=== PATIENT | female | born 1970 | race Two or more races ===

== ENCOUNTER 2017-03-05 08:00 | Outpatient (CLI) | payer MEDICAID, OTHER ==
[2017-03-05 14:21] LABS: BASOPHILS # (AUTO) 0.1 10^3/uL (0.0-0.1); BASOPHILS % (AUTO) 0.7 %; HCT - HEMATOCRIT 31.8 % (37.0-47.0); HGB - HEMOGLOBIN 10.3 g/dL (12.0-16.0); LYMPHOCYTES # (AUTO) 2.6 10^3/uL (1.5-3.5); LYMPHOCYTES % (AUTO) 37.7 %; MEAN CORPUSCULAR HEMOGLOBIN 21.7 pg (27.0-31.0); MEAN CORPUSCULAR HGB CONC 32.3 g/dL (32.0-36.0); MEAN CORPUSCULAR VOLUME 67.1 fL (81.0-99.0); MEAN PLATELET VOLUME 9.5 fL (7.9-10.8); MONOCYTES # (AUTO) 0.4 10^3/uL (0.0-1.0); MONOCYTES % (AUTO) 6.4 %; NEUTROPHILS # (AUTO) 3.8 10^3/uL (1.5-6.6); NEUTROPHILS % (AUTO) 55.2 %; NUCLEATED RED BLOOD CELLS AUTO 0.3 /100WBC; RED BLOOD COUNT 4.73 10^6/uL (4.20-5.40); RED CELL DISTRIBUTION WIDTH 15.4 % (12.0-15.0); UNCORRECTED WHITE BLOOD COUNT 6.9 x10^3/uL; WHITE BLOOD COUNT 6.9 x10^3/uL (4.8-10.8)
[2017-03-05 14:37] LABS: HEMOGLOBIN A1C 0.47 g/dL
[2017-03-05 14:48] LABS: ALBUMIN/GLOBULIN RATIO 1.2 (1.0-2.2); BILIRUBIN,TOTAL 0.9 mg/dL (0.2-1.0); BUN - BLOOD UREA NITROGEN 11 mg/dL (6-20); CALCIUM 8.9 mg/dL (8.5-10.3); CARBON DIOXIDE - CO2 25 mmol/L (21-32); CHLORIDE 103 mmol/L (101-111); CHOLESTEROL 172 mg/dL; CREATININE 0.6 mg/dL (0.4-1.0); GFR - MDRD 109 (>89); GLUCOSE 126 mg/dL (70-100); HDL CHOLESTEROL 43 mg/dL; PLATELET ESTIMATE, MANUAL NORMAL (130-450,000) (NORMAL); PLATELET MORPHOLOGY RARE GIANT PLATELETS (NORMAL); POTASSIUM 3.7 mmol/L (3.5-5.0); SODIUM 137 mmol/L (135-145); TOTAL PROTEIN 7.4 g/dL (6.7-8.2); TRIGLYCERIDES 210 mg/dL; VLDL CHOLESTEROL 42 mg/dL
[2017-03-05 14:49] LABS: WBC MORPHOLOGY (MULTIPLE) NORMAL APPEARANCE (NORMAL)
== END 2017-03-05 23:59 ==
LOC: LAB.N 08:00
PROVIDERS: ATTEND Family Medicine
DX: E11.9 Type 2 diabetes mellitus without complications (principal); E66.9 Obesity, unspecified; F41.1 Generalized anxiety disorder; Z51.81 Encounter for therapeutic drug level monitoring; Z79.899 Other long term (current) drug therapy
CPT/HCPCS: 36415; 80053; 80061; 83036; 84443; 85025

== ENCOUNTER 2017-05-30 10:14 | Outpatient (CLI) | payer MEDICAID ==
--- NOTE | 2017-06-03 17:30 | Mammography Report ---
DIGITAL SCREENING MAMMOGRAM: 05/30/2017 CLINICAL INDICATION: A 47-year-old with history of benign breast biopsy for screening. COMPARISON: Films from [place], [place] dated 07/24/2009, 11/11/2007, 04/16/2005. TECHNIQUE: Routine CC and MLO projections as well as bilateral laterally exaggerated craniocaudal views were obtained of the breasts. FINDINGS: The breasts demonstrate scattered fibroglandular densities bilaterally. Postbiopsy changes in the right upper outer posterior breast are stable. A few punctate, typically benign calcifications are present. No suspicious masses, clustered microcalcifications, or regions of architectural distortion are identified. IMPRESSION: BENIGN FINDINGS. RECOMMENDATION: Routine annual screening unless otherwise clinically indicated. BIRADS category 2 benign findings. STANDARD QUALIFYING STATEMENTS 1. This examination was reviewed with the aid of Computed-Aided Detection (CAD). 2. A negative or benign imaging report should not delay biopsy if clinically suspicious findings are present. Consider surgical consultation if warranted. More than 5% of cancers are not identified by imaging. 3. Dense breasts may obscure an underlying neoplasm. TD: 06/03/2017 17:29
== END 2017-05-30 10:15 | disposition home or self-care (01) ==
LOC: DI.N 10:14
PROVIDERS: ATTEND Nurse Practitioner Gerontology
DX: Z12.31 Encounter for screening mammogram for malignant neoplasm of breast (principal)
CPT/HCPCS: 77067

== ENCOUNTER 2017-06-18 13:19 | Outpatient (CLI) | payer MEDICAID ==
[2017-06-18 19:19] LABS: CALCIUM 9.1 mg/dL (8.5-10.3); CREATININE 0.5 mg/dL (0.4-1.0)
[2017-06-18 19:22] LABS: HB2 TOTAL 12.1 g/dL; HEMOGLOBIN A1C 0.7 g/dL; HEMOGLOBIN A1C % 7.4 % (4.6-6.2)
== END 2017-06-18 13:20 | disposition home or self-care (01) ==
LOC: LAB.N 13:19
PROVIDERS: ATTEND Family Medicine
DX: E11.9 Type 2 diabetes mellitus without complications (principal)
CPT/HCPCS: 36415; 80048; 83036

== ENCOUNTER 2017-09-13 11:16 | Emergency (ER) | payer OTHER, MEDICAID ==
[2017-09-13] MEDS ORDERED: TETANUS/DIPHTHERIA/PERTUSSIS 0.5 ML SYRINGE IM ONE (11:59)
--- NOTE | 2017-09-13 12:17 | ED Physician Documentation ---
History of Present Illness - Stated complaint Stated Complaint: FALL, FACIAL PAIN - Chief complaint Chief Complaint: Laceration - Additonal information Additional information: hx from pt slip and fall working at [employer] small lips lacs no LOC no DEXTER no neck pain no ext injury last tetanus > 10 yr wants to go back to work Review of Systems Ears: denies: Drainage/discharge Nose: denies: Epistaxis Throat: reports: Other (lip lac no broken teeth) Musculoskeletal: denies: Neck pain, Back pain Neurologic: reports: Head injury. 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 : None HEENT: None Psych: Depression, Anxiety Musculoskeletal: Osteoarthritis, Fatigue, Scoliosis, Chronic back pain Derm: None - Past Surgical History Past Surgical History: Yes General: 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 /DITCHING MACHINE OPERATOR: Other HEENT: Tonsil/Adenoidectomy - Present Medications Home Medications: Ambulatory Orders Medication Instructions Recorded Confirmed Cholecalciferol [Vitamin D3] 5,000 unit PO DAILY 07/10/16 07/10/16 Citalopram [CeleXA] 20 mg PO DAILY 07/10/16 07/10/16 Ferrous Sulfate 325 mg PO DAILY 07/10/16 07/10/16 Metformin HCl 500 mg PO DAILY 07/10/16 07/10/16 OLANZapine [Olanzapine] 5 mg PO DAILY 07/10/16 07/10/16 - Allergies Allergies/Adverse Reactions: Allergies Allergy/AdvReac Type Severity Reaction Status Date / Time Penicillins Allergy Intermediate Rash Verified 09/13/17 11:40 - Social History Does the pt smoke?: No Smoking Status: Never smoker Does the pt drink ETOH?: No Does the pt have substance abuse?: No - Immunizations Immunizations are current?: Yes Immunizations: TDAP >10years/unknown - POLST Patient has POLST: No PD ED PE NORMAL - Vitals Vital signs reviewed: Yes - HEENT HEENT: PERRL, Other (small inner upper and lower lip lacs, not through and through, no boken teeth nl bite) - Neck Neck: No bony TTP - Cardiac Cardiac: RRR - Respiratory Respiratory: No respiratory distress, Clear bilaterally - Neuro Neuro: Alert and oriented X 3 Eye Opening: Spontaneous Motor: Obeys Commands Verbal: Oriented GCS Score: 15 Results - Vitals Vitals: Vital Signs - 24 hr 09/13/17 11:18 Temperature 36.6 C Heart Rate 97 Respiratory 18 Rate Blood Pressure 139/90 H O2 Saturation 95 Oxygen O2 Source Room air PD MEDICAL DECISION MAKING - Sepsis Event Vital Signs: Vital Signs - 24 hr 09/13/17 11:18 Temperature 36.6 C Heart Rate 97 Respiratory 18 Rate Blood Pressure 139/90 H O2 Saturation 95 Oxygen O2 Source Room air Departure - Departure Disposition: 01 Home, Self Care Clinical Impression: Fall from slipping on wet surface Qualifiers: Encounter type: initial encounter Qualified Code(s): W01.0XXA - Fall on same level from slipping, tripping and stumbling without subsequent striking against object, initial encounter Lip laceration Qualifiers: Encounter type: initial encounter Qualified Code(s): S01.511A - Laceration without foreign body of lip, initial encounter Condition: Good Instructions: ED Laceration Mouth, ED Head Injury Closed Follow-Up: Osman Miller MD [Primary Care Provider] - Comments: Keep the wounds clean by swishing salt water or antibacterial mouthwash every few hours and after eating Please read over the head injury precautions and return if worse in any way
[2017-09-13] MEDS ORDERED: ACETAMINOPHEN 325 MG TABLET PO STA (12:26)
[2017-09-13 12:32] VITALS: BP 128/90
== END 2017-09-13 12:32 | disposition home or self-care (01) ==
LOC: ED 11:16
DX: S01.511A Laceration without foreign body of lip, initial encounter (principal); W01.0XXA Fall on same level from slipping, tripping and stumbling without subsequent striking against object, initial encounter; Y92.129 Unspecified place in nursing home as the place of occurrence of the external cause; Y99.0 Civilian activity done for income or pay; E11.9 Type 2 diabetes mellitus without complications; Z79.84 Long term (current) use of oral hypoglycemic drugs
CPT/HCPCS: 90471; 90715; 99282; 99283; A9270

== ENCOUNTER 2017-10-17 14:52 | Outpatient (CLI) | payer MEDICAID ==
[2017-10-17 19:44] LABS: CALCIUM 9.2 mg/dL (8.5-10.3); CREATININE 0.5 mg/dL (0.4-1.0)
[2017-10-17 20:04] LABS: HB2 TOTAL 10.9 g/dL; HEMOGLOBIN A1C 0.39 g/dL; HEMOGLOBIN A1C % 5.4 % (4.6-6.2)
== END 2017-10-17 14:53 | disposition home or self-care (01) ==
LOC: LAB.N 14:52
PROVIDERS: ATTEND Family Medicine
DX: E11.9 Type 2 diabetes mellitus without complications (principal)
CPT/HCPCS: 36415; 80048; 83036

== ENCOUNTER 2018-06-12 13:36 | Outpatient (CLI) | payer MEDICAID ==
--- NOTE | 2018-06-12 14:36 | Mammography Report ---
Reason: ENCNTR SCREEN MAMMOGRAM FOR MALIGNANT NEOPLASM OF Procedure Date: 06/12/2018 Accession Number: [id number] / [id number] Procedure: MGN - Screening Mammo Dig Bilat CPT Code: FULL RESULT: EXAM: Screening Mammo Dig Bilat DATE: 06/12/2018 2:02 PM CLINICAL HISTORY: Screening exam. Benign right breast biopsy approximately 15 years previously. No reported risk factors. TECHNIQUE: Bilateral CC, laterally exaggerated CC, MLO views were obtained. COMPARISON: 05/30/2017. FINDINGS: The breasts demonstrate diffuse fatty replacement bilaterally. Postbiopsy changes in the right upper outer posterior breast are stable. No suspicious masses, clustered microcalcifications, or regions of architectural distortion are identified. IMPRESSION: Benign findings RECOMMENDATION: Routine annual screening unless otherwise clinically indicated. BIRADS CATEGORY 2: Benign findings STANDARD QUALIFYING STATEMENTS: 1. This examination was reviewed with the aid of Computer-Aided Detection (CAD). 2. A negative or benign imaging report should not delay biopsy if clinically suspicious findings are present. Consider surgical consultation if warrented. More than 5% of cancers are not identified by imaging. 3. Dense breasts may obscure an underlying neoplasm.
== END 2018-06-12 13:37 | disposition home or self-care (01) ==
LOC: DI.N 13:36
PROVIDERS: ATTEND Nurse Practitioner Gerontology
DX: Z12.31 Encounter for screening mammogram for malignant neoplasm of breast (principal)
CPT/HCPCS: 77067

== ENCOUNTER 2018-10-05 08:00 | Outpatient (CLI) | payer MEDICAID ==
[2018-10-05 12:05] LABS: BASOPHILS # (AUTO) 0.1 10^3/uL (0.0-0.1); BASOPHILS % (AUTO) 1.2 %; EOSINOPHILS # (AUTO) 0.1 10^3/uL (0.0-0.7); EOSINOPHILS % (AUTO) 1.7 %; HGB - HEMOGLOBIN 9.6 g/dL (12.0-16.0); LYMPHOCYTES % (AUTO) 33.4 %; MEAN CORPUSCULAR HEMOGLOBIN 21.6 pg (27.0-31.0); MEAN CORPUSCULAR HGB CONC 31.9 g/dL (32.0-36.0); MEAN CORPUSCULAR VOLUME 67.8 fL (81.0-99.0); MONOCYTES # (AUTO) 0.3 10^3/uL (0.0-1.0); MONOCYTES % (AUTO) 5.5 %; NEUTROPHILS # (AUTO) 3.5 10^3/uL (1.5-6.6); NEUTROPHILS % (AUTO) 57.7 %; PLT - PLATELET COUNT 376 10^3/uL (130-450); RED BLOOD COUNT 4.44 10^6/uL (4.20-5.40)
[2018-10-05 12:37] LABS: HB2 TOTAL 10.5 g/dL; HEMOGLOBIN A1C 0.77 g/dL; HEMOGLOBIN A1C % 8.9 % (4.6-6.2)
[2018-10-05 12:39] LABS: BUN - BLOOD UREA NITROGEN 8 mg/dL (6-20); CARBON DIOXIDE - CO2 23 mmol/L (21-32); CHLORIDE 105 mmol/L (101-111); SODIUM 138 mmol/L (135-145)
[2018-10-05 12:40] LABS: ALBUMIN 3.9 g/dL (3.2-5.5); ALBUMIN/GLOBULIN RATIO 1.1 (1.0-2.2); ALKALINE PHOSPHATASE 68 IU/L (42-121); ALT ALANINE AMINOTRANSFERASE 14 IU/L (10-60); AST ASPARTATE AMINOTRANSFERASE 15 IU/L (10-42); BILIRUBIN,TOTAL 0.8 mg/dL (0.2-1.0); CALCIUM 8.9 mg/dL (8.5-10.3); CHOL/HDL RATIO 4.6 (<4.4); CHOLESTEROL 199 mg/dL; CREATININE 0.6 mg/dL (0.4-1.0); GFR - MDRD 108 (>89); GLUCOSE 243 mg/dL (70-100); HDL CHOLESTEROL 43 mg/dL; LDL CHOLESTEROL,CALCULATED 121 mg/dL; LDL/HDL RATIO 2.8 (<4.4); TOTAL PROTEIN 7.4 g/dL (6.7-8.2); VLDL CHOLESTEROL 35 mg/dL
[2018-10-05 13:36] LABS: PLATELET ESTIMATE, MANUAL NORMAL (130-450,000) (NORMAL); PLATELET MORPHOLOGY NORMAL APPEARANCE (NORMAL)
== END 2018-10-05 23:59 | disposition home or self-care (01) ==
LOC: LAB.N 08:00
PROVIDERS: ATTEND Nurse Practitioner Gerontology
DX: E11.9 Type 2 diabetes mellitus without complications (principal)
CPT/HCPCS: 36415; 80053; 80061; 83036; 83721; 85025

== ENCOUNTER 2019-04-30 08:00 | Outpatient (CLI) | payer MEDICAID ==
[2019-04-30 18:44] LABS: CREATININE 0.6 mg/dL (0.4-1.0)
[2019-04-30 18:57] LABS: HB2 TOTAL 11.5 g/dL; HEMOGLOBIN A1C 1.36 g/dL
== END 2019-04-30 23:59 | disposition home or self-care (01) ==
LOC: LAB.N 08:00
PROVIDERS: ATTEND Nurse Practitioner Gerontology
DX: E11.9 Type 2 diabetes mellitus without complications (principal)
CPT/HCPCS: 36415; 80048; 83036

== ENCOUNTER 2019-05-15 20:46 | Emergency (ER) | payer MEDICAID ==
[2019-05-15] MEDS ORDERED: INSULIN REGULAR HUMAN 100 UNIT/1 ML 10 ML MDV IVP STA ×2 (21:10→22:29)
[2019-05-15] MEDS ORDERED: SODIUM CHLORIDE 0.9% 1,000 ML IV ONE (21:10)
[2019-05-15 21:32] LABS: BASOPHILS # (AUTO) 0.1 10^3/uL (0.0-0.1); BASOPHILS % (AUTO) 0.8 %; EOSINOPHILS # (AUTO) 0.1 10^3/uL (0.0-0.7); EOSINOPHILS % (AUTO) 1.3 %; HGB - HEMOGLOBIN 10.9 g/dL (12.0-16.0); LYMPHOCYTES # (AUTO) 2.7 10^3/uL (1.5-3.5); MEAN CORPUSCULAR HEMOGLOBIN 20.1 pg (27.0-31.0); MEAN CORPUSCULAR HGB CONC 31.3 g/dL (32.0-36.0); MEAN CORPUSCULAR VOLUME 64.2 fL (81.0-99.0); MONOCYTES # (AUTO) 0.5 10^3/uL (0.0-1.0); MONOCYTES % (AUTO) 6.6 %; NEUTROPHILS # (AUTO) 4.5 10^3/uL (1.5-6.6); NEUTROPHILS % (AUTO) 56.8 %; PLT - PLATELET COUNT 311 10^3/uL (130-450); RED BLOOD COUNT 5.42 10^6/uL (4.20-5.40); RED CELL DISTRIBUTION WIDTH 14.1 % (12.0-15.0); WHITE BLOOD COUNT 7.8 x10^3/uL (4.8-10.8)
[2019-05-15 21:36] LABS: VBG BASE EXCESS -1.4 mmol/L (-2 - +2); VBG PCO2 30.5 mmHg (41-51); VBG PH 7.466 (7.31-7.41); VBG PO2 104.4 mmHg (25-47); VBG TOTAL CO2 22.4 mmol/L (24-29)
[2019-05-15 21:53] LABS: BUN - BLOOD UREA NITROGEN 15 mg/dL (6-20); CALCIUM 9.1 mg/dL (8.5-10.3); CARBON DIOXIDE - CO2 21 mmol/L (21-32); CHLORIDE 103 mmol/L (101-111); CREATININE 0.6 mg/dL (0.4-1.0); GFR - MDRD 107 (>89); GLUCOSE 406 mg/dL (70-100); SODIUM 135 mmol/L (135-145)
[2019-05-15 22:00] LABS: KETONES, SERUM (ACETEST) NEGATIVE (NEGATIVE)
[2019-05-15 22:06] LABS: PLATELET ESTIMATE, MANUAL NORMAL (130-450,000) (NORMAL); PLATELET MORPHOLOGY NORMAL APPEARANCE (NORMAL)
--- NOTE | 2019-05-15 22:32 | ED Physician Documentation ---
History of Present Illness - Stated complaint Stated Complaint: HIGH BLOOD SUGAR - Chief complaint Chief Complaint: General - History obtained from History obtained from: Patient - Additonal information Additional information: Patient comes emergency department complaining of elevated blood sugar for at least the last 2 weeks. She states she has had diabetes for the last 4 years, but does not know how high her blood sugars normally run, because she does not really check them. She states she knows she should eat less sugar. She states that she has been thirsty over the last couple weeks and has been urinating a lot, so she thinks her blood sugar is higher now than it usually has been. She denies any nausea or vomiting. No fevers. No chest pain or shortness of breath. No cough or rhinorrhea. No dysuria. Patient states she does not feel ill in any other way. She states she takes metformin 1000 mg twice daily, as well as 2 other diabetic medications orally, but she does not remember which medications these are. She states she does not take insulin. She states as far as other symptoms Thatshe has been noticing lately she seems to be somewhat forgetful. As an example, she left her car running today when she went to a restaurant instead of turning it off and taking the keys out. No other complaints at this time. Review of Systems Ten Systems: 10 systems reviewed and negative Constitutional: reports: Reviewed and negative Eyes: reports: Reviewed and negative Ears: reports: Reviewed and negative Nose: reports: Reviewed and negative Throat: reports: Reviewed and negative Cardiac: reports: Reviewed and negative Respiratory: reports: Reviewed and negative GI: reports: Reviewed and negative : reports: Frequency Skin: reports: Reviewed and negative Musculoskeletal: reports: Reviewed and negative Neurologic: reports: Confused Psychiatric: reports: Reviewed and negative Endocrine: reports: Reviewed and negative Immunocompromised: reports: Reviewed and negative PD PAST MEDICAL HISTORY - Past Medical History Past Medical History: Yes Cardiovascular: High cholesterol Respiratory: None Endocrine/Autoimmune: Type 2 diabetes GI: None 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 : None HEENT: None Psych: Depression, Anxiety Musculoskeletal: Osteoarthritis, Fatigue, Scoliosis, Chronic back pain Derm: None - Past Surgical History Past Surgical History: Yes General: 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 /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: Other HEENT: Tonsil/Adenoidectomy - Present Medications Home Medications: Ambulatory Orders Medication Instructions Recorded Confirmed Cholecalciferol [Vitamin D3] 5,000 unit PO DAILY 07/10/16 05/15/19 Metformin HCl 500 mg PO DAILY 07/10/16 05/15/19 OLANZapine [Olanzapine] 5 mg PO DAILY 07/10/16 05/15/19 Sertraline [Zoloft] 2 DAILY 05/15/19 - Allergies Allergies/Adverse Reactions: Allergies Allergy/AdvReac Type Severity Reaction Status Date / Time Penicillins Allergy Intermediate Rash Verified 09/13/17 11:40 - Social History Does the pt smoke?: No Smoking Status: Never smoker Does the pt drink ETOH?: No Does the pt have substance abuse?: No - Immunizations Immunizations are current?: Yes Immunizations: TDAP >10years/unknown - POLST Patient has POLST: No PD ED PE NORMAL - Vitals Vital signs reviewed: Yes - General General: Alert and oriented X 3, No acute distress, Other (Patient is alert and appropriate.) - HEENT HEENT: Atraumatic, PERRL, EOMI - Neck Neck: Supple, no meningeal sign - Cardiac Cardiac: RRR, No murmur - Respiratory Respiratory: Clear bilaterally - Abdomen Abdomen: Soft, Non tender, Non distended - Derm Derm: Normal color, Warm and dry, No rash - Extremities Extremities: No deformity - Neuro Neuro: Alert and oriented X 3, sign hanger 2-12 intact, No motor deficit, Normal speech - Psych Psych: Normal mood, Normal affect Results - Vitals Vitals: Vital Signs - 24 hr 05/15/19 05/15/19 05/15/19 20:50 21:33 23:00 Temperature 36.7 C 36.8 C Heart Rate 110 H 100 99 Respiratory 16 18 Rate Blood Pressure 135/88 H 119/89 H 119/87 H O2 Saturation 98 100 98 05/15/19 05/16/19 23:48 00:34 Temperature 36.8 C Heart Rate 98 88 Respiratory 14 16 Rate Blood Pressure 109/70 121/90 H O2 Saturation 98 100 Oxygen O2 Source Room air - Labs Labs: Laboratory Tests 05/15/19 05/15/19 05/15/19 20:07 20:07 20:07 WBC 7.8 RBC 5.42 H Hgb 10.9 L Hct 34.8 L MCV 64.2 L MCH 20.1 L MCHC 31.3 L RDW 14.1 Plt Count 311 MPV TNP Neut # (Auto) 4.5 Lymph # (Auto) 2.7 Taney # (Auto) 0.5 Eos # (Auto) 0.1 Baso # (Auto) 0.1 Absolute Nucleated RBC 0.00 Nucleated RBC % 0.0 Manual Slide Review Indicated Platelet Estimate NORMAL (130-450,000) Platelet Morphology NORMAL APPEARANCE RBC Morph Micro Appear 1+ HYPOCHROMASIA VBG pH 7.466 H VBG pCO2 30.5 L VBG pO2 104.4 H VBG HCO3 21.5 L VBG Total CO2 22.4 L VBG O2 Saturation 97.5 H VBG Base Excess -1.4 Sodium 135 Potassium 3.2 L Chloride 103 Carbon Dioxide 21 Anion Gap 11.0 BUN 15 Creatinine 0.6 Estimated GFR (MDRD) 107 Glucose 406 H POC Whole Bld Glucose Calcium 9.1 Serum Ketones NEGATIVE 05/15/19 05/15/19 05/15/19 21:02 22:44 23:09 WBC RBC Hgb Hct MCV MCH MCHC RDW Plt Count MPV Neut # (Auto) Lymph # (Auto) Taney # (Auto) Eos # (Auto) Baso # (Auto) Absolute Nucleated RBC Nucleated RBC % Manual Slide Review Platelet Estimate Platelet Morphology RBC Morph Micro Appear VBG pH VBG pCO2 VBG pO2 VBG HCO3 VBG Total CO2 VBG O2 Saturation VBG Base Excess Sodium Potassium Chloride Carbon Dioxide Anion Gap BUN Creatinine Estimated GFR (MDRD) Glucose POC Whole Bld Glucose 428 H 268 H 188 H Calcium Serum Ketones 05/16/19 00:26 WBC RBC Hgb Hct MCV MCH MCHC RDW Plt Count MPV Neut # (Auto) Lymph # (Auto) Taney # (Auto) Eos # (Auto) Baso # (Auto) Absolute Nucleated RBC Nucleated RBC % Manual Slide Review Platelet Estimate Platelet Morphology RBC Morph Micro Appear VBG pH VBG pCO2 VBG pO2 VBG HCO3 VBG Total CO2 VBG O2 Saturation VBG Base Excess Sodium Potassium Chloride Carbon Dioxide Anion Gap BUN Creatinine Estimated GFR (MDRD) Glucose POC Whole Bld Glucose 100 Calcium Serum Ketones PD MEDICAL DECISION MAKING - ED course Complexity details: reviewed old records, reviewed results, re-evaluated patient, considered differential, d/w patient ED course: Patient was evaluated initially with basic labs, which showed an elevated blood sugar of 408, and with ABG, which did not show acidosis. Serum ketones were negative. The patient was initially given 8 units of regular insulin IV, and repeat Accu-Chek was found to be higher than the initial blood sugar. As such, she was given a second IV dose of regular insulin at 10 units.Repeat blood sugar was found to be 276. Following this it was checked 1 more time and found to be 102 hours after the second dose of insulin. The patient reported feeling much better. However, given that her blood sugar was only 100, I did asked nursing staff to give her a snack here in the ED to make sure that her sugar did not drop too low over the course of the rest of the night.I felt the patient was stable for discharge home. I have increased her metformin, which is the only diabetic medication that she can confirm taking, to 1250 mg twice daily. This is maximum dosing for this medication, and I have advised the patient that it is very important that she keep her appointment with her primary care physician in 2 weeks to reevaluate her diabetic regimen. I have also advised the patient to be sure to check her blood sugars several times a day, including fasting and before and after meals, and keep track of the numbers so that she can show her primary care physician how her sugars have been doing on the new metformin dosing. We have discussed the usual indications for return, as well. Departure - Departure Disposition: 01 Home, Self Care Clinical Impression: Hyperglycemia, Poorly controlled diabetes mellitus Condition: Fair Instructions: Diabetes Type 2 Coping, ED Hyperglycemia Diabetic Comments: Your blood sugar is much better than it was when you first came here. The remainder of your labs actually look okay. It is very important that you monitor your blood sugars at home, and that you and your doctor are able to figure out a way to help you maintain better control of your sugars. If your sugars continue to run this high, you are at high risk for serious complications of your diabetes, such as kidney failure, neuropathy, high blood pressure, and heart disease. We will have you increase your metformin to 1250 mg twice daily, starting tomorrow. This is the maximum dose you can take for metformin. When you see your doctor on the , please talk to her about whether this is a good long-term plan. Since we do not know the other diabetic medications you are on, and this is the only one we can adjust at this time. Please be sure to keep careful track of your blood sugars throughout the day every day so that you can give your doctor some information on how your blood sugars have been doing on the new dosing. Discharge Date/Time: 05/16/19 00:45
[2019-05-16 00:35] VITALS: BP 121/90
== END 2019-05-16 00:45 | disposition home or self-care (01) ==
LOC: ED 20:46
DX: E11.65 Type 2 diabetes mellitus with hyperglycemia (principal); Z79.84 Long term (current) use of oral hypoglycemic drugs
CPT/HCPCS: 80048; 82009; 82803; 85025; 96360; 99283; 99284; J1815

== ENCOUNTER 2020-01-16 15:43 | Outpatient (CLI) | payer MEDICAID ==
--- NOTE | 2020-01-17 19:00 | Ultrasound Report ---
PROCEDURE: Pelvic w/Transvaginal INDICATIONS: ABN VAGINAL BLEEDING TECHNIQUE: Real-time scanning was performed of the pelvic organs, with image documentation. Additional endovagi nal scanning was necessary due to incomplete visualization of the adnexal and endometrial structures by transabdominal scanning. COMPARISON: None. FINDINGS: Transabdominal scanning: Limited scanning through the kidneys shows no hydronephrosis. No pathologi c free abdominal or pelvic fluid. Endovaginal scanning: Uterus: Uterus is normal in size at 11.0 x 4.3 x 5.7 cm. The endometrium measures 12 mm in combined thickness. Within the lower uterine segment-cervical junction there is mildly vascular, heterogeneo us cystic area measuring approximately 1.9 x 1.2 cm in transverse dimension. Within the left, anterior uterine fundus, there is a subserosal fibroid measuring 3.0 x 3.3 x 3.1 cm. There is a right anterior intramural fibroid measuring 1.2 x 0.9 x 1.1 cm. Ovaries: Right ovary measures 1.7 x 1.3 x 1.4 cm with ovarian volume of 1.5 mL. Left ovary measures 2.4 x 2.0 x 2.8 cm with ovarian volume of 6.8 mL. Small left ovarian complicated cyst measuring 1.3 c m noted. A second partially exophytic cyst measuring 1.2 x 0.9 x 1.1 cm also noted. This appears rela tively simple in sonographic appearance. No suspicious solid ovarian mass lesions. IMPRESSION: 1. There is a heterogeneous, somewhat cystic-appearing area involving the lower uterine segment and c ervical junction measuring approximately 1.9 cm in size and demonstrating minimal vascularity. This i s nonspecific and may represent a few clustered endometrial cysts. No suspicious endometrial mass or focal vascularity identified. Consider follow-up imaging in 6-12 weeks. 2. Intrauterine fibroids with a 3.3 cm subserosal left fundal fibroid and a 1.2 cm right anterior int ramural fibroid. Reviewed by: Randall Tineo MD on 01/17/2020 5:58 PM [facility] Approved by: Randall Tineo MD on 01/17/2020 5:58 PM [place] Station ID: [id number]
== END 2020-01-16 15:44 | disposition home or self-care (01) ==
LOC: DI 15:43
PROVIDERS: ATTEND Nurse Practitioner Family
DX: R93.89 Abnormal findings on diagnostic imaging of other specified body structures (principal); D25.2 Subserosal leiomyoma of uterus; D25.1 Intramural leiomyoma of uterus
CPT/HCPCS: 76830; 76856

== ENCOUNTER 2020-02-13 16:15 | Outpatient (CLI) | payer MEDICAID ==
--- NOTE | 2020-02-13 18:27 | Ultrasound Report ---
PROCEDURE: Pelvic w/Transvaginal INDICATIONS: ABN VAGINAL BLEEDING TECHNIQUE: Real-time scanning was performed of the pelvic organs, with image documentation. Additional endovagi nal scanning was necessary due to incomplete visualization of the adnexal and endometrial structures by transabdominal scanning. COMPARISON: 01/16/2020 FINDINGS: Transabdominal scanning: Limited scanning through the kidneys shows no hydronephrosis. No pathologi c free abdominal or pelvic fluid. Endovaginal scanning: Uterus: Uterus is anteverted and measures 10.0 x 4.2 x 5.3 cm. Within the right uterine fundus is a heterogeneous hypoechoic intramural fibroid measuring 1.1 x 0.9 x 1.0 cm. Large subserosal fibroid me asuring 3.6 x 2.5 x 2.9 cm with large cystic component is again identified likely representing degene ration. The endometrium within the body and fundus measures up to 5 mm in thickness. At the uterine c ervical junction there is focal thickening of the endometrium measuring up to 14 mm in thickness with multiple cysts. This is similar to comparison exam. There is mild internal vascularity. Ovaries: The right ovary measures 2.2 x 1.4 x 1.7 cm. The left ovary measures 3.9 x 2.7 x 2.4 cm. Wi thin the right ovary there is a simple cyst measuring 9 mm in greatest diameter. Within the left ovar y is a partially exophytic 2.0 x 3.1 x 2.3 cm simple cyst. IMPRESSION: Similar appearance of focal heterogeneous thickening with small cysts of the endometrium at the uteri ne cervical junction measuring 1.4 cm in thickness. This is not significantly changed from comparison . Consider sampling to exclude malignancy. Fibroid uterus. Reviewed by: Dash Ambrose DO on 02/13/2020 5:26 PM [facility] Approved by: Dash Ambrose DO on 02/13/2020 5:26 PM [facility] Station ID: [id number]
== END 2020-02-13 16:16 | disposition home or self-care (01) ==
LOC: DI 16:15
PROVIDERS: ATTEND Nurse Practitioner Family
DX: N85.8 Other specified noninflammatory disorders of uterus (principal)
CPT/HCPCS: 76830; 76856

== ENCOUNTER 2020-02-22 18:31 | Outpatient (CLI) | payer MEDICAID ==
--- NOTE | 2020-02-22 21:18 | Ultrasound Report ---
PROCEDURE: Pelvic w/Transvaginal INDICATIONS: ABNORMAL ULTRASOUND TECHNIQUE: Real-time scanning was performed of the pelvic organs, with image documentation. Additional endovagi nal scanning was necessary due to inc omplete visualization of the adnexal and endometrial structur es by transabdominal scanning. COMPARISON: 02/13/2020 FINDINGS: Transabdominal and endovaginal ultrasound was performed. The uterus measures 8.8 x 4.3 x 5.6 cm. The uterus is anteverted. Uterine echotexture is heterogenous. The endometrium measures 6.5 mm at the fun dus and 13.6 mm at the lower uterine segment. In the lower uterine segment there are multiple fluid/c ystic foci, unchanged compared to the prior ultrasound. 2 fibroids are seen, one on the left anteriorly which is subserosal/pedunculated measuring 3.2 x 2.3 x 3.4 cm with a cyst measuring 2.3 x 1.5 cm, relatively unchanged compared to the prior ultrasound. A second is on the right anteriorly which is intramural measuring 1.2 x 1.0 x 0.9 cm, relatively uncha nged compared to the prior ultrasound. Both ovaries have a normal size and appearance with normal vascular flow. On the right there is a 1.7 cm cyst. On the left there is a 2.8 cm cyst. No adnexal fluid. Both kidneys have a normal appearance. IMPRESSION: 1. Heterogenous focal thickening with small cysts of the endometrium at the uterine/cervical junction measuring 13.6 mm. Not significantly changed compared to 02/13/2020. The patient is status post cerv ical biopsy. 2. Unchanged fibroids as above. 3. No acute abnormality. Reviewed by: Adrien Hewitt on 02/22/2020 9:17 PM PST Approved by: Adrien Hewitt on 02/22/2020 9:17 PM PST Station ID: [id number]
== END 2020-02-22 18:32 | disposition home or self-care (01) ==
LOC: DI 18:31
PROVIDERS: ATTEND Obstetrics & Gynecology
DX: R93.89 Abnormal findings on diagnostic imaging of other specified body structures (principal); N85.8 Other specified noninflammatory disorders of uterus; N83.202 Unspecified ovarian cyst, left side; N83.201 Unspecified ovarian cyst, right side; D25.1 Intramural leiomyoma of uterus; D25.2 Subserosal leiomyoma of uterus

== ENCOUNTER 2020-02-25 16:49 | Outpatient (CLI) | payer MEDICAID ==
[2020-02-25 19:42] LABS: HEMOGLOBIN A1c% 8.9 % (4.27-6.07)
== END 2020-02-25 16:50 | disposition home or self-care (01) ==
LOC: LAB 16:49
PROVIDERS: ATTEND Obstetrics & Gynecology
DX: E11.8 Type 2 diabetes mellitus with unspecified complications (principal)
CPT/HCPCS: 83036

== ENCOUNTER 2020-03-08 12:21 | Outpatient (CLI) | payer MEDICAID | END 2020-03-08 12:22 | disposition home or self-care (01) | LOC: COV 12:21 | PROVIDERS: ATTEND Family Medicine | DX: R11.10 Vomiting, unspecified (principal); Z20.828 Contact with and (suspected) exposure to other viral communicable diseases ==

== ENCOUNTER 2020-03-22 12:28 | Outpatient (CLI) | payer MEDICAID | END 2020-03-22 12:29 | disposition home or self-care (01) | LOC: RT 12:28 | PROVIDERS: ATTEND Obstetrics & Gynecology | DX: Z01.818 Encounter for other preprocedural examination (principal); N85.00 Endometrial hyperplasia, unspecified; R93.89 Abnormal findings on diagnostic imaging of other specified body structures | CPT/HCPCS: 93005 ==

== ENCOUNTER 2020-03-23 08:14 | Day surgery (SDC) | payer MEDICAID ==
[2020-03-23] MEDS ORDERED: LACTATED RINGERS 1,000 ML IV ONE ×2 (08:30→11:12)
[2020-03-23] MEDS ORDERED: BUPIVACAINE 0.5%-EPI 1:200000 PF 30 ML VIAL ONE (08:31)
[2020-03-23] MEDS ORDERED: GABAPENTIN 400 MG CAPSULE ONE (08:45)
[2020-03-23] MEDS ORDERED: CELECOXIB 100 MG CAPSULE PO ONE (08:45)
--- NOTE | 2020-03-23 09:18 | ANESTHESIA ---
Pre-Anesthesia VS, & Labs - Diagnosis thickened endometrium - Procedure hysteroscopy, D and C Height: 5 ft 1 in Weight (kg): 85 kg Body Mass Index: 35.4 BMI Classification: Obese - NPO >8 hours - Is Patient ?: No - Lab Results Current Lab Results: Laboratory Tests 03/23/20 09:03: POC Whole Bld Glucose 408 H 03/23/20 08:59: POC Whole Bld Glucose 403 H Home Medications and Allergies Home Medications: Ambulatory Orders Bupropion HCl [Wellbutrin Xl] 150 mg PO DAILY 03/21/20 Canagliflozin [Invokana] 300 mg PO DAILY 03/21/20 Glipizide 10 mg PO BID 03/21/20 Metformin HCl 1,000 mg PO BID 07/10/16 Sertraline [Zoloft] 100 mg PO DAILY 05/15/19 Bupropion HCl [Wellbutrin Xl] 150 mg PO DAILY 03/21/20 Canagliflozin [Invokana] 300 mg PO DAILY 03/21/20 Glipizide 10 mg PO BID 03/21/20 Allergies/Adverse Reactions: Allergies Allergy/AdvReac Type Severity Reaction Status Date / Time Penicillins Allergy Intermediate Rash Verified 09/13/17 11:40 Anes History & Medical History - Anesthetic History Anesthesia Complications: reports: No previous complications - Medical History Cardiovascular: reports: Murmur Pulmonary: reports: None Gastrointestinal: reports: None Urinary: reports: None Musculoskeletal: reports: Osteoarthritis, Fatigue, Scoliosis, Chronic back pain Endocrine/Autoimmune: reports: Type 2 diabetes Skin: reports: None Smoking Status: Never smoker History of Cancer?: No Other Past Medical History: Thalassemia - Surgical History General: 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 Eyes Ears Nose Throat (EENT): Tonsil/Adenoidectomy Gynecologic: Other Exam General: Alert Neck Mobility: Normal Mallampati classification: II Thyromental Distance: greater than 6 cm Respiratory: Lungs clear Cardiovascular: Regular rate, Other Plan Anesthesia Type: General Consent for Procedure(s) Verified and Reviewed: Yes Code Status: Attempt Resuscitation ASA classification: 3-Severe systemic disease Is this case an emergency?: No
[2020-03-23] MEDS ORDERED: INSULIN ASPART 300 UNIT/3 ML PEN SUBQ ONE ×2 (09:22→10:00)
[2020-03-23 09:38] LABS: B. PARAPERTUSSIS- RESP PCR PAN NOT DETECTED; B. PERTUSSIS- RESP PCR PANEL NOT DETECTED; C. PNEUMONIAE- RESP PCR PANEL NOT DETECTED; CORONAVIRUS 229E-RESP PCR NOT DETECTED; CORONAVIRUS HKU1-RESP PCR NOT DETECTED; CORONAVIRUS NL63-RESP PCR NOT DETECTED; CORONAVIRUS OC43-RESP PCR NOT DETECTED; HUMAN METAPNEUMOVIRUS NOT DETECTED; INFLUENZA A- RESP PCR PANEL NOT DETECTED; INFLUENZA B - RESP PCR PANEL NOT DETECTED; M. PNEUMONIAE- RESP PCR PANEL NOT DETECTED; PARAINFLUENZA VIRUS 1 NOT DETECTED; PARAINFLUENZA VIRUS 2 NOT DETECTED; PARAINFLUENZA VIRUS 3 NOT DETECTED; PARAINFLUENZA VIRUS 4 NOT DETECTED; RHINOVIRUS/ENTEROVIRUS NOT DETECTED; RSV- RESP PCR PANEL NOT DETECTED; SARS-CoV-2 -RESP PCR PANEL NOT DETECTED
[2020-03-23] MEDS ORDERED: LIDOCAINE-MPF 2% 5 ML VIAL ONE (10:15)
[2020-03-23] MEDS ORDERED: PROPOFOL 200 MG/20 ML VIAL IVP ONE (10:15)
[2020-03-23] MEDS ORDERED: fentaNYL 100 MCG/2 ML VIAL ONE (10:18)
[2020-03-23] MEDS ORDERED: MIDAZOLAM 2 MG/2 ML VIAL ONE (10:18)
[2020-03-23] MEDS ORDERED: BUPIVACAINE 0.5%-EPI 1:200000 PF 30 ML VIAL SUBQ ONE (10:43)
[2020-03-23] MEDS ORDERED: CLINDAMYCIN 600 MG/50 ML 50 ML IV ONE (10:54)
[2020-03-23] MEDS ORDERED: ONDANSETRON 4 MG/2 ML VIAL ONE (11:09)
--- NOTE | 2020-03-23 11:22 | OPERATIVE REPORT ---
Operative Report - Other Other Information/Narrative: Date of surgery: 03/23/2020 Preoperative diagnosis: Abnormal uterine bleeding, thickened endometrium on ultrasound Postoperative diagnosis: Same Procedure: Hysteroscopy, resection of endometrium with myosure, dilation and curettage Surgeon: Rosana Sloan MD Plastic Tool Maker: none Anesthesia: MAC Estimated Blood Loss: minimal Urine Output: N/A IV Fluids: Less than 1,000 cc Counts: correct sponge and instrument Complications: none apparent Disposition: stable to the recovery room Prophylaxis: SCD to bilateral lower extremities, clindamycin 600mg IV Specimens: endometrial curettings Findings: No polyps or fibroids seen. Plump homogeneous endometrium present. Normal uterine cavity. Both tubal ostea were seen. Counseling: Patient had a normal endometrial biopsy but in the setting of thick endometrium, a hysteroscopy was recommended to rule-out occult polyps. Description of Procedure: Patient was brought to the operating room where she underwent MAC anesthesia. She was placed in low lithotomy in yellow-fin stirrups. A bimanual exam revealed an axial uterus. She was prepped and draped in the usual sterile fashion. A speculum was placed and a single-tooth tenaculum was applied to the anterior lip of the cervis. 10cc of 0.5% marcaine was injected in divided doses as a paracervical block. The cervix was easily sequentially dilated to 7mm. The myosure hysteroscope was inserted into the uterine cavity. The endometrium was thoroughly sampled with the myosure. The hysteroscope was removed and a pass with a sharp curette was performed. The tenaculum was removed. Hemostasis was excellent. The speculum was removed. The blood and betadine were washed from her body. She was returned to the supine position prior to waking. Hysteroscopic fluid miss-match was 200cc of crystalloid.
[2020-03-23 11:54] VITALS: BP 122/88
--- OUTSIDE RECORDS SUMMARY | 2020-03-29 01:00 | EXTERNAL MEDICAL SUMMARY RPT | Continuity of Care Document ---
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 [facility] Unavailable Unavailable Problems date description facility 2020-01-14 00:00:00 US PELVIC/TRANSVAGINAL [facility] 2020-01-14 00:00:00 TSH WITH REFLEX TO FT4 [facility] 2020-01-14 00:00:00 Unspecified disorders of [facility] menstruation and other abnormal [facility] bleeding from female genital tract 2020-01-14 00:00:00 COMPREHENSIVE METABOLIC PANEL [facility] 2020-01-14 00:00:00 LIPIDS SCREEN [facility] 2020-01-14 00:00:00 HGBA1C [facility] 2020-01-14 00:00:00 CBC W/Diff/Plt [facility] 2020-01-14 00:00:00 Abnormal uterine and vaginal [facility] bleeding, unspecified [facility] 2020-01-14 00:00:00 Health-related behavior [facility] 2020-01-14 00:00:00 Exercise [facility] 2020-01-14 00:00:00 Never smoker [facility] 2020-01-14 00:00:00 Abnormal vaginal bleeding [facility] 2020-01-14 00:00:00 Alcohol use [facility] 2020-01-14 00:00:00 Total score? [facility] 2020-02-06 16:45 ABNORMAL [facility]PEC[facility] 2020-02-13 16:15 ABNORMAL UTERINE AND VAGINAL [facility] BLEEDING, UNSPECIFIED 2020-02-13 16:45 ABNORMAL UTERINE AND VAGINAL [facility] BLEEDING, UNSPECIFIED 2020-02-18 00:00:00 Other nonspecific (abnormal) [facility] findings on radiological and [facility] other examinations of body structure 2020-02-18 00:00:00 THIN PREP PAP with HPV 30+YRS [facility] OLD [facility] 2020-02-18 00:00:00 TISSUE EXAM BY PATHOLOGIST, [facility] Level V [facility] 2020-02-18 00:00:00 Abnormal findings on diagnostic [facility] imaging of other specified body [facility] structures 2020-02-18 00:00:00 [facility] 2020-02-18 00:00:00 Health-related behavior [facility] 2020-02-18 00:00:00 Exercise [facility] 2020-02-18 00:00:00 Never smoker [facility] 2020-02-18 00:00:00 Alcohol use [facility] 2020-02-18 00:00:00 Total score? [facility] 2020-02-21 00:00:00 US TRANSVAGINAL, NON-OB [facility] 2020-02-21 00:00:00 US PELVIS, NON-OB [facility] 2020-02-22 00:00:00 US PELVIC/TRANSVAGINAL [facility] 2020-02-25 00:00:00 HGBA1C [facility] 2020-02-25 00:00:00 Health-related behavior [facility] 2020-02-25 00:00:00 Exercise [facility] 2020-02-25 00:00:[facility] 2020-02-25 [facility]00[facility] 2020-02-25 00:00:00 [facility] 2020-02-25 16:49 TYPE 2 DIABETES MELLITUS WITH [facility] HYPERGLYCEMIA Allergies date description facility CEFACLOR [facility] CLARITHROMYCIN [facility] CLAVULANIC ACID [facility] DOXYCYCLINE [facility] MORPHINE [facility] NYSTATIN [facility] DEMEROL [facility] LEVOFLOXACIN [facility] PROPOFOL [facility] NO ALLERGY INFORMATION AVAILABLE [facility] GL[facility]EN [facility]AL [facility] LACTOSE [facility] ADHESIVE TAPE-SILICONES [facility] [place] [facility] ATORVASTATIN [facility] HYDROCODONE [facility] LISINOPRIL [facility] LORATADINE [facility] TETANUS TOXOID [facility] SULFA ANTIBIOTICS [facility] TETANUS TOXOIDS [facility] NO KNOWN ALLERGIES [facility] INSULIN [facility]EMIR [facility]ins [facility] Medications date description facility 2020-01-14 00:00:00 null [facility] 2020-01-14 00:00:00 null [facility] 2020-02-18 00:00:00 null [facility] 2020-02-18 00:00:00 null [facility] 2020-02-18 00:00:00 [facility] 2020-02-18 00:00:00 [facility]OSTOL [facility] Procedures date description facility 2020-01-14 00:00:00 US PELVIC[facility]AL [facility] date description facility 2020-01-14 00:00:00 First Vx - Ix admin via ID IM [facility] Care or jet injects without [facility] counseling by physician date description facility 2020-01-14 00:00:[address] [facility] Intramuscular Suspension [facility] Prefilled Syringe 0.5 ML date description facility 2020-01-14 [facility] date description facility 2020-01-25 00:00:00 [facility] date description facility 2020-01-25 [facility] date description facility 2020-02-18 00:00:00 ENDOMETRIAL [facility]OPSY [facility] date description facility 2020-02-18 00:00:00 THIN PREP PAP with HPV 30+YRS [facility] OLD [facility] date description facility 2020-02-18 00:00:00 [facility] date description facility 2020-02-18 [facility] Results Social History date description facility 2020-01-14 00:00:00 [facility]oker [facility] date description facility 2020-02-18 00:00:00 [facility] smoker [facility] date description facility 2020-02-25 00:00:00 [facility] smoker [facility] Social History date description facility 2020-01-14 00:00:00 [facility] smoker [facility] date description facility 2020-02-18 00:00:00 [facility] date description facility 2020-02-25 00:00:00 [facility] smoker [facility] date description facility [id number]
== END 2020-03-23 08:15 | disposition home or self-care (01) ==
LOC: SDS 08:14
PROVIDERS: ATTEND Obstetrics & Gynecology
PROC: 0UB98ZX Excision of Uterus, Via Natural or Artificial Opening Endoscopic, Diagnostic (ICD-10-PCS; principal; 2020-03-23 09:30)
DX: N84.0 Polyp of corpus uteri (principal); R93.89 Abnormal findings on diagnostic imaging of other specified body structures; E11.9 Type 2 diabetes mellitus without complications; D56.9 Thalassemia, unspecified; F32.9 Major depressive disorder, single episode, unspecified; F41.1 Generalized anxiety disorder; E66.9 Obesity, unspecified; Z68.35 Body mass index [BMI] 35.0-35.9, adult; M54.5 Low back pain; R01.1 Cardiac murmur, unspecified; Z79.84 Long term (current) use of oral hypoglycemic drugs
CPT/HCPCS: 0202U; 58558; A9270; J7120; 88305

== ENCOUNTER 2020-07-17 08:00 | Outpatient (CLI) | payer MEDICAID ==
[2020-07-17 12:19] LABS: BASOPHILS % (AUTO) 0.6 %; EOSINOPHILS # (AUTO) 0.2 10^3/uL (0.0-0.7); EOSINOPHILS % (AUTO) 3.6 %; HCT - HEMATOCRIT 30.2 % (37.0-47.0); HGB - HEMOGLOBIN 9.4 g/dL (12.0-16.0); LYMPHOCYTES # (AUTO) 1.6 10^3/uL (1.5-3.5); LYMPHOCYTES % (AUTO) 24.7 %; MEAN CORPUSCULAR HEMOGLOBIN 20.9 pg (27.0-31.0); MEAN CORPUSCULAR HGB CONC 31.1 g/dL (32.0-36.0); MEAN CORPUSCULAR VOLUME 67.3 fL (81.0-99.0); MONOCYTES # (AUTO) 0.4 10^3/uL (0.0-1.0); NEUTROPHILS % (AUTO) 63.1 %; NRBC ABSOLUTE COUNT (AUTO) 0.03 x10^3/uL; NUCLEATED RED BLOOD CELLS AUTO 0.5 /100WBC; PLT - PLATELET COUNT 288 10^3/uL (130-450); RED BLOOD COUNT 4.49 10^6/uL (4.20-5.40); RED CELL DISTRIBUTION WIDTH 20.3 % (12.0-15.0); WHITE BLOOD COUNT 6.3 x10^3/uL (4.8-10.8)
[2020-07-17 12:21] LABS: SLIDE REVIEW? Indicated
[2020-07-17 12:30] LABS: ALBUMIN 4.2 g/dL (3.2-5.5); ALBUMIN/GLOBULIN RATIO 1.4 (1.0-2.2); ALKALINE PHOSPHATASE 75 IU/L (42-121); ALT ALANINE AMINOTRANSFERASE 21 IU/L (10-60); AST ASPARTATE AMINOTRANSFERASE 24 IU/L (10-42); BILIRUBIN,TOTAL 0.8 mg/dL (0.2-1.0); BUN - BLOOD UREA NITROGEN 10 mg/dL (6-20); CALCIUM 9.1 mg/dL (8.5-10.3); CARBON DIOXIDE - CO2 24 mmol/L (21-32); CHLORIDE 106 mmol/L (101-111); CHOL/HDL RATIO 3.4 (<4.4); CHOLESTEROL 184 mg/dL; CREATININE 0.5 mg/dL (0.4-1.0); GFR - MDRD 132 (>89); GLUCOSE 394 mg/dL (70-100); HDL CHOLESTEROL 54 mg/dL; LDL CHOLESTEROL,CALCULATED 107 mg/dL; POTASSIUM 3.7 mmol/L (3.5-5.0); SODIUM 139 mmol/L (135-145); TOTAL PROTEIN 7.1 g/dL (6.7-8.2); TRIGLYCERIDES 117 mg/dL; VLDL CHOLESTEROL 23 mg/dL
[2020-07-17 12:38] LABS: ESTIMATED AVERAGE GLUCOSE 206 mg/dL (70-100); HEMOGLOBIN A1c% 8.8 % (4.27-6.07)
[2020-07-17 13:06] LABS: PLATELET ESTIMATE, MANUAL NORMAL (130-450,000) (NORMAL); PLATELET MORPHOLOGY NORMAL APPEARANCE (NORMAL); WBC MORPHOLOGY (MULTIPLE) NORMAL APPEARANCE (NORMAL)
[2020-07-17 15:02] LABS: % IRON SATURATION 22 % (20-50); IRON 76 ug/dL (28-170); TOTAL IRON BINDING CAPACITY 339 ug/dL (250-450); TRANSFERRIN 242 mg/dL (192-382)
== END 2020-07-17 23:59 | disposition home or self-care (01) ==
LOC: LAB.WCP 08:00
PROVIDERS: ATTEND Nurse Practitioner Family
DX: E11.8 Type 2 diabetes mellitus with unspecified complications (principal); D64.9 Anemia, unspecified
CPT/HCPCS: 36415; 80053; 80061; 82728; 83036; 83540; 83721; 84466; 85025

== ENCOUNTER 2020-12-04 22:31 | Emergency (ER) | payer MEDICAID ==
--- NOTE | 2020-12-04 23:13 | XRAY Report ---
PROCEDURE: Chest 2 View X-Ray INDICATIONS: pain in the left rib TECHNIQUE: 2 view(s) of the chest. COMPARISON: None. FINDINGS: Surgical changes and devices: None. Lungs and pleura: No pleural effusions or pneumothorax. Lungs are clear. Mediastinum: Mediastinal contours are normal. Heart size is normal. Bones and chest wall: No suspicious bony abnormalities. Soft tissues appear unremarkable. IMPRESSION: No acute process. Reviewed by: Jose Antonio Trotter MD on 12/04/2020 11:12 PM PDT Approved by: Jose Antonio Trotter MD on 12/04/2020 11:12 PM PDT Station ID: [id number]
--- NOTE | 2020-12-05 01:26 | ED Physician Documentation ---
PD HPI CHEST PAIN - Stated complaint Stated Complaint: LT SIDE RIB PX - Chief complaint Chief Complaint: General - History obtained from History obtained from: Patient - History of Present Illness Timing - onset: How many weeks ago (1) Timing - details: Gradual onset Quality: Sharp, Pain Location: Left chest Radiation: Other (no radiation) Improved by: Nothing Worsened by: Palpation Associated symptoms: No: Shortness of air, Palpitations Similar symptoms before: Has not had sx before Recently seen: Not recently seen - Additional information Additional information: c/o 1 week of atraumatic left anterior chest pain. gradual onset but has steadily been worsening. The pain is distinctly reproducible with palpation of left low anterior chest wall. Denies h/o similar symptoms Review of Systems Constitutional: denies: Fever Cardiac: reports: Chest pain / pressure. 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 : None HEENT: Chronic vision loss Psych: Depression, Anxiety Musculoskeletal: Osteoarthritis, Fatigue, Scoliosis, Chronic back pain Derm: None - Past Surgical History Past Surgical History: Yes General: 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 /POWDERED METAL SUPERVISOR: Other HEENT: Tonsil/Adenoidectomy - Present Medications Home Medications: Ambulatory Orders Medication Instructions Recorded Confirmed Metformin HCl 1,000 mg PO BID 07/10/16 12/05/20 Sertraline [Zoloft] 100 mg PO DAILY 05/15/19 12/05/20 Ibuprofen [Motrin] 600 mg PO Q6H PRN #30 tab 03/23/20 12/05/20 Dextroamphetamine/Amphetamine 10 mg PO DAILY 12/05/20 12/05/20 [Dextroamp-Amphetamine 5 mg Tab] HYDROcod/ACETAM 5/325 [Letart 5/325] 1 - 2 tablet PO Q6H PRN #10 tablet 12/05/20 - Allergies Allergies/Adverse Reactions: Allergies Allergy/AdvReac Type Severity Reaction Status Date / Time Penicillins Allergy Intermediate Rash Verified 12/04/20 22:42 - Social History Does the pt smoke?: No Smoking Status: Never smoker Does the pt drink ETOH?: Yes Does the pt have substance abuse?: No - Immunizations Immunizations are current?: Yes Immunizations: TDAP >10years/unknown - POLST Patient has POLST: No PD ED PE NORMAL - Vitals Vital signs reviewed: Yes - General General: Alert and oriented X 3, No acute distress, Well developed/nourished - Cardiac Cardiac: RRR, No murmur, No gallop, No rub - Respiratory Respiratory: No respiratory distress, Clear bilaterally - Abdomen Abdomen: Soft, Non tender - Derm Derm: No rash - Extremities Extremities: No edema PD ED PE EXPANDED - Cardiac Cardiac: Chest wall TTP (left lower anterior chest wall tenderness without crepitus. no rash. LUQ is nontender) Results - Vitals Vitals: Oxygen O2 Source Room air - Rads (name of study) chest xray Radiology: Prelim report reviewed, See rad report PD MEDICAL DECISION MAKING - ED course Complexity details: considered differential, d/w patient ED course: atraumatic left low anterior chest pain x 1 week. Denies dyspnea, lungs are CTA bilaterally. pain is distinctly reproducible with palpation of lower chest wall in midclavicular line. There is no abdominal tenderness including LUQ. CXR is unremarkable. The chest wall is TTP and reproduces the pain, which would suggest against PE, ACS. Suspect musculoskeletal etiology such as chest wall strain. short course of vicodin provided, encouraged to follow up with primary care provider, return if worse I am prescribing a short course of short-acting opioid pain medication for this patient. 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 I have discussed that the opioids are for short term therapy only, and will not be refilled from the ED. Departure - Departure Disposition: 01 Home, Self Care Clinical Impression: Strain of chest wall Qualifiers: Encounter type: initial encounter Qualified Code(s): S29.011A - Strain of muscle and tendon of front wall of thorax, initial encounter Condition: Good Instructions: ED Chest Pain NonCardiac Prescriptions: HYDROcod/ACETAM 5/325 [Letart 5/325] 1 - 2 tablet PO Q6H PRN #10 tablet PRN Reason: Pain Comments: A prescription for hydrocodone (pain medication) has been sent to [facility] in [place] I am prescribing a short course of narcotic pain medication for you. These are potentially dangerous and addictive medications that should be used carefully. These medications may constipate you. Take an [id number] stool softener (docusate) twice daily with plenty of water while taking these medications. If you go 24 hours without a bowel movement, take [id number] miralax, per package instructions. Do not drink or drive while taking these medications. If you received narcotic or sedating medications while in the emergency department, do not drive for 24 hours. Store this medication in a safe, secure place and out of reach of children. It is a violation of federal law to give or sell this medication to another person or to use in a manner other than prescribed. The ED will not refill narcotic prescriptions, including prescriptions lost or stolen. To dispose of unwanted medications: 1. [facility] [address] in [place] has a medication drop box. They accept prescription medications (in pill form) Friday through Friday 9:00 a.m. to 5:00 p.m. 2. [facility] [employer] accepts prescription medications (in pill form only) for disposal year round. Call for more information. 3. Contact the [facility] for the next [facility] sponsored prescription drug collection event. , [phone], or [phone]; Forms: Activity restrictions Discharge Date/Time: 12/05/20 02:14
[2020-12-05] MEDS ORDERED: HYDROcod/ACET 5/325 Prepack 4 PO STA (01:45)
[2020-12-05 01:54] VITALS: BP 140/89
== END 2020-12-05 02:14 | disposition home or self-care (01) ==
LOC: ED 22:31
DX: S29.011A Strain of muscle and tendon of front wall of thorax, initial encounter (principal); X58.XXXA Exposure to other specified factors, initial encounter
CPT/HCPCS: 99283

== ENCOUNTER 2021-02-09 11:44 | Inpatient (IN) | payer OTHER, MEDICAID ==
[2021-02-09] MEDS ORDERED: SODIUM CHLORIDE 0.9% 1,000 ML IV STA ×3 (12:00→12:43)
--- NOTE | 2021-02-09 12:03 | ED Physician Documentation ---
History of Present Illness - Stated complaint Stated Complaint: SOA - Additonal information Additional information: 50-year-old female is type II diabetic on metformin only presents the emergency department for about 24 hours with uncontrolled nausea vomiting and shortness of air. She reports that she has been urinating frequently but has no dysuria. She is denying any abdominal pain but also endorses some diarrhea. Reports she checked her blood sugars yesterday and they were about 200. Here in the emergency department she presents fairly tachypneic and labored. Blood glucose initially is too high to read. denies cough, fevers, recent travel Review of Systems Constitutional: reports: Fatigue, Weight Loss. denies: Fever, Chills Eyes: reports: Reviewed and negative Ears: reports: Reviewed and negative Nose: reports: Reviewed and negative Throat: reports: Reviewed and negative Cardiac: denies: Chest pain / pressure, Palpitations, Pedal edema, Calf pain Respiratory: reports: Dyspnea. denies: Cough, Hemoptysis, Wheezing GI: reports: Nausea, Vomiting, Diarrhea. denies: Abdominal Pain : reports: Frequency. 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 : None HEENT: Chronic vision loss Psych: Depression, Anxiety Musculoskeletal: Osteoarthritis, Fatigue, Scoliosis, Chronic back pain Derm: None - Past Surgical History Past Surgical History: Yes General: 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 /BALL HOLDER: Other HEENT: Tonsil/Adenoidectomy - Present Medications Home Medications: Ambulatory Orders Medication Instructions Recorded Confirmed Metformin HCl 1,000 mg PO BID 07/10/16 12/05/20 Sertraline [Zoloft] 125 mg PO DAILY 05/15/19 12/05/20 Dextroamphetamine/Amphetamine 10 mg PO BID 12/05/20 12/05/20 [Dextroamp-Amphetamine 5 mg Tab] Insulin Glargine [Lantus Solostar] 02/09/21 OLANZapine [Olanzapine] 10 mg PO DAILY 02/09/21 buPROPion HCl [Bupropion Xl] 450 mg PO DAILY 02/09/21 traZODone [Desyrel] 50 mg PO HS 02/09/21 - Allergies Allergies/Adverse Reactions: Allergies Allergy/AdvReac Type Severity Reaction Status Date / Time Penicillins Allergy Intermediate Rash Verified 02/09/21 12:06 - Social History Does the pt smoke?: No Smoking Status: Never smoker Does the pt drink ETOH?: Yes Does the pt have substance abuse?: No - Immunizations Immunizations are current?: Yes Immunizations: TDAP >10years/unknown - POLST Patient has POLST: No PD ED PE EXPANDED - General General: Alert, Anxious - HEENT HEENT: Dry mucous membranes (dry lips, parched tongue) - Neck Neck: Supple w/out meningeal sx. No: Adenopathy - Cardiac Cardiac: Tachy, Regular Rhythm, Radial strong equal, Pedal strong equal, Cap refill < 2 sec - Respiratory Respiratory: Clear to ausultation carissa, Labored (Tachypnea respiratory rate in the mid 30s. Room air saturations 100%. Clear to auscultation General). No: Accessory mm use, Retractions - Abdomen Abdomen: Hyperactive BS. No: Tender to palpation - Derm Derm: Normal color, Warm and dry - Extremities Extremities: Normal. No: Deformity, Tenderness - Neuro Neuro: Alert and Oriented X 3, CNII-XII intact - GCS Eye Opening: Spontaneous Motor: Obeys Commands Verbal: Oriented Total: 15 Results - Vitals Vitals: Vital Signs - 24 hr 02/09/21 02/09/21 02/09/21 11:45 12:05 12:29 Temperature 36.9 C Heart Rate 133 H 136 H Respiratory 44 H 43 H Rate Blood Pressure 166/109 H 167/97 H 167/97 H O2 Saturation 100 100 02/09/21 02/09/21 02/09/21 12:35 13:05 13:30 Temperature Heart Rate 130 H 130 H 122 H Respiratory 43 H 43 H 39 H Rate Blood Pressure 170/83 H 137/90 H 164/99 H O2 Saturation 100 100 100 02/09/21 14:00 Temperature Heart Rate 128 H Respiratory 35 H Rate Blood Pressure 147/98 H O2 Saturation 100 Oxygen O2 Source Room air - EKG (time done) 1154 Rate: Rate (enter#) (137) Rhythm: Sinus tachycardia [place]: Other Intervals: Normal [place]. No: Prolonged QT QRS: Normal Ischemia: ST elevation c/w repol, Other Compare to prior EKG: Changed from prior EKG Computer interpretation: Agree with computer - Labs Labs: Laboratory Tests 02/09/21 02/09/21 02/09/21 12:00 12:00 12:00 WBC 19.2 H RBC 7.45 H Hgb 13.9 Hct 46.5 MCV 62.4 L MCH 18.7 L MCHC 29.9 L RDW 23.2 H Plt Count 569 H Neut # (Auto) Not Reportable Lymph # (Auto) Not Reportable [place] # (Auto) Not Reportable Eos # (Auto) Not Reportable Baso # (Auto) Not Reportable Absolute Nucleated RBC Not Reportable Total Counted 100 Band Neuts % (Manual) 7 Reactive Lymphs % (Man) 10 Abnorm Lymph % (Manual) 0 Myelocytes % 1 H Nucleated RBC % Not Reportable Neutrophils # (Manual) 14.6 H Lymphocytes # (Manual) 4.0 H Monocytes # (Manual) 0.4 Eosinophils # (Manual) 0.0 Basophils # (Manual) 0.0 Nucleated RBCs 1 Differential Comment MANUAL DIFFERENTIAL VBG pH VBG pCO2 VBG pO2 VBG HCO3 VBG Total CO2 VBG O2 Saturation VBG Base Excess Sodium 129 L Potassium 5.0 Chloride 100 L Carbon Dioxide < 6 L* Anion Gap 25.0 H BUN 19 Creatinine 1.1 H Estimated GFR (MDRD) 53 L Glucose 685 H* Lactic Acid 2.6 H Calcium 9.0 Phosphorus Magnesium Total Bilirubin 1.5 H AST 13 ALT 15 Alkaline Phosphatase 91 Troponin I High Sens Total Protein 9.4 H Albumin 5.4 Globulin 4.0 Albumin/Globulin Ratio 1.4 Lipase 45 TSH Urine Color Urine Clarity Urine pH Ur Specific [place] Urine Protein Urine Glucose (UA) Urine Ketones Urine Occult Blood Urine Nitrite Urine Bilirubin Urine Urobilinogen Ur Leukocyte Esterase Urine RBC Urine WBC Ur Squamous Epith Cells Urine Bacteria Urine Casts Ur Microscopic Review Urine Culture Comments Urine HCG, Qual Nasal Adenovirus (PCR) Nasal B. parapertussis DNA (PCR) Nasal Coronavir 229E PCR Nasal Coronavir HKU1 PCR Nasal Coronavir NL63 PCR Nasal Coronavir OC43 PCR Nasal Enterovir/Rhinovir PCR Nasal Influenza B PCR Nasal Influenza A PCR Nasal Parainfluen 1 PCR Nasal Parainfluen 2 PCR Nasal Parainfluen 3 PCR Nasal Parainfluen 4 PCR Nasal RSV (PCR) Nasal B.pertussis DNA PCR Nasal C.pneumoniae (PCR) Franck Human Metapneumo PCR Nasal M.pneumoniae (PCR) Nasal SARS-CoV-2 (PCR) Serum Ketones SMALL H 02/09/21 02/09/21 02/09/21 12:00 12:00 12:00 WBC RBC Hgb Hct MCV MCH MCHC RDW Plt Count Neut # (Auto) Lymph # (Auto) [place] # (Auto) Eos # (Auto) Baso # (Auto) Absolute Nucleated RBC Total Counted Band Neuts % (Manual) Reactive Lymphs % (Man) Abnorm Lymph % (Manual) Myelocytes % Nucleated RBC % Neutrophils # (Manual) Lymphocytes # (Manual) Monocytes # (Manual) Eosinophils # (Manual) Basophils # (Manual) Nucleated RBCs Differential Comment VBG pH 6.953 L VBG pCO2 20.6 L VBG pO2 54.8 H VBG HCO3 4.5 L VBG Total CO2 5.1 L VBG O2 Saturation 78.7 VBG Base Excess -26.4 L Sodium Potassium Chloride Carbon Dioxide Anion Gap BUN Creatinine Estimated GFR (MDRD) Glucose Lactic Acid Calcium Phosphorus Magnesium Total Bilirubin AST ALT Alkaline Phosphatase Troponin I High Sens 7.2 Total Protein Albumin Globulin Albumin/Globulin Ratio Lipase TSH Urine Color Urine Clarity Urine pH Ur Specific [place] Urine Protein Urine Glucose (UA) Urine Ketones Urine Occult Blood Urine Nitrite Urine Bilirubin Urine Urobilinogen Ur Leukocyte Esterase Urine RBC Urine WBC Ur Squamous Epith Cells Urine Bacteria Urine Casts Ur Microscopic Review Urine Culture Comments Urine HCG, Qual Nasal Adenovirus (PCR) NOT DETECTED Nasal B. parapertussis DNA (PCR) NOT DETECTED Nasal Coronavir 229E PCR NOT DETECTED Nasal Coronavir HKU1 PCR NOT DETECTED Nasal Coronavir NL63 PCR NOT DETECTED Nasal Coronavir OC43 PCR NOT DETECTED Nasal Enterovir/Rhinovir PCR NOT DETECTED Nasal Influenza B PCR NOT DETECTED Nasal Influenza A PCR NOT DETECTED Nasal Parainfluen 1 PCR NOT DETECTED Nasal Parainfluen 2 PCR NOT DETECTED Nasal Parainfluen 3 PCR NOT DETECTED Nasal Parainfluen 4 PCR NOT DETECTED Nasal RSV (PCR) NOT DETECTED Nasal B.pertussis DNA PCR NOT DETECTED Nasal C.pneumoniae (PCR) NOT DETECTED Franck Human Metapneumo PCR NOT DETECTED Nasal M.pneumoniae (PCR) NOT DETECTED Nasal SARS-CoV-2 (PCR) NOT DETECTED Serum Ketones 02/09/21 02/09/21 02/09/21 12:00 12:07 13:25 WBC RBC Hgb Hct MCV MCH MCHC RDW Plt Count Neut # (Auto) Lymph # (Auto) [place] # (Auto) Eos # (Auto) Baso # (Auto) Absolute Nucleated RBC Total Counted Band Neuts % (Manual) Reactive Lymphs % (Man) Abnorm Lymph % (Manual) Myelocytes % Nucleated RBC % Neutrophils # (Manual) Lymphocytes # (Manual) Monocytes # (Manual) Eosinophils # (Manual) Basophils # (Manual) Nucleated RBCs Differential Comment VBG pH 6.872 L VBG pCO2 16.6 L VBG pO2 73.1 H VBG HCO3 3.0 L VBG Total CO2 3.5 L VBG O2 Saturation 87.6 H VBG Base Excess -29.3 L Sodium Potassium Chloride Carbon Dioxide Anion Gap BUN Creatinine Estimated GFR (MDRD) Glucose Lactic Acid Calcium Phosphorus Magnesium Total Bilirubin AST ALT Alkaline Phosphatase Troponin I High Sens Total Protein Albumin Globulin Albumin/Globulin Ratio Lipase TSH 1.60 Urine Color LIGHT YELLOW Urine Clarity HAZY Urine pH 5.5 Ur Specific [place] >=1.030 H Urine Protein 100 H Urine Glucose (UA) >=1000 H Urine Ketones >=80 H Urine Occult Blood SMALL H Urine Nitrite NEGATIVE Urine Bilirubin NEGATIVE Urine Urobilinogen 0.2 (NORMAL) Ur Leukocyte Esterase NEGATIVE Urine RBC 0-5 Urine WBC 6-10 H Ur Squamous Epith Cells MANY Squamous H Urine Bacteria Many H Urine Casts 11-25 Granular Casts Ur Microscopic Review INDICATED Urine Culture Comments NOT INDICATED Urine HCG, Qual NEGATIVE Nasal Adenovirus (PCR) Nasal B. parapertussis DNA (PCR) Nasal Coronavir 229E PCR Nasal Coronavir HKU1 PCR Nasal Coronavir NL63 PCR Nasal Coronavir OC43 PCR Nasal Enterovir/Rhinovir PCR Nasal Influenza B PCR Nasal Influenza A PCR Nasal Parainfluen 1 PCR Nasal Parainfluen 2 PCR Nasal Parainfluen 3 PCR Nasal Parainfluen 4 PCR Nasal RSV (PCR) Nasal B.pertussis DNA PCR Nasal C.pneumoniae (PCR) Franck Human Metapneumo PCR Nasal M.pneumoniae (PCR) Nasal SARS-CoV-2 (PCR) Serum Ketones 02/09/21 13:25 WBC RBC Hgb Hct MCV MCH MCHC RDW Plt Count Neut # (Auto) Lymph # (Auto) [place] # (Auto) Eos # (Auto) Baso # (Auto) Absolute Nucleated RBC Total Counted Band Neuts % (Manual) Reactive Lymphs % (Man) Abnorm Lymph % (Manual) Myelocytes % Nucleated RBC % Neutrophils # (Manual) Lymphocytes # (Manual) Monocytes # (Manual) Eosinophils # (Manual) Basophils # (Manual) Nucleated RBCs Differential Comment VBG pH VBG pCO2 VBG pO2 VBG HCO3 VBG Total CO2 VBG O2 Saturation VBG Base Excess Sodium 130 L Potassium 4.8 Chloride 103 Carbon Dioxide < 6 L* Anion Gap 21.0 H BUN 19 Creatinine 0.9 Estimated GFR (MDRD) 67 L Glucose 709 H* Lactic Acid Calcium 8.3 L Phosphorus 4.8 H Magnesium 2.5 Total Bilirubin AST ALT Alkaline Phosphatase Troponin I High Sens Total Protein Albumin Globulin Albumin/Globulin Ratio Lipase TSH Urine Color Urine Clarity Urine pH Ur Specific [place] Urine Protein Urine Glucose (UA) Urine Ketones Urine Occult Blood Urine Nitrite Urine Bilirubin Urine Urobilinogen Ur Leukocyte Esterase Urine RBC Urine WBC Ur Squamous Epith Cells Urine Bacteria Urine Casts Ur Microscopic Review Urine Culture Comments Urine HCG, Qual Nasal Adenovirus (PCR) Nasal B. parapertussis DNA (PCR) Nasal Coronavir 229E PCR Nasal Coronavir HKU1 PCR Nasal Coronavir NL63 PCR Nasal Coronavir OC43 PCR Nasal Enterovir/Rhinovir PCR Nasal Influenza B PCR Nasal Influenza A PCR Nasal Parainfluen 1 PCR Nasal Parainfluen 2 PCR Nasal Parainfluen 3 PCR Nasal Parainfluen 4 PCR Nasal RSV (PCR) Nasal B.pertussis DNA PCR Nasal C.pneumoniae (PCR) Franck Human Metapneumo PCR Nasal M.pneumoniae (PCR) Nasal SARS-CoV-2 (PCR) Serum Ketones - Rads (name of study) CXR Radiology: Final report received (No acute cardiopulmonary abnormality.) PD MEDICAL DECISION MAKING - ED course Complexity details: reviewed results, re-evaluated patient, considered differential, d/w patient ED course: 42-year-old female who is a type II diabetic controlled on metformin only presents the emergency department for about 24 hours of uncontrolled nausea and vomiting. She presented very tachypneic though not hypoxic. Nursing staff noted a ketone smell on her breath. She presents with blood glucose too high to read given the tachypnea this is most likely consistent with a DKA. Her urine is not consistent with infection chest x-ray shows no pneumonia. Initial screening labs are sick most significant for a leukocytosis as well as a significant anion gap and a CO2 less than 6. Her initial potassium is 5. + ke tones. She is quite acidemic with an initial pH of 6.9 and a base deficit of - 28. We initially began volume repletion with 3 L of saline and given the potassium of 5 did institute insulin bolus and infusion. The cause of her acute DKA is not clear at this time but she will certainly need further admission and evaluation. I have discussed this case with Dr. Ba who is graciously agreed to admit the patient. She will require an ICU bed. There will be a delay in transfer to the ICU as it is currently full but they are pending a discharge later this afternoon. Departure - Departure Disposition: 66 [facility] DC/Xfer Clinical Impression: JERRI (acute kidney injury) DKA (diabetic ketoacidosis) Qualifiers: Diabetes mellitus type: type 2 Diabetes mellitus complication detail: without coma Qualified Code(s): E11.10 - Type 2 diabetes mellitus with ketoacidosis without coma
[2021-02-09] MEDS ORDERED: ONDANSETRON 4 MG/2 ML VIAL IVP STA (12:08)
[2021-02-09 12:11] LABS: VBG HCO3 4.5 mmol/L (23-28); VBG PCO2 20.6 mmHg (41-51); VBG PH 6.953 (7.31-7.41); VBG PO2 54.8 mmHg (25-47); VBG TOTAL CO2 5.1 mmol/L (24-29)
[2021-02-09 12:12] LABS: VBG BASE EXCESS -26.4 mmol/L (-2 - +2); VBG OXYGEN SATURATION 78.7 % (60-80)
[2021-02-09 12:19] LABS: EOSINOPHILS % (AUTO) 0.1 %; HCT - HEMATOCRIT 46.5 % (37.0-47.0); HGB - HEMOGLOBIN 13.9 g/dL (12.0-16.0); LYMPHOCYTES % (AUTO) 19.5 %; MEAN CORPUSCULAR HEMOGLOBIN 18.7 pg (27.0-31.0); MEAN CORPUSCULAR HGB CONC 29.9 g/dL (32.0-36.0); MEAN CORPUSCULAR VOLUME 62.4 fL (81.0-99.0); NEUTROPHILS % (AUTO) 72.6 %; PLT - PLATELET COUNT 569 10^3/uL (130-450); RED BLOOD COUNT 7.45 10^6/uL (4.20-5.40); RED CELL DISTRIBUTION WIDTH 23.2 % (12.0-15.0); WHITE BLOOD COUNT 19.2 x10^3/uL (4.8-10.8)
[2021-02-09 12:19] LABS: GLUCOSE, URINE (UA) >=1000 mg/dL (NEGATIVE); KETONES,URINE (UA) >=80 mg/dL (NEGATIVE); LEUKOCYTE ESTERASE, URINE NEGATIVE (NEGATIVE); NITRITE,URINE NEGATIVE (NEGATIVE); OCCULT BLOOD,URINE SMALL (NEGATIVE); PH,URINE 5.5 PH (5.0-7.5); PROTEIN,URINE 100 mg/dL (NEGATIVE); UROBILINOGEN,URINE 0.2 (NORMAL) E.U./dL (NORMAL)
[2021-02-09 12:26] LABS: BILIRUBIN,URINE NEGATIVE (NEGATIVE); CLARITY,URINE HAZY (CLEAR); HCG UR QUAL NEGATIVE; ICTOTEST,URINE NEGATIVE
[2021-02-09 12:26] LABS: ABNORMAL LYMPHS % (MANUAL) 0 %
[2021-02-09 12:27] LABS: ALBUMIN 5.4 g/dL (3.2-5.5); ALBUMIN/GLOBULIN RATIO 1.4 (1.0-2.2); ALKALINE PHOSPHATASE 91 IU/L (42-121); ALT ALANINE AMINOTRANSFERASE 15 IU/L (10-60); AST ASPARTATE AMINOTRANSFERASE 13 IU/L (10-42); BILIRUBIN,TOTAL 1.5 mg/dL (0.2-1.0); BUN - BLOOD UREA NITROGEN 19 mg/dL (6-20); CHLORIDE 100 mmol/L (101-111); CREATININE 1.1 mg/dL (0.4-1.0); GFR - MDRD 53 (>89); LIPASE 45 U/L (22-51); SODIUM 129 mmol/L (135-145); TOTAL PROTEIN 9.4 g/dL (6.7-8.2)
[2021-02-09 12:30] LABS: CARBON DIOXIDE - CO2 < 6 mmol/L (21-32); GLUCOSE 685 mg/dL (70-100)
--- NOTE | 2021-02-09 12:34 | XRAY Report ---
PROCEDURE: Chest 1 View X-Ray INDICATIONS: SOA TECHNIQUE: One view of the chest was acquired. COMPARISON: December 04, 2020 FINDINGS: SUPPORT DEVICES: None. LUNGS/PLEURA: No focal consolidation, pleural effusion or space-occupying pneumothorax. MEDIASTINUM: The cardiomediastinal silhouette is within normal limits. BONES/SOFT TISSUES: No acute abnormality. IMPRESSION: 1.No acute cardiopulmonary abnormality. Reviewed by: Norberto Key MD on 02/09/2021 12:33 PM [facility] Approved by: Norberto Key MD on 02/09/2021 12:33 PM [facility] Station ID: [id number]
[2021-02-09] MEDS ORDERED: INSULIN REGULAR HUMAN 100 UNIT/1 ML 10 ML MDV IVP STA (12:37)
[2021-02-09] MEDS ORDERED: INSULIN REGULAR HUMAN 100 UNIT in SODIUM CHLORIDE 0.9% 100ML 99 ML IV STA (12:37)
[2021-02-09] MEDS ORDERED: ONDANSETRON 4 MG/2 ML VIAL IVP PRN (12:45)
[2021-02-09] MEDS ORDERED: ACETAMINOPHEN 325 MG TABLET PO PRN (12:45)
[2021-02-09] MEDS ORDERED: SODIUM CHLORIDE FLUSH 0.9% 10 ML SYRINGE IVP PRN (12:45)
[2021-02-09 12:52] LABS: BACTERIA,URINE Many /HPF (None Seen); RBC,URINE 0-5 /HPF (0-5); SQUAMOUS EPITHELIAL CELL,UR MANY Squamous (<= Few)
--- NOTE | 2021-02-09 12:53 | HISTORY & PHYSICAL EXAMINATION ---
Chief Complaint - Chief Complaint Chief Complaint: Short of breath. History of Present Illness - Admitted From Admitted From:: Home - History Obtained From Records Reviewed: Yes History obtained from: Patient, ER Provider, EMR Exam Limitations: History is limited given her critical illness. - History of Present Illness HPI Comment/Other: This is a 50-year-old female with a past medical history significant for type 2 diabetes mellitus who presents today complaining of shortness of breath. She states that she began feeling dyspneic about 2 to 3 days ago. It progressed over the past 24 hours and so she came to the emergency department today. She also has associated nausea and vomiting as well as abdominal pain. She reports no chest pain. She takes Metformin for her diabetes and reports checking her blood sugars every once in a while and they are usually around 200. She states she last checked it a couple of days before . She reports no fevers but does complain of chills. She feels quite thirsty and states she has had polyuria. She reports no dysuria or urgency. In the emergency department, she was noted to have significant electrolyte derangements. She was quite acidotic with pH of 6.9 and her bicarb was less than 6. Her anion gap was 25. Her blood glucose was created then 600. She was given 3 L of normal saline and started on insulin drip. Given the above findings, medicine was consulted for admission. 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 Her mother also has a history of diabetes Living arrangement: At home Social History Notes: She denies smoking and alcohol use. - POLST Patient has POLST: No Meds/Allgy - Home Medications Home Medications: Ambulatory Orders Medication Instructions Recorded Confirmed Metformin HCl 1,000 mg PO BID 07/10/16 12/05/20 Sertraline [Zoloft] 125 mg PO DAILY 05/15/19 12/05/20 Dextroamphetamine/Amphetamine 10 mg PO BID 12/05/20 12/05/20 [Dextroamp-Amphetamine 5 mg Tab] Insulin Glargine [Lantus Solostar] 02/09/21 OLANZapine [Olanzapine] 10 mg PO DAILY 02/09/21 buPROPion HCl [Bupropion Xl] 450 mg PO DAILY 02/09/21 traZODone [Desyrel] 50 mg PO HS 02/09/21 - Allergies Allergies/Adverse Reactions: Allergies Allergy/AdvReac Type Severity Reaction Status Date / Time Penicillins Allergy Intermediate Rash Verified 02/09/21 12:06 Review of Systems - Constitutional Constitutional: reports: Chills. denies: Fever - Cardiovascular Cariovascular: reports: Exertional dyspnea, Decr. exercise tolerance. denies: Chest pain - Respiratory Respiratory: reports: SOB at rest, SOB with exertion - Gastrointestinal Gastrointestinal: reports: Abdominal pain, Nausea, Vomiting. denies: Diarrhea - Genitourinary Genitourinary: reports: Frequency. denies: Dysuria, Urgency - Endocrine Endocrine: reports: Polyuria, Polydypsia - All Other Systems All Other Systems: reports: Other (Review of systems is limited due to her critical condition.) Prior Level of Functionality: She is independent with her ADLs. Exam - Vital Signs Reviewed Vital Signs: Yes Vital Signs: Vital Signs x48h Temp Pulse Resp BP Pulse Ox 02/09/21 12:35 130 H 43 H 170/83 H 100 02/09/21 12:29 136 H 43 H 167/97 H 100 02/09/21 12:05 167/97 H 02/09/21 11:45 36.9 C 133 H 44 H 166/109 H 100 - Physical Exam General Appearance: positive: Alert, Moderate distress Eyes Bilateral: positive: Conjunctivae nml ENT: positive: Dry mucous membranes. negative: No signs of dehydration Neck: positive: Nml inspection Respiratory: positive: Other (She is tachypneic with Kussmaul respirations.). negative: Wheezes, Rales Cardiovascular: positive: Tachycardia. negative: Irregularly irregular, Systolic murmur Abdomen: positive: No distention, Tenderness (Epigastric tenderness). negative: Guarding, Rebound Skin: positive: Warm, Dry Extremities: positive: No pedal edema Neurologic/Psychiatric: negative: Disoriented to person, Disoriented to place Conclusion/Plan - Problem List (1) DKA (diabetic ketoacidosis) Conclusion/Plan: She has severe diabetic ketoacidosis and will be admitted to the intensive care unit. She is already received 3 L of normal saline in the emergency department and has been started on a insulin drip. We will give another liter of normal saline and continue her on maintenance IV fluids. Continue her on the insulin drip. Check labs every 4 hours. N.p.o. until her anion gap is closed. Qualifiers: Diabetes mellitus type: type 2 Diabetes mellitus complication detail: without coma Qualified Code(s): E11.10 - Type 2 diabetes mellitus with ketoacidosis without coma (2) Acute kidney injury Conclusion/Plan: This is likely prerenal injury secondary to volume depletion. Her creatinine is 1.1 and her baseline is 0.5. This should improve with IV hydration. Monitor BMP and urine output. (3) Type 2 diabetes mellitus Conclusion/Plan: She is just on Metformin at home but now that she has DKA she will most definitely need insulin therapy. We will treat her DKA as mentioned above and then transition to subcutaneous insulin when appropriate. Check A1c. clinical unit educator consult. 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 This should improve with IV fluids. We will hold off on antibiotics given lack of evidence of infection. - Lab Results Lab results reviewed: Yes Fish Bones: 02/09/21 12:00 02/09/21 13:25 - Diagnostic Imaging Results Diagnostic Imaging Results: positive: Final report reviewed - EKG Results EKG Interpreted Independently: Yes EKG Comparison: Changed from prior EKG (Compared to prior EKG, her heart rate is increased.) EKG Findings: EKG shows sinus tachycardia without evidence of ischemia. Core Measures - Anticipated LOS I expect patient to be DC'd or transferred within 96 hours.: Yes - Issues Hospital Issues and Management Plan: 50-year-old female presents with nausea and vomiting as well as shortness of breath found to have severe diabetic ketoacidosis. She will be admitted to the intensive care unit for IV fluids and insulin. - DVT/VTE - Prophylaxis VTE/DVT Device ordered at admit?: Yes VTE/DVT Prophylaxis med ordered at admit?: Yes
[2021-02-09 12:55] LABS: KETONES, SERUM (ACETEST) SMALL (NEGATIVE)
[2021-02-09 13:05] LABS: BAND NEUTROPHILS % (MANUAL) 7 %; LYMPHOCYTES % (MANUAL) 11 %; MONOCYTES # (MANUAL) 0.4 10^3/uL (0.0-1.0); MYELOCYTES % (MANUAL) 1 %; NEUTROPHILS # (MANUAL) 14.6 10^3/uL (1.5-6.6); NUCLEATED RBC (MANUAL) 1 %; REACTIVE LYMPHS % (MANUAL) 10 %
[2021-02-09 13:06] LABS: DIFFERENTIAL COMMENT MANUAL DIFFERENTIAL
[2021-02-09 13:17] LABS: B. PARAPERTUSSIS- RESP PCR PAN NOT DETECTED; B. PERTUSSIS- RESP PCR PANEL NOT DETECTED; C. PNEUMONIAE- RESP PCR PANEL NOT DETECTED; CORONAVIRUS 229E-RESP PCR NOT DETECTED; CORONAVIRUS HKU1-RESP PCR NOT DETECTED; CORONAVIRUS NL63-RESP PCR NOT DETECTED; CORONAVIRUS OC43-RESP PCR NOT DETECTED; HUMAN METAPNEUMOVIRUS NOT DETECTED; INFLUENZA A- RESP PCR PANEL NOT DETECTED; INFLUENZA B - RESP PCR PANEL NOT DETECTED; M. PNEUMONIAE- RESP PCR PANEL NOT DETECTED; PARAINFLUENZA VIRUS 1 NOT DETECTED; PARAINFLUENZA VIRUS 2 NOT DETECTED; PARAINFLUENZA VIRUS 3 NOT DETECTED; PARAINFLUENZA VIRUS 4 NOT DETECTED; RHINOVIRUS/ENTEROVIRUS NOT DETECTED; RSV- RESP PCR PANEL NOT DETECTED; SARS-CoV-2 -RESP PCR PANEL NOT DETECTED
[2021-02-09 13:31] LABS: VBG BASE EXCESS -29.3 mmol/L (-2 - +2); VBG OXYGEN SATURATION 87.6 % (60-80); VBG PCO2 16.6 mmHg (41-51); VBG PH 6.872 (7.31-7.41); VBG PO2 73.1 mmHg (25-47); VBG TOTAL CO2 3.5 mmol/L (24-29)
[2021-02-09 13:53] LABS: BUN - BLOOD UREA NITROGEN 19 mg/dL (6-20); CALCIUM 8.3 mg/dL (8.5-10.3); CHLORIDE 103 mmol/L (101-111); CREATININE 0.9 mg/dL (0.4-1.0); GFR - MDRD 67 (>89); MAGNESIUM 2.5 mg/dL (1.7-2.8); PHOSPHORUS 4.8 mg/dL (2.5-4.6); POTASSIUM 4.8 mmol/L (3.5-5.0); SODIUM 130 mmol/L (135-145)
[2021-02-09 13:58] LABS: CARBON DIOXIDE - CO2 < 6 mmol/L (21-32); GLUCOSE 709 mg/dL (70-100)
[2021-02-09] MEDS: INSULIN REGULAR HUMAN 100 UNIT in SODIUM CHLORIDE 0.9% 100ML 99 ML IV SCH (14:30)
[2021-02-09] MEDS: SODIUM CHLORIDE 0.9% 1,000 ML IV SCH (16:15)
[2021-02-09] MEDS: DEXTROSE 5%-0.45% NACL 1,000 ML IV SCH ×2 (16:17→22:13)
[2021-02-09 16:47] LABS: BUN - BLOOD UREA NITROGEN 19 mg/dL (6-20); CALCIUM 8.3 mg/dL (8.5-10.3); CHLORIDE 111 mmol/L (101-111); CREATININE 0.8 mg/dL (0.4-1.0); GFR - MDRD 77 (>89); MAGNESIUM 2.2 mg/dL (1.7-2.8); PHOSPHORUS 3.4 mg/dL (2.5-4.6); POTASSIUM 4.4 mmol/L (3.5-5.0); SODIUM 137 mmol/L (135-145)
[2021-02-09 16:49] LABS: CARBON DIOXIDE - CO2 < 6 mmol/L (21-32); GLUCOSE 520 mg/dL (70-100)
[2021-02-09] MEDS: SODIUM CHLORIDE FLUSH 0.9% 10 ML SYRINGE IVP SCH (16:54)
[2021-02-09 21:48] LABS: BUN - BLOOD UREA NITROGEN 15 mg/dL (6-20); CALCIUM 8.4 mg/dL (8.5-10.3); CHLORIDE 116 mmol/L (101-111); CREATININE 0.7 mg/dL (0.4-1.0); GFR - MDRD 89 (>89); GLUCOSE 206 mg/dL (70-100); MAGNESIUM 1.9 mg/dL (1.7-2.8); POTASSIUM 4.3 mmol/L (3.5-5.0); SODIUM 138 mmol/L (135-145)
[2021-02-09 21:49] LABS: CARBON DIOXIDE - CO2 10 mmol/L (21-32)
[2021-02-09 21:50] LABS: PHOSPHORUS < 1.0 mg/dL (2.5-4.6)
[2021-02-09 22:23] LABS: CALCIUM, IONIZED 1.24 mmol/L (1.15-1.33); VBG PH 7.231 (7.31-7.41)
[2021-02-09] MEDS: SODIUM PHOSPHATE 15 MMOL in SODIUM CHLORIDE 0.9% 250 ML IV SCH (23:13)
[2021-02-10 01:17] LABS: CALCIUM 8.3 mg/dL (8.5-10.3); CREATININE 0.5 mg/dL (0.4-1.0); MAGNESIUM 1.9 mg/dL (1.7-2.8); PHOSPHORUS 1.7 mg/dL (2.5-4.6); POTASSIUM 3.4 mmol/L (3.5-5.0)
[2021-02-10] MEDS: INSULIN REGULAR HUMAN 100 UNIT in SODIUM CHLORIDE 0.9% 100ML 99 ML IV SCH (02:15)
[2021-02-10] MEDS: SODIUM CHLORIDE FLUSH 0.9% 10 ML SYRINGE IVP SCH ×3 (02:50→16:03)
[2021-02-10] MEDS: SODIUM PHOSPHATE 15 MMOL in SODIUM CHLORIDE 0.9% 250 ML IV SCH (03:19)
[2021-02-10 05:19] LABS: BASOPHILS % (AUTO) 0.2 %; EOSINOPHILS % (AUTO) 0.1 %; HCT - HEMATOCRIT 33.6 % (37.0-47.0); HGB - HEMOGLOBIN 10.6 g/dL (12.0-16.0); LYMPHOCYTES # (AUTO) 2.5 10^3/uL (1.5-3.5); MEAN CORPUSCULAR HEMOGLOBIN 18.8 pg (27.0-31.0); MEAN CORPUSCULAR HGB CONC 31.5 g/dL (32.0-36.0); MEAN CORPUSCULAR VOLUME 59.7 fL (81.0-99.0); MONOCYTES # (AUTO) 1.2 10^3/uL (0.0-1.0); MONOCYTES % (AUTO) 9.3 %; NEUTROPHILS # (AUTO) 8.8 10^3/uL (1.5-6.6); NEUTROPHILS % (AUTO) 69.3 %; PLT - PLATELET COUNT 305 10^3/uL (130-450); RED BLOOD COUNT 5.63 10^6/uL (4.20-5.40); RED CELL DISTRIBUTION WIDTH 21.1 % (12.0-15.0); WHITE BLOOD COUNT 12.7 x10^3/uL (4.8-10.8)
[2021-02-10 05:22] LABS: SLIDE REVIEW? Indicated
[2021-02-10 05:35] LABS: CALCIUM 8.1 mg/dL (8.5-10.3); CREATININE 0.4 mg/dL (0.4-1.0); MAGNESIUM 1.8 mg/dL (1.7-2.8); PHOSPHORUS 2.7 mg/dL (2.5-4.6); POTASSIUM 2.7 mmol/L (3.5-5.0)
[2021-02-10 05:39] LABS: PLATELET ESTIMATE, MANUAL NORMAL (130-450,000) (NORMAL); PLATELET MORPHOLOGY NORMAL APPEARANCE (NORMAL); WBC MORPHOLOGY (MULTIPLE) NORMAL APPEARANCE (NORMAL)
[2021-02-10 05:57] LABS: CALCIUM, IONIZED 1.18 mmol/L (1.15-1.33); VBG PH 7.262 (7.31-7.41)
[2021-02-10] MEDS: DEXTROSE 5%-0.45% NACL 1,000 ML IV SCH (06:15)
--- NOTE | 2021-02-10 07:48 | PROVIDER PROGRESS NOTE ---
Subjective - Prog Note Date Prog Note Date: 02/10/21 - Subjective Subjective: She feels much better today. Reports no abdominal pain or nausea/vomiting. She is quite hungry and would like to eat. Current Medications - Current Medications Current Medications: Active Medications Acetaminophen (Acetaminophen 325 Mg Tablet) 650 mg PO Q4HR PRN PRN Reason: Pain 1 to 4 Enoxaparin Sodium (Enoxaparin 40 Mg/0.4 Ml Syringe) 40 mg SUBQ DAILY RACHEL Sodium Chloride (Normal Saline 0.9%) 1,000 mls @ 200 mls/hr IV .Q5H [facility] Last Infusion: 02/09/21 22:13 Dose: Infused Documented by: Insulin Human Regular 100 unit (/ Sodium Chloride) 100 mls @ 8.1 mls/hr IV .[id number] [facility]; Protocol Last Titration: 02/10/21 07:20 Dose: 0.75 unit/hr, 0.75 mls/hr Documented by: Potassium Chloride (Potassium Chloride) 10 meq in 100 mls @ 100 mls/hr IV Q1H [facility]; Protocol Stop: 02/10/21 11:59 Potassium Chloride/Dextrose/Sod Cl (D5.45ns W/20 Meq Kcl) 1,000 mls @ 100 mls/hr IV .Q10H [facility]ACHEL Stop: 02/10/21 17:59 Ondansetron HCl (Ondansetron 4 Mg/2 Ml Vial) 4 mg IVP Q6HR PRN PRN Reason: Nausea / Vomiting Sodium Chloride (Sodium Chloride Flush 0.9% 10 Ml Syringe) 10 ml IVP 0100,0900,1700 [facility] Last Admin: 02/10/21 02:50 Dose: Not Given Documented by: Sodium Chloride (Sodium Chloride Flush 0.9% 10 Ml Syringe) 10 ml IVP PRN PRN PRN Reason: NEEDED PER PROVIDER ORDERS Metformin HCl 1,000 mg PO BID 07/10/16 Sertraline [Zoloft] 125 mg PO DAILY 05/15/19 Dextroamphetamine/Amphetamine [Dextroamp-Amphetamine 5 mg Tab] 10 mg PO BID 12/05/20 Insulin Glargine [Lantus Solostar] 02/09/21 OLANZapine [Olanzapine] 10 mg PO DAILY 02/09/21 buPROPion HCl [Bupropion Xl] 450 mg PO DAILY 02/09/21 traZODone [Desyrel] 50 mg PO HS 02/09/21 Objective - Vital Signs/Intake & Output Reviewed Vital Signs: Yes Vital Signs: Vital Signs Temp Pulse Resp BP Pulse Ox 02/10/21 07:38 36.8 C 02/10/21 06:00 87 23 110/59 L 100 02/10/21 05:00 87 20 112/71 97 02/10/21 04:00 92 20 111/68 98 Intake & Output: Intake & Output 02/07/21 02/08/21 02/09/21 02/10/21 23:59 23:59 23:59 23:59 Intake Total 4247.717 1392.892 Output Total 450 1050 Balance 3797.717 342.892 - Objective General Appearance: positive: No acute distress, Alert Eyes Bilateral: positive: Normal inspection, Conjunctivae nml ENT: positive: ENT inspection nml Neck: positive: Nml inspection Respiratory: positive: No respiratory distress. negative: Wheezes, Rales Cardiovascular: positive: Regular rate & rhythm, No murmur. negative: Tachycardia Abdomen: positive: Non-tender, No distention. negative: Tenderness Skin: positive: Warm, Dry Extremities: positive: No pedal edema Neurologic/Psychiatric: negative: Disoriented to person, Disoriented to place - Lab Results Fish Bones: 02/10/21 04:58 02/10/21 04:58 Other Labs: Lab Results x24hrs 02/10/21 02/10/21 02/10/21 Range/Units 07:11 06:17 04:58 WBC (4.8-10.8) x10^3/uL RBC (4.20-5.40) 10^6/uL Hgb (12.0-16.0) g/dL Hct (37.0-47.0) % MCV (81.0-99.0) fL MCH (27.0-31.0) pg MCHC (32.0-36.0) g/dL RDW (12.0-15.0) % Plt Count (130-450) 10^3/uL Neut # (Auto) Lymph # (Auto) [place] # (Auto) Eos # (Auto) Baso # (Auto) Absolute Nucleated RBC Total Counted Band Neuts % (Manual) (0 - 10) % Reactive Lymphs % (Man) % Abnorm Lymph % (Manual) % Myelocytes % ( - 0) % Nucleated RBC % Neutrophils # (Manual) (1.5-6.6) 10^3/uL Lymphocytes # (Manual) (1.5-3.5) 10^3/uL Monocytes # (Manual) (0.0-1.0) 10^3/uL Eosinophils # (Manual) (0-0.7) 10^3/uL Basophils # (Manual) (0-0.1) 10^3/uL Nucleated RBCs % Differential Comment Manual Slide Review WBC Morphology (NORMAL) Platelet Estimate (NORMAL) Platelet Morphology (NORMAL) RBC Morph Micro Appear (NORMAL) VBG pH 7.262 L (7.31-7.41) VBG pCO2 (41-51) mmHg VBG pO2 (25-47) mmHg VBG HCO3 (23-28) mmol/L VBG Total CO2 (24-29) mmol/L VBG O2 Saturation (60-80) % VBG Base Excess (-2 - +2) mmol/L Ionized Calcium 1.18 (1.15-1.33) mmol/L Sodium (135-145) mmol/L Potassium (3.5-5.0) mmol/L Chloride (101-111) mmol/L Carbon Dioxide (21-32) mmol/L Anion Gap (6-13) BUN (6-20) mg/dL Creatinine (0.4-1.0) mg/dL Estimated GFR (MDRD) (>89) Glucose (70-100) mg/dL POC Whole Bld Glucose 101 H 97 (70 - 100) mg/dL Lactic Acid (0.5-2.2) mmol/L Calcium (8.5-10.3) mg/dL Phosphorus (2.5-4.6) mg/dL Magnesium (1.7-2.8) mg/dL Total Bilirubin (0.2-1.0) mg/dL AST (10-42) IU/L ALT (10-60) IU/L Alkaline Phosphatase (42-121) IU/L Troponin I High Sens (2.3-14.8) ng/L Total Protein (6.7-8.2) g/dL Albumin (3.2-5.5) g/dL Globulin (2.1-4.2) g/dL Albumin/Globulin Ratio (1.0-2.2) Lipase (22-51) U/L TSH (0.34-5.60) uIU/mL Urine Color Urine Clarity (CLEAR) Urine pH (5.0-7.5) PH Ur Specific [place] (1.002-1.030) Urine Protein (NEGATIVE) mg/dL Urine Glucose (UA) (NEGATIVE) mg/dL Urine Ketones (NEGATIVE) mg/dL Urine Occult Blood (NEGATIVE) Urine Nitrite (NEGATIVE) Urine Bilirubin (NEGATIVE) Urine Urobilinogen (NORMAL) E.U./dL Ur Leukocyte Esterase (NEGATIVE) Urine RBC (0-5) /HPF Urine WBC (0-5) /HPF Ur Squamous Epith Cells (<= Few) Urine Bacteria (None Seen) /HPF Urine Casts /LPF Ur Microscopic Review Urine Culture Comments Urine HCG, Qual Nasal Adenovirus (PCR) Nasal B. parapertussis DNA (PCR) Nasal Coronavir 229E PCR Nasal Coronavir HKU1 PCR Nasal Coronavir NL63 PCR Nasal Coronavir OC43 PCR Nasal Enterovir/Rhinovir PCR Nasal Influenza B PCR Nasal Influenza A PCR Nasal Parainfluen 1 PCR Nasal Parainfluen 2 PCR Nasal Parainfluen 3 PCR Nasal Parainfluen 4 PCR Nasal RSV (PCR) Nasal Screen MRSA (PCR) (NEGATIVE) Nasal B.pertussis DNA PCR Nasal C.pneumoniae (PCR) Franck Human Metapneumo PCR Nasal M.pneumoniae (PCR) Nasal SARS-CoV-2 (PCR) Serum Ketones (NEGATIVE) 02/10/21 02/10/21 02/10/21 Range/Units 04:58 04:58 03:57 WBC 12.7 H (4.8-10.8) x10^3/uL RBC 5.63 H (4.20-5.40) 10^6/uL Hgb 10.6 L (12.0-16.0) g/dL Hct 33.6 L (37.0-47.0) % MCV 59.7 L (81.0-99.0) fL MCH 18.8 L (27.0-31.0) pg MCHC 31.5 L (32.0-36.0) g/dL RDW 21.1 H (12.0-15.0) % Plt Count 305 (130-450) 10^3/uL Neut # (Auto) 8.8 H Lymph # (Auto) 2.5 [place] # (Auto) 1.2 H Eos # (Auto) 0.0 Baso # (Auto) 0.0 Absolute Nucleated RBC 0.00 Total Counted Band Neuts % (Manual) (0 - 10) % Reactive Lymphs % (Man) % Abnorm Lymph % (Manual) % Myelocytes % ( - 0) % Nucleated RBC % 0.0 Neutrophils # (Manual) (1.5-6.6) 10^3/uL Lymphocytes # (Manual) (1.5-3.5) 10^3/uL Monocytes # (Manual) (0.0-1.0) 10^3/uL Eosinophils # (Manual) (0-0.7) 10^3/uL Basophils # (Manual) (0-0.1) 10^3/uL Nucleated RBCs % Differential Comment Manual Slide Review Indicated WBC Morphology NORMAL APPEARANCE (NORMAL) Platelet Estimate NORMAL (130-450,000) (NORMAL) Platelet Morphology NORMAL APPEARANCE (NORMAL) RBC Morph Micro Appear 1+ MICROCYTOSIS (NORMAL) VBG pH (7.31-7.41) VBG pCO2 (41-51) mmHg VBG pO2 (25-47) mmHg VBG HCO3 (23-28) mmol/L VBG Total CO2 (24-29) mmol/L VBG O2 Saturation (60-80) % VBG Base Excess (-2 - +2) mmol/L Ionized Calcium (1.15-1.33) mmol/L Sodium 137 (135-145) mmol/L Potassium 2.7 L (3.5-5.0) mmol/L Chloride 117 H (101-111) mmol/L Carbon Dioxide 13 L (21-32) mmol/L Anion Gap 7.0 (6-13) BUN 13 (6-20) mg/dL Creatinine 0.4 (0.4-1.0) mg/dL Estimated GFR (MDRD) 170 (>89) Glucose 120 H (70-100) mg/dL POC Whole Bld Glucose 159 H (70 - 100) mg/dL Lactic Acid (0.5-2.2) mmol/L Calcium 8.1 L (8.5-10.3) mg/dL Phosphorus 2.7 (2.5-4.6) mg/dL Magnesium 1.8 (1.7-2.8) mg/dL Total Bilirubin (0.2-1.0) mg/dL AST (10-42) IU/L ALT (10-60) IU/L Alkaline Phosphatase (42-121) IU/L Troponin I High Sens (2.3-14.8) ng/L Total Protein (6.7-8.2) g/dL Albumin (3.2-5.5) g/dL Globulin (2.1-4.2) g/dL Albumin/Globulin Ratio (1.0-2.2) Lipase (22-51) U/L TSH (0.34-5.60) uIU/mL Urine Color Urine Clarity (CLEAR) Urine pH (5.0-7.5) PH Ur Specific [place] (1.002-1.030) Urine Protein (NEGATIVE) mg/dL Urine Glucose (UA) (NEGATIVE) mg/dL Urine Ketones (NEGATIVE) mg/dL Urine Occult Blood (NEGATIVE) Urine Nitrite (NEGATIVE) Urine Bilirubin (NEGATIVE) Urine Urobilinogen (NORMAL) E.U./dL Ur Leukocyte Esterase (NEGATIVE) Urine RBC (0-5) /HPF Urine WBC (0-5) /HPF Ur Squamous Epith Cells (<= Few) Urine Bacteria (None Seen) /HPF Urine Casts /LPF Ur Microscopic Review Urine Culture Comments Urine HCG, Qual Nasal Adenovirus (PCR) Nasal B. parapertussis DNA (PCR) Nasal Coronavir 229E PCR Nasal Coronavir HKU1 PCR Nasal Coronavir NL63 PCR Nasal Coronavir OC43 PCR Nasal Enterovir/Rhinovir PCR Nasal Influenza B PCR Nasal Influenza A PCR Nasal Parainfluen 1 PCR Nasal Parainfluen 2 PCR Nasal Parainfluen 3 PCR Nasal Parainfluen 4 PCR Nasal RSV (PCR) Nasal Screen MRSA (PCR) (NEGATIVE) Nasal B.pertussis DNA PCR Nasal C.pneumoniae (PCR) Franck Human Metapneumo PCR Nasal M.pneumoniae (PCR) Nasal SARS-CoV-2 (PCR) Serum Ketones (NEGATIVE) 02/10/21 02/10/21 02/10/21 Range/Units 03:15 02:11 01:08 WBC (4.8-10.8) x10^3/uL RBC (4.20-5.40) 10^6/uL Hgb (12.0-16.0) g/dL Hct (37.0-47.0) % MCV (81.0-99.0) fL MCH (27.0-31.0) pg MCHC (32.0-36.0) g/dL RDW (12.0-15.0) % Plt Count (130-450) 10^3/uL Neut # (Auto) Lymph # (Auto) [place] # (Auto) Eos # (Auto) Baso # (Auto) Absolute Nucleated RBC Total Counted Band Neuts % (Manual) (0 - 10) % Reactive Lymphs % (Man) % Abnorm Lymph % (Manual) % Myelocytes % ( - 0) % Nucleated RBC % Neutrophils # (Manual) (1.5-6.6) 10^3/uL Lymphocytes # (Manual) (1.5-3.5) 10^3/uL Monocytes # (Manual) (0.0-1.0) 10^3/uL Eosinophils # (Manual) (0-0.7) 10^3/uL Basophils # (Manual) (0-0.1) 10^3/uL Nucleated RBCs % Differential Comment Manual Slide Review WBC Morphology (NORMAL) Platelet Estimate (NORMAL) Platelet Morphology (NORMAL) RBC Morph Micro Appear (NORMAL) VBG pH (7.31-7.41) VBG pCO2 (41-51) mmHg VBG pO2 (25-47) mmHg VBG HCO3 (23-28) mmol/L VBG Total CO2 (24-29) mmol/L VBG O2 Saturation (60-80) % VBG Base Excess (-2 - +2) mmol/L Ionized Calcium (1.15-1.33) mmol/L Sodium (135-145) mmol/L Potassium (3.5-5.0) mmol/L Chloride (101-111) mmol/L Carbon Dioxide (21-32) mmol/L Anion Gap (6-13) BUN (6-20) mg/dL Creatinine (0.4-1.0) mg/dL Estimated GFR (MDRD) (>89) Glucose (70-100) mg/dL POC Whole Bld Glucose 154 H 185 H 175 H (70 - 100) mg/dL Lactic Acid (0.5-2.2) mmol/L Calcium (8.5-10.3) mg/dL Phosphorus (2.5-4.6) mg/dL Magnesium (1.7-2.8) mg/dL Total Bilirubin (0.2-1.0) mg/dL AST (10-42) IU/L ALT (10-60) IU/L Alkaline Phosphatase (42-121) IU/L Troponin I High Sens (2.3-14.8) ng/L Total Protein (6.7-8.2) g/dL Albumin (3.2-5.5) g/dL Globulin (2.1-4.2) g/dL Albumin/Globulin Ratio (1.0-2.2) Lipase (22-51) U/L TSH (0.34-5.60) uIU/mL Urine Color Urine Clarity (CLEAR) Urine pH (5.0-7.5) PH Ur Specific [place] (1.002-1.030) Urine Protein (NEGATIVE) mg/dL Urine Glucose (UA) (NEGATIVE) mg/dL Urine Ketones (NEGATIVE) mg/dL Urine Occult Blood (NEGATIVE) Urine Nitrite (NEGATIVE) Urine Bilirubin (NEGATIVE) Urine Urobilinogen (NORMAL) E.U./dL Ur Leukocyte Esterase (NEGATIVE) Urine RBC (0-5) /HPF Urine WBC (0-5) /HPF Ur Squamous Epith Cells (<= Few) Urine Bacteria (None Seen) /HPF Urine Casts /LPF Ur Microscopic Review Urine Culture Comments Urine HCG, Qual Nasal Adenovirus (PCR) Nasal B. parapertussis DNA (PCR) Nasal Coronavir 229E PCR Nasal Coronavir HKU1 PCR Nasal Coronavir NL63 PCR Nasal Coronavir OC43 PCR Nasal Enterovir/Rhinovir PCR Nasal Influenza B PCR Nasal Influenza A PCR Nasal Parainfluen 1 PCR Nasal Parainfluen 2 PCR Nasal Parainfluen 3 PCR Nasal Parainfluen 4 PCR Nasal RSV (PCR) Nasal Screen MRSA (PCR) (NEGATIVE) Nasal B.pertussis DNA PCR Nasal C.pneumoniae (PCR) [place] Human Metapneumo PCR Nasal M.pneumoniae (PCR) Nasal SARS-CoV-2 (PCR) Serum Ketones (NEGATIVE) 02/10/21 02/10/21 02/09/21 Range/Units 00:57 00:28 23:03 WBC (4.8-10.8) x10^3/uL RBC (4.20-5.40) 10^6/uL Hgb (12.0-16.0) g/dL Hct (37.0-47.0) % MCV (81.0-99.0) fL MCH (27.0-31.0) pg MCHC (32.0-36.0) g/dL RDW (12.0-15.0) % Plt Count (130-450) 10^3/uL Neut # (Auto) Lymph # (Auto) [place] # (Auto) Eos # (Auto) Baso # (Auto) Absolute Nucleated RBC Total Counted Band Neuts % (Manual) (0 - 10) % Reactive Lymphs % (Man) % Abnorm Lymph % (Manual) % Myelocytes % ( - 0) % Nucleated RBC % Neutrophils # (Manual) (1.5-6.6) 10^3/uL Lymphocytes # (Manual) (1.5-3.5) 10^3/uL Monocytes # (Manual) (0.0-1.0) 10^3/uL Eosinophils # (Manual) (0-0.7) 10^3/uL Basophils # (Manual) (0-0.1) 10^3/uL Nucleated RBCs % Differential Comment Manual Slide Review WBC Morphology (NORMAL) Platelet Estimate (NORMAL) Platelet Morphology (NORMAL) RBC Morph Micro Appear (NORMAL) VBG pH (7.31-7.41) VBG pCO2 (41-51) mmHg VBG pO2 (25-47) mmHg VBG HCO3 (23-28) mmol/L VBG Total CO2 (24-29) mmol/L VBG O2 Saturation (60-80) % VBG Base Excess (-2 - +2) mmol/L Ionized Calcium (1.15-1.33) mmol/L Sodium 136 (135-145) mmol/L Potassium 3.4 L (3.5-5.0) mmol/L Chloride 116 H (101-111) mmol/L Carbon Dioxide 11 L* (21-32) mmol/L Anion Gap 9.0 (6-13) BUN 14 (6-20) mg/dL Creatinine 0.5 (0.4-1.0) mg/dL Estimated GFR (MDRD) 132 (>89) Glucose 194 H (70-100) mg/dL POC Whole Bld Glucose 198 H 196 H (70 - 100) mg/dL Lactic Acid (0.5-2.2) mmol/L Calcium 8.3 L (8.5-10.3) mg/dL Phosphorus 1.7 L (2.5-4.6) mg/dL Magnesium 1.9 (1.7-2.8) mg/dL Total Bilirubin (0.2-1.0) mg/dL AST (10-42) IU/L ALT (10-60) IU/L Alkaline Phosphatase (42-121) IU/L Troponin I High Sens (2.3-14.8) ng/L Total Protein (6.7-8.2) g/dL Albumin (3.2-5.5) g/dL Globulin (2.1-4.2) g/dL Albumin/Globulin Ratio (1.0-2.2) Lipase (22-51) U/L TSH (0.34-5.60) uIU/mL Urine Color Urine Clarity (CLEAR) Urine pH (5.0-7.5) PH Ur Specific [place] (1.002-1.030) Urine Protein (NEGATIVE) mg/dL Urine Glucose (UA) (NEGATIVE) mg/dL Urine Ketones (NEGATIVE) mg/dL Urine Occult Blood (NEGATIVE) Urine Nitrite (NEGATIVE) Urine Bilirubin (NEGATIVE) Urine Urobilinogen (NORMAL) E.U./dL Ur Leukocyte Esterase (NEGATIVE) Urine RBC (0-5) /HPF Urine WBC (0-5) /HPF Ur Squamous Epith Cells (<= Few) Urine Bacteria (None Seen) /HPF Urine Casts /LPF Ur Microscopic Review Urine Culture Comments Urine HCG, Qual Nasal Adenovirus (PCR) Nasal B. parapertussis DNA (PCR) Nasal Coronavir 229E PCR Nasal Coronavir HKU1 PCR Nasal Coronavir NL63 PCR Nasal Coronavir OC43 PCR Nasal Enterovir/Rhinovir PCR Nasal Influenza B PCR Nasal Influenza A PCR Nasal Parainfluen 1 PCR Nasal Parainfluen 2 PCR Nasal Parainfluen 3 PCR Nasal Parainfluen 4 PCR Nasal RSV (PCR) Nasal Screen MRSA (PCR) (NEGATIVE) Nasal B.pertussis DNA PCR Nasal C.pneumoniae (PCR) [place] Human Metapneumo PCR Nasal M.pneumoniae (PCR) Nasal SARS-CoV-2 (PCR) Serum Ketones (NEGATIVE) 02/09/21 02/09/21 02/09/21 Range/Units 22:17 22:06 21:25 WBC (4.8-10.8) x10^3/uL RBC (4.20-5.40) 10^6/uL Hgb (12.0-16.0) g/dL Hct (37.0-47.0) % MCV (81.0-99.0) fL MCH (27.0-31.0) pg MCHC (32.0-36.0) g/dL RDW (12.0-15.0) % Plt Count (130-450) 10^3/uL Neut # (Auto) Lymph # (Auto) [place] # (Auto) Eos # (Auto) Baso # (Auto) Absolute Nucleated RBC Total Counted Band Neuts % (Manual) (0 - 10) % Reactive Lymphs % (Man) % Abnorm Lymph % (Manual) % Myelocytes % ( - 0) % Nucleated RBC % Neutrophils # (Manual) (1.5-6.6) 10^3/uL Lymphocytes # (Manual) (1.5-3.5) 10^3/uL Monocytes # (Manual) (0.0-1.0) 10^3/uL Eosinophils # (Manual) (0-0.7) 10^3/uL Basophils # (Manual) (0-0.1) 10^3/uL Nucleated RBCs % Differential Comment Manual Slide Review WBC Morphology (NORMAL) Platelet Estimate (NORMAL) Platelet Morphology (NORMAL) RBC Morph Micro Appear (NORMAL) VBG pH 7.231 L (7.31-7.41) VBG pCO2 (41-51) mmHg VBG pO2 (25-47) mmHg VBG HCO3 (23-28) mmol/L VBG Total CO2 (24-29) mmol/L VBG O2 Saturation (60-80) % VBG Base Excess (-2 - +2) mmol/L Ionized Calcium 1.24 (1.15-1.33) mmol/L Sodium 138 (135-145) mmol/L Potassium 4.3 (3.5-5.0) mmol/L Chloride 116 H (101-111) mmol/L Carbon Dioxide 10 L* (21-32) mmol/L Anion Gap 12.0 (6-13) BUN 15 (6-20) mg/dL Creatinine 0.7 (0.4-1.0) mg/dL Estimated GFR (MDRD) 89 (>89) Glucose 206 H (70-100) mg/dL POC Whole Bld Glucose 198 H (70 - 100) mg/dL Lactic Acid (0.5-2.2) mmol/L Calcium 8.4 L (8.5-10.3) mg/dL Phosphorus < 1.0 L* (2.5-4.6) mg/dL Magnesium 1.9 (1.7-2.8) mg/dL Total Bilirubin (0.2-1.0) mg/dL AST (10-42) IU/L ALT (10-60) IU/L Alkaline Phosphatase (42-121) IU/L Troponin I High Sens (2.3-14.8) ng/L Total Protein (6.7-8.2) g/dL Albumin (3.2-5.5) g/dL Globulin (2.1-4.2) g/dL Albumin/Globulin Ratio (1.0-2.2) Lipase (22-51) U/L TSH (0.34-5.60) uIU/mL Urine Color Urine Clarity (CLEAR) Urine pH (5.0-7.5) PH Ur Specific [place] (1.002-1.030) Urine Protein (NEGATIVE) mg/dL Urine Glucose (UA) (NEGATIVE) mg/dL Urine Ketones (NEGATIVE) mg/dL Urine Occult Blood (NEGATIVE) Urine Nitrite (NEGATIVE) Urine Bilirubin (NEGATIVE) Urine Urobilinogen (NORMAL) E.U./dL Ur Leukocyte Esterase (NEGATIVE) Urine RBC (0-5) /HPF Urine WBC (0-5) /HPF Ur Squamous Epith Cells (<= Few) Urine Bacteria (None Seen) /HPF Urine Casts /LPF Ur Microscopic Review Urine Culture Comments Urine HCG, Qual Nasal Adenovirus (PCR) Nasal B. parapertussis DNA (PCR) Nasal Coronavir 229E PCR Nasal Coronavir HKU1 PCR Nasal Coronavir NL63 PCR Nasal Coronavir OC43 PCR Nasal Enterovir/Rhinovir PCR Nasal Influenza B PCR Nasal Influenza A PCR Nasal Parainfluen 1 PCR Nasal Parainfluen 2 PCR Nasal Parainfluen 3 PCR Nasal Parainfluen 4 PCR Nasal RSV (PCR) Nasal Screen MRSA (PCR) (NEGATIVE) Nasal B.pertussis DNA PCR Nasal C.pneumoniae (PCR) [place] Human Metapneumo PCR Nasal M.pneumoniae (PCR) Nasal SARS-CoV-2 (PCR) Serum Ketones (NEGATIVE) 02/09/21 02/09/21 02/09/21 Range/Units 21:01 19:58 19:32 WBC (4.8-10.8) x10^3/uL RBC (4.20-5.40) 10^6/uL Hgb (12.0-16.0) g/dL Hct (37.0-47.0) % MCV (81.0-99.0) fL MCH (27.0-31.0) pg MCHC (32.0-36.0) g/dL RDW (12.0-15.0) % Plt Count (130-450) 10^3/uL Neut # (Auto) Lymph # (Auto) [place] # (Auto) Eos # (Auto) Baso # (Auto) Absolute Nucleated RBC Total Counted Band Neuts % (Manual) (0 - 10) % Reactive Lymphs % (Man) % Abnorm Lymph % (Manual) % Myelocytes % ( - 0) % Nucleated RBC % Neutrophils # (Manual) (1.5-6.6) 10^3/uL Lymphocytes # (Manual) (1.5-3.5) 10^3/uL Monocytes # (Manual) (0.0-1.0) 10^3/uL Eosinophils # (Manual) (0-0.7) 10^3/uL Basophils # (Manual) (0-0.1) 10^3/uL Nucleated RBCs % Differential Comment Manual Slide Review WBC Morphology (NORMAL) Platelet Estimate (NORMAL) Platelet Morphology (NORMAL) RBC Morph Micro Appear (NORMAL) VBG pH (7.31-7.41) VBG pCO2 (41-51) mmHg VBG pO2 (25-47) mmHg VBG HCO3 (23-28) mmol/L VBG Total CO2 (24-29) mmol/L VBG O2 Saturation (60-80) % VBG Base Excess (-2 - +2) mmol/L Ionized Calcium (1.15-1.33) mmol/L Sodium (135-145) mmol/L Potassium (3.5-5.0) mmol/L Chloride (101-111) mmol/L Carbon Dioxide (21-32) mmol/L Anion Gap (6-13) BUN (6-20) mg/dL Creatinine (0.4-1.0) mg/dL Estimated GFR (MDRD) (>89) Glucose (70-100) mg/dL POC Whole Bld Glucose 236 H 294 H 298 H (70 - 100) mg/dL Lactic Acid (0.5-2.2) mmol/L Calcium (8.5-10.3) mg/dL Phosphorus (2.5-4.6) mg/dL Magnesium (1.7-2.8) mg/dL Total Bilirubin (0.2-1.0) mg/dL AST (10-42) IU/L ALT (10-60) IU/L Alkaline Phosphatase (42-121) IU/L Troponin I High Sens (2.3-14.8) ng/L Total Protein (6.7-8.2) g/dL Albumin (3.2-5.5) g/dL Globulin (2.1-4.2) g/dL Albumin/Globulin Ratio (1.0-2.2) Lipase (22-51) U/L TSH (0.34-5.60) uIU/mL Urine Color Urine Clarity (CLEAR) Urine pH (5.0-7.5) PH Ur Specific [place] (1.002-1.030) Urine Protein (NEGATIVE) mg/dL Urine Glucose (UA) (NEGATIVE) mg/dL Urine Ketones (NEGATIVE) mg/dL Urine Occult Blood (NEGATIVE) Urine Nitrite (NEGATIVE) Urine Bilirubin (NEGATIVE) Urine Urobilinogen (NORMAL) E.U./dL Ur Leukocyte Esterase (NEGATIVE) Urine RBC (0-5) /HPF Urine WBC (0-5) /HPF Ur Squamous Epith Cells (<= Few) Urine Bacteria (None Seen) /HPF Urine Casts /LPF Ur Microscopic Review Urine Culture Comments Urine HCG, Qual Nasal Adenovirus (PCR) Nasal B. parapertussis DNA (PCR) Nasal Coronavir 229E PCR Nasal Coronavir HKU1 PCR Nasal Coronavir NL63 PCR Nasal Coronavir OC43 PCR Nasal Enterovir/Rhinovir PCR Nasal Influenza B PCR Nasal Influenza A PCR Nasal Parainfluen 1 PCR Nasal Parainfluen 2 PCR Nasal Parainfluen 3 PCR Nasal Parainfluen 4 PCR Nasal RSV (PCR) Nasal Screen MRSA (PCR) (NEGATIVE) Nasal B.pertussis DNA PCR Nasal C.pneumoniae (PCR) Franck Human Metapneumo PCR Nasal M.pneumoniae (PCR) Nasal SARS-CoV-2 (PCR) Serum Ketones (NEGATIVE) 02/09/21 02/09/21 02/09/21 Range/Units 18:07 17:20 17:20 WBC (4.8-10.8) x10^3/uL RBC (4.20-5.40) 10^6/uL Hgb (12.0-16.0) g/dL Hct (37.0-47.0) % MCV (81.0-99.0) fL MCH (27.0-31.0) pg MCHC (32.0-36.0) g/dL RDW (12.0-15.0) % Plt Count (130-450) 10^3/uL Neut # (Auto) Lymph # (Auto) [place] # (Auto) Eos # (Auto) Baso # (Auto) Absolute Nucleated RBC Total Counted Band Neuts % (Manual) (0 - 10) % Reactive Lymphs % (Man) % Abnorm Lymph % (Manual) % Myelocytes % ( - 0) % Nucleated RBC % Neutrophils # (Manual) (1.5-6.6) 10^3/uL Lymphocytes # (Manual) (1.5-3.5) 10^3/uL Monocytes # (Manual) (0.0-1.0) 10^3/uL Eosinophils # (Manual) (0-0.7) 10^3/uL Basophils # (Manual) (0-0.1) 10^3/uL Nucleated RBCs % Differential Comment Manual Slide Review WBC Morphology (NORMAL) Platelet Estimate (NORMAL) Platelet Morphology (NORMAL) RBC Morph Micro Appear (NORMAL) VBG pH (7.31-7.41) VBG pCO2 (41-51) mmHg VBG pO2 (25-47) mmHg VBG HCO3 (23-28) mmol/L VBG Total CO2 (24-29) mmol/L VBG O2 Saturation (60-80) % VBG Base Excess (-2 - +2) mmol/L Ionized Calcium (1.15-1.33) mmol/L Sodium (135-145) mmol/L Potassium (3.5-5.0) mmol/L Chloride (101-111) mmol/L Carbon Dioxide (21-32) mmol/L Anion Gap (6-13) BUN (6-20) mg/dL Creatinine (0.4-1.0) mg/dL Estimated GFR (MDRD) (>89) Glucose 352 H 430 H (70-100) mg/dL POC Whole Bld Glucose (70 - 100) mg/dL Lactic Acid 2.4 H (0.5-2.2) mmol/L Calcium (8.5-10.3) mg/dL Phosphorus (2.5-4.6) mg/dL Magnesium (1.7-2.8) mg/dL Total Bilirubin (0.2-1.0) mg/dL AST (10-42) IU/L ALT (10-60) IU/L Alkaline Phosphatase (42-121) IU/L Troponin I High Sens (2.3-14.8) ng/L Total Protein (6.7-8.2) g/dL Albumin (3.2-5.5) g/dL Globulin (2.1-4.2) g/dL Albumin/Globulin Ratio (1.0-2.2) Lipase (22-51) U/L TSH (0.34-5.60) uIU/mL Urine Color Urine Clarity (CLEAR) Urine pH (5.0-7.5) PH Ur Specific [place] (1.002-1.030) Urine Protein (NEGATIVE) mg/dL Urine Glucose (UA) (NEGATIVE) mg/dL Urine Ketones (NEGATIVE) mg/dL Urine Occult Blood (NEGATIVE) Urine Nitrite (NEGATIVE) Urine Bilirubin (NEGATIVE) Urine Urobilinogen (NORMAL) E.U./dL Ur Leukocyte Esterase (NEGATIVE) Urine RBC (0-5) /HPF Urine WBC (0-5) /HPF Ur Squamous Epith Cells (<= Few) Urine Bacteria (None Seen) /HPF Urine Casts /LPF Ur Microscopic Review Urine Culture Comments Urine HCG, Qual Nasal Adenovirus (PCR) Nasal B. parapertussis DNA (PCR) Nasal Coronavir 229E PCR Nasal Coronavir HKU1 PCR Nasal Coronavir NL63 PCR Nasal Coronavir OC43 PCR Nasal Enterovir/Rhinovir PCR Nasal Influenza B PCR Nasal Influenza A PCR Nasal Parainfluen 1 PCR Nasal Parainfluen 2 PCR Nasal Parainfluen 3 PCR Nasal Parainfluen 4 PCR Nasal RSV (PCR) Nasal Screen MRSA (PCR) (NEGATIVE) Nasal B.pertussis DNA PCR Nasal C.pneumoniae (PCR) [place] Human Metapneumo PCR Nasal M.pneumoniae (PCR) Nasal SARS-CoV-2 (PCR) Serum Ketones (NEGATIVE) 02/09/21 02/09/21 02/09/21 Range/Units 16:00 15:00 14:43 WBC (4.8-10.8) x10^3/uL RBC (4.20-5.40) 10^6/uL Hgb (12.0-16.0) g/dL Hct (37.0-47.0) % MCV (81.0-99.0) fL MCH (27.0-31.0) pg MCHC (32.0-36.0) g/dL RDW (12.0-15.0) % Plt Count (130-450) 10^3/uL Neut # (Auto) Lymph # (Auto) [place] # (Auto) Eos # (Auto) Baso # (Auto) Absolute Nucleated RBC Total Counted Band Neuts % (Manual) (0 - 10) % Reactive Lymphs % (Man) % Abnorm Lymph % (Manual) % Myelocytes % ( - 0) % Nucleated RBC % Neutrophils # (Manual) (1.5-6.6) 10^3/uL Lymphocytes # (Manual) (1.5-3.5) 10^3/uL Monocytes # (Manual) (0.0-1.0) 10^3/uL Eosinophils # (Manual) (0-0.7) 10^3/uL Basophils # (Manual) (0-0.1) 10^3/uL Nucleated RBCs % Differential Comment Manual Slide Review WBC Morphology (NORMAL) Platelet Estimate (NORMAL) Platelet Morphology (NORMAL) RBC Morph Micro Appear (NORMAL) VBG pH (7.31-7.41) VBG pCO2 (41-51) mmHg VBG pO2 (25-47) mmHg VBG HCO3 (23-28) mmol/L VBG Total CO2 (24-29) mmol/L VBG O2 Saturation (60-80) % VBG Base Excess (-2 - +2) mmol/L Ionized Calcium (1.15-1.33) mmol/L Sodium 137 (135-145) mmol/L Potassium 4.4 (3.5-5.0) mmol/L Chloride 111 (101-111) mmol/L Carbon Dioxide < 6 L* (21-32) mmol/L Anion Gap 21.0 H (6-13) BUN 19 (6-20) mg/dL Creatinine 0.8 (0.4-1.0) mg/dL Estimated GFR (MDRD) 77 L (>89) Glucose 520 H* 612 H* (70-100) mg/dL POC Whole Bld Glucose (70 - 100) mg/dL Lactic Acid (0.5-2.2) mmol/L Calcium 8.3 L (8.5-10.3) mg/dL Phosphorus 3.4 (2.5-4.6) mg/dL Magnesium 2.2 (1.7-2.8) mg/dL Total Bilirubin (0.2-1.0) mg/dL AST (10-42) IU/L ALT (10-60) IU/L Alkaline Phosphatase (42-121) IU/L Troponin I High Sens (2.3-14.8) ng/L Total Protein (6.7-8.2) g/dL Albumin (3.2-5.5) g/dL Globulin (2.1-4.2) g/dL Albumin/Globulin Ratio (1.0-2.2) Lipase (22-51) U/L TSH (0.34-5.60) uIU/mL Urine Color Urine Clarity (CLEAR) Urine pH (5.0-7.5) PH Ur Specific [place] (1.002-1.030) Urine Protein (NEGATIVE) mg/dL Urine Glucose (UA) (NEGATIVE) mg/dL Urine Ketones (NEGATIVE) mg/dL Urine Occult Blood (NEGATIVE) Urine Nitrite (NEGATIVE) Urine Bilirubin (NEGATIVE) Urine Urobilinogen (NORMAL) E.U./dL Ur Leukocyte Esterase (NEGATIVE) Urine RBC (0-5) /HPF Urine WBC (0-5) /HPF Ur Squamous Epith Cells (<= Few) Urine Bacteria (None Seen) /HPF Urine Casts /LPF Ur Microscopic Review Urine Culture Comments Urine HCG, Qual Nasal Adenovirus (PCR) Nasal B. parapertussis DNA (PCR) Nasal Coronavir 229E PCR Nasal Coronavir HKU1 PCR Nasal Coronavir NL63 PCR Nasal Coronavir OC43 PCR Nasal Enterovir/Rhinovir PCR Nasal Influenza B PCR Nasal Influenza A PCR Nasal Parainfluen 1 PCR Nasal Parainfluen 2 PCR Nasal Parainfluen 3 PCR Nasal Parainfluen 4 PCR Nasal RSV (PCR) Nasal Screen MRSA (PCR) NEGATIVE (NEGATIVE) Nasal B.pertussis DNA PCR Nasal C.pneumoniae (PCR) Franck Human Metapneumo PCR Nasal M.pneumoniae (PCR) Nasal SARS-CoV-2 (PCR) Serum Ketones (NEGATIVE) 02/09/21 02/09/21 02/09/21 Range/Units 13:25 13:25 12:07 WBC (4.8-10.8) x10^3/uL RBC (4.20-5.40) 10^6/uL Hgb (12.0-16.0) g/dL Hct (37.0-47.0) % MCV (81.0-99.0) fL MCH (27.0-31.0) pg MCHC (32.0-36.0) g/dL RDW (12.0-15.0) % Plt Count (130-450) 10^3/uL Neut # (Auto) Lymph # (Auto) [place] # (Auto) Eos # (Auto) Baso # (Auto) Absolute Nucleated RBC Total Counted Band Neuts % (Manual) (0 - 10) % Reactive Lymphs % (Man) % Abnorm Lymph % (Manual) % Myelocytes % ( - 0) % Nucleated RBC % Neutrophils # (Manual) (1.5-6.6) 10^3/uL Lymphocytes # (Manual) (1.5-3.5) 10^3/uL Monocytes # (Manual) (0.0-1.0) 10^3/uL Eosinophils # (Manual) (0-0.7) 10^3/uL Basophils # (Manual) (0-0.1) 10^3/uL Nucleated RBCs % Differential Comment Manual Slide Review WBC Morphology (NORMAL) Platelet Estimate (NORMAL) Platelet Morphology (NORMAL) RBC Morph Micro Appear (NORMAL) VBG pH 6.872 L (7.31-7.41) VBG pCO2 16.6 L (41-51) mmHg VBG pO2 73.1 H (25-47) mmHg VBG HCO3 3.0 L (23-28) mmol/L VBG Total CO2 3.5 L (24-29) mmol/L VBG O2 Saturation 87.6 H (60-80) % VBG Base Excess -29.3 L (-2 - +2) mmol/L Ionized Calcium (1.15-1.33) mmol/L Sodium 130 L (135-145) mmol/L Potassium 4.8 (3.5-5.0) mmol/L Chloride 103 (101-111) mmol/L Carbon Dioxide < 6 L* (21-32) mmol/L Anion Gap 21.0 H (6-13) BUN 19 (6-20) mg/dL Creatinine 0.9 (0.4-1.0) mg/dL Estimated GFR (MDRD) 67 L (>89) Glucose 709 H* (70-100) mg/dL POC Whole Bld Glucose (70 - 100) mg/dL Lactic Acid (0.5-2.2) mmol/L Calcium 8.3 L (8.5-10.3) mg/dL Phosphorus 4.8 H (2.5-4.6) mg/dL Magnesium 2.5 (1.7-2.8) mg/dL Total Bilirubin (0.2-1.0) mg/dL AST (10-42) IU/L ALT (10-60) IU/L Alkaline Phosphatase (42-121) IU/L Troponin I High Sens (2.3-14.8) ng/L Total Protein (6.7-8.2) g/dL Albumin (3.2-5.5) g/dL Globulin (2.1-4.2) g/dL Albumin/Globulin Ratio (1.0-2.2) Lipase (22-51) U/L TSH (0.34-5.60) uIU/mL Urine Color LIGHT YELLOW Urine Clarity HAZY (CLEAR) Urine pH 5.5 (5.0-7.5) PH Ur Specific [place] >=1.030 H (1.002-1.030) Urine Protein 100 H (NEGATIVE) mg/dL Urine Glucose (UA) >=1000 H (NEGATIVE) mg/dL Urine Ketones >=80 H (NEGATIVE) mg/dL Urine Occult Blood SMALL H (NEGATIVE) Urine Nitrite NEGATIVE (NEGATIVE) Urine Bilirubin NEGATIVE (NEGATIVE) Urine Urobilinogen 0.2 (NORMAL) (NORMAL) E.U./dL Ur Leukocyte Esterase NEGATIVE (NEGATIVE) Urine RBC 0-5 (0-5) /HPF Urine WBC 6-10 H (0-5) /HPF Ur Squamous Epith Cells MANY Squamous H (<= Few) Urine Bacteria Many H (None Seen) /HPF Urine Casts 11-25 Granular Casts /LPF Ur Microscopic Review INDICATED Urine Culture Comments NOT INDICATED Urine HCG, Qual NEGATIVE Nasal Adenovirus (PCR) Nasal B. parapertussis DNA (PCR) Nasal Coronavir 229E PCR Nasal Coronavir HKU1 PCR Nasal Coronavir NL63 PCR Nasal Coronavir OC43 PCR Nasal Enterovir/Rhinovir PCR Nasal Influenza B PCR Nasal Influenza A PCR Nasal Parainfluen 1 PCR Nasal Parainfluen 2 PCR Nasal Parainfluen 3 PCR Nasal Parainfluen 4 PCR Nasal RSV (PCR) Nasal Screen MRSA (PCR) (NEGATIVE) Nasal B.pertussis DNA PCR Nasal C.pneumoniae (PCR) Franck Human Metapneumo PCR Nasal M.pneumoniae (PCR) Nasal SARS-CoV-2 (PCR) Serum Ketones (NEGATIVE) 02/09/21 02/09/21 02/09/21 Range/Units 12:00 12:00 12:00 WBC (4.8-10.8) x10^3/uL RBC (4.20-5.40) 10^6/uL Hgb (12.0-16.0) g/dL Hct (37.0-47.0) % MCV (81.0-99.0) fL MCH (27.0-31.0) pg MCHC (32.0-36.0) g/dL RDW (12.0-15.0) % Plt Count (130-450) 10^3/uL Neut # (Auto) Lymph # (Auto) [place] # (Auto) Eos # (Auto) Baso # (Auto) Absolute Nucleated RBC Total Counted Band Neuts % (Manual) (0 - 10) % Reactive Lymphs % (Man) % Abnorm Lymph % (Manual) % Myelocytes % ( - 0) % Nucleated RBC % Neutrophils # (Manual) (1.5-6.6) 10^3/uL Lymphocytes # (Manual) (1.5-3.5) 10^3/uL Monocytes # (Manual) (0.0-1.0) 10^3/uL Eosinophils # (Manual) (0-0.7) 10^3/uL Basophils # (Manual) (0-0.1) 10^3/uL Nucleated RBCs % Differential Comment Manual Slide Review WBC Morphology (NORMAL) Platelet Estimate (NORMAL) Platelet Morphology (NORMAL) RBC Morph Micro Appear (NORMAL) VBG pH (7.31-7.41) VBG pCO2 (41-51) mmHg VBG pO2 (25-47) mmHg VBG HCO3 (23-28) mmol/L VBG Total CO2 (24-29) mmol/L VBG O2 Saturation (60-80) % VBG Base Excess (-2 - +2) mmol/L Ionized Calcium (1.15-1.33) mmol/L Sodium (135-145) mmol/L Potassium (3.5-5.0) mmol/L Chloride (101-111) mmol/L Carbon Dioxide (21-32) mmol/L Anion Gap (6-13) BUN (6-20) mg/dL Creatinine (0.4-1.0) mg/dL Estimated GFR (MDRD) (>89) Glucose (70-100) mg/dL POC Whole Bld Glucose (70 - 100) mg/dL Lactic Acid (0.5-2.2) mmol/L Calcium (8.5-10.3) mg/dL Phosphorus (2.5-4.6) mg/dL Magnesium (1.7-2.8) mg/dL Total Bilirubin (0.2-1.0) mg/dL AST (10-42) IU/L ALT (10-60) IU/L Alkaline Phosphatase (42-121) IU/L Troponin I High Sens 7.2 (2.3-14.8) ng/L Total Protein (6.7-8.2) g/dL Albumin (3.2-5.5) g/dL Globulin (2.1-4.2) g/dL Albumin/Globulin Ratio (1.0-2.2) Lipase (22-51) U/L TSH 1.60 (0.34-5.60) uIU/mL Urine Color Urine Clarity (CLEAR) Urine pH (5.0-7.5) PH Ur Specific [place] (1.002-1.030) Urine Protein (NEGATIVE) mg/dL Urine Glucose (UA) (NEGATIVE) mg/dL Urine Ketones (NEGATIVE) mg/dL Urine Occult Blood (NEGATIVE) Urine Nitrite (NEGATIVE) Urine Bilirubin (NEGATIVE) Urine Urobilinogen (NORMAL) E.U./dL Ur Leukocyte Esterase (NEGATIVE) Urine RBC (0-5) /HPF Urine WBC (0-5) /HPF Ur Squamous Epith Cells (<= Few) Urine Bacteria (None Seen) /HPF Urine Casts /LPF Ur Microscopic Review Urine Culture Comments Urine HCG, Qual Nasal Adenovirus (PCR) NOT DETECTED Nasal B. parapertussis DNA (PCR) NOT DETECTED Nasal Coronavir 229E PCR NOT DETECTED Nasal Coronavir HKU1 PCR NOT DETECTED Nasal Coronavir NL63 PCR NOT DETECTED Nasal Coronavir OC43 PCR NOT DETECTED Nasal Enterovir/Rhinovir PCR NOT DETECTED Nasal Influenza B PCR NOT DETECTED Nasal Influenza A PCR NOT DETECTED Nasal Parainfluen 1 PCR NOT DETECTED Nasal Parainfluen 2 PCR NOT DETECTED Nasal Parainfluen 3 PCR NOT DETECTED Nasal Parainfluen 4 PCR NOT DETECTED Nasal RSV (PCR) NOT DETECTED Nasal Screen MRSA (PCR) (NEGATIVE) Nasal B.pertussis DNA PCR NOT DETECTED Nasal C.pneumoniae (PCR) NOT DETECTED Franck Human Metapneumo PCR NOT DETECTED Nasal M.pneumoniae (PCR) NOT DETECTED Nasal SARS-CoV-2 (PCR) NOT DETECTED Serum Ketones (NEGATIVE) 02/09/21 02/09/21 02/09/21 Range/Units 12:00 12:00 12:00 WBC (4.8-10.8) x10^3/uL RBC (4.20-5.40) 10^6/uL Hgb (12.0-16.0) g/dL Hct (37.0-47.0) % MCV (81.0-99.0) fL MCH (27.0-31.0) pg MCHC (32.0-36.0) g/dL RDW (12.0-15.0) % Plt Count (130-450) 10^3/uL Neut # (Auto) Lymph # (Auto) [place] # (Auto) Eos # (Auto) Baso # (Auto) Absolute Nucleated RBC Total Counted Band Neuts % (Manual) (0 - 10) % Reactive Lymphs % (Man) % Abnorm Lymph % (Manual) % Myelocytes % ( - 0) % Nucleated RBC % Neutrophils # (Manual) (1.5-6.6) 10^3/uL Lymphocytes # (Manual) (1.5-3.5) 10^3/uL Monocytes # (Manual) (0.0-1.0) 10^3/uL Eosinophils # (Manual) (0-0.7) 10^3/uL Basophils # (Manual) (0-0.1) 10^3/uL Nucleated RBCs % Differential Comment Manual Slide Review WBC Morphology (NORMAL) Platelet Estimate (NORMAL) Platelet Morphology (NORMAL) RBC Morph Micro Appear (NORMAL) VBG pH 6.953 L (7.31-7.41) VBG pCO2 20.6 L (41-51) mmHg VBG pO2 54.8 H (25-47) mmHg VBG HCO3 4.5 L (23-28) mmol/L VBG Total CO2 5.1 L (24-29) mmol/L VBG O2 Saturation 78.7 (60-80) % VBG Base Excess -26.4 L (-2 - +2) mmol/L Ionized Calcium (1.15-1.33) mmol/L Sodium 129 L (135-145) mmol/L Potassium 5.0 (3.5-5.0) mmol/L Chloride 100 L (101-111) mmol/L Carbon Dioxide < 6 L* (21-32) mmol/L Anion Gap 25.0 H (6-13) BUN 19 (6-20) mg/dL Creatinine 1.1 H (0.4-1.0) mg/dL Estimated GFR (MDRD) 53 L (>89) Glucose 685 H* (70-100) mg/dL POC Whole Bld Glucose (70 - 100) mg/dL Lactic Acid 2.6 H (0.5-2.2) mmol/L Calcium 9.0 (8.5-10.3) mg/dL Phosphorus (2.5-4.6) mg/dL Magnesium (1.7-2.8) mg/dL Total Bilirubin 1.5 H (0.2-1.0) mg/dL AST 13 (10-42) IU/L ALT 15 (10-60) IU/L Alkaline Phosphatase 91 (42-121) IU/L Troponin I High Sens (2.3-14.8) ng/L Total Protein 9.4 H (6.7-8.2) g/dL Albumin 5.4 (3.2-5.5) g/dL Globulin 4.0 (2.1-4.2) g/dL Albumin/Globulin Ratio 1.4 (1.0-2.2) Lipase 45 (22-51) U/L TSH (0.34-5.60) uIU/mL Urine Color Urine Clarity (CLEAR) Urine pH (5.0-7.5) PH Ur Specific [place] (1.002-1.030) Urine Protein (NEGATIVE) mg/dL Urine Glucose (UA) (NEGATIVE) mg/dL Urine Ketones (NEGATIVE) mg/dL Urine Occult Blood (NEGATIVE) Urine Nitrite (NEGATIVE) Urine Bilirubin (NEGATIVE) Urine Urobilinogen (NORMAL) E.U./dL Ur Leukocyte Esterase (NEGATIVE) Urine RBC (0-5) /HPF Urine WBC (0-5) /HPF Ur Squamous Epith Cells (<= Few) Urine Bacteria (None Seen) /HPF Urine Casts /LPF Ur Microscopic Review Urine Culture Comments Urine HCG, Qual Nasal Adenovirus (PCR) Nasal B. parapertussis DNA (PCR) Nasal Coronavir 229E PCR Nasal Coronavir HKU1 PCR Nasal Coronavir NL63 PCR Nasal Coronavir OC43 PCR Nasal Enterovir/Rhinovir PCR Nasal Influenza B PCR Nasal Influenza A PCR Nasal Parainfluen 1 PCR Nasal Parainfluen 2 PCR Nasal Parainfluen 3 PCR Nasal Parainfluen 4 PCR Nasal RSV (PCR) Nasal Screen MRSA (PCR) (NEGATIVE) Nasal B.pertussis DNA PCR Nasal C.pneumoniae (PCR) Franck Human Metapneumo PCR Nasal M.pneumoniae (PCR) Nasal SARS-CoV-2 (PCR) Serum Ketones SMALL H (NEGATIVE) 02/09/21 Range/Units 12:00 WBC 19.2 H (4.8-10.8) x10^3/uL RBC 7.45 H (4.20-5.40) 10^6/uL Hgb 13.9 (12.0-16.0) g/dL Hct 46.5 (37.0-47.0) % MCV 62.4 L (81.0-99.0) fL MCH 18.7 L (27.0-31.0) pg MCHC 29.9 L (32.0-36.0) g/dL RDW 23.2 H (12.0-15.0) % Plt Count 569 H (130-450) 10^3/uL Neut # (Auto) Not Reportable Lymph # (Auto) Not Reportable [place] # (Auto) Not Reportable Eos # (Auto) Not Reportable Baso # (Auto) Not Reportable Absolute Nucleated RBC Not Reportable Total Counted 100 Band Neuts % (Manual) 7 (0 - 10) % Reactive Lymphs % (Man) 10 % Abnorm Lymph % (Manual) 0 % Myelocytes % 1 H ( - 0) % Nucleated RBC % Not Reportable Neutrophils # (Manual) 14.6 H (1.5-6.6) 10^3/uL Lymphocytes # (Manual) 4.0 H (1.5-3.5) 10^3/uL Monocytes # (Manual) 0.4 (0.0-1.0) 10^3/uL Eosinophils # (Manual) 0.0 (0-0.7) 10^3/uL Basophils # (Manual) 0.0 (0-0.1) 10^3/uL Nucleated RBCs 1 % Differential Comment MANUAL DIFFERENTIAL Manual Slide Review WBC Morphology (NORMAL) Platelet Estimate (NORMAL) Platelet Morphology (NORMAL) RBC Morph Micro Appear (NORMAL) VBG pH (7.31-7.41) VBG pCO2 (41-51) mmHg VBG pO2 (25-47) mmHg VBG HCO3 (23-28) mmol/L VBG Total CO2 (24-29) mmol/L VBG O2 Saturation (60-80) % VBG Base Excess (-2 - +2) mmol/L Ionized Calcium (1.15-1.33) mmol/L Sodium (135-145) mmol/L Potassium (3.5-5.0) mmol/L Chloride (101-111) mmol/L Carbon Dioxide (21-32) mmol/L Anion Gap (6-13) BUN (6-20) mg/dL Creatinine (0.4-1.0) mg/dL Estimated GFR (MDRD) (>89) Glucose (70-100) mg/dL POC Whole Bld Glucose (70 - 100) mg/dL Lactic Acid (0.5-2.2) mmol/L Calcium (8.5-10.3) mg/dL Phosphorus (2.5-4.6) mg/dL Magnesium (1.7-2.8) mg/dL Total Bilirubin (0.2-1.0) mg/dL AST (10-42) IU/L ALT (10-60) IU/L Alkaline Phosphatase (42-121) IU/L Troponin I High Sens (2.3-14.8) ng/L Total Protein (6.7-8.2) g/dL Albumin (3.2-5.5) g/dL Globulin (2.1-4.2) g/dL Albumin/Globulin Ratio (1.0-2.2) Lipase (22-51) U/L TSH (0.34-5.60) uIU/mL Urine Color Urine Clarity (CLEAR) Urine pH (5.0-7.5) PH Ur Specific [place] (1.002-1.030) Urine Protein (NEGATIVE) mg/dL Urine Glucose (UA) (NEGATIVE) mg/dL Urine Ketones (NEGATIVE) mg/dL Urine Occult Blood (NEGATIVE) Urine Nitrite (NEGATIVE) Urine Bilirubin (NEGATIVE) Urine Urobilinogen (NORMAL) E.U./dL Ur Leukocyte Esterase (NEGATIVE) Urine RBC (0-5) /HPF Urine WBC (0-5) /HPF Ur Squamous Epith Cells (<= Few) Urine Bacteria (None Seen) /HPF Urine Casts /LPF Ur Microscopic Review Urine Culture Comments Urine HCG, Qual Nasal Adenovirus (PCR) Nasal B. parapertussis DNA (PCR) Nasal Coronavir 229E PCR Nasal Coronavir HKU1 PCR Nasal Coronavir NL63 PCR Nasal Coronavir OC43 PCR Nasal Enterovir/Rhinovir PCR Nasal Influenza B PCR Nasal Influenza A PCR Nasal Parainfluen 1 PCR Nasal Parainfluen 2 PCR Nasal Parainfluen 3 PCR Nasal Parainfluen 4 PCR Nasal RSV (PCR) Nasal Screen MRSA (PCR) (NEGATIVE) Nasal B.pertussis DNA PCR Nasal C.pneumoniae (PCR) Franck Human Metapneumo PCR Nasal M.pneumoniae (PCR) Nasal SARS-CoV-2 (PCR) Serum Ketones (NEGATIVE) Assessment/Plan - Problem List (1) Type 2 diabetes mellitus Impression: Her DKA is now resolved. Her A1c is still pending but she will most definitely need insulin therapy now. She is not sure if she is ever been tested for type 1 diabetes in the past but I will defer this to her primary care physician as it would not change management coordinator at this time. We will keep her on the insulin drip throughout the day as we start her on a diet. We will then start her on subcutaneous insulin this evening based off of her insulin requirements while she is eating. We discussed the importance of insulin compliance and diabetic education. The [place] vessel pilot has been consulted as well as nutrition. I am hopeful that we can get her on an insulin regimen for home and that she can likely be discharged in 2 days. Qualifiers: Diabetes mellitus halfway insulin use: without halfway use Diabetes mellitus complication status: with ketoacidosis Diabetes mellitus complication detail: without coma Qualified Code(s): E11.10 - Type 2 diabetes mellitus w ith ketoacidosis without coma (2) Hyperchloremic acidosis Impression: Her DKA has resolved but now she has hyperchloremic acidosis. This is due to the normal saline she received for IV fluid resuscitation. We have now placed her on D5 half-normal with potassium supplementation. This acidosis should resolve over next 24 to 48 hours. (3) Hypokalemia Impression: Given she is hypokalemic this morning, we will hold her IV insulin until we replace this intravenously and orally. We will recheck a BMP at noon before resuming IV insulin. (4) Leukocytosis Impression: This is improved but remains elevated. This was likely reactive and also due to hemoconcentration. There has been no evidence of infection. (5) DKA (diabetic ketoacidosis) Impression: Her DKA is now resolved. We will manage her diabetes as mentioned above. Qualifiers: Diabetes mellitus type: type 2 Diabetes mellitus complication detail: without coma Qualified Code(s): E11.10 - Type 2 diabetes mellitus with ketoacidosis without coma (6) Acute kidney injury Impression: This is resolved.
[2021-02-10] MEDS ORDERED: D5.45NS W/20 MEQ KCL 1,000 ML IV SCH (08:00)
[2021-02-10] MEDS ORDERED: POTASSIUM CHLORIDE 20 MEQ TABLET PO ONE (08:00)
[2021-02-10] MEDS: POTASSIUM CHLOR 10 MEQ/100 ML 10 MEQ/100 ML BAG IV SCH ×6 (08:32→18:06)
[2021-02-10] MEDS: ENOXAPARIN 40 MG/0.4 ML SYRINGE SUBQ SCH (08:32)
[2021-02-10] MEDS: SODIUM CHLORIDE 0.9% 1,000 ML IV SCH (08:40)
--- NOTE | 2021-02-10 09:25 | PHARMACY PROGRESS NOTE ---
- Best Possible Medication History Admit Date and Time: 02/09/21 1245 Processed by: Pharmacy Medication History completed: Yes Patient Interview: Completed Secondary Source(s): Pharmacy records, Insurance records As the person ultimately responsible for medication therapy, providers are able to order a medication from an existing home medication list in [facility] via the "Reconcile Routine" prior to Confirmation of that medication by supportive employment case manager. Such practice is discouraged except when the physician, in their clinical judgment, deems that a medical need exists for a medication without regard to previous use.
[2021-02-10 10:14] LABS: ESTIMATED AVERAGE GLUCOSE 364 mg/dL (70-100); HEMOGLOBIN A1c% 14.3 % (4.27-6.07)
[2021-02-10 11:39] LABS: CALCIUM 8.4 mg/dL (8.5-10.3); CREATININE 0.6 mg/dL (0.4-1.0); POTASSIUM 3.9 mmol/L (3.5-5.0)
[2021-02-10 16:07] LABS: CALCIUM 8.8 mg/dL (8.5-10.3); CREATININE 0.5 mg/dL (0.4-1.0); POTASSIUM 3.7 mmol/L (3.5-5.0)
[2021-02-10] MEDS: traZODone 50 MG TABLET PO SCH (21:15)
[2021-02-11] MEDS: INSULIN REGULAR HUMAN 100 UNIT in SODIUM CHLORIDE 0.9% 100ML 99 ML IV SCH ×2 (00:24→08:00)
[2021-02-11] MEDS: SODIUM CHLORIDE 0.9% 1,000 ML IV SCH (00:25)
[2021-02-11] MEDS ORDERED: INSULIN REGULAR HUMAN 100 UNIT/1 ML 10 ML MDV ONE (00:54)
[2021-02-11 05:18] LABS: BASOPHILS % (AUTO) 0.5 %; EOSINOPHILS # (AUTO) 0.1 10^3/uL (0.0-0.7); EOSINOPHILS % (AUTO) 0.8 %; HCT - HEMATOCRIT 29.1 % (37.0-47.0); HGB - HEMOGLOBIN 9.5 g/dL (12.0-16.0); LYMPHOCYTES # (AUTO) 2.9 10^3/uL (1.5-3.5); LYMPHOCYTES % (AUTO) 38.7 %; MEAN CORPUSCULAR HEMOGLOBIN 18.9 pg (27.0-31.0); MEAN CORPUSCULAR HGB CONC 32.6 g/dL (32.0-36.0); MEAN CORPUSCULAR VOLUME 57.9 fL (81.0-99.0); MONOCYTES # (AUTO) 0.5 10^3/uL (0.0-1.0); MONOCYTES % (AUTO) 7.3 %; NEUTROPHILS # (AUTO) 3.8 10^3/uL (1.5-6.6); NEUTROPHILS % (AUTO) 51.9 %; PLT - PLATELET COUNT 259 10^3/uL (130-450); RED BLOOD COUNT 5.03 10^6/uL (4.20-5.40); WHITE BLOOD COUNT 7.4 x10^3/uL (4.8-10.8)
[2021-02-11 05:20] LABS: SLIDE REVIEW? Indicated
[2021-02-11 05:27] LABS: CALCIUM 8.1 mg/dL (8.5-10.3); CREATININE 0.4 mg/dL (0.4-1.0); MAGNESIUM 1.9 mg/dL (1.7-2.8); PHOSPHORUS 1.6 mg/dL (2.5-4.6); POTASSIUM 2.8 mmol/L (3.5-5.0)
[2021-02-11 05:42] LABS: PLATELET ESTIMATE, MANUAL NORMAL (130-450,000) (NORMAL); PLATELET MORPHOLOGY NORMAL APPEARANCE (NORMAL); WBC MORPHOLOGY (MULTIPLE) NORMAL APPEARANCE (NORMAL)
[2021-02-11 06:07] LABS: CALCIUM, IONIZED 1.15 mmol/L (1.15-1.33); VBG PH 7.386 (7.31-7.41)
[2021-02-11] MEDS ORDERED: POTASSIUM CHLORIDE 20 MEQ TABLET PO ONE ×2 (07:33→16:49)
--- NOTE | 2021-02-11 07:34 | PROVIDER PROGRESS NOTE ---
Subjective - Prog Note Date Prog Note Date: 02/11/21 - Subjective Subjective: She reports doing well. Tolerating a diet. No nausea or vomiting. She really would like to go home tomorrow. Current Medications - Current Medications Current Medications: Active Medications Acetaminophen (Acetaminophen 325 Mg Tablet) 650 mg PO Q4HR PRN PRN Reason: Pain 1 to 4 Bupropion HCl (Bupropion Xl 150 Mg Tablet) 450 mg PO DAILY [facility] Enoxaparin Sodium (Enoxaparin 40 Mg/0.4 Ml Syringe) 40 mg SUBQ DAILY [facility] Last Admin: 02/10/21 08:32 Dose: 40 mg Documented by: Sodium Chloride (Normal Saline 0.9%) 1,000 mls @ 200 mls/hr IV .Q5H [facility] Last Admin: 02/11/21 00:25 Dose: Not Given Documented by: Insulin Human Regular 100 unit (/ Sodium Chloride) 100 mls @ 8.1 mls/hr IV .[id number] [facility]; Protocol Stop: 02/11/21 11:00 Last Admin: 02/11/21 00:24 Dose: Not Given Documented by: Potassium Chloride (Potassium Chloride) 10 meq in 100 mls @ 100 mls/hr IV Q1H [facility]; Protocol Stop: 02/11/21 09:59 Insulin Aspart (Insulin Aspart 300 Unit/3 Ml Pen) 8 unit SUBQ TIDWM [facility] Insulin Aspart (Insulin Aspart 300 Unit/3 Ml Pen) 1 - 5 unit SUBQ 0800,1200,1700,2100 [facility]; Protocol Insulin Glargine (Insulin Glargine 300 Unit/3 Ml Pen) 24 unit SUBQ DAILY [facility] Olanzapine (Olanzapine Odt 5 Mg Tablet) 10 mg TL DAILY [facility] Ondansetron HCl (Ondansetron 4 Mg/2 Ml Vial) 4 mg IVP Q6HR PRN PRN Reason: Nausea / Vomiting Potassium Chloride (Potassium Chloride 20 Meq Tablet) 40 meq PO ONCE ONE Stop: 02/11/21 07:34 Sertraline HCl (Sertraline 50 Mg Tablet) 125 mg PO DAILY [facility] Sodium Chloride (Sodium Chloride Flush 0.9% 10 Ml Syringe) 10 ml IVP 0100,0900,1700 [facility] Last Admin: 02/10/21 16:03 Dose: 10 ml Documented by: Sodium Chloride (Sodium Chloride Flush 0.9% 10 Ml Syringe) 10 ml IVP PRN PRN PRN Reason: NEEDED PER PROVIDER ORDERS Sodium Phosphate (Neutra-Phos 250 Mg Tablet) 250 mg PO Q2H [facility]; Protocol Stop: 02/11/21 10:01 Trazodone HCl (Trazodone 50 Mg Tablet) 50 mg PO [facility] Last Admin: 02/10/21 21:15 Dose: 50 mg Documented by: Metformin HCl 1,000 mg PO BID 07/10/16 Sertraline [Zoloft] 125 mg PO DAILY 05/15/19 Dextroamphetamine/Amphetamine [Dextroamp-Amphetamine 5 mg Tab] 10 mg PO BID 12/05/20 OLANZapine [Olanzapine] 10 mg PO DAILY 02/09/21 buPROPion HCl [Bupropion Xl] 450 mg PO DAILY 02/09/21 traZODone [Desyrel] 50 mg PO 02/09/21 Objective - Vital Signs/Intake & Output Reviewed Vital Signs: Yes Vital Signs: Vital Signs Temp Pulse Resp BP Pulse Ox 02/11/21 07:00 91 21 104/72 98 02/11/21 06:00 92 16 132/83 H 100 02/11/21 05:00 98 18 104/64 100 02/11/21 04:00 36.6 C 101 H 19 118/61 100 Intake & Output: Intake & Output 02/08/21 02/09/21 02/10/21 02/11/21 23:59 23:59 23:59 23:59 Intake Total 4247.717 6725.342 915.105 Output Total 450 1050 Balance 3797.717 5675.342 915.105 - Objective General Appearance: positive: No acute distress, Alert Eyes Bilateral: positive: Normal inspection, Conjunctivae nml ENT: positive: ENT inspection nml Neck: positive: Nml inspection Respiratory: positive: No respiratory distress. negative: Wheezes, Rales Cardiovascular: positive: Regular rate & rhythm. negative: Tachycardia, Systolic murmur Abdomen: positive: Non-tender, No distention. negative: Tenderness Skin: positive: Warm Extremities: positive: No pedal edema Neurologic/Psychiatric: negative: Disoriented to person, Disoriented to place - Lab Results Fish Bones: 02/11/21 04:45 02/11/21 15:00 Other Labs: Lab Results x24hrs 02/11/21 02/11/2102/11/21 Range/Units 06:55 06:02 04:46 WBC (4.8-10.8) x10^3/uL RBC (4.20-5.40) 10^6/uL Hgb (12.0-16.0) g/dL Hct (37.0-47.0) % MCV (81.0-99.0) fL MCH (27.0-31.0) pg MCHC (32.0-36.0) g/dL RDW (12.0-15.0) % Plt Count (130-450) 10^3/uL Neut # (Auto) (1.5-6.6) 10^3/uL Lymph # (Auto) (1.5-3.5) 10^3/uL Nuckolls # (Auto) (0.0-1.0) 10^3/uL Eos # (Auto) (0.0-0.7) 10^3/uL Baso # (Auto) (0.0-0.1) 10^3/uL Absolute Nucleated RBC x10^3/uL Nucleated RBC % /100WBC Manual Slide Review WBC Morphology (NORMAL) Platelet Estimate (NORMAL) Platelet Morphology (NORMAL) RBC Morph Micro Appear (NORMAL) VBG pH (7.31-7.41) Ionized Calcium (1.15-1.33) mmol/L Sodium (135-145) mmol/L Potassium (3.5-5.0) mmol/L Chloride (101-111) mmol/L Carbon Dioxide (21-32) mmol/L Anion Gap (6-13) BUN (6-20) mg/dL Creatinine (0.4-1.0) mg/dL Estimated GFR (MDRD) (>89) Glucose (70-100) mg/dL POC Whole Bld Glucose 173 H 111 H 99 (70 - 100) mg/dL Estimat Average Glucose (70-100) mg/dL Hemoglobin A1c % (4.27-6.07) % Calcium (8.5-10.3) mg/dL Phosphorus (2.5-4.6) mg/dL Magnesium (1.7-2.8) mg/dL 02/11/21 02/11/21 02/11/21 Range/Units 04:45 04:45 04:45 WBC 7.4 (4.8-10.8) x10^3/uL RBC 5.03 (4.20-5.40) 10^6/uL Hgb 9.5 L (12.0-16.0) g/dL Hct 29.1 L (37.0-47.0) % MCV 57.9 L (81.0-99.0) fL MCH 18.9 L (27.0-31.0) pg MCHC 32.6 (32.0-36.0) g/dL RDW 21.0 H (12.0-15.0) % Plt Count 259 (130-450) 10^3/uL Neut # (Auto) 3.8 (1.5-6.6) 10^3/uL Lymph # (Auto) 2.9 (1.5-3.5) 10^3/uL Nuckolls # (Auto) 0.5 (0.0-1.0) 10^3/uL Eos # (Auto) 0.1 (0.0-0.7) 10^3/uL Baso # (Auto) 0.0 (0.0-0.1) 10^3/uL Absolute Nucleated RBC 0.00 x10^3/uL Nucleated RBC % 0.0 /100WBC Manual Slide Review Indicated WBC Morphology NORMAL APPEARANCE (NORMAL) Platelet Estimate NORMAL (130-450,000) (NORMAL) Platelet Morphology NORMAL APPEARANCE (NORMAL) RBC Morph Micro Appear 1+ MICROCYTOSIS (NORMAL) VBG pH 7.386 (7.31-7.41) Ionized Calcium 1.15 (1.15-1.33) mmol/L Sodium 138 (135-145) mmol/L Potassium 2.8 L (3.5-5.0) mmol/L Chloride 114 H (101-111) mmol/L Carbon Dioxide 16 L (21-32) mmol/L Anion Gap 8.0 (6-13) BUN 6 (6-20) mg/dL Creatinine 0.4 (0.4-1.0) mg/dL Estimated GFR (MDRD) 170 (>89) Glucose 91 (70-100) mg/dL POC Whole Bld Glucose (70 - 100) mg/dL Estimat Average Glucose (70-100) mg/dL Hemoglobin A1c % (4.27-6.07) % Calcium 8.1 L (8.5-10.3) mg/dL Phosphorus 1.6 L (2.5-4.6) mg/dL Magnesium 1.9 (1.7-2.8) mg/dL 02/11/21 02/11/21 02/11/21 Range/Units 04:02 02:58 02:15 WBC (4.8-10.8) x10^3/uL RBC (4.20-5.40) 10^6/uL Hgb (12.0-16.0) g/dL Hct (37.0-47.0) % MCV (81.0-99.0) fL MCH (27.0-31.0) pg MCHC (32.0-36.0) g/dL RDW (12.0-15.0) % Plt Count (130-450) 10^3/uL Neut # (Auto) (1.5-6.6) 10^3/uL Lymph # (Auto) (1.5-3.5) 10^3/uL Nuckolls # (Auto) (0.0-1.0) 10^3/uL Eos # (Auto) (0.0-0.7) 10^3/uL Baso # (Auto) (0.0-0.1) 10^3/uL Absolute Nucleated RBC x10^3/uL Nucleated RBC % /100WBC Manual Slide Review WBC Morphology (NORMAL) Platelet Estimate (NORMAL) Platelet Morphology (NORMAL) RBC Morph Micro Appear (NORMAL) VBG pH (7.31-7.41) Ionized Calcium (1.15-1.33) mmol/L Sodium (135-145) mmol/L Potassium (3.5-5.0) mmol/L Chloride (101-111) mmol/L Carbon Dioxide (21-32) mmol/L Anion Gap (6-13) BUN (6-20) mg/dL Creatinine (0.4-1.0) mg/dL Estimated GFR (MDRD) (>89) Glucose (70-100) mg/dL POC Whole Bld Glucose 97 118 H 142 H (70 - 100) mg/dL Estimat Average Glucose (70-100) mg/dL Hemoglobin A1c % (4.27-6.07) % Calcium (8.5-10.3) mg/dL Phosphorus (2.5-4.6) mg/dL Magnesium (1.7-2.8) mg/dL 02/11/21 02/10/21 02/10/21 Range/Units 01:03 23:57 23:15 WBC (4.8-10.8) x10^3/uL RBC (4.20-5.40) 10^6/uL Hgb (12.0-16.0) g/dL Hct (37.0-47.0) % MCV (81.0-99.0) fL MCH (27.0-31.0) pg MCHC (32.0-36.0) g/dL RDW (12.0-15.0) % Plt Count (130-450) 10^3/uL Neut # (Auto) (1.5-6.6) 10^3/uL Lymph # (Auto) (1.5-3.5) 10^3/uL Nuckolls # (Auto) (0.0-1.0) 10^3/uL Eos # (Auto) (0.0-0.7) 10^3/uL Baso # (Auto) (0.0-0.1) 10^3/uL Absolute Nucleated RBC x10^3/uL Nucleated RBC % /100WBC Manual Slide Review WBC Morphology (NORMAL) Platelet Estimate (NORMAL) Platelet Morphology (NORMAL) RBC Morph Micro Appear (NORMAL) VBG pH (7.31-7.41) Ionized Calcium (1.15-1.33) mmol/L Sodium (135-145) mmol/L Potassium (3.5-5.0) mmol/L Chloride (101-111) mmol/L Carbon Dioxide (21-32) mmol/L Anion Gap (6-13) BUN (6-20) mg/dL Creatinine (0.4-1.0) mg/dL Estimated GFR (MDRD) (>89) Glucose (70-100) mg/dL POC Whole Bld Glucose 194 H 229 H 225 H (70 - 100) mg/dL Estimat Average Glucose (70-100) mg/dL Hemoglobin A1c % (4.27-6.07) % Calcium (8.5-10.3) mg/dL Phosphorus (2.5-4.6) mg/dL Magnesium (1.7-2.8) mg/dL 02/10/21 02/10/21 02/10/21 Range/Units 22:16 21:58 21:06 WBC (4.8-10.8) x10^3/uL RBC (4.20-5.40) 10^6/uL Hgb (12.0-16.0) g/dL Hct (37.0-47.0) % MCV (81.0-99.0) fL MCH (27.0-31.0) pg MCHC (32.0-36.0) g/dL RDW (12.0-15.0) % Plt Count (130-450) 10^3/uL Neut # (Auto) (1.5-6.6) 10^3/uL Lymph # (Auto) (1.5-3.5) 10^3/uL Nuckolls # (Auto) (0.0-1.0) 10^3/uL Eos # (Auto) (0.0-0.7) 10^3/uL Baso # (Auto) (0.0-0.1) 10^3/uL Absolute Nucleated RBC x10^3/uL Nucleated RBC % /100WBC Manual Slide Review WBC Morphology (NORMAL) Platelet Estimate (NORMAL) Platelet Morphology (NORMAL) RBC Morph Micro Appear (NORMAL) VBG pH (7.31-7.41) Ionized Calcium (1.15-1.33) mmol/L Sodium (135-145) mmol/L Potassium (3.5-5.0) mmol/L Chloride (101-111) mmol/L Carbon Dioxide (21-32) mmol/L Anion Gap (6-13) BUN (6-20) mg/dL Creatinine (0.4-1.0) mg/dL Estimated GFR (MDRD) (>89) Glucose (70-100) mg/dL POC Whole Bld Glucose 96 66 L 104 H (70 - 100) mg/dL Estimat Average Glucose (70-100) mg/dL Hemoglobin A1c % (4.27-6.07) % Calcium (8.5-10.3) mg/dL Phosphorus (2.5-4.6) mg/dL Magnesium (1.7-2.8) mg/dL 02/10/21 02/10/21 02/10/21 Range/Units 20:05 19:05 18:53 WBC (4.8-10.8) x10^3/uL RBC (4.20-5.40) 10^6/uL Hgb (12.0-16.0) g/dL Hct (37.0-47.0) % MCV (81.0-99.0) fL MCH (27.0-31.0) pg MCHC (32.0-36.0) g/dL RDW (12.0-15.0) % Plt Count (130-450) 10^3/uL Neut # (Auto) (1.5-6.6) 10^3/uL Lymph # (Auto) (1.5-3.5) 10^3/uL Nuckolls # (Auto) (0.0-1.0) 10^3/uL Eos # (Auto) (0.0-0.7) 10^3/uL Baso # (Auto) (0.0-0.1) 10^3/uL Absolute Nucleated RBC x10^3/uL Nucleated RBC % /100WBC Manual Slide Review WBC Morphology (NORMAL) Platelet Estimate (NORMAL) Platelet Morphology (NORMAL) RBC Morph Micro Appear (NORMAL) VBG pH (7.31-7.41) Ionized Calcium (1.15-1.33) mmol/L Sodium (135-145) mmol/L Potassium (3.5-5.0) mmol/L Chloride (101-111) mmol/L Carbon Dioxide (21-32) mmol/L Anion Gap (6-13) BUN (6-20) mg/dL Creatinine (0.4-1.0) mg/dL Estimated GFR (MDRD) (>89) Glucose (70-100) mg/dL POC Whole Bld Glucose 166 H 242 H 255 H (70 - 100) mg/dL Estimat Average Glucose (70-100) mg/dL Hemoglobin A1c % (4.27-6.07) % Calcium (8.5-10.3) mg/dL Phosphorus (2.5-4.6) mg/dL Magnesium (1.7-2.8) mg/dL 02/10/21 02/10/21 02/10/21 Range/Units 17:56 17:14 15:52 WBC (4.8-10.8) x10^3/uL RBC (4.20-5.40) 10^6/uL Hgb (12.0-16.0) g/dL Hct (37.0-47.0) % MCV (81.0-99.0) fL MCH (27.0-31.0) pg MCHC (32.0-36.0) g/dL RDW (12.0-15.0) % Plt Count (130-450) 10^3/uL Neut # (Auto) (1.5-6.6) 10^3/uL Lymph # (Auto) (1.5-3.5) 10^3/uL Nuckolls # (Auto) (0.0-1.0) 10^3/uL Eos # (Auto) (0.0-0.7) 10^3/uL Baso # (Auto) (0.0-0.1) 10^3/uL Absolute Nucleated RBC x10^3/uL Nucleated RBC % /100WBC Manual Slide Review WBC Morphology (NORMAL) Platelet Estimate (NORMAL) Platelet Morphology (NORMAL) RBC Morph Micro Appear (NORMAL) VBG pH (7.31-7.41) Ionized Calcium (1.15-1.33) mmol/L Sodium 133 L (135-145) mmol/L Potassium 3.7 (3.5-5.0) mmol/L Chloride 112 H (101-111) mmol/L Carbon Dioxide 12 L* (21-32) mmol/L Anion Gap 9.0 (6-13) BUN 9 (6-20) mg/dL Creatinine 0.5 (0.4-1.0) mg/dL Estimated GFR (MDRD) 132 (>89) Glucose 261 H (70-100) mg/dL POC Whole Bld Glucose 262 H 185 H (70 - 100) mg/dL Estimat Average Glucose (70-100) mg/dL Hemoglobin A1c % (4.27-6.07) % Calcium 8.8 (8.5-10.3) mg/dL Phosphorus (2.5-4.6) mg/dL Magnesium (1.7-2.8) mg/dL 02/10/21 02/10/21 02/10/21 Range/Units 15:51 15:01 13:55 WBC (4.8-10.8) x10^3/uL RBC (4.20-5.40) 10^6/uL Hgb (12.0-16.0) g/dL Hct (37.0-47.0) % MCV (81.0-99.0) fL MCH (27.0-31.0) pg MCHC (32.0-36.0) g/dL RDW (12.0-15.0) % Plt Count (130-450) 10^3/uL Neut # (Auto) (1.5-6.6) 10^3/uL Lymph # (Auto) (1.5-3.5) 10^3/uL N[place]olls # (Auto) (0.0-1.0) 10^3/uL Eos # (Auto) (0.0-0.7) 10^3/uL Baso # (Auto) (0.0-0.1) 10^3/uL Absolute Nucleated RBC x10^3/uL Nucleated RBC % /100WBC Manual Slide Review WBC Morphology (NORMAL) Platelet Estimate (NORMAL) Platelet Morphology (NORMAL) RBC Morph Micro Appear (NORMAL) VBG pH (7.31-7.41) Ionized Calcium (1.15-1.33) mmol/L Sodium (135-145) mmol/L Potassium (3.5-5.0) mmol/L Chloride (101-111) mmol/L Carbon Dioxide (21-32) mmol/L Anion Gap (6-13) BUN (6-20) mg/dL Creatinine (0.4-1.0) mg/dL Estimated GFR (MDRD) (>89) Glucose (70-100) mg/dL POC Whole Bld Glucose 244 H 311 H 453 H (70 - 100) mg/dL Estimat Average Glucose (70-100) mg/dL Hemoglobin A1c % (4.27-6.07) % Calcium (8.5-10.3) mg/dL Phosphorus (2.5-4.6) mg/dL Magnesium (1.7-2.8) mg/dL 02/10/21 02/10/21 02/10/21 Range/Units 13:03 11:21 11:10 WBC (4.8-10.8) x10^3/uL RBC (4.20-5.40) 10^6/uL Hgb (12.0-16.0) g/dL Hct (37.0-47.0) % MCV (81.0-99.0) fL MCH (27.0-31.0) pg MCHC (32.0-36.0) g/dL RDW (12.0-15.0) % Plt Count (130-450) 10^3/uL Neut # (Auto) (1.5-6.6) 10^3/uL Lymph # (Auto) (1.5-3.5) 10^3/uL [place]olls # (Auto) (0.0-1.0) 10^3/uL Eos # (Auto) (0.0-0.7) 10^3/uL Baso # (Auto) (0.0-0.1) 10^3/uL Absolute Nucleated RBC x10^3/uL Nucleated RBC % /100WBC Manual Slide Review WBC Morphology (NORMAL) Platelet Estimate (NORMAL) Platelet Morphology (NORMAL) RBC Morph Micro Appear (NORMAL) VBG pH (7.31-7.41) Ionized Calcium (1.15-1.33) mmol/L Sodium 132 L (135-145) mmol/L Potassium 3.9 (3.5-5.0) mmol/L Chloride 110 (101-111) mmol/L Carbon Dioxide 9 L* (21-32) mmol/L Anion Gap 13.0 (6-13) BUN 12 (6-20) mg/dL Creatinine 0.6 (0.4-1.0) mg/dL Estimated GFR (MDRD) 107 (>89) Glucose 405 H (70-100) mg/dL POC Whole Bld Glucose 548 H* 400 H (70 - 100) mg/dL Estimat Average Glucose (70-100) mg/dL Hemoglobin A1c % (4.27-6.07) % Calcium 8.4 L (8.5-10.3) mg/dL Phosphorus (2.5-4.6) mg/dL Magnesium (1.7-2.8) mg/dL 02/10/21 02/10/21 02/10/21 Range/Units 10:32 09:21 08:54 WBC (4.8-10.8) x10^3/uL RBC (4.20-5.40) 10^6/uL Hgb (12.0-16.0) g/dL Hct (37.0-47.0) % MCV (81.0-99.0) fL MCH (27.0-31.0) pg MCHC (32.0-36.0) g/dL RDW (12.0-15.0) % Plt Count (130-450) 10^3/uL Neut # (Auto) (1.5-6.6) 10^3/uL Lymph # (Auto) (1.5-3.5) 10^3/uL [place]uckolls # (Auto) (0.0-1.0) 10^3/uL Eos # (Auto) (0.0-0.7) 10^3/uL Baso # (Auto) (0.0-0.1) 10^3/uL Absolute Nucleated RBC x10^3/uL Nucleated RBC % /100WBC Manual Slide Review WBC Morphology (NORMAL) Platelet Estimate (NORMAL) Platelet Morphology (NORMAL) RBC Morph Micro Appear (NORMAL) VBG pH (7.31-7.41) Ionized Calcium (1.15-1.33) mmol/L Sodium (135-145) mmol/L Potassium (3.5-5.0) mmol/L Chloride (101-111) mmol/L Carbon Dioxide (21-32) mmol/L Anion Gap (6-13) BUN (6-20) mg/dL Creatinine (0.4-1.0) mg/dL Estimated GFR (MDRD) (>89) Glucose (70-100) mg/dL POC Whole Bld Glucose 380 H 292 H 240 H (70 - 100) mg/dL Estimat Average Glucose (70-100) mg/dL Hemoglobin A1c % (4.27-6.07) % Calcium (8.5-10.3) mg/dL Phosphorus (2.5-4.6) mg/dL Magnesium (1.7-2.8) mg/dL 02/10/21 02/10/21 Range/Units 08:04 04:58 WBC (4.8-10.8) x10^3/uL RBC (4.20-5.40) 10^6/uL Hgb (12.0-16.0) g/dL Hct (37.0-47.0) % MCV (81.0-99.0) fL MCH (27.0-31.0) pg MCHC (32.0-36.0) g/dL RDW (12.0-15.0) % Plt Count (130-450) 10^3/uL Neut # (Auto) (1.5-6.6) 10^3/uL Lymph # (Auto) (1.5-3.5) 10^3/uL Nuckolls # (Auto) (0.0-1.0) 10^3/uL Eos # (Auto) (0.0-0.7) 10^3/uL Baso # (Auto) (0.0-0.1) 10^3/uL Absolute Nucleated RBC x10^3/uL Nucleated RBC % /100WBC Manual Slide Review WBC Morphology (NORMAL) Platelet Estimate (NORMAL) Platelet Morphology (NORMAL) RBC Morph Micro Appear (NORMAL) VBG pH (7.31-7.41) Ionized Calcium (1.15-1.33) mmol/L Sodium (135-145) mmol/L Potassium (3.5-5.0) mmol/L Chloride (101-111) mmol/L Carbon Dioxide (21-32) mmol/L Anion Gap (6-13) BUN (6-20) mg/dL Creatinine (0.4-1.0) mg/dL Estimated GFR (MDRD) (>89) Glucose (70-100) mg/dL POC Whole Bld Glucose 135 H (70 - 100) mg/dL Estimat Average Glucose 364 H (70-100) mg/dL Hemoglobin A1c % 14.3 H (4.27-6.07) % Calcium (8.5-10.3) mg/dL Phosphorus (2.5-4.6) mg/dL Magnesium (1.7-2.8) mg/dL Assessment/Plan - Problem List (1) Type 2 diabetes mellitus Impression: Acidosis has resolved and so we will transition her to subcutaneous insulin this morning now that she is taking p.o. consistently. We will start her on 24 units of Lantus in the morning and 8 units of NovoLog with meals. This is based off of the insulin requirements she has required since yesterday afternoon. We will place her on sliding scale and adjust as necessary. If her blood sugars are stable on this regimen we can look to possibly discharge her home tomorrow. Qualifiers: Diabetes mellitus jail insulin use: without jail use Diabetes mellitus complication status: with ketoacidosis Diabetes mellitus complication detail: without coma Qualified Code(s): E11.10 - Type 2 diabetes mellitus with ketoacidosis without coma (2) Anemia Impression: Her hemoglobin is decreasing this is likely due to the IV fluids she received and is dilutional. Her MCV is quite low at less than 60. Suspect likely has iron deficiency anemia we will check iron studies. We will look to start her on iron supplementation. There is currently no evidence of bleeding. (3) Hyperchloremic acidosis Impression: This is secondary to the IV fluid resuscitation she received. This continues to improve. IV fluids have been discontinued given she is now taking p.o. (4) Hypokalemia Impression: This likely secondary to the use of the insulin drip. We will replace this intravenously and orally and transition her to subcutaneous insulin today. We will continue to monitor. (5) Leukocytosis Impression: This was not reactive in nature. This has since resolved. (6) DKA (diabetic ketoacidosis) Impression: This is resolved. We are now managing her diabetes as managed above. Qualifiers: Diabetes mellitus type: type 2 Diabetes mellitus complication detail: without coma Qualified Code(s): E11.10 - Type 2 diabetes mellitus with ketoacidosis without coma (7) Acute kidney injury Impression: Resolved.
[2021-02-11] MEDS ORDERED: POTASSIUM CHLOR 10 MEQ/100 ML 10 MEQ/100 ML BAG IV SCH (08:00)
[2021-02-11] MEDS ORDERED: POTASSIUM PHOSPHATE 15 MMOL in SODIUM CHLORIDE 0.9% 250 ML IV ONE (08:00)
[2021-02-11] MEDS: SERTRALINE 50 MG TABLET PO SCH (08:24)
[2021-02-11] MEDS: OLANZapine ODT 5 MG TABLET TL SCH (08:25)
[2021-02-11] MEDS: ENOXAPARIN 40 MG/0.4 ML SYRINGE SUBQ SCH (08:33)
[2021-02-11 08:38] LABS: BILIRUBIN,URINE NEGATIVE (NEGATIVE); GLUCOSE, URINE (UA) NEGATIVE (NEGATIVE); KETONES,URINE (UA) 15 mg/dL (NEGATIVE); LEUKOCYTE ESTERASE, URINE NEGATIVE (NEGATIVE); NITRITE,URINE NEGATIVE (NEGATIVE); OCCULT BLOOD,URINE NEGATIVE (NEGATIVE); PROTEIN,URINE NEGATIVE (NEGATIVE); UROBILINOGEN,URINE 0.2 (NORMAL) E.U./dL (NORMAL)
[2021-02-11 08:39] LABS: CLARITY,URINE CLEAR (CLEAR)
[2021-02-11] MEDS: INSULIN GLARGINE 300 UNIT/3 ML PEN SUBQ SCH (09:21)
[2021-02-11 09:36] LABS: % IRON SATURATION 35 % (20-50); IRON 95 ug/dL (28-170); TOTAL IRON BINDING CAPACITY 274 ug/dL (250-450); TRANSFERRIN 196 mg/dL (192-382)
[2021-02-11] MEDS: NEUTRA-PHOS 250 MG TABLET PO SCH ×2 (09:48→12:19)
[2021-02-11] MEDS: buPROPion XL 150 MG TABLET PO SCH (10:56)
[2021-02-11] MEDS: POTASSIUM CHLOR 10 MEQ/100 ML 10 MEQ/100 ML BAG IV SCH ×2 (10:56→13:00)
[2021-02-11] MEDS: INSULIN ASPART 300 UNIT/3 ML PEN SUBQ SCH ×7 (12:18→20:54)
[2021-02-11] MEDS: SODIUM CHLORIDE FLUSH 0.9% 10 ML SYRINGE IVP SCH ×2 (12:30→17:29)
[2021-02-11 15:27] LABS: BUN - BLOOD UREA NITROGEN < 5 mg/dL (6-20); CALCIUM 8.3 mg/dL (8.5-10.3); CARBON DIOXIDE - CO2 18 mmol/L (21-32); CHLORIDE 112 mmol/L (101-111); CREATININE 0.3 mg/dL (0.4-1.0); GFR - MDRD 237 (>89); GLUCOSE 125 mg/dL (70-100); POTASSIUM 3.2 mmol/L (3.5-5.0); SODIUM 139 mmol/L (135-145)
[2021-02-11] MEDS: traZODone 50 MG TABLET PO SCH (20:55)
[2021-02-12] MEDS: SODIUM CHLORIDE FLUSH 0.9% 10 ML SYRINGE IVP SCH ×2 (02:57→08:39)
[2021-02-12 05:58] LABS: BASOPHILS % (AUTO) 0.7 %; EOSINOPHILS # (AUTO) 0.1 10^3/uL (0.0-0.7); EOSINOPHILS % (AUTO) 1.3 %; HCT - HEMATOCRIT 29.1 % (37.0-47.0); HGB - HEMOGLOBIN 9.5 g/dL (12.0-16.0); LYMPHOCYTES # (AUTO) 3.2 10^3/uL (1.5-3.5); LYMPHOCYTES % (AUTO) 54.5 %; MEAN CORPUSCULAR HEMOGLOBIN 18.8 pg (27.0-31.0); MEAN CORPUSCULAR HGB CONC 32.6 g/dL (32.0-36.0); MEAN CORPUSCULAR VOLUME 57.7 fL (81.0-99.0); MONOCYTES # (AUTO) 0.5 10^3/uL (0.0-1.0); MONOCYTES % (AUTO) 7.9 %; NEUTROPHILS # (AUTO) 2.1 10^3/uL (1.5-6.6); NEUTROPHILS % (AUTO) 35.1 %; PLT - PLATELET COUNT 240 10^3/uL (130-450); RED BLOOD COUNT 5.04 10^6/uL (4.20-5.40); WHITE BLOOD COUNT 5.9 x10^3/uL (4.8-10.8)
[2021-02-12 06:03] LABS: SLIDE REVIEW? Indicated
[2021-02-12 06:12] LABS: PLATELET ESTIMATE, MANUAL NORMAL (130-450,000) (NORMAL); PLATELET MORPHOLOGY NORMAL APPEARANCE (NORMAL); WBC MORPHOLOGY (MULTIPLE) NORMAL APPEARANCE (NORMAL)
[2021-02-12 06:16] LABS: BUN - BLOOD UREA NITROGEN < 5 mg/dL (6-20); CALCIUM 8.2 mg/dL (8.5-10.3); CARBON DIOXIDE - CO2 20 mmol/L (21-32); CHLORIDE 110 mmol/L (101-111); CREATININE 0.3 mg/dL (0.4-1.0); GFR - MDRD 237 (>89); GLUCOSE 152 mg/dL (70-100); MAGNESIUM 1.8 mg/dL (1.7-2.8); PHOSPHORUS 3.5 mg/dL (2.5-4.6); POTASSIUM 3.2 mmol/L (3.5-5.0); SODIUM 139 mmol/L (135-145)
[2021-02-12] MEDS ORDERED: POTASSIUM CHLORIDE 20 MEQ TABLET PO ONE ×2 (07:10→07:45)
[2021-02-12 07:49] VITALS: BP 120/69
--- NOTE | 2021-02-12 07:50 | Discharge Plan ---
Discharge Plan Problem Reviewed?: Yes Disposition: Home, Self Care Condition: Stable Prescriptions: Lancets [Blood Lancets] 1 each ACHS #90 each Blood Sugar Diagnostic [Glucose Test Strip] 1 each [facility] #90 strip Insulin Glargine [Lantus Solostar] 24 unit SUBQ DAILY 30 Days #8 each Insulin Aspart [NovoLOG] 8 unit SUBQ TIDWM 30 Days #8 each Potassium Chloride 20 meq PO DAILY #30 tab Diet: Diabetic Instruction Topics: Insulin Injected, Insulin Types, Diabetes Healthy Meals, Diabetic Ketoacidosis Health Concerns: You were admitted to the hospital because of diabetic ketoacidosis due to elevated blood sugars. This caused you to build up acid in your body and you become quite ill. You were treated with IV fluids and insulin. You are now improved and stable for discharge home. Plan of Treatment: Please take the insulin exactly as prescribed. You will need to take 24 units of Lantus in the morning. This is a long-acting insulin and will work through out the day. You will need to take 8 units of NovoLog with every meal. This is a short acting insulin. Only take this if you will be having a meal. Your potassium was low and so we will send you home with potassium to take on a daily basis. It will be very important to stick to a good diabetic diet. Care Goals: The goal is to control your diabetes and to prevent further admissions for diabetic ketoacidosis. Assessment: The patient expressed understanding of the treatment plan. Additional Instructions or Follow Up instructions: It will be important that you follow-up with your primary care physician within 1 week. You should try and make a log of your blood sugars in the morning and with every meal so that your doctor can adjust the insulin as needed. No Smoking: If you smoke, Please STOP! Call for help.
--- NOTE | 2021-02-12 08:17 | DISCHARGE SUMMARY ---
"Discharge Summary Admit Date: 02/09/21 Discharge Date: 02/12/21 Discharging Provider: Fei Ba Primary Care Provider: Ivis PCP Code Status: Attempt Resuscitation Condition at Discharge: Stable Discharge Disposition: 01 Home, Self Care - DIAGNOSES Admission Diagnoses: Diabetic ketoacidosis Acute kidney injury Type 2 diabetes mellitus Leukocytosis Discharge Diagnoses with Status of Each Condition: Insulin-dependent diabetes mellitus - stable. Anemia - stable. Hyperchloremic acidosis - resolved. Hypokalemia - stable. Leukocytosis - resolved. DKA- resolved. - HPI History of Present Illness: This is a 50-year-old female with a past medical history significant for type 2 diabetes mellitus who presents today complaining of shortness of breath. She states that she began feeling dyspneic about 2 to 3 days ago. It progressed over the past 24 hours and so she came to the emergency department today. She also has associated nausea and vomiting as well as abdominal pain. She reports no chest pain. She takes Metformin for her diabetes and reports checking her blood sugars every once in a while and they are usually around 200. She states she last checked it a couple of days before . She reports no fevers but does complain of chills. She feels quite thirsty and states she has had polyuria. She reports no dysuria or urgency. In the emergency department, she was noted to have significant electrolyte derangements. She was quite acidotic with pH of 6.9 and her bicarb was less than 6. Her anion gap was 25. Her blood glucose was created then 600. She was given 3 L of normal saline and started on insulin drip. Given the above findings, medicine was consulted for admission. - CONSULTS | PROCEDURES Consultations: public health educator, Nutrition. - HOSPITAL COURSE Hospital Course: She was admitted to the intensive care unit for diabetic ketoacidosis. She treated with IV insulin and IV fluids. Her anion gap closed within 24 hours and her bicarbonate improved on a daily basis although this was delayed due to hyperchloremic acidosis from the IV fluid resuscitation she received. She was transition to subcutaneous insulin after 48 hours on the insulin drip. She was monitored for 24 hours on subcutaneous insulin and her blood glucose remained stable. She was seen by clinical document improvement educator to help initiate outpatient follow- up. She was discharged on 24 units of Lantus in the morning and 8 units of NovoLog with meals. She was counseled on the importance of good blood glucose control and the potential complications of poorly controlled diabetes. We discussed her A1c was greater than 14% and that the goal is closer to 7%. She is very motivated to control her blood glucose. She was discharged with 30 days of prescriptions and she will be obtaining a new primary care physician as her insurance is changing. She was provided with a work note. - ALLERGIES Allergies/Adverse Reactions: Allergies Allergy/AdvReac Type Severity Reaction Status Date / Time Penicillins Allergy Intermediate Rash Verified 02/09/21 12:06 - MEDICATIONS Home Medications: Ambulatory Orders Medication Instructions Recorded Confirmed Sertraline [Zoloft] 125 mg PO DAILY 05/15/19 02/10/21 Dextroamphetamine/Amphetamine 10 mg PO BID 12/05/20 02/10/21 [Dextroamp-Amphetamine 5 mg Tab] OLANZapine [Olanzapine] 10 mg PO DAILY 02/09/21 02/10/21 buPROPion HCl [Bupropion Xl] 450 mg PO DAILY 02/09/21 02/10/21 traZODone [Desyrel] 50 mg PO HS 02/09/21 02/10/21 Blood Sugar Diagnostic [Glucose 1 each ACHS #90 strip 02/12/21 Test Strip] Insulin Aspart [NovoLOG] 8 unit SUBQ TIDWM 30 Days #8 each 02/12/21 Insulin Glargine [Lantus Solostar] 24 unit SUBQ DAILY 30 Days #8 each 02/12/21 Lancets [Blood Lancets] 1 each ACHS #90 each 02/12/21 Potassium Chloride 20 meq PO DAILY #30 tab 02/12/21 - PHYSICAL EXAM AT DISCHARGE General Appearance: positive: No acute distress, Alert Eyes Bilateral: positive: Normal inspection, Conjunctivae nml ENT: positive: ENT inspection nml Neck: positive: Nml inspection Respiratory: positive: No respiratory distress. negative: Wheezes, Rales Cardiovascular: positive: Regular rate & rhythm, No murmur. negative: Tachycardia Abdomen: positive: Non-tender, No distention. negative: Tenderness Skin: positive: Warm, Dry Extremities: positive: No pedal edema Neurologic/Psychiatric: positive: Motor nml. negative: Disoriented to person, Disoriented to place Physical Exam Other/Comments: Vital Signs - 24 hr 11/28/21 11/29/21 11/29/21 20:53 00:13 07:48 Temperature 36.6 C 36.9 C 98.0 C H Heart Rate [ 93 92 90 Monitoring electrodes] Respiratory 21 20 18 Rate Blood Pressure 130/84 H 113/78 120/69 [Right Brachial artery] O2 Saturation 98 97 96 Oxygen O2 Source Room air - LABS Result Diagrams: 02/12/21 05:24 02/12/21 05:24 - FOLLOW UP Follow Up: She was informed to follow-up with clinical document improvement educator as well as a primary care physician within 1 week. She was asked to log her blood sugars that way her primary care physician can adjust the insulin as needed. - TIME SPENT Time Spent in Discharge (Minutes): 35"
[2021-02-12] MEDS: INSULIN ASPART 300 UNIT/3 ML PEN SUBQ SCH ×4 (08:34→11:46)
[2021-02-12] MEDS: INSULIN GLARGINE 300 UNIT/3 ML PEN SUBQ SCH (08:36)
[2021-02-12] MEDS: ENOXAPARIN 40 MG/0.4 ML SYRINGE SUBQ SCH (08:37)
[2021-02-12] MEDS: buPROPion XL 150 MG TABLET PO SCH (08:37)
[2021-02-12] MEDS: OLANZapine ODT 5 MG TABLET TL SCH (08:38)
[2021-02-12] MEDS: SERTRALINE 50 MG TABLET PO SCH (08:38)
== END 2021-02-12 13:20 | disposition home or self-care (01) | DRG 638 ==
LOC: ED 11:44 → ICU 12:45
PROVIDERS: ADMIT Internal Medicine; ATTEND Internal Medicine
DX: E11.10 Type 2 diabetes mellitus with ketoacidosis without coma (principal); N17.9 Acute kidney failure, unspecified; D50.9 Iron deficiency anemia, unspecified; E87.8 Other disorders of electrolyte and fluid balance, not elsewhere classified; E87.6 Hypokalemia; F32.9 Major depressive disorder, single episode, unspecified; F41.9 Anxiety disorder, unspecified; G89.29 Other chronic pain; M54.9 Dorsalgia, unspecified; M19.90 Unspecified osteoarthritis, unspecified site; M41.9 Scoliosis, unspecified; H54.7 Unspecified visual loss; Z79.899 Other long term (current) drug therapy; Z79.84 Long term (current) use of oral hypoglycemic drugs
CPT/HCPCS: 0202U; 36415; 71045; 80048; 80053; 81001; 81003; 81025; 82009; 82330; 82728; 82803; 82947; 83036; 83540; 83605; 83690; 83735; 84100; 84443; 84466; 84484; 85025; 87150; 93005; 96374; 99284; 99285; A9270; J1650; J1815; 87086

== ENCOUNTER 2021-06-04 13:11 | Outpatient (CLI) | payer OTHER ==
--- NOTE | 2021-06-05 10:23 | Mammography Report ---
BILATERAL DIGITAL SCREENING MAMMOGRAM 3D/2D: 06/04/2021 CLINICAL: Routine screening. Comparison is made to exams dated: 06/12/2018 mammogram and 05/30/2017 mammogram - [facility]. There are scattered fibroglandular elements in both breasts. No significant masses, calcifications, or other findings are seen in either breast. There has been no significant interval change. IMPRESSION: NEGATIVE There is no mammographic evidence of malignancy. A 1 year screening mammogram is recommended. This exam was interpreted at Station ID: [id number]. NOTE: For mammograms, a report in lay terms will be sent to the patient. Approximately 15% of breast malignancies will not be visualized mammographically. In the management of a palpable breast mass, a negative mammogram must not discourage biopsy of a clinically suspicious lesion. Electronically Signed By: Marco A Garcia M.D. [email or web address]:06/04/2021 16:56:36 ACR BI-RADS Category 1: Negative 3341F PARENCHYMAL PATTERN: (A) - The breast(s) demonstrate(s) scattered fibroglandular densities. BI-RADS CATEGORY: (1) - 1 RECOMMENDATION: (ANNUAL) - Recommend routine annual screening mammography. [id number] 1 year screening LATERALITY: (B)
== END 2021-06-04 13:12 | disposition home or self-care (01) ==
LOC: DI.N 13:11
PROVIDERS: ATTEND Nurse Practitioner
DX: Z12.31 Encounter for screening mammogram for malignant neoplasm of breast (principal)

== ENCOUNTER 2021-07-17 11:34 | Outpatient (CLI) | payer OTHER ==
[2021-07-17 18:36] LABS: BASOPHILS # (AUTO) 0.1 10^3/uL (0.0-0.1); BASOPHILS % (AUTO) 0.7 %; EOSINOPHILS # (AUTO) 0.3 10^3/uL (0.0-0.7); EOSINOPHILS % (AUTO) 3.4 %; HCT - HEMATOCRIT 34.3 % (37.0-47.0); HGB - HEMOGLOBIN 10.7 g/dL (12.0-16.0); LYMPHOCYTES # (AUTO) 3.2 10^3/uL (1.5-3.5); LYMPHOCYTES % (AUTO) 31.8 %; MEAN CORPUSCULAR HEMOGLOBIN 19.5 pg (27.0-31.0); MEAN CORPUSCULAR HGB CONC 31.2 g/dL (32.0-36.0); MEAN CORPUSCULAR VOLUME 62.5 fL (81.0-99.0); MONOCYTES # (AUTO) 0.5 10^3/uL (0.0-1.0); MONOCYTES % (AUTO) 5.3 %; NEUTROPHILS # (AUTO) 5.9 10^3/uL (1.5-6.6); NEUTROPHILS % (AUTO) 57.9 %; PLT - PLATELET COUNT 306 10^3/uL (130-450); RED BLOOD COUNT 5.49 10^6/uL (4.20-5.40); RED CELL DISTRIBUTION WIDTH 17.1 % (12.0-15.0); WHITE BLOOD COUNT 10.1 x10^3/uL (4.8-10.8)
[2021-07-17 18:50] LABS: ALBUMIN 3.9 g/dL (3.2-5.5); ALBUMIN/GLOBULIN RATIO 1.1 (1.0-2.2); ALKALINE PHOSPHATASE 83 IU/L (42-121); ALT ALANINE AMINOTRANSFERASE 21 IU/L (10-60); AST ASPARTATE AMINOTRANSFERASE 25 IU/L (10-42); BILIRUBIN,TOTAL 0.4 mg/dL (0.2-1.0); BUN - BLOOD UREA NITROGEN 21 mg/dL (6-20); CALCIUM 9.1 mg/dL (8.5-10.3); CARBON DIOXIDE - CO2 22 mmol/L (21-32); CHLORIDE 105 mmol/L (101-111); CHOL/HDL RATIO 4.6 (<4.4); CHOLESTEROL 209 mg/dL; CREATININE 0.6 mg/dL (0.4-1.0); GFR - MDRD 106 (>89); GLUCOSE 185 mg/dL (70-100); HDL CHOLESTEROL 45 mg/dL; POTASSIUM 3.8 mmol/L (3.5-5.0); SODIUM 136 mmol/L (135-145); TOTAL PROTEIN 7.4 g/dL (6.7-8.2); TRIGLYCERIDES 423 mg/dL
[2021-07-17 18:55] LABS: CREATININE,URINE 69.4 mg/dL; MICROALBUM/CREATININE RATIO,UR 67.7 ug/mg (<30.0); MICROALBUMIN,URINE 4.7 mg/dL (0-300.0)
[2021-07-17 19:01] LABS: THYROID STIMULATING HORMONE 3.57 uIU/mL (0.34-5.60)
[2021-07-17 19:05] LABS: SLIDE REVIEW? Indicated
[2021-07-17 19:07] LABS: PLATELET MORPHOLOGY NORMAL APPEARANCE (NORMAL)
[2021-07-17 19:08] LABS: PLATELET ESTIMATE, MANUAL NORMAL (130-450,000) (NORMAL); WBC MORPHOLOGY (MULTIPLE) NORMAL APPEARANCE (NORMAL)
[2021-07-17 19:17] LABS: LDL CHOLESTEROL,DIRECT 110 mg/dL; LDLD/HDL RATIO 2.4 (<4.4)
[2021-07-17 21:02] LABS: ESTIMATED AVERAGE GLUCOSE 203 mg/dL (70-100); HEMOGLOBIN A1c% 8.7 % (4.27-6.07)
== END 2021-07-17 11:35 | disposition home or self-care (01) ==
LOC: LAB.N 11:34
PROVIDERS: ATTEND Nurse Practitioner
DX: E11.8 Type 2 diabetes mellitus with unspecified complications (principal)
CPT/HCPCS: 36415; 80053; 80061; 82043; 82570; 83036; 83721; 84443; 85025

== ENCOUNTER 2021-08-10 11:58 | Emergency (ER) | payer MEDICAID, OTHER ==
[2021-08-10 12:16] VITALS: BP 128/70
[2021-08-10] MEDS ORDERED: KETOROLAC 60 MG/2 ML VIAL IM STA (12:28)
--- NOTE | 2021-08-14 16:23 | ED Physician Documentation ---
PD HPI BACK PAIN - Stated complaint Stated Complaint: BACK PX - Chief complaint Chief Complaint: Back Pain - History obtained from History obtained from: Patient - Additional information Additional information: A few days LBP p lifting boxes. Non radiating. No weakness/numbness/tingling/saddle anesthesia/fever or incontinence. Worse with bending twisting, better w rest. Review of Systems Constitutional: denies: Fever, Chills Respiratory: denies: Dyspnea, Cough GI: denies: Abdominal Pain, Nausea : denies: Dysuria, Frequency, Incontinent PD PAST MEDICAL HISTORY - Past Medical History Past Medical History: Yes Cardiovascular: Murmur Respiratory: None Endocrine/Autoimmune: Type 2 diabetes GI: None AUTOMOBILE DRIVERS: None : None HEENT: Chronic vision loss Psych: Depression, Anxiety Musculoskeletal: Osteoarthritis, Fatigue, Scoliosis, Chronic back pain Derm: None - Past Surgical History Past Surgical History: Yes General: 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 /AUTOMOBILE DRIVERS: Other HEENT: Tonsil/Adenoidectomy - Present Medications Home Medications: Ambulatory Orders Medication Instructions Recorded Confirmed Sertraline [Zoloft] 125 mg PO DAILY 05/15/19 08/10/21 Dextroamphetamine/Amphetamine 10 mg PO BID 12/05/20 08/10/21 [Dextroamp-Amphetamine 5 mg Tab] OLANZapine [Olanzapine] 10 mg PO DAILY 02/09/21 08/10/21 traZODone [Desyrel] 50 mg PO HS 02/09/21 08/10/21 Blood Sugar Diagnostic [Glucose 1 each ACHS #90 strip 02/12/21 08/10/21 Test Strip] Insulin Aspart [NovoLOG] 8 unit SUBQ TIDWM 30 Days #8 each 02/12/21 08/10/21 Insulin Glargine [Lantus Solostar] 24 unit SUBQ DAILY 30 Days #8 each 02/12/21 08/10/21 Lancets [Blood Lancets] 1 each ACHS #90 each 02/12/21 08/10/21 Atorvastatin [Lipitor] 10 mg PO HS 08/10/21 08/10/21 HYDROcod/ACETAM 5/325 [[place] 5/325] 1 - 2 tab PO Q6H PRN #10 tablet 08/10/21 Ibuprofen [Motrin] 800 mg PO Q8H PRN #14 tablet 08/10/21 - Allergies Allergies/Adverse Reactions: Allergies Allergy/AdvReac Type Severity Reaction Status Date / Time Penicillins Allergy Intermediate Rash Verified 08/10/21 12:15 - Social History Does the pt smoke?: No Smoking Status: Never smoker Does the pt drink ETOH?: Yes Does the pt have substance abuse?: No - Immunizations Immunizations are current?: Yes Immunizations: TDAP >10years/unknown - POLST Patient has POLST: No PD ED PE NORMAL - Vitals Vital signs reviewed: Yes - General General: Alert and oriented X 3, Other (Comfortable w rest/winces w motion) - Abdomen Abdomen: Normal bowel sounds, Soft, Non tender - Back Back: No spinal TTP, Other (Mild low back muscle TTP) - Derm Derm: Normal color, Warm and dry - Extremities Extremities: Other (Normal patellar/babinski reflex bilat. Nl senation throughou t BLE. Nl flex/ext and ankles/knees.) - Neuro Neuro: Alert and oriented X 3, No motor deficit, No sensory deficit, Normal speech Results - Vitals Vitals: Oxygen O2 Source Room air PD MEDICAL DECISION MAKING - ED course Complexity details: considered differential Departure - Departure Disposition: 01 Home, Self Care Clinical Impression: Back pain Qualifiers: Back pain location: low back pain Chronicity: acute Back pain laterality: bilateral Sciatica presence: without sciatica Qualified Code(s): M54.50 - Low back pain, unspecified Condition: Good Instructions: ED Low Back Pain Injury Prescriptions: Ibuprofen [Motrin] 800 mg PO Q8H PRN #14 tablet PRN Reason: PAIN &/OR FEVER HYDROcod/ACETAM 5/325 [[place] 5/325] 1 - 2 tab PO Q6H PRN #10 tablet PRN Reason: Pain Comments: I sent your prescription electronically to [facility] in [place]. Call your doctor to arrange a follow-up appointment, make the next available appointment. In the interim, return anytime if worse or if new symptoms develop. I am prescribing a short course of narcotic pain medication for you. These are potentially dangerous and addictive medications that should be used carefully. These medications may constipate you. Take an [id number] stool softener (docusate) twice daily with plenty of water while taking these medications. If you go 24 hours without a bowel movement, take [id number] miralax, per package instructions. Do not drink or drive while taking these medications. If you received narcotic or sedating medications while in the emergency department, do not drive for 24 hours. Store this medication in a safe, secure place and out of reach of children. It is a violation of federal law to give or sell this medication to another person or to use in a manner other than prescribed. The ED will not refill narcotic prescriptions, including prescriptions lost or stolen. To dispose of unwanted medications: 1. [facility] at [address] in [place] has a medication drop box. They accept prescription medications (in pill form) Friday through Friday 9:00 a.m. to 5:00 p.m. 2. The [facility] [employer] accepts prescription medications (in pill form only) for disposal year round. Call for more information. 3. Contact the [facility] for the next [facility] sponsored prescription drug collection event. , [phone], or [phone]; Note that many narcotic pain relievers also contain Tylenol/acetaminophen. Please ensure that your total dose of acetaminophen from all sources does not exceed 3 g (3000 mg) per day. Forms: Activity restrictions Discharge Date/Time: 08/10/21 12:49
== END 2021-08-10 12:49 | disposition home or self-care (01) ==
LOC: ED 11:58
DX: M54.50 Low back pain, unspecified (principal); E11.9 Type 2 diabetes mellitus without complications; Z79.4 Long term (current) use of insulin
CPT/HCPCS: 96372; 99283

== ENCOUNTER 2022-04-13 23:00 | Emergency (ER) | payer MEDICAID ==
[2022-04-13 23:13] VITALS: BP 151/92
[2022-04-13] MEDS ORDERED: SULFAMETH/TRIMETH DS 800/160 MG TABLET PO STA (23:30)
--- NOTE | 2022-04-13 23:34 | ED Physician Documentation ---
PD HPI UPPER EXT INJURY - Stated complaint Stated Complaint: R RING FINGER SWELLING - Chief complaint Chief Complaint: Wound - History obtained from History obtained from: Patient - History of Present Illness Location: Right, Finger - Additonal information Additional information: Patient presenting for evaluation of swelling and discomfort to her right ring finger that she has noticed since . She is unsure of what Caused the wound. She is wearing a large ring on the adjacent finger but denies being aware of any scratches or injuries. Since she has noticed redness to the PIP with increased swelling. She was at a birthday dinner [employer] and a friend commented that it could be a wart and encouraged her to come to the emergency department for evaluation. She denies fever, chest pain, difficulty breathing. Review of Systems Constitutional: denies: Fever Cardiac: denies: Chest pain / pressure Respiratory: denies: Dyspnea GI: denies: Abdominal Pain Musculoskeletal: reports: Extremity swelling Neurologic: denies: Headache PD PAST MEDICAL HISTORY - Past Medical History Cardiovascular: Murmur Respiratory: None Endocrine/Autoimmune: Type 2 diabetes GI: None HOG RIBBER: None : None HEENT: Chronic vision loss Psych: Depression, Anxiety Musculoskeletal: Osteoarthritis, Fatigue, Scoliosis, Chronic back pain Derm: None - Past Surgical History Past Surgical History: Yes General: 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 /HOG RIBBER: Other HEENT: Tonsil/Adenoidectomy - Present Medications Home Medications: Ambulatory Orders Medication Instructions Recorded Confirmed Sertraline [Zoloft] 125 mg PO DAILY 05/15/19 08/10/21 Dextroamphetamine/Amphetamine 10 mg PO BID 12/05/20 08/10/21 [Dextroamp-Amphetamine 5 mg Tab] OLANZapine [Olanzapine] 10 mg PO DAILY 02/09/21 08/10/21 traZODone [Desyrel] 50 mg PO HS 02/09/21 08/10/21 Blood Sugar Diagnostic [Glucose 1 each ACHS #90 strip 02/12/21 08/10/21 Test Strip] Insulin Aspart [NovoLOG] 8 unit SUBQ TIDWM 30 Days #8 each 02/12/21 08/10/21 Insulin Glargine [Lantus Solostar] 24 unit SUBQ DAILY 30 Days #8 each 02/12/21 08/10/21 Lancets [Blood Lancets] 1 each ACHS #90 each 02/12/21 08/10/21 Atorvastatin [Lipitor] 10 mg PO HS 08/10/21 08/10/21 HYDROcod/ACETAM 5/325 [[place] 5/325] 1 - 2 tab PO Q6H PRN #10 tablet 08/10/21 Ibuprofen [Motrin] 800 mg PO Q8H PRN #14 tablet 08/10/21 Sulfamethox/Trimeth 800/160 1 each PO BID #14 tablet 04/13/22 [Bactrim Ds 800/160] - Allergies Allergies/Adverse Reactions: Allergies Allergy/AdvReac Type Severity Reaction Status Date / Time Penicillins Allergy Intermediate Rash Verified 04/13/22 23:06 - Social History Does the pt smoke?: No Smoking Status: Never smoker Does the pt drink ETOH?: Yes Does the pt have substance abuse?: No - Immunizations Immunizations are current?: Yes Immunizations: TDAP >10years/unknown - POLST Patient has POLST: No PD ED PE NORMAL - General General: Alert and oriented X 3, No acute distress, Well developed/nourished - HEENT HEENT: Atraumatic - Neck Neck: Supple, no meningeal sign - Cardiac Cardiac: Strong equal pulses - Respiratory Respiratory: No respiratory distress - Extremities Extremities: Normal ROM s pain, Other (1 cm abscess to right PIP with mild surr ounding redness, normal range of motion at joint,) PD ED PE EXPANDED - Extremities MERLINE UE/Hands Visual: 1 - abscess Results - Vitals Vitals: Vital Signs - 24 hr 04/13/22 23:07 Temperature 36.5 C Heart Rate 110 H Respiratory 20 Rate Blood Pressure 151/92 H O2 Saturation 100 Oxygen O2 Source Room air Procedures - Abscess I&D (location) R ring finger Preparation: Alcohol Incision: Needle aspiration, Purulent drainage, Culture obtained Other: Pt tolerated well, Dressing applied, Antibiotic prescribed PD Medical Decision Making - ED course ED course: Patient is a 52-year-old presenting for evaluation of swelling and redness to her right ring finger. On exam she has a small abscess. There is no signs of joint or tendon involvement and she has normal range of motion without issue.No bony tenderness to suggest fracture or dislocation.I did needle aspirate the abscess and was able to express pus from the wound. I did culture this. Due to the surrounding redness I did start the patient on Bactrim.Patient is counseled on need for continued treatment with antibiotics as well is advised on concerning symptoms to return for. Departure - Departure Disposition: 01 Home, Self Care Clinical Impression: Abscess of right ring finger Condition: Stable Instructions: ED Abscess IandD Prescriptions: Sulfamethox/Trimeth 800/160 [Bactrim Ds 800/160] 1 each PO BID #14 tablet Comments: You have an abscess to your right ring finger that was drained. I have also started you on an antibiotic because the surrounding skin appears infected. I have sent your antibiotic prescription to [facility] in [place]. Please keep the wound clean and dry. Tomorrow you may want to soak the hand in warm water for 10-15 minutes 3-4 times to make sure that it continues to drain.He noticed any worsening swelling or redness please return to the emergency department. Discharge Date/Time: 04/13/22 23:42
== END 2022-04-13 23:42 | disposition home or self-care (01) ==
LOC: ED 23:00
DX: L02.511 Cutaneous abscess of right hand (principal); E11.9 Type 2 diabetes mellitus without complications; Z79.4 Long term (current) use of insulin
CPT/HCPCS: 10160; 87070; 87205; 99283; A9270; 87181

== ENCOUNTER 2022-11-26 18:20 | Outpatient (CLI) | payer MEDICAID | END 2022-11-26 18:21 | disposition critical access hospital (66) | LOC: EMS 18:20 | DX: E11.65 Type 2 diabetes mellitus with hyperglycemia (principal); R41.82 Altered mental status, unspecified; R06.89 Other abnormalities of breathing; R47.81 Slurred speech | CPT/HCPCS: A0425; A0427; A0999 ==

== ENCOUNTER 2022-11-26 18:35 | Inpatient (IN) | payer MEDICAID ==
[2022-11-26] MEDS ORDERED: SODIUM CHLORIDE 0.9% 1,000 ML IV STA ×4 (18:41→20:03)
--- NOTE | 2022-11-26 18:55 | ED Physician Documentation ---
History of Present Illness - Stated complaint Stated Complaint: HYPERGLYCEMIA - History obtained from History obtained from: EMS - History of Present Illness Timing: Today Pain level max: 0 Pain level now: 0 - Additonal information Additional information: Patient is a 52-year-old female who presents to the emergency department with hyperglycemia. She is unable to give any history. EMS states that she was found at home with vomit and a blood glucose that read "high" on the glucometer. She is an insulin-dependent diabetic. No other history is available. Patient was admitted here on February 09, 2021 for DKA as well. She had a very similar presentation at that time. 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 : None HEENT: Chronic vision loss Psych: Depression, Anxiety Musculoskeletal: Osteoarthritis, Fatigue, Scoliosis, Chronic back pain Derm: None - Past Surgical History Past Surgical History: Yes General: 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 /FOOD SALES CLERK: Other HEENT: Tonsil/Adenoidectomy - Present Medications Home Medications: Ambulatory Orders Medication Instructions Recorded Confirmed Sertraline [Zoloft] 125 mg PO DAILY 05/15/19 08/10/21 Dextroamphetamine/Amphetamine 10 mg PO BID 12/05/20 08/10/21 [Dextroamp-Amphetamine 5 mg Tab] OLANZapine [Olanzapine] 10 mg PO DAILY 02/09/21 08/10/21 traZODone [Desyrel] 50 mg PO HS 02/09/21 08/10/21 Blood Sugar Diagnostic [Glucose 1 each ACHS #90 strip 02/12/21 08/10/21 Test Strip] Insulin Aspart [NovoLOG] 8 unit SUBQ TIDWM 30 Days #8 each 02/12/21 08/10/21 Insulin Glargine [Lantus Solostar] 24 unit SUBQ DAILY 30 Days #8 each 02/12/21 08/10/21 Lancets [Blood Lancets] 1 each ACHS #90 each 02/12/21 08/10/21 Atorvastatin [Lipitor] 10 mg PO HS 08/10/21 08/10/21 HYDROcod/ACETAM 5/325 [[place] 5/325] 1 - 2 tab PO Q6H PRN #10 tablet 08/10/21 Ibuprofen [Motrin] 800 mg PO Q8H PRN #14 tablet 08/10/21 Sulfamethox/Trimeth 800/160 1 each PO BID #14 tablet 04/13/22 [Bactrim Ds 800/160] Cyclobenzaprine [Flexeril] 10 mg PO TID PRN #20 tablet 09/29/22 HYDROcod/ACETAM 5/325 [[place] 5/325] 1 - 2 tablet PO Q6H PRN #14 tablet 09/29/22 - Allergies Allergies/Adverse Reactions: Allergies Allergy/AdvReac Type Severity Reaction Status Date / Time Penicillins Allergy Intermediate Rash Verified 11/26/22 18:48 - Social History Does the pt smoke?: No Smoking Status: Never smoker Does the pt drink ETOH?: Yes Does the pt have substance abuse?: No - Immunizations Immunizations are current?: Yes Immunizations: TDAP >10years/unknown - POLST Patient has POLST: No PD ED PE NORMAL - Vitals Vital signs reviewed: Yes - General General: Other (Drowsy, arousable, Oriented only to person, not place or time.) - HEENT HEENT: Moist mucous membranes - Neck Neck: Supple, no meningeal sign - Cardiac Cardiac: Other (tachycardic) - Respiratory Respiratory: Clear bilaterally, Other (Tachypneic with Kussmaul respirations) - Abdomen Abdomen: Soft, Non tender, Non distended - Derm Derm: Warm and dry, No rash - Extremities Extremities: No edema, No calf tenderness / cord - Neuro Neuro: Other (drowsy) Results - Vitals Vitals: Vital Signs - 24 hr 11/26/22 11/26/22 11/26/22 18:48 20:06 20:40 Temperature 36.6 C 36.3 C L 36.5 C Heart Rate 128 H 123 H 118 H Respiratory 43 H 36 H 34 H Rate Blood Pressure 101/49 L 131/60 H 132/56 H O2 Saturation 100 100 100 If not protocol 3 3 : Oxygen Flow, liters/minute 11/26/22 11/26/22 11/26/22 21:28 21:41 22:06 Temperature 37 C 36.5 C Heart Rate 115 H 115 H 114 H Respiratory 30 H 30 H 32 H Rate Blood Pressure 123/61 117/60 107/61 O2 Saturation 100 100 100 If not protocol 3 3 3 : Oxygen Flow, liters/minute Oxygen O2 Source Nasal cannula - Labs Labs: Laboratory Tests 11/26/22 11/26/22 11/26/22 18:53 18:53 18:53 WBC 29.5 H RBC 6.15 H Hgb 12.1 Hct 44.5 MCV 72.4 L MCH 19.7 L MCHC 27.2 L RDW 17.3 H Plt Count 742 H MPV 11.2 H Neut # (Auto) Not Reportable Lymph # (Auto) Not Reportable [place] # (Auto) Not Reportable Eos # (Auto) Not Reportable Baso # (Auto) Not Reportable Absolute Nucleated RBC Not Reportable Total Counted 100 Band Neuts % (Manual) 1 Abnorm Lymph % (Manual) 0 Metamyelocytes % 1 H Nucleated RBC % Not Reportable Neutrophils # (Manual) 22.7 H Lymphocytes # (Manual) 4.4 H Monocytes # (Manual) 2.1 H Eosinophils # (Manual) 0.0 Basophils # (Manual) 0.0 Nucleated RBCs 1 Differential Comment MANUAL DIFFERENTIAL Platelet Estimate INCREASED (>450,000) Platelet Morphology NORMAL APPEARANCE RBC Morph Micro Appear 1+ POLYCHROMASIA VBG pH 6.920 L* VBG pCO2 14.1 L VBG pO2 88.0 H VBG HCO3 2.9 L VBG Total CO2 < 5.0 L VBG O2 Saturation 88.0 H VBG Base Excess -30.0 L Sodium 119 L* Potassium 6.9 H* Chloride 81 L Carbon Dioxide 3 L* Anion Gap 35.0 H BUN 63 H Creatinine 2.4 H Estimated GFR (MDRD) 21 L Glucose 1252 H* Calcium 9.1 Total Bilirubin 0.5 AST 14 ALT 16 Alkaline Phosphatase 115 Total Protein 7.4 Albumin 4.6 Globulin 2.8 Albumin/Globulin Ratio 1.6 Lipase 803 H Urine Color Urine Clarity Urine pH Ur Specific [place] Urine Protein Urine Glucose (UA) Urine Ketones Urine Occult Blood Urine Nitrite Urine Bilirubin Urine Urobilinogen Ur Leukocyte Esterase Urine RBC Urine WBC Ur Squamous Epith Cells Amorphous Sediment Urine Bacteria Urine Casts Urine Mucus Ur Microscopic Review Urine Culture Comments Nasal Adenovirus (PCR) Nasal B. parapertussis DNA (PCR) Nasal Coronavir 229E PCR Nasal Coronavir HKU1 PCR Nasal Coronavir NL63 PCR Nasal Coronavir OC43 PCR Nasal Enterovir/Rhinovir PCR Nasal Influenza B PCR Nasal Influenza A PCR Nasal Parainfluen 1 PCR Nasal Parainfluen 2 PCR Nasal Parainfluen 3 PCR Nasal Parainfluen 4 PCR Nasal RSV (PCR) Nasal B.pertussis DNA PCR Nasal C.pneumoniae (PCR) Franck Human Metapneumo PCR Nasal M.pneumoniae (PCR) Nasal SARS-CoV-2 (PCR) Serum Ketones LARGE H 11/26/22 11/26/22 11/26/22 19:35 21:30 21:40 WBC RBC Hgb Hct MCV MCH MCHC RDW Plt Count MPV Neut # (Auto) Lymph # (Auto) [place] # (Auto) Eos # (Auto) Baso # (Auto) Absolute Nucleated RBC Total Counted Band [place] % (Manual) Abnorm Lymph % (Manual) Metamyelocytes % Nucleated RBC % Neutrophils # (Manual) Lymphocytes # (Manual) Monocytes # (Manual) Eosinophils # (Manual) Basophils # (Manual) Nucleated RBCs Differential Comment Platelet Estimate Platelet Morphology RBC Morph Micro Appear VBG pH VBG pCO2 VBG pO2 VBG HCO3 VBG Total CO2 VBG O2 Saturation VBG Base Excess Sodium 131 L Potassium 4.7 Chloride 102 Carbon Dioxide 3 L* Anion Gap 26.0 H BUN 57 H Creatinine 2.0 H Estimated GFR (MDRD) 26 L Glucose 856 H* Calcium 7.2 L Total Bilirubin AST ALT Alkaline Phosphatase Total Protein Albumin Globulin Albumin/Globulin Ratio Lipase Urine Color YELLOW Urine Clarity CLEAR Urine pH 5.5 Ur Specific [place] 1.020 Urine Protein 30 H Urine Glucose (UA) >=1000 H Urine Ketones 15 H Urine Occult Blood SMALL H Urine Nitrite NEGATIVE Urine Bilirubin NEGATIVE Urine Urobilinogen 0.2 (NORMAL) Ur Leukocyte Esterase NEGATIVE Urine RBC 0-5 Urine WBC 0-3 Ur Squamous Epith Cells FEW Squamous Amorphous Sediment Few Urine Bacteria None Seen Urine Casts 0-2 Hyaline Casts Urine Mucus Few Strands Ur Microscopic Review INDICATED Urine Culture Comments NOT INDICATED Nasal Adenovirus (PCR) NOT DETECTED Nasal B. parapertussis DNA (PCR) NOT DETECTED Nasal Coronavir 229E PCR NOT DETECTED Nasal Coronavir HKU1 PCR NOT DETECTED Nasal Coronavir NL63 PCR NOT DETECTED Nasal Coronavir OC43 PCR NOT DETECTED Nasal Enterovir/Rhinovir PCR NOT DETECTED Nasal Influenza B PCR NOT DETECTED Nasal Influenza A PCR NOT DETECTED Nasal Parainfluen 1 PCR NOT DETECTED Nasal Parainfluen 2 PCR NOT DETECTED Nasal Parainfluen 3 PCR NOT DETECTED Nasal Parainfluen 4 PCR NOT DETECTED Nasal RSV (PCR) NOT DETECTED Nasal B.pertussis DNA PCR NOT DETECTED Nasal C.pneumoniae (PCR) NOT DETECTED Fran[place] Human Metapneumo PCR NOT DETECTED Nasal M.pneumoniae (PCR) NOT DETECTED Nasal SARS-CoV-2 (PCR) NOT DETECTED Serum Ketones PD Medical Decision Making - ED course Complexity details: reviewed results, re-evaluated patient, considered differential, d/w patient, d/w organizational effectiveness consultant ED course: Bilateral 18-gauge IVs were started on the patient. 3 L of IV fluid were given. Started on insulin drip. Patient in significant DKA. There are no ICU beds available here. Therefore we will start to look at other facilities for an ICU bed for DKA. I spoke with the nighttime remote hospitalist at [facility] as they did have an ICU bed. He requested a chest x-ray, head CT and abdomen pelvis CT to evaluate for any other issues. These were ordered. He feels that she would benefit from a higher level of care than [facility]. The patient was maintained on IV fluids and an insulin drip. At 2228, the patient is awake, still drowsy but now oriented x4. She states that she feels thirsty. She states she is feeling better. Repeat BMP shows improved potassium, improved sodium, decreased anion gap and improved blood glucose. We will continue the current treatment and continue the search for an ICU bed after the imaging studies are performed. There are no beds available at [facility], [facility], [facility] or [facility]. Patient will continue to board in the emergency department. The patient will be signed out to the nighttime emergency department physician, Dr. Mendoza for final disposition. This document was made in part using voice recognition software. While efforts are made to proofread this document, sound alike and grammatical errors may occur. - Critical Care Time(min): 45 Time Includes: Direct patient care, Reassess patient, Document care, Coordinate care Data interpretation: See progress note Procedures included in critical care time: See progress note Procedures excluded from critical care time: See progress note Departure - Departure Clinical Impression: Acute kidney injury DKA (diabetic ketoacidosis) Qualifiers: Diabetes mellitus type: type 2 Diabetes mellitus complication detail: without coma Qualified Code(s): E11.10 - Type 2 diabetes mellitus with ketoacidosis without coma Leukocytosis Qualifiers: Leukocytosis type: unspecified Qualified Code(s): D72.829 - Elevated white blood cell count, unspecified Condition: Serious
[2022-11-26 19:03] LABS: BASOPHILS % (AUTO) 0.7 %; HCT - HEMATOCRIT 44.5 % (37.0-47.0); HGB - HEMOGLOBIN 12.1 g/dL (12.0-16.0); LYMPHOCYTES % (AUTO) 10.1 %; MEAN CORPUSCULAR HEMOGLOBIN 19.7 pg (27.0-31.0); MEAN CORPUSCULAR HGB CONC 27.2 g/dL (32.0-36.0); MEAN CORPUSCULAR VOLUME 72.4 fL (81.0-99.0); MEAN PLATELET VOLUME 11.2 fL (7.9-10.8); MONOCYTES % (AUTO) 10.9 %; NEUTROPHILS % (AUTO) 75.3 %; PLT - PLATELET COUNT 742 10^3/uL (130-450); RED BLOOD COUNT 6.15 10^6/uL (4.20-5.40); RED CELL DISTRIBUTION WIDTH 17.3 % (12.0-15.0); WHITE BLOOD COUNT 29.5 x10^3/uL (4.8-10.8)
[2022-11-26 19:06] LABS: ABNORMAL LYMPHS % (MANUAL) 0 %
[2022-11-26] MEDS ORDERED: INSULIN REGULAR IN 0.9 % NS 100 UNIT/100 ML BAG IV STA (19:07)
[2022-11-26 19:09] LABS: VBG HCO3 2.9 mmol/L (23-28); VBG PCO2 14.1 mmHg (41-51); VBG TOTAL CO2 < 5.0 mmol/L (24-29)
[2022-11-26 19:16] LABS: ALBUMIN 4.6 g/dL (3.2-5.5)
[2022-11-26 19:26] LABS: LIPASE 803 U/L (11-82)
[2022-11-26 19:28] LABS: ALBUMIN/GLOBULIN RATIO 1.6 (1.0-2.2); ALKALINE PHOSPHATASE 115 IU/L (42-121); ALT ALANINE AMINOTRANSFERASE 16 IU/L (10-60); AST ASPARTATE AMINOTRANSFERASE 14 IU/L (10-42); BILIRUBIN,TOTAL 0.5 mg/dL (0.2-1.0); BUN - BLOOD UREA NITROGEN 63 mg/dL (6-20); CALCIUM 9.1 mg/dL (8.5-10.3); CARBON DIOXIDE - CO2 3 mmol/L (21-32); CHLORIDE 81 mmol/L (101-111); CREATININE 2.4 mg/dL (0.6-1.3); GFR - MDRD 21 (>89); GLUCOSE 1252 mg/dL (74-104); POTASSIUM 6.9 mmol/L (3.5-4.5); SODIUM 119 mmol/L (135-145); TOTAL PROTEIN 7.4 g/dL (6.4-8.9)
[2022-11-26 19:31] LABS: KETONES, SERUM (ACETEST) LARGE (NEGATIVE)
[2022-11-26 19:37] LABS: BAND NEUTROPHILS % (MANUAL) 1 %; LYMPHOCYTES # (MANUAL) 4.4 10^3/uL (1.5-3.5); LYMPHOCYTES % (MANUAL) 15 %; METAMYELOCYTES % (MANUAL) 1 %; MONOCYTES # (MANUAL) 2.1 10^3/uL (0.0-1.0); NEUTROPHILS # (MANUAL) 22.7 10^3/uL (1.5-6.6); NUCLEATED RBC (MANUAL) 1 %
[2022-11-26 19:38] LABS: DIFFERENTIAL COMMENT MANUAL DIFFERENTIAL; PLATELET ESTIMATE, MANUAL INCREASED (>450,000) (NORMAL); PLATELET MORPHOLOGY NORMAL APPEARANCE (NORMAL)
[2022-11-26 19:52] LABS: GLUCOSE, URINE (UA) >=1000 mg/dL (NEGATIVE); KETONES,URINE (UA) 15 mg/dL (NEGATIVE); LEUKOCYTE ESTERASE, URINE NEGATIVE (NEGATIVE); NITRITE,URINE NEGATIVE (NEGATIVE); OCCULT BLOOD,URINE SMALL (NEGATIVE); PH,URINE 5.5 PH (5.0-7.5); PROTEIN,URINE 30 mg/dL (NEGATIVE); UROBILINOGEN,URINE 0.2 (NORMAL) E.U./dL (NORMAL)
[2022-11-26 20:03] LABS: BILIRUBIN,URINE NEGATIVE (NEGATIVE); CLARITY,URINE CLEAR (CLEAR); ICTOTEST,URINE NEGATIVE
[2022-11-26 20:10] LABS: AMORPHOUS SEDIMENT,UR Few /LPF; BACTERIA,URINE None Seen /HPF (None Seen); MUCUS,URINE Few Strands; RBC,URINE 0-5 /HPF (0-5); SQUAMOUS EPITHELIAL CELL,UR FEW Squamous (<= Few); WBC,URINE 0-3 /HPF (0-5)
[2022-11-26 20:11] LABS: CASTS, URINE 0-2 Hyaline Casts /LPF
[2022-11-26 21:54] LABS: CALCIUM 7.2 mg/dL (8.5-10.3); POTASSIUM 4.7 mmol/L (3.5-5.0)
[2022-11-26 22:36] LABS: B. PARAPERTUSSIS- RESP PCR PAN NOT DETECTED; B. PERTUSSIS- RESP PCR PANEL NOT DETECTED; C. PNEUMONIAE- RESP PCR PANEL NOT DETECTED; CORONAVIRUS 229E-RESP PCR NOT DETECTED; CORONAVIRUS HKU1-RESP PCR NOT DETECTED; CORONAVIRUS NL63-RESP PCR NOT DETECTED; CORONAVIRUS OC43-RESP PCR NOT DETECTED; HUMAN METAPNEUMOVIRUS NOT DETECTED; INFLUENZA A- RESP PCR PANEL NOT DETECTED; INFLUENZA B - RESP PCR PANEL NOT DETECTED; M. PNEUMONIAE- RESP PCR PANEL NOT DETECTED; PARAINFLUENZA VIRUS 1 NOT DETECTED; PARAINFLUENZA VIRUS 2 NOT DETECTED; PARAINFLUENZA VIRUS 3 NOT DETECTED; PARAINFLUENZA VIRUS 4 NOT DETECTED; RHINOVIRUS/ENTEROVIRUS NOT DETECTED; RSV- RESP PCR PANEL NOT DETECTED; SARS-CoV-2 -RESP PCR PANEL NOT DETECTED
--- NOTE | 2022-11-26 22:52 | XRAY Report ---
PROCEDURE: Chest 1 View X-Ray INDICATIONS: altered TECHNIQUE: One view of the chest was acquired. Exam online and ready for interpretation at 10:00 PM on 11/26/2022. COMPARISON: None. FINDINGS: Surgical changes and devices: None. Lungs and pleura: No pleural effusions or pneumothorax. There is pulmonary vascular prominence sugge stive of mild pulmonary edema. No focal consolidation. Mediastinum: Mediastinal contours appear normal. Heart size is normal. Bones and chest wall: No suspicious bony lesions. Overlying soft tissues appear unremarkable. IMPRESSION: 1. Suspected mild pulmonary edema. Reviewed by: Earle Bailey MD on 11/26/2022 10:51 PM PDT Approved by: Earle Bailey MD on 11/26/2022 10:51 PM PDT Station ID: [id number]
--- NOTE | 2022-11-27 | CT Report ---
PROCEDURE: HEAD WO INDICATIONS: altered TECHNIQUE: Noncontrast 4.5 mm thick angled axial sections acquired from the foramen magnum to the vertex. For r adiation dose reduction, the following was used: automated exposure control, adjustment of mA and/or kV according to patient size. Exam online and available for interpretation on 11/26/2022 at 11:28 PM. COMPARISON: None. FINDINGS: Image quality: Excellent. CSF spaces: Ventricles are within normal size limits. Basal cisterns are patent. No extra-axial flui d collections. Brain: No intracranial hemorrhage, mass, or mass effect. Yanez-white matter interface is preserved. T here are subcortical and periventricular white matter hypodensities consistent with mild chronic smal l vessel ischemic changes. Skull and face: Calvarium and visualized facial bones are intact, without suspicious lesions. Sinuses: Visualized sinuses and mastoids are clear. IMPRESSION: 1. No acute intracranial abnormality. 2. Subcortical hypodensities likely represent mild chronic small vessel ischemic changes. However, if clinical concern persists, consider further evaluation with MRI. Reviewed by: Earle Bailey MD on 11/26/2022 11:58 PM PDT Approved by: Earle Bailey MD on 11/26/2022 11:58 PM PDT Station ID: [id number]
--- NOTE | 2022-11-27 00:03 | CT Report ---
PROCEDURE: ABDOMEN/PELVIS WO INDICATIONS: vomiting, dka TECHNIQUE: A CT scan of the abdomen and pelvis was performed without the use of intravenous contrast. Images we re recorded and evaluated at appropriate window settings. Reformats: coronal and sagittal. For radiat ion dose reduction, the following was used: automated exposure control, adjustment of mA and/or kV ac cording to patient size. Exam online and available for interpretation 11/26/2022 at 11:29 PM. COMPARISON: None. FINDINGS: Image quality: There is motion artifact limiting evaluation. Lung bases:There is mild dependent atelectasis. Heart: Heart is normal in size. ABDOMEN: Liver:Noncontrast evaluation of the liver demonstrates no discrete mass. Gallbladder:No calcified gallstones. Biliary ducts: No biliary ductal dilatation. Pancreas:There is peripancreatic fat stranding or fluid along the pancreatic head and uncinate proce ss adjacent to the descending portion of the duodenum. No discrete peripancreatic fluid collections. No definite pancreatic duct dilatation. Spleen: Normal in size. Adrenal Glands: No adrenal nodules. Kidneys and Ureters: No hydronephrosis. Stomach and Bowel: Stomach, small bowel loops, and colon are normal in caliber and wall thickness. Peritoneum:There is minimal free fluid along the right anterior pararenal space. No free air. Ventral Wall: No hernia. Abdominal Nodes: No retroperitoneal or mesenteric adenopathy by size criteria. Vessels: Aorta and inferior vena cava are normal in size. PELVIS: Pelvic Organs: Unremarkable. Bladder:There is a Schmidt catheter within a nondistended urinary bladder. Pelvic Nodes: No enlarged lymph nodes. Miscellaneous: No inguinal hernias. Bones: Visualized osseous structures demonstrate no suspicious lesions. IMPRESSION: 1. Mild peripancreatic fat stranding or fluid suggestive of acute pancreatitis. No discrete peripancr eatic fluid collection. Evaluation for necrosis is limited in the absence of intravenous contrast. 2. No calcified gallstones. Reviewed by: Earle Bailey MD on 11/27/2022 12:01 AM PDT Approved by: Earle Bailey MD on 11/27/2022 12:01 AM PDT Station ID: [id number]
[2022-11-27 00:22] LABS: CREATININE 1.7 mg/dL (0.6-1.3); POTASSIUM 4.6 mmol/L (3.5-4.5)
[2022-11-27 01:20] LABS: VBG HCO3 4.2 mmol/L (23-28); VBG PCO2 19.3 mmHg (41-51); VBG PO2 83.8 mmHg (25-47)
[2022-11-27 01:21] LABS: VBG BASE EXCESS -26.3 mmol/L (-2 - +2); VBG OXYGEN SATURATION 93.1 % (60-80); VBG TOTAL CO2 4.8 mmol/L (24-29)
[2022-11-27 01:22] LABS: VBG PH 6.956 (7.31-7.41)
[2022-11-27 02:03] LABS: ALBUMIN 3.7 g/dL (3.2-5.5)
[2022-11-27 02:12] LABS: ALBUMIN/GLOBULIN RATIO 1.7 (1.0-2.2); BILIRUBIN,TOTAL 0.4 mg/dL (0.2-1.0); CALCIUM 7.6 mg/dL (8.5-10.3); CREATININE 1.5 mg/dL (0.6-1.3); POTASSIUM 4.9 mmol/L (3.5-4.5); TOTAL PROTEIN 5.9 g/dL (6.4-8.9)
[2022-11-27 03:53] LABS: ALBUMIN 3.6 g/dL (3.2-5.5); MAGNESIUM 1.9 mg/dL (1.7-2.3); PHOSPHORUS 2.7 mg/dL (2.5-5.0)
[2022-11-27 03:56] LABS: ALBUMIN/GLOBULIN RATIO 1.8 (1.0-2.2); BILIRUBIN,TOTAL 0.4 mg/dL (0.2-1.0); CALCIUM 7.5 mg/dL (8.5-10.3); CREATININE 1.3 mg/dL (0.6-1.3); POTASSIUM 4.7 mmol/L (3.5-4.5); TOTAL PROTEIN 5.6 g/dL (6.4-8.9)
[2022-11-27 06:00] LABS: ALBUMIN 3.6 g/dL (3.2-5.5)
[2022-11-27 06:08] LABS: ALBUMIN/GLOBULIN RATIO 1.7 (1.0-2.2); BILIRUBIN,TOTAL 0.5 mg/dL (0.2-1.0); CALCIUM 7.7 mg/dL (8.5-10.3); CREATININE 1.1 mg/dL (0.6-1.3); POTASSIUM 4.8 mmol/L (3.5-4.5); TOTAL PROTEIN 5.7 g/dL (6.4-8.9)
[2022-11-27 07:54] LABS: BASOPHILS % (AUTO) 0.6 %; HCT - HEMATOCRIT 35.9 % (37.0-47.0); HGB - HEMOGLOBIN 10.7 g/dL (12.0-16.0); LYMPHOCYTES % (AUTO) 11.1 %; MEAN CORPUSCULAR HEMOGLOBIN 20.1 pg (27.0-31.0); MEAN CORPUSCULAR HGB CONC 29.8 g/dL (32.0-36.0); MEAN CORPUSCULAR VOLUME 67.5 fL (81.0-99.0); MONOCYTES % (AUTO) 6.4 %; NEUTROPHILS % (AUTO) 74.3 %; PLT - PLATELET COUNT 224 10^3/uL (130-450); RED BLOOD COUNT 5.32 10^6/uL (4.20-5.40); RED CELL DISTRIBUTION WIDTH 15.1 % (12.0-15.0); WHITE BLOOD COUNT 27.4 x10^3/uL (4.8-10.8)
[2022-11-27 07:58] LABS: ABNORMAL LYMPHS % (MANUAL) 0 %
[2022-11-27 08:24] LABS: BAND NEUTROPHILS % (MANUAL) 12 %; DIFFERENTIAL COMMENT MANUAL DIFFERENTIAL; LYMPHOCYTES # (MANUAL) 4.1 10^3/uL (1.5-3.5); LYMPHOCYTES % (MANUAL) 13 %; METAMYELOCYTES % (MANUAL) 5 %; MONOCYTES # (MANUAL) 1.9 10^3/uL (0.0-1.0); MYELOCYTES % (MANUAL) 2 %; NEUTROPHILS # (MANUAL) 19.5 10^3/uL (1.5-6.6); NUCLEATED RBC (MANUAL) 1 %; REACTIVE LYMPHS % (MANUAL) 2 %
[2022-11-27] MEDS ORDERED: SODIUM CHLORIDE 0.9% 1,000 ML IV STA (08:34)
--- NOTE | 2022-11-27 09:56 | ANESTHESIA PROCEDURE NOTE ---
Anesth Central Line Template - Central Line Central Line Preparation: Unable to obtain consent, Time out completed, Ultra sound used, Sterile prep and drape Central line location: Right IJ Central line type: Triple lumen Central line catheter tip site resides: Superior vena cava (SVC) Central line aftercare: Chlorhexidine disc placed, Secured, Placement confirmed, No pneumothorax, No complications, Bundle checklist complete, Pt tolerated well, Other Other Info/Details: Pt confused and non cooperative. Full assist from FIGHT MANAGER for holding patient still. Secured at 17 after ports easily aspirate and flush x3.
--- NOTE | 2022-11-27 10:19 | Ultrasound Report ---
PROCEDURE: Abdomen Limited INDICATIONS: elevated lipase, WBC TECHNIQUE: Real-time focused scanning was performed of the abdomen, with image documentation. COMPARISONS: CT abdomen pelvis 11/26/2022. FINDINGS: Liver: Liver is normal in size and homogeneous in echotexture. Gallbladder: Unremarkable. Biliary ducts: Intrahepatic bile ducts are non-dilated. Extrahepatic bile duct caliber measures 3.7 mm. Normal is 6-7 mm or less in diameter, or 10 mm or less post-cholecystectomy. Pancreas: Not well visualized due to overlying bowel gas. Right kidney: Normal in size and echotexture. Right kidney measures 12.4 cm long. No hydronephrosis or nephrolithiasis. No solid masses. No complex renal cystic lesions which require follow-up. Aorta: Visualized aorta is normal in caliber at less than 3 cm. The mid and distal aorta are not vis ualized. IVC: Intrahepatic inferior vena cava is patent. IMPRESSION: The pancreas is not well-visualized. Otherwise, the remainder the exam is grossly within normal limit s. Reviewed by: Mal Dumont MD on 11/27/2022 10:17 AM PDT Approved by: Mal Dumont MD on 11/27/2022 10:17 AM PDT Station ID: [id number]
--- NOTE | 2022-11-27 10:53 | XRAY Report ---
PROCEDURE: Chest for Line Placement INDICATIONS: new CVL @R IJ TECHNIQUE: One view of the chest was acquired. COMPARISON: Chest x-ray 11/26/2022. FINDINGS: Surgical changes and devices: Right central venous catheter with tip projecting over the cavoatrial junction. Lungs and pleura: No pleural effusions or pneumothorax. Prominence of the interstitial markings, sug gestive of pulmonary edema.. Mediastinum: Mediastinal contours appear normal. Heart size is normal. Bones and chest wall: No suspicious bony lesions. Overlying soft tissues appear unremarkable. IMPRESSION: Right central venous catheter with tip projecting over the cavoatrial junction. Moderate interstitial markings, suggestive of pulmonary edema. Reviewed by: Mal Troncoso MD on 11/27/2022 10:52 AM PDT Approved by: Mal Troncoso MD on 11/27/2022 10:52 AM PDT Station ID: [id number]
--- NOTE | 2022-11-27 10:55 | ED Physician Documentation ---
ED Addendum - Addendum Addendum: 11/27/22 10:51 The patient was signed out to me at change of shift, pending admission to the hospital for DKA. She had had a very high blood sugar at over 1200 on arrival and this has been gradually trending down over the course of her stay. Her anion gap has closed with most recent measurement being 18. Her current blood sugar is in the mid 400s. Central line was placed by anesthesia due to patient needing multiple blood draws. Her lipase was found to be elevated at around 800 when she came in, for unclear reasons. CT showed little bit of stranding around the end of the pancreas, but no evidence of cholecystitis. An ultrasound of the abdomen is pending at this time. Patient was found to have a significantly elevated white blood cell count which is slowly coming down. Again, the patient had extensive work-up and CT scanning for this and it is not exactly clear why her white count is so high. She has been afebrile here and hemodynamically stable. 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 I have spoken about her case with Dr. Schultz, who has agreed to admit the patient to the ICU.
[2022-11-27] MEDS ORDERED: INSULIN REGULAR IN 0.9 % NS 100 UNIT/100 ML BAG IV STA (12:13)
[2022-11-27 12:16] LABS: VBG HCO3 6.1 mmol/L (23-28); VBG PCO2 18.3 mmHg (41-51); VBG PO2 62.7 mmHg (25-47); VBG TOTAL CO2 6.7 mmol/L (24-29)
[2022-11-27 12:17] LABS: VBG PH 7.14 (7.31-7.41)
[2022-11-27 13:04] LABS: CALCIUM 7.9 mg/dL (8.5-10.3); CREATININE 0.9 mg/dL (0.6-1.3); POTASSIUM 4.2 mmol/L (3.5-4.5)
[2022-11-27] MEDS ORDERED: PROCHLORPERAZINE 10 MG/2 ML VIAL IVP PRN (13:10)
[2022-11-27] MEDS ORDERED: ONDANSETRON 4 MG/2 ML VIAL IVP PRN (13:10)
--- NOTE | 2022-11-27 13:19 | HISTORY & PHYSICAL EXAMINATION ---
Chief Complaint - Chief Complaint Chief Complaint: lethargic, abd pain, N/V History of Present Illness - Admitted From Admitted From:: ED - History Obtained From History obtained from: ED provider and the patient - History of Present Illness HPI Comment/Other: This is a 52-year-old female with a history of diabetes. She was admitted here for DKA several years ago. She now presents with a similar presentation of abdominal pain with nausea, vomiting, feeling more and more weak and then lethargic and presented last night. She was found to be in DKA with pH of 6.9, elevated anion gap, glucose of 1200. There were no ICU beds available here. The ER provider wanted her transferred to the closest hospital with an available ICU bed, but she was not accepted at [facility], so she boarded in the ER overnight and has been on an Insulin drip. Work-up was also done looking for cause, since she had a very elevated WBC of 29 and Lipase level 800. Chest x-ray and U/A were unremarkable. Abdomen CT shows that she has fat stranding of the pancreas consistent with pancreatitis. Ultrasound of the abdomen did not show any gallbladder disease or stones. This morning on day shift, an ICU bed opened here and the patient was presented to me by the ER doctor. She will be admitted to the ICU for treating DKA and pancreatitis. The patient herself is very obtunded and only answers 1 or 2 words and then falls back asleep. She still has slight abdominal pain and mild nausea but has not vomited since being in the ER. She tells me she does take her normal diabetic medicines, has not missed them. She denied any pulmonary complaints or dysuria. History - Past Medical History Cardiovascular: reports: None, Murmur Respiratory: reports: None Neuro: reports: None Endocrine/Autoimmune: reports: Type 2 diabetes GI: reports: None [employer]: reports: None : reports: None HEENT: reports: Chronic vision loss Psych: reports: Depression, Anxiety Musculoskeletal: reports: Osteoarthritis, Fatigue, Scoliosis, Chronic back pain Derm: reports: None MRSA Hx?: No - Past Surgical History General: reports: 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 /[employer]: reports: Other HEENT: reports: Tonsil/Adenoidectomy - Family & Social History Family History Comment/Other: From a previous admission: She reported her father from a stroke. Her mother also has a history of diabetes Living arrangement: At home Social History Notes: From a previous admission: She denied smoking and alcohol use. - Substance History Use: Uses substance without health or social issues: NONE - POLST Patient has POLST: No Meds/Allgy - Home Medications Home Medications: Ambulatory Orders Medication Instructions Recorded Confirmed Sertraline [Zoloft] 125 mg PO DAILY 05/15/19 08/10/21 Dextroamphetamine/Amphetamine 10 mg PO BID 12/05/20 08/10/21 [Dextroamp-Amphetamine 5 mg Tab] OLANZapine [Olanzapine] 10 mg PO DAILY 02/09/21 08/10/21 traZODone [Desyrel] 50 mg PO HS 02/09/21 08/10/21 Blood Sugar Diagnostic [Glucose 1 each [facility] #90 strip 02/12/21 08/10/21 Test Strip] Insulin Aspart [NovoLOG] 8 unit SUBQ TIDWM 30 Days #8 each 02/12/21 08/10/21 Insulin Glargine [Lantus Solostar] 24 unit SUBQ DAILY 30 Days #8 each 02/12/21 08/10/21 Lancets [Blood Lancets] 1 each ACHS #90 each 02/12/21 08/10/21 Atorvastatin [Lipitor] 10 mg PO HS 08/10/21 08/10/21 HYDROcod/ACETAM 5/325 [[place] 5/325] 1 - 2 tab PO Q6H PRN #10 tablet 08/10/21 Ibuprofen [Motrin] 800 mg PO Q8H PRN #14 tablet 08/10/21 Sulfamethox/Trimeth 800/160 1 each PO BID #14 tablet 04/13/22 [Bactrim Ds 800/160] Cyclobenzaprine [Flexeril] 10 mg PO TID PRN #20 tablet 09/29/22 HYDROcod/ACETAM 5/325 [[place] 5/325] 1 - 2 tablet PO Q6H PRN #14 tablet 09/29/22 - Allergies Allergies/Adverse Reactions: Allergies Allergy/AdvReac Type Severity Reaction Status Date / Time Penicillins Allergy Intermediate Rash Verified 11/26/22 18:48 Review of Systems - Constitutional Constitutional: reports: Fatigue, Weakness - Gastrointestinal Gastrointestinal: reports: Nausea, Vomiting - All Other Systems All Other Systems: reports: Other (Her response regarding symptoms are very brief, she answers with 1 and 2 word sentences then falls asleep. Therefore t his ROS information is limited.) Exam - Vital Signs Vital Signs: Vital Signs x48h Temp Pulse Resp BP Pulse Ox 11/27/22 11:42 118 H 17 100/85 H 99 11/27/22 11:00 37.0 C 116 H 29 H 100/85 H 100 11/27/22 09:15 120 H 40 H 129/59 L 100 11/27/22 08:24 119 H 26 H 108/57 L 100 11/27/22 06:44 120 H 20 117/89 H 100 11/27/22 05:26 110 H 17 118/68 96 - Physical Exam General Appearance: positive: Mild distress (She has tachypnea and very dry mouth and tongue), Lethargic Eyes Bilateral: positive: Normal inspection, EOMI ENT: positive: Dry mucous membranes Neck: positive: Nml inspection Respiratory: positive: Breath sounds nml Cardiovascular: positive: Tachycardia Abdomen: positive: Non-tender (No guarding or rebound. Diminished bowel sounds.), No distention Skin: positive: Warm, Dry, Other (Positive skin tenting) Extremities: positive: Non-tender, No pedal edema Neurologic/Psychiatric: positive: Other (Lethargic but seems oriented, only speaks 1 and 2 word sentences for answers then falls asleep) Conclusion/Plan - Problem List (1) DKA (diabetic ketoacidosis) Conclusion/Plan: The details of how she developed this are not yet known from her description since she is mostly lethargic and cannot give details. She does have evidence of acute pancreatitis by imaging and from my very high serum lipase level. She has been started on IV insulin drip in the ER and glucose has declined from 1200 to 380 over several hours in the ER. Plan: Admit to ICU Start DKA protocol including aggressive IV crystalloid infusion and insulin drip Frequent blood tests for electrolytes, magnesium, ketones and VBG serum pH. Start IV bicarb drip given the severe metabolic acidosis Continue the IV insulin drip until her serum ketones become negative. Qualifiers: Diabetes mellitus type: type 2 Diabetes mellitus complication detail: without coma Qualified Code(s): E11.10 - Type 2 diabetes mellitus with ketoacidosis without coma (2) Pancreatitis Conclusion/Plan: Unclear why she should have acute pancreatitis, not being in alcohol drinker and without evidence of gallstones or cholangitis. Plan: Continue symptomatic treatment with n.p.o. status, empiric IV antiacid, IV pain medications with affirmative and narcotics. Follow lipase level daily (3) Leukocytosis Conclusion/Plan: She has a marked leukocytosis of 29, it has decreased to blank without any empiric antibiotics. I suspect this is demargination and elevation from the stress of her DKA and possibly from pancreatitis Plan: Continue with DKA protocol and management of pancreatitis Follow CBC daily Qualifiers: Leukocytosis type: unspecified Qualified Code(s): D72.829 - Elevated white blood cell count, unspecified - Lab Results Fish Bones: 11/27/22 07:40 11/27/22 15:30 - Diagnostic Imaging Results Diagnostic Imaging Results: positive: Final report reviewed - Other Other Results/Comments: Attestation: The patient is expected to be hospitalized for greater than 2 midnights, and is expected to be discharged or transferred to another facility within 96 hours: Yes.
[2022-11-27] MEDS ORDERED: SODIUM CHLORIDE 0.9% 1,000 ML IV SCH (14:00)
[2022-11-27] MEDS ORDERED: INSULIN REGULAR IN 0.9 % NS 100 UNIT/100 ML BAG IV SCH (14:00)
[2022-11-27] MEDS: INSULIN REGULAR HUMAN 100 UNIT in SODIUM CHLORIDE 0.9% 100ML 99 ML IV SCH (14:25)
[2022-11-27 15:10] LABS: MUDS CUTOFF CONCENTRATIONS CUTOFF CONC BELOW:
[2022-11-27 15:20] LABS: CREATININE 0.9 mg/dL (0.6-1.3); POTASSIUM 3.9 mmol/L (3.5-4.5)
[2022-11-27] MEDS: SODIUM CHLORIDE FLUSH 0.9% 10 ML SYRINGE IVP PRN ×2 (15:26→17:20)
[2022-11-27 15:36] LABS: GLUCOSE, URINE (UA) 250 mg/dL (NEGATIVE); KETONES,URINE (UA) >=80 mg/dL (NEGATIVE); LEUKOCYTE ESTERASE, URINE NEGATIVE (NEGATIVE); NITRITE,URINE NEGATIVE (NEGATIVE); OCCULT BLOOD,URINE SMALL (NEGATIVE); PH,URINE 5.5 PH (5.0-7.5); PROTEIN,URINE TRACE mg/dL (NEGATIVE); UROBILINOGEN,URINE 0.2 (NORMAL) E.U./dL (NORMAL)
[2022-11-27 15:40] LABS: BILIRUBIN,URINE NEGATIVE (NEGATIVE); CLARITY,URINE CLEAR (CLEAR); HCG UR QUAL NEGATIVE; ICTOTEST,URINE NEGATIVE
[2022-11-27 15:44] LABS: KETONES, SERUM (ACETEST) LARGE (NEGATIVE)
[2022-11-27 15:55] LABS: BACTERIA,URINE Rare /HPF (None Seen); CRYSTALS,URINE 6-10 Uric Acid /LPF; SQUAMOUS EPITHELIAL CELL,UR FEW Squamous (<= Few); WBC,URINE 0-3 /HPF (0-5)
[2022-11-27 15:56] LABS: MAGNESIUM 1.9 mg/dL (1.7-2.3)
[2022-11-27 16:14] LABS: BUN - BLOOD UREA NITROGEN 31 mg/dL (6-20); CALCIUM 8.1 mg/dL (8.5-10.3); CARBON DIOXIDE - CO2 10 mmol/L (21-32); CHLORIDE 120 mmol/L (101-111); CREATININE 0.8 mg/dL (0.6-1.3); GFR - MDRD 76 (>89); GLUCOSE 310 mg/dL (74-104); POTASSIUM 3.7 mmol/L (3.5-4.5); SODIUM 142 mmol/L (135-145)
[2022-11-27 16:31] LABS: AMPHETAMINE SCREEN,URINE NEGATIVE (NEGATIVE); BARBITURATE SCREEN,UR NEGATIVE (NEGATIVE); BENZODIAZEPINES SCREEN, URINE NEGATIVE (NEGATIVE); COCAINE SCREEN URINE NEGATIVE (NEGATIVE); METHADONE SCREEN, URINE NEGATIVE (NEGATIVE); METHAMPHETAMINES SCREEN, URINE NEGATIVE (NEGATIVE); OPIATE SCREEN, URINE NEGATIVE (NEGATIVE); OXYCODONE SCREEN, URINE NEGATIVE (NEGATIVE); PROPOXYPHENE SCREEN, URINE NEGATIVE (NEGATIVE); THC CANNABINOID SCREEN, URINE NEGATIVE (NEGATIVE); TRICYCLIC ANTIDEPRESSANT,URINE NEGATIVE (NEGATIVE)
[2022-11-27] MEDS ORDERED: POTASSIUM CHLOR 20 MEQ/100 ML 20 MEQ/100 ML BAG IV ONE (16:50)
[2022-11-27 17:48] LABS: KETONES, SERUM (ACETEST) MODERATE (NEGATIVE)
[2022-11-27 18:02] LABS: MAGNESIUM 1.9 mg/dL (1.7-2.3)
[2022-11-27] MEDS: SODIUM CHLORIDE FLUSH 0.9% 10 ML SYRINGE IVP SCH (18:38)
[2022-11-27] MEDS: SODIUM BICARBONATE 150 MEQ in SODIUM CHLORIDE 0.45% 1,000 ML IV ONE (18:56)
[2022-11-27] MEDS ORDERED: DEXTROSE 5%-LACTATED RINGERS 1,000 ML IV SCH (19:00)
[2022-11-27 19:32] LABS: KETONES, SERUM (ACETEST) SMALL (NEGATIVE)
[2022-11-27 19:39] LABS: MAGNESIUM 1.9 mg/dL (1.7-2.3)
[2022-11-27 19:55] LABS: CALCIUM, IONIZED 1.21 mmol/L (1.15-1.33); VBG PH 7.314 (7.31-7.41)
[2022-11-27 20:33] LABS: ESTIMATED AVERAGE GLUCOSE 387 mg/dL (70-100); HEMOGLOBIN A1c% 15.1 % (4.27-6.07)
[2022-11-27] MEDS: FAMOTIDINE 20 MG/2 ML VIAL IVP SCH (21:00)
[2022-11-27] MEDS ORDERED: POTASSIUM PHOSPHATE 21 MMOL in SODIUM CHLORIDE 0.9% 250 ML IV ONE (21:47)
[2022-11-27 21:56] LABS: KETONES, SERUM (ACETEST) SMALL (NEGATIVE)
[2022-11-27 21:58] LABS: MAGNESIUM 2.1 mg/dL (1.7-2.8)
[2022-11-28] MEDS: SODIUM CHLORIDE FLUSH 0.9% 10 ML SYRINGE IVP SCH ×3 (01:32→16:31)
[2022-11-28] MEDS: SODIUM CHLORIDE FLUSH 0.9% 10 ML SYRINGE IVP PRN (01:33)
[2022-11-28 04:01] LABS: KETONES, SERUM (ACETEST) SMALL (NEGATIVE)
[2022-11-28 04:13] LABS: LIPASE 43 U/L (11-82); PHOSPHORUS 1.6 mg/dL (2.5-5.0); TRIGLYCERIDES 153 mg/dL (48-352)
[2022-11-28 04:18] LABS: BUN - BLOOD UREA NITROGEN 21 mg/dL (6-20); CALCIUM 8.3 mg/dL (8.5-10.3); CARBON DIOXIDE - CO2 18 mmol/L (21-32); CHLORIDE 122 mmol/L (101-111); CREATININE 0.6 mg/dL (0.6-1.3); GFR - MDRD 106 (>89); GLUCOSE 225 mg/dL (74-104); POTASSIUM 3.2 mmol/L (3.5-4.5); SODIUM 150 mmol/L (135-145)
[2022-11-28] MEDS ORDERED: POTASSIUM PHOSPHATE 15 MMOL in SODIUM CHLORIDE 0.9% 250 ML IV ONE ×2 (04:49→06:00)
--- NOTE | 2022-11-28 04:59 | PROVIDER PROGRESS NOTE ---
Automobile Assembler Note - Automobile Assembler Note Automobile Assembler Note: RN page about Cl 122. Patient admitted for DKA and likely received NS bolus/ iv fluid to drive Cl up patient now taking po and not on NS IV opting to monitor and see if liberal po can drive down hypercholeremia now that patient is off iv NS support. if Cl not better, then consider d/w Nephrology and restart LR iv fluid vs D5HCO3 iv fluid Yolanda Shearer DO Internal Medicine [employer]
[2022-11-28] MEDS: SODIUM BICARBONATE 150 MEQ in SODIUM CHLORIDE 0.45% 1,000 ML IV ONE (06:01)
[2022-11-28 06:06] LABS: BASOPHILS % (AUTO) 0.1 %; HCT - HEMATOCRIT 23.9 % (37.0-47.0); HGB - HEMOGLOBIN 7.9 g/dL (12.0-16.0); LYMPHOCYTES # (AUTO) 0.8 10^3/uL (1.5-3.5); LYMPHOCYTES % (AUTO) 7.8 %; MEAN CORPUSCULAR HGB CONC 33.1 g/dL (32.0-36.0); MEAN CORPUSCULAR VOLUME 60.5 fL (81.0-99.0); MEAN PLATELET VOLUME 9.5 fL (7.9-10.8); MONOCYTES # (AUTO) 0.5 10^3/uL (0.0-1.0); MONOCYTES % (AUTO) 5.4 %; NEUTROPHILS # (AUTO) 8.4 10^3/uL (1.5-6.6); NRBC ABSOLUTE COUNT (AUTO) 0.02 x10^3/uL; NUCLEATED RED BLOOD CELLS AUTO 0.2 /100WBC; PLT - PLATELET COUNT 240 10^3/uL (130-450); RED BLOOD COUNT 3.95 10^6/uL (4.20-5.40); RED CELL DISTRIBUTION WIDTH 14.6 % (12.0-15.0); WHITE BLOOD COUNT 9.9 x10^3/uL (4.8-10.8)
[2022-11-28 06:07] LABS: SLIDE REVIEW? Indicated
[2022-11-28 06:38] LABS: PLATELET ESTIMATE, MANUAL NORMAL (130-450,000) (NORMAL); RBC MORPHOLOGY (MULTIPLE) 2+ MICROCYTOSIS (NORMAL)
[2022-11-28 07:59] LABS: CALCIUM, IONIZED 1.17 mmol/L (1.15-1.33); VBG PH 7.447 (7.31-7.41)
[2022-11-28] MEDS: FAMOTIDINE 20 MG/2 ML VIAL IVP SCH ×2 (08:06→21:13)
[2022-11-28] MEDS: D5.45NS W/20 MEQ KCL 1,000 ML IV SCH ×2 (09:11→17:12)
--- NOTE | 2022-11-28 11:44 | PHARMACY PROGRESS NOTE ---
- Best Possible Medication History Admit Date and Time: 11/27/22 1404 Processed by: Pharmacy Medication History completed: Yes Patient Interview: Pt unable to participate Secondary Source(s): Prescription bottles, Physician records, Pharmacy records, Insurance records As the person ultimately responsible for medication therapy, providers are able to order a medication from an existing home medication list in [facility] via the "Reconcile Routine" prior to Confirmation of that medication by print support specialist. Such practice is discouraged except when the physician, in their clinical judgment, deems that a medical need exists for a medication without regard to previous use.
[2022-11-28] MEDS: INSULIN REGULAR HUMAN 100 UNIT in SODIUM CHLORIDE 0.9% 100ML 99 ML IV SCH ×2 (12:22→14:25)
[2022-11-28 14:48] LABS: CREATININE 0.5 mg/dL (0.6-1.3); POTASSIUM 2.8 mmol/L (3.5-4.5)
[2022-11-28] MEDS: POTASSIUM CHLOR 20 MEQ/100 ML 20 MEQ/100 ML BAG IV SCH ×2 (14:55→15:56)
[2022-11-28] MEDS ORDERED: SODIUM PHOSPHATE 21 MMOL in SODIUM CHLORIDE 0.9% 250 ML IV ONE (16:08)
--- NOTE | 2022-11-28 16:16 | PROVIDER PROGRESS NOTE ---
Subjective - Subjective Pt reports feeling: Improved Subjective: No nausea, tolerated clear liquids, no abdominal pain, is more awake but still very weak and tired Objective - Vital Signs/Intake & Output Reviewed Vital Signs: Yes Vital Signs: Vital Signs Pulse Resp BP Pulse Ox 11/28/22 15:00 95 33 H 126/53 L 95 11/28/22 14:00 99 16 126/63 97 11/28/22 13:00 103 H 37 H 136/71 H 97 Intake & Output: Intake & Output 11/25/22 11/26/22 11/27/22 11/28/22 23:59 23:59 23:59 23:59 Intake Total 19.826 5523.966 4617.541 Output Total 750 5591 2690 Balance -730.174 -51.034 1927.541 - Objective General Appearance: positive: Lethargic Eyes Bilateral: positive: Normal inspection (Appears fatigued) ENT: positive: Dry mucous membranes Neck: positive: Nml inspection, No JVD Respiratory: positive: No respiratory distress, Breath sounds nml Cardiovascular: positive: Regular rate & rhythm, No murmur Abdomen: positive: Non-tender, No distention, Other (Obese) Skin: positive: Warm, Dry Extremities: positive: Non-tender, No pedal edema Neurologic/Psychiatric: positive: Oriented x3, Motor nml - Lab Results Fish Bones: 11/28/22 14:00 11/28/22 14:23 Other Labs: Lab Results x24hrs 11/28/22 11/28/22 11/28/22 Range/Units 15:25 15:25 14:23 WBC (4.8-10.8) x10^3/uL RBC (4.20-5.40) 10^6/uL Hgb (12.0-16.0) g/dL Hct (37.0-47.0) % MCV (81.0-99.0) fL MCH (27.0-31.0) pg MCHC (32.0-36.0) g/dL RDW (12.0-15.0) % Plt Count (130-450) 10^3/uL MPV (7.9-10.8) fL Neut # (Auto) (1.5-6.6) 10^3/uL Lymph # (Auto) (1.5-3.5) 10^3/uL [place] # (Auto) (0.0-1.0) 10^3/uL Eos # (Auto) (0.0-0.7) 10^3/uL Baso # (Auto) (0.0-0.1) 10^3/uL Absolute Nucleated RBC x10^3/uL Nucleated RBC % /100WBC Manual Slide Review Platelet Estimate (NORMAL) RBC Morph Micro Appear (NORMAL) VBG pH (7.31-7.41) Ionized Calcium (1.15-1.33) mmol/L Sodium 146 H (135-145) mmol/L Potassium 2.8 L (3.5-4.5) mmol/L Chloride 116 H (101-111) mmol/L Carbon Dioxide 25 (21-32) mmol/L Anion Gap 5.0 L (6-13) BUN 16 (6-20) mg/dL Creatinine 0.5 L (0.6-1.3) mg/dL Estimated GFR (MDRD) 131 (>89) Glucose 151 H (74-104) mg/dL Estimat Average Glucose (70-100) mg/dL Hemoglobin A1c % (4.27-6.07) % Calcium 8.0 L (8.5-10.3) mg/dL Phosphorus 1.5 L (2.5-5.0) mg/dL Magnesium (1.7-2.3) mg/dL Triglycerides (48-352) mg/dL Lipase (11-82) U/L Nasal Screen MRSA (PCR) (NEGATIVE) Urine Opiates Screen (NEGATIVE) Ur Oxycodone Screen (NEGATIVE) Urine Methadone Screen (NEGATIVE) Ur Propoxyphene Screen (NEGATIVE) Ur Barbiturates Screen (NEGATIVE) Ur Tricyclics Screen (NEGATIVE) Ur Phencyclidine Scrn (NEGATIVE) Ur Amphetamine Screen (NEGATIVE) U Methamphetamines Scrn (NEGATIVE) U Benzodiazepines Scrn (NEGATIVE) Urine Cocaine Screen (NEGATIVE) U Cannabinoids Screen (NEGATIVE) Serum Ketones SMALL H (NEGATIVE) 11/28/22 11/28/22 11/28/22 Range/Units 14:00 12:25 10:25 WBC (4.8-10.8) x10^3/uL RBC (4.20-5.40) 10^6/uL Hgb 7.7 L (12.0-16.0) g/dL Hct (37.0-47.0) % MCV (81.0-99.0) fL MCH (27.0-31.0) pg MCHC (32.0-36.0) g/dL RDW (12.0-15.0) % Plt Count (130-450) 10^3/uL MPV (7.9-10.8) fL Neut # (Auto) (1.5-6.6) 10^3/uL Lymph # (Auto) (1.5-3.5) 10^3/uL [place] # (Auto) (0.0-1.0) 10^3/uL Eos # (Auto) (0.0-0.7) 10^3/uL Baso # (Auto) (0.0-0.1) 10^3/uL Absolute Nucleated RBC x10^3/uL Nucleated RBC % /100WBC Manual Slide Review Platelet Estimate (NORMAL) RBC Morph Micro Appear (NORMAL) VBG pH (7.31-7.41) Ionized Calcium (1.15-1.33) mmol/L Sodium (135-145) mmol/L Potassium (3.5-4.5) mmol/L Chloride (101-111) mmol/L Carbon Dioxide (21-32) mmol/L Anion Gap (6-13) BUN (6-20) mg/dL Creatinine (0.6-1.3) mg/dL Estimated GFR (MDRD) (>89) Glucose (74-104) mg/dL Estimat Average Glucose (70-100) mg/dL Hemoglobin A1c % (4.27-6.07) % Calcium (8.5-10.3) mg/dL Phosphorus (2.5-5.0) mg/dL Magnesium (1.7-2.3) mg/dL Triglycerides (48-352) mg/dL Lipase (11-82) U/L Nasal Screen MRSA (PCR) (NEGATIVE) Urine Opiates Screen (NEGATIVE) Ur Oxycodone Screen (NEGATIVE) Urine Methadone Screen (NEGATIVE) Ur Propoxyphene Screen (NEGATIVE) Ur Barbiturates Screen (NEGATIVE) Ur Tricyclics Screen (NEGATIVE) Ur Phencyclidine Scrn (NEGATIVE) Ur Amphetamine Screen (NEGATIVE) U Methamphetamines Scrn (NEGATIVE) U Benzodiazepines Scrn (NEGATIVE) Urine Cocaine Screen (NEGATIVE) U Cannabinoids Screen (NEGATIVE) Serum Ketones SMALL H SMALL H (NEGATIVE) 11/28/22 11/28/22 11/28/22 Range/Units 07:40 07:40 05:51 WBC (4.8-10.8) x10^3/uL RBC (4.20-5.40) 10^6/uL Hgb (12.0-16.0) g/dL Hct (37.0-47.0) % MCV (81.0-99.0) fL MCH (27.0-31.0) pg MCHC (32.0-36.0) g/dL RDW (12.0-15.0) % Plt Count (130-450) 10^3/uL MPV (7.9-10.8) fL Neut # (Auto) (1.5-6.6) 10^3/uL Lymph # (Auto) (1.5-3.5) 10^3/uL [place] # (Auto) (0.0-1.0) 10^3/uL Eos # (Auto) (0.0-0.7) 10^3/uL Baso # (Auto) (0.0-0.1) 10^3/uL Absolute Nucleated RBC x10^3/uL Nucleated RBC % /100WBC Manual Slide Review Platelet Estimate (NORMAL) RBC Morph Micro Appear (NORMAL) VBG pH 7.447 H (7.31-7.41) Ionized Calcium 1.17 (1.15-1.33) mmol/L Sodium (135-145) mmol/L Potassium (3.5-4.5) mmol/L Chloride (101-111) mmol/L Carbon Dioxide (21-32) mmol/L Anion Gap (6-13) BUN (6-20) mg/dL Creatinine (0.6-1.3) mg/dL Estimated GFR (MDRD) (>89) Glucose (74-104) mg/dL Estimat Average Glucose (70-100) mg/dL Hemoglobin A1c % (4.27-6.07) % Calcium (8.5-10.3) mg/dL Phosphorus (2.5-5.0) mg/dL Magnesium (1.7-2.3) mg/dL Triglycerides (48-352) mg/dL Lipase (11-82) U/L Nasal Screen MRSA (PCR) (NEGATIVE) Urine Opiates Screen (NEGATIVE) Ur Oxycodone Screen (NEGATIVE) Urine Methadone Screen (NEGATIVE) Ur Propoxyphene Screen (NEGATIVE) Ur Barbiturates Screen (NEGATIVE) Ur Tricyclics Screen (NEGATIVE) Ur Phencyclidine Scrn (NEGATIVE) Ur Amphetamine Screen (NEGATIVE) U Methamphetamines Scrn (NEGATIVE) U Benzodiazepines Scrn (NEGATIVE) Urine Cocaine Screen (NEGATIVE) U Cannabinoids Screen (NEGATIVE) Serum Ketones SMALL H SMALL H (NEGATIVE) 11/28/22 11/28/22 11/28/22 Range/Units 05:51 03:47 02:00 WBC 9.9 (4.8-10.8) x10^3/uL RBC 3.95 L (4.20-5.40) 10^6/uL Hgb 7.9 L (12.0-16.0) g/dL Hct 23.9 L (37.0-47.0) % MCV 60.5 L (81.0-99.0) fL MCH 20.0 L (27.0-31.0) pg MCHC 33.1 (32.0-36.0) g/dL RDW 14.6 (12.0-15.0) % Plt Count 240 (130-450) 10^3/uL MPV 9.5 (7.9-10.8) fL Neut # (Auto) 8.4 H (1.5-6.6) 10^3/uL Lymph # (Auto) 0.8 L (1.5-3.5) 10^3/uL [place] # (Auto) 0.5 (0.0-1.0) 10^3/uL Eos # (Auto) 0.0 (0.0-0.7) 10^3/uL Baso # (Auto) 0.0 (0.0-0.1) 10^3/uL Absolute Nucleated RBC 0.02 x10^3/uL Nucleated RBC % 0.2 /100WBC Manual Slide Review Indicated Platelet Estimate NORMAL (130-450,000) (NORMAL) RBC Morph Micro Appear 2+ MICROCYTOSIS (NORMAL) VBG pH (7.31-7.41) Ionized Calcium (1.15-1.33) mmol/L Sodium 150 H (135-145) mmol/L Potassium 3.2 L (3.5-4.5) mmol/L Chloride 122 H* (101-111) mmol/L Carbon Dioxide 18 L (21-32) mmol/L Anion Gap 10.0 (6-13) BUN 21 H (6-20) mg/dL Creatinine 0.6 (0.6-1.3) mg/dL Estimated GFR (MDRD) 106 (>89) Glucose 225 H (74-104) mg/dL Estimat Average Glucose (70-100) mg/dL Hemoglobin A1c % (4.27-6.07) % Calcium 8.3 L (8.5-10.3) mg/dL Phosphorus 1.6 L (2.5-5.0) mg/dL Magnesium 2.0 (1.7-2.3) mg/dL Triglycerides 153 (48-352) mg/dL Lipase 43 (11-82) U/L Nasal Screen MRSA (PCR) (NEGATIVE) Urine Opiates Screen (NEGATIVE) Ur Oxycodone Screen (NEGATIVE) Urine Methadone Screen (NEGATIVE) Ur Propoxyphene Screen (NEGATIVE) Ur Barbiturates Screen (NEGATIVE) Ur Tricyclics Screen (NEGATIVE) Ur Phencyclidine Scrn (NEGATIVE) Ur Amphetamine Screen (NEGATIVE) U Methamphetamines Scrn (NEGATIVE) U Benzodiazepines Scrn (NEGATIVE) Urine Cocaine Screen (NEGATIVE) U Cannabinoids Screen (NEGATIVE) Serum Ketones SMALL H SMALL H (NEGATIVE) 11/27/22 11/27/22 11/27/22 Range/Units 23:50 21:40 19:15 WBC (4.8-10.8) x10^3/uL RBC (4.20-5.40) 10^6/uL Hgb (12.0-16.0) g/dL Hct (37.0-47.0) % MCV (81.0-99.0) fL MCH (27.0-31.0) pg MCHC (32.0-36.0) g/dL RDW (12.0-15.0) % Plt Count (130-450) 10^3/uL MPV (7.9-10.8) fL Neut # (Auto) (1.5-6.6) 10^3/uL Lymph # (Auto) (1.5-3.5) 10^3/uL [place] # (Auto) (0.0-1.0) 10^3/uL Eos # (Auto) (0.0-0.7) 10^3/uL Baso # (Auto) (0.0-0.1) 10^3/uL Absolute Nucleated RBC x10^3/uL Nucleated RBC % /100WBC Manual Slide Review Platelet Estimate (NORMAL) RBC Morph Micro Appear (NORMAL) VBG pH 7.314 (7.31-7.41) Ionized Calcium 1.21 (1.15-1.33) mmol/L Sodium (135-145) mmol/L Potassium (3.5-4.5) mmol/L Chloride (101-111) mmol/L Carbon Dioxide (21-32) mmol/L Anion Gap (6-13) BUN (6-20) mg/dL Creatinine (0.6-1.3) mg/dL Estimated GFR (MDRD) (>89) Glucose (74-104) mg/dL Estimat Average Glucose (70-100) mg/dL Hemoglobin A1c % (4.27-6.07) % Calcium (8.5-10.3) mg/dL Phosphorus (2.5-5.0) mg/dL Magnesium 2.1 (1.7-2.3) mg/dL Triglycerides (48-352) mg/dL Lipase (11-82) U/L Nasal Screen MRSA (PCR) (NEGATIVE) Urine Opiates Screen (NEGATIVE) Ur Oxycodone Screen (NEGATIVE) Urine Methadone Screen (NEGATIVE) Ur Propoxyphene Screen (NEGATIVE) Ur Barbiturates Screen (NEGATIVE) Ur Tricyclics Screen (NEGATIVE) Ur Phencyclidine Scrn (NEGATIVE) Ur Amphetamine Screen (NEGATIVE) U Methamphetamines Scrn (NEGATIVE) U Benzodiazepines Scrn (NEGATIVE) Urine Cocaine Screen (NEGATIVE) U Cannabinoids Screen (NEGATIVE) Serum Ketones SMALL H SMALL H (NEGATIVE) 11/27/22 11/27/22 11/27/22 Range/Units 19:15 19:15 17:38 WBC (4.8-10.8) x10^3/uL RBC (4.20-5.40) 10^6/uL Hgb (12.0-16.0) g/dL Hct (37.0-47.0) % MCV (81.0-99.0) fL MCH (27.0-31.0) pg MCHC (32.0-36.0) g/dL RDW (12.0-15.0) % Plt Count (130-450) 10^3/uL MPV (7.9-10.8) fL Neut # (Auto) (1.5-6.6) 10^3/uL Lymph # (Auto) (1.5-3.5) 10^3/uL [place] # (Auto) (0.0-1.0) 10^3/uL Eos # (Auto) (0.0-0.7) 10^3/uL Baso # (Auto) (0.0-0.1) 10^3/uL Absolute Nucleated RBC x10^3/uL Nucleated RBC % /100WBC Manual Slide Review Platelet Estimate (NORMAL) RBC Morph Micro Appear (NORMAL) VBG pH (7.31-7.41) Ionized Calcium (1.15-1.33) mmol/L Sodium (135-145) mmol/L Potassium 3.6 (3.5-4.5) mmol/L Chloride (101-111) mmol/L Carbon Dioxide (21-32) mmol/L Anion Gap (6-13) BUN (6-20) mg/dL Creatinine (0.6-1.3) mg/dL Estimated GFR (MDRD) (>89) Glucose (74-104) mg/dL Estimat Average Glucose (70-100) mg/dL Hemoglobin A1c % (4.27-6.07) % Calcium (8.5-10.3) mg/dL Phosphorus 1.1 L (2.5-5.0) mg/dL Magnesium 1.9 (1.7-2.3) mg/dL Triglycerides (48-352) mg/dL Lipase (11-82) U/L Nasal Screen MRSA (PCR) (NEGATIVE) Urine Opiates Screen (NEGATIVE) Ur Oxycodone Screen (NEGATIVE) Urine Methadone Screen (NEGATIVE) Ur Propoxyphene Screen (NEGATIVE) Ur Barbiturates Screen (NEGATIVE) Ur Tricyclics Screen (NEGATIVE) Ur Phencyclidine Scrn (NEGATIVE) Ur Amphetamine Screen (NEGATIVE) U Methamphetamines Scrn (NEGATIVE) U Benzodiazepines Scrn (NEGATIVE) Urine Cocaine Screen (NEGATIVE) U Cannabinoids Screen (NEGATIVE) Serum Ketones SMALL H (NEGATIVE) 11/27/22 11/27/22 11/27/22 Range/Units 17:38 15:09 14:13 WBC (4.8-10.8) x10^3/uL RBC (4.20-5.40) 10^6/uL Hgb (12.0-16.0) g/dL Hct (37.0-47.0) % MCV (81.0-99.0) fL MCH (27.0-31.0) pg MCHC (32.0-36.0) g/dL RDW (12.0-15.0) % Plt Count (130-450) 10^3/uL MPV (7.9-10.8) fL Neut # (Auto) (1.5-6.6) 10^3/uL Lymph # (Auto) (1.5-3.5) 10^3/uL [place] # (Auto) (0.0-1.0) 10^3/uL Eos # (Auto) (0.0-0.7) 10^3/uL Baso # (Auto) (0.0-0.1) 10^3/uL Absolute Nucleated RBC x10^3/uL Nucleated RBC % /100WBC Manual Slide Review Platelet Estimate (NORMAL) RBC Morph Micro Appear (NORMAL) VBG pH (7.31-7.41) Ionized Calcium (1.15-1.33) mmol/L Sodium (135-145) mmol/L Potassium (3.5-4.5) mmol/L Chloride (101-111) mmol/L Carbon Dioxide (21-32) mmol/L Anion Gap (6-13) BUN (6-20) mg/dL Creatinine (0.6-1.3) mg/dL Estimated GFR (MDRD) (>89) Glucose (74-104) mg/dL Estimat Average Glucose (70-100) mg/dL Hemoglobin A1c % (4.27-6.07) % Calcium (8.5-10.3) mg/dL Phosphorus (2.5-5.0) mg/dL Magnesium 1.9 (1.7-2.3) mg/dL Triglycerides (48-352) mg/dL Lipase (11-82) U/L Nasal Screen MRSA (PCR) NEGATIVE (NEGATIVE) Urine Opiates Screen NEGATIVE (NEGATIVE) Ur Oxycodone Screen NEGATIVE (NEGATIVE) Urine Methadone Screen NEGATIVE (NEGATIVE) Ur Propoxyphene Screen NEGATIVE (NEGATIVE) Ur Barbiturates Screen NEGATIVE (NEGATIVE) Ur Tricyclics Screen NEGATIVE (NEGATIVE) Ur Phencyclidine Scrn NEGATIVE (NEGATIVE) Ur Amphetamine Screen NEGATIVE (NEGATIVE) U Methamphetamines Scrn NEGATIVE (NEGATIVE) U Benzodiazepines Scrn NEGATIVE (NEGATIVE) Urine Cocaine Screen NEGATIVE (NEGATIVE) U Cannabinoids Screen NEGATIVE (NEGATIVE) Serum Ketones MODERATE H (NEGATIVE) 11/27/22 Range/Units 14:13 WBC (4.8-10.8) x10^3/uL RBC (4.20-5.40) 10^6/uL Hgb (12.0-16.0) g/dL Hct (37.0-47.0) % MCV (81.0-99.0) fL MCH (27.0-31.0) pg MCHC (32.0-36.0) g/dL RDW (12.0-15.0) % Plt Count (130-450) 10^3/uL MPV (7.9-10.8) fL Neut # (Auto) (1.5-6.6) 10^3/uL Lymph # (Auto) (1.5-3.5) 10^3/uL [place] # (Auto) (0.0-1.0) 10^3/uL Eos # (Auto) (0.0-0.7) 10^3/uL Baso # (Auto) (0.0-0.1) 10^3/uL Absolute Nucleated RBC x10^3/uL Nucleated RBC % /100WBC Manual Slide Review Platelet Estimate (NORMAL) RBC Morph Micro Appear (NORMAL) VBG pH (7.31-7.41) Ionized Calcium (1.15-1.33) mmol/L Sodium (135-145) mmol/L Potassium (3.5-4.5) mmol/L Chloride (101-111) mmol/L Carbon Dioxide (21-32) mmol/L Anion Gap (6-13) BUN (6-20) mg/dL Creatinine (0.6-1.3) mg/dL Estimated GFR (MDRD) (>89) Glucose (74-104) mg/dL Estimat Average Glucose 387 H (70-100) mg/dL Hemoglobin A1c % 15.1 H (4.27-6.07) % Calcium (8.5-10.3) mg/dL Phosphorus (2.5-5.0) mg/dL Magnesium (1.7-2.3) mg/dL Triglycerides (48-352) mg/dL Lipase (11-82) U/L Nasal Screen MRSA (PCR) (NEGATIVE) Urine Opiates Screen (NEGATIVE) Ur Oxycodone Screen (NEGATIVE) Urine Methadone Screen (NEGATIVE) Ur Propoxyphene Screen (NEGATIVE) Ur Barbiturates Screen (NEGATIVE) Ur Tricyclics Screen (NEGATIVE) Ur Phencyclidine Scrn (NEGATIVE) Ur Amphetamine Screen (NEGATIVE) U Methamphetamines Scrn (NEGATIVE) U Benzodiazepines Scrn (NEGATIVE) Urine Cocaine Screen (NEGATIVE) U Cannabinoids Screen (NEGATIVE) Serum Ketones (NEGATIVE) Assessment/Plan - Problem List (1) DKA (diabetic ketoacidosis) Impression: The details of how she developed this are not yet known from her description, even after she is more awake today. She does have evidence of acute pancr eatitis by imaging and had a very high serum lipase level. She has been started on IV insulin drip and DKA protocol in ICU She got Bicarb in 1L as a drip for 20 hours, given the severe metabolic acidosis Plan: Remain in ICU Cont DKA protocol including cont IV crystalloid infusion and insulin drip Cont close blood tests for electrolytes, magnesium, serum ketones and daily VBG serum pH. Continue the IV insulin drip until her serum ketones become negative. Continue clear liquid diet Qualifiers: Diabetes mellitus type: type 2 Diabetes mellitus complication detail: without coma Qualified Code(s): E11.10 - Type 2 diabetes mellitus with ketoacidosis without coma (2) Pancreatitis Impression: Unclear why she should have acute pancreatitis. I confirmed with her that she is not an alcohol drinker and there is no evidence of gallstones or cholangitis. Her lipase level has decreased from 800 at adm to 300 and Lipase is in a normal range already today (all labs were reviewed) Plan: Continue symptomatic treatment with clear liquid diet today, empiric IV Pepcid, IV pain medications Advance diet tomorrow (3) Leukocytosis Conclusion/Plan: RESOLVED She has a marked leukocytosis of 29, it has decreased to 9.9 today without any empiric antibiotics. I suspect this is demargination and elevation from the stress of her DKA and possibly from pancreatitis Plan: Continue with DKA protocol and management of pancreatitis Follow CBC daily
[2022-11-28] MEDS: BENZOCAINE/MENTHOL LOZENGE MM PRN ×2 (16:30→18:55)
[2022-11-28] MEDS ORDERED: POTASSIUM PHOSPHATE 21 MMOL in SODIUM CHLORIDE 0.9% 250 ML IV ONE (17:00)
[2022-11-28] MEDS ORDERED: INSULIN GLARGINE-YFGN 300 UNIT/3 ML PEN SUBQ SCH (23:48)
--- NOTE | 2022-11-28 23:51 | PROVIDER PROGRESS NOTE ---
Activities Specialist Note - Activities Specialist Note Activities Specialist Note: Called by RN stating "Pt is 52F Full code admitted for DKA. New lab result returned negative for serum ketones. Other labs VBG Ph 7.447, Anion Gap 5.0, Chloride 116 at 07:00. Patient is still on an insulin drip and D5 1/2NS with 20meqK@125. Not experiencing any symptoms of nausea/vomiting. Blood sugar at 23:00 is 198. Would you like to d/c insulin drip at this time, switch her to ACHS insulin dosing, or order a carb-controlled diet? Her home insulin is 10units aspart with meals and 60u glargine daily." Patient started on long acting insulin at 10 units sq qhs first dose now, accuhecks switched to ac and hs, and started on carb controlled diet, fluids dc as per protocol discussed with MARITZA
[2022-11-29 00:11] LABS: PHOSPHORUS 1.3 mg/dL (2.5-5.0); POTASSIUM 3.2 mmol/L (3.5-4.5)
[2022-11-29] MEDS: SODIUM CHLORIDE FLUSH 0.9% 10 ML SYRINGE IVP SCH ×3 (00:24→17:16)
[2022-11-29] MEDS: NEUTRA-PHOS 250 MG TABLET PO SCH ×3 (01:34→06:08)
[2022-11-29 04:29] LABS: CALCIUM, IONIZED 1.17 mmol/L (1.15-1.33); VBG PH 7.316 (7.31-7.41)
[2022-11-29 04:50] LABS: KETONES, SERUM (ACETEST) SMALL (NEGATIVE)
[2022-11-29 05:11] LABS: BUN - BLOOD UREA NITROGEN 13 mg/dL (6-20); CALCIUM 8.1 mg/dL (8.5-10.3); CARBON DIOXIDE - CO2 15 mmol/L (21-32); GLUCOSE 383 mg/dL (74-104)
[2022-11-29 05:15] LABS: CHLORIDE 110 mmol/L (101-111); CREATININE 0.4 mg/dL (0.6-1.3); GFR - MDRD 169 (>89); MAGNESIUM 1.7 mg/dL (1.7-2.3); PHOSPHORUS 2.2 mg/dL (2.5-5.0); POTASSIUM 3.7 mmol/L (3.5-4.5); SODIUM 140 mmol/L (135-145)
[2022-11-29 07:57] LABS: BASOPHILS % (AUTO) 0.2 %; HGB - HEMOGLOBIN 8.1 g/dL (12.0-16.0); LYMPHOCYTES # (AUTO) 1.1 10^3/uL (1.5-3.5); LYMPHOCYTES % (AUTO) 19.4 %; MEAN CORPUSCULAR HEMOGLOBIN 19.9 pg (27.0-31.0); MEAN CORPUSCULAR HGB CONC 32.4 g/dL (32.0-36.0); MEAN CORPUSCULAR VOLUME 61.4 fL (81.0-99.0); MEAN PLATELET VOLUME 10.3 fL (7.9-10.8); MONOCYTES # (AUTO) 0.5 10^3/uL (0.0-1.0); MONOCYTES % (AUTO) 9.2 %; NEUTROPHILS # (AUTO) 4.1 10^3/uL (1.5-6.6); NEUTROPHILS % (AUTO) 70.3 %; PLT - PLATELET COUNT 209 10^3/uL (130-450); RED BLOOD COUNT 4.07 10^6/uL (4.20-5.40); RED CELL DISTRIBUTION WIDTH 14.6 % (12.0-15.0); WHITE BLOOD COUNT 5.8 x10^3/uL (4.8-10.8)
[2022-11-29] MEDS ORDERED: MAGNESIUM OXIDE 400 MG TABLET PO ONE (08:00)
[2022-11-29] MEDS ORDERED: D5.45NS W/20 MEQ KCL 1,000 ML IV SCH (08:00)
[2022-11-29] MEDS: FAMOTIDINE 20 MG/2 ML VIAL IVP SCH (08:12)
[2022-11-29] MEDS ORDERED: POTASSIUM CHLOR 20 MEQ/100 ML 20 MEQ/100 ML BAG IV ONE (11:00)
[2022-11-29] MEDS ORDERED: MAGNESIUM SULFATE 2 GRAM 2 GM/50 ML BAG IV ONE (11:13)
[2022-11-29] MEDS ORDERED: CYCLOBENZAPRINE 10 MG TABLET PO PRN (11:53)
[2022-11-29] MEDS ORDERED: traZODone 50 MG TABLET PO PRN (11:53)
[2022-11-29] MEDS ORDERED: hydrOXYzine PAMOATE 25 MG CAPSULE PO PRN (12:00)
[2022-11-29] MEDS ORDERED: POTASSIUM PHOSPHATE 15 MMOL in SODIUM CHLORIDE 0.9% 250 ML IV ONE (12:00)
[2022-11-29] MEDS ORDERED: INSULIN REGULAR HUMAN 100 UNIT in SODIUM CHLORIDE 0.9% 100ML 99 ML IV SCH (12:00)
[2022-11-29] MEDS: SERTRALINE 50 MG TABLET PO SCH (12:44)
[2022-11-29] MEDS ORDERED: ESTRADIOL 0.05 MG PATCH TOP SCH (13:00)
--- NOTE | 2022-11-29 14:40 | XRAY Report ---
PROCEDURE: Chest for Line Placement INDICATIONS: Central line confirmation TECHNIQUE: One view of the chest was acquired. COMPARISON: None. FINDINGS: Surgical changes and devices: The right IJ central venous catheter has been retracted, projecting ov er the thoracic inlet. Lungs and pleura: No pleural effusions or pneumothorax. Lungs are clear. Mediastinum: Mediastinal contours appear normal. Heart size is normal. Bones and chest wall: No suspicious bony lesions. Overlying soft tissues appear unremarkable. IMPRESSION: The right IJ central venous catheter has been retracted, with the tip projecting over the thoracic in let. Consider replacement as intravenous location cannot be confirmed. Reviewed by: Eddie Cantu on 11/29/2022 2:38 PM PDT Approved by: Eddie Cantu on 11/29/2022 2:38 PM PDT Station ID: [id number]
[2022-11-29 15:21] LABS: CALCIUM, IONIZED 1.09 mmol/L (1.15-1.33); VBG PH 7.479 (7.31-7.41)
[2022-11-29 15:51] LABS: POTASSIUM 3.4 mmol/L (3.5-4.5)
--- NOTE | 2022-11-29 15:53 | PROVIDER PROGRESS NOTE ---
Subjective - Subjective Pt reports feeling: Improved (No nausea, tolerated advancement of her breakfast to solids (was ordered by night Telemedicine doctor overnight)) Objective - Vital Signs/Intake & Output Reviewed Vital Signs: Yes Vital Signs: Vital Signs Temp Pulse Resp BP Pulse Ox 11/29/22 14:00 90 20 123/80 98 11/29/22 13:00 101 H 22 132/82 H 98 11/29/22 12:00 36.7 C 99 19 142/113 H 97 Intake & Output: Intake & Output 11/26/22 11/27/22 11/28/22 11/29/22 23:59 23:59 23:59 23:59 Intake Total 19.826 5523.966 7922.425 2903.808 Output Total 750 5575 3890 4675 Balance -730.174 -51.034 4032.425 -1771.192 - Objective General Appearance: positive: No acute distress, Alert Eyes Bilateral: positive: Normal inspection, PERRL ENT: positive: ENT inspection nml, No signs of dehydration Neck: positive: Nml inspection, No JVD Respiratory: positive: No respiratory distress Cardiovascular: positive: Regular rate & rhythm Abdomen: positive: Non-tender, No distention Skin: positive: Warm, Dry Extremities: positive: Non-tender, No pedal edema Neurologic/Psychiatric: positive: Oriented x3, Motor nml - Lab Results Fish Bones: 11/29/22 07:54 11/29/22 10:00 Other Labs: Lab Results x24hrs 11/29/22 11/29/22 11/29/22 Range/Units 15:17 13:58 13:02 WBC (4.8-10.8) x10^3/uL RBC (4.20-5.40) 10^6/uL Hgb (12.0-16.0) g/dL Hct (37.0-47.0) % MCV (81.0-99.0) fL MCH (27.0-31.0) pg MCHC (32.0-36.0) g/dL RDW (12.0-15.0) % Plt Count (130-450) 10^3/uL MPV (7.9-10.8) fL Neut # (Auto) (1.5-6.6) 10^3/uL Lymph # (Auto) (1.5-3.5) 10^3/uL Ness # (Auto) (0.0-1.0) 10^3/uL Eos # (Auto) (0.0-0.7) 10^3/uL Baso # (Auto) (0.0-0.1) 10^3/uL Absolute Nucleated RBC x10^3/uL Nucleated RBC % /100WBC VBG pH 7.479 H (7.31-7.41) Ionized Calcium 1.09 L (1.15-1.33) mmol/L Sodium (135-145) mmol/L Potassium (3.5-4.5) mmol/L Chloride (101-111) mmol/L Carbon Dioxide (21-32) mmol/L Anion Gap (6-13) BUN (6-20) mg/dL Creatinine (0.6-1.3) mg/dL Estimated GFR (MDRD) (>89) Glucose (74-104) mg/dL POC Whole Bld Glucose 208 H 275 H (70 - 100) mg/dL Calcium (8.5-10.3) mg/dL Phosphorus (2.5-5.0) mg/dL Magnesium (1.7-2.3) mg/dL Serum Ketones (NEGATIVE) 11/29/22 11/29/22 11/29/22 Range/Units 13:00 12:04 11:07 WBC (4.8-10.8) x10^3/uL RBC (4.20-5.40) 10^6/uL Hgb (12.0-16.0) g/dL Hct (37.0-47.0) % MCV (81.0-99.0) fL MCH (27.0-31.0) pg MCHC (32.0-36.0) g/dL RDW (12.0-15.0) % Plt Count (130-450) 10^3/uL MPV (7.9-10.8) fL Neut # (Auto) (1.5-6.6) 10^3/uL Lymph # (Auto) (1.5-3.5) 10^3/uL Ness # (Auto) (0.0-1.0) 10^3/uL Eos # (Auto) (0.0-0.7) 10^3/uL Baso # (Auto) (0.0-0.1) 10^3/uL Absolute Nucleated RBC x10^3/uL Nucleated RBC % /100WBC VBG pH (7.31-7.41) Ionized Calcium (1.15-1.33) mmol/L Sodium (135-145) mmol/L Potassium (3.5-4.5) mmol/L Chloride (101-111) mmol/L Carbon Dioxide (21-32) mmol/L Anion Gap (6-13) BUN (6-20) mg/dL Creatinine (0.6-1.3) mg/dL Estimated GFR (MDRD) (>89) Glucose (74-104) mg/dL POC Whole Bld Glucose 256 H 305 H (70 - 100) mg/dL Calcium (8.5-10.3) mg/dL Phosphorus (2.5-5.0) mg/dL Magnesium (1.7-2.3) mg/dL Serum Ketones NEGATIVE (NEGATIVE) 11/29/22 11/29/22 11/29/22 Range/Units 10:18 10:05 10:00 WBC (4.8-10.8) x10^3/uL RBC (4.20-5.40) 10^6/uL Hgb (12.0-16.0) g/dL Hct (37.0-47.0) % MCV (81.0-99.0) fL MCH (27.0-31.0) pg MCHC (32.0-36.0) g/dL RDW (12.0-15.0) % Plt Count (130-450) 10^3/uL MPV (7.9-10.8) fL Neut # (Auto) (1.5-6.6) 10^3/uL Lymph # (Auto) (1.5-3.5) 10^3/uL Ness # (Auto) (0.0-1.0) 10^3/uL Eos # (Auto) (0.0-0.7) 10^3/uL Baso # (Auto) (0.0-0.1) 10^3/uL Absolute Nucleated RBC x10^3/uL Nucleated RBC % /100WBC VBG pH (7.31-7.41) Ionized Calcium (1.15-1.33) mmol/L Sodium (135-145) mmol/L Potassium (3.5-4.5) mmol/L Chloride (101-111) mmol/L Carbon Dioxide (21-32) mmol/L Anion Gap (6-13) BUN (6-20) mg/dL Creatinine (0.6-1.3) mg/dL Estimated GFR (MDRD) (>89) Glucose (74-104) mg/dL POC Whole Bld Glucose 367 H (70 - 100) mg/dL Calcium (8.5-10.3) mg/dL Phosphorus 1.8 L (2.5-5.0) mg/dL Magnesium 1.7 (1.7-2.3) mg/dL Serum Ketones (NEGATIVE) 11/29/22 11/29/22 11/29/22 Range/Units 10:00 10:00 09:00 WBC (4.8-10.8) x10^3/uL RBC (4.20-5.40) 10^6/uL Hgb (12.0-16.0) g/dL Hct (37.0-47.0) % MCV (81.0-99.0) fL MCH (27.0-31.0) pg MCHC (32.0-36.0) g/dL RDW (12.0-15.0) % Plt Count (130-450) 10^3/uL MPV (7.9-10.8) fL Neut # (Auto) (1.5-6.6) 10^3/uL Lymph # (Auto) (1.5-3.5) 10^3/uL Ness # (Auto) (0.0-1.0) 10^3/uL Eos # (Auto) (0.0-0.7) 10^3/uL Baso # (Auto) (0.0-0.1) 10^3/uL Absolute Nucleated RBC x10^3/uL Nucleated RBC % /100WBC VBG pH (7.31-7.41) Ionized Calcium (1.15-1.33) mmol/L Sodium (135-145) mmol/L Potassium 3.5 (3.5-4.5) mmol/L Chloride (101-111) mmol/L Carbon Dioxide (21-32) mmol/L Anion Gap (6-13) BUN (6-20) mg/dL Creatinine (0.6-1.3) mg/dL Estimated GFR (MDRD) (>89) Glucose (74-104) mg/dL POC Whole Bld Glucose 358 H (70 - 100) mg/dL Calcium (8.5-10.3) mg/dL Phosphorus (2.5-5.0) mg/dL Magnesium (1.7-2.3) mg/dL Serum Ketones SMALL H (NEGATIVE) 11/29/22 11/29/22 11/29/22 Range/Units 07:54 07:32 04:10 WBC 5.8 (4.8-10.8) x10^3/uL RBC 4.07 L (4.20-5.40) 10^6/uL Hgb 8.1 L (12.0-16.0) g/dL Hct 25.0 L (37.0-47.0) % MCV 61.4 L (81.0-99.0) fL MCH 19.9 L (27.0-31.0) pg MCHC 32.4 (32.0-36.0) g/dL RDW 14.6 (12.0-15.0) % Plt Count 209 (130-450) 10^3/uL MPV 10.3 (7.9-10.8) fL Neut # (Auto) 4.1 (1.5-6.6) 10^3/uL Lymph # (Auto) 1.1 L (1.5-3.5) 10^3/uL Ness # (Auto) 0.5 (0.0-1.0) 10^3/uL Eos # (Auto) 0.0 (0.0-0.7) 10^3/uL Baso # (Auto) 0.0 (0.0-0.1) 10^3/uL Absolute Nucleated RBC 0.00 x10^3/uL Nucleated RBC % 0.0 /100WBC VBG pH 7.316 (7.31-7.41) Ionized Calcium 1.17 (1.15-1.33) mmol/L Sodium (135-145) mmol/L Potassium (3.5-4.5) mmol/L Chloride (101-111) mmol/L Carbon Dioxide (21-32) mmol/L Anion Gap (6-13) BUN (6-20) mg/dL Creatinine (0.6-1.3) mg/dL Estimated GFR (MDRD) (>89) Glucose (74-104) mg/dL POC Whole Bld Glucose 331 H (70 - 100) mg/dL Calcium (8.5-10.3) mg/dL Phosphorus (2.5-5.0) mg/dL Magnesium (1.7-2.3) mg/dL Serum Ketones (NEGATIVE) 11/29/22 11/28/22 11/28/22 Range/Units 04:10 23:20 22:25 WBC (4.8-10.8) x10^3/uL RBC (4.20-5.40) 10^6/uL Hgb (12.0-16.0) g/dL Hct (37.0-47.0) % MCV (81.0-99.0) fL MCH (27.0-31.0) pg MCHC (32.0-36.0) g/dL RDW (12.0-15.0) % Plt Count (130-450) 10^3/uL MPV (7.9-10.8) fL Neut # (Auto) (1.5-6.6) 10^3/uL Lymph # (Auto) (1.5-3.5) 10^3/uL Ness # (Auto) (0.0-1.0) 10^3/uL Eos # (Auto) (0.0-0.7) 10^3/uL Baso # (Auto) (0.0-0.1) 10^3/uL Absolute Nucleated RBC x10^3/uL Nucleated RBC % /100WBC VBG pH (7.31-7.41) Ionized Calcium (1.15-1.33) mmol/L Sodium 140 (135-145) mmol/L Potassium 3.7 3.2 L (3.5-4.5) mmol/L Chloride 110 (101-111) mmol/L Carbon Dioxide 15 L (21-32) mmol/L Anion Gap 15.0 H (6-13) BUN 13 (6-20) mg/dL Creatinine 0.4 L (0.6-1.3) mg/dL Estimated GFR (MDRD) 169 (>89) Glucose 383 H (74-104) mg/dL POC Whole Bld Glucose (70 - 100) mg/dL Calcium 8.1 L (8.5-10.3) mg/dL Phosphorus 2.2 L 1.3 L (2.5-5.0) mg/dL Magnesium 1.7 (1.7-2.3) mg/dL Serum Ketones SMALL H NEGATIVE (NEGATIVE) 11/28/22 11/28/22 11/28/22 Range/Units 21:04 18:50 18:20 WBC (4.8-10.8) x10^3/uL RBC (4.20-5.40) 10^6/uL Hgb (12.0-16.0) g/dL Hct (37.0-47.0) % MCV (81.0-99.0) fL MCH (27.0-31.0) pg MCHC (32.0-36.0) g/dL RDW (12.0-15.0) % Plt Count (130-450) 10^3/uL MPV (7.9-10.8) fL Neut # (Auto) (1.5-6.6) 10^3/uL Lymph # (Auto) (1.5-3.5) 10^3/uL Ness # (Auto) (0.0-1.0) 10^3/uL Eos # (Auto) (0.0-0.7) 10^3/uL Baso # (Auto) (0.0-0.1) 10^3/uL Absolute Nucleated RBC x10^3/uL Nucleated RBC % /100WBC VBG pH (7.31-7.41) Ionized Calcium (1.15-1.33) mmol/L Sodium (135-145) mmol/L Potassium (3.5-4.5) mmol/L Chloride (101-111) mmol/L Carbon Dioxide (21-32) mmol/L Anion Gap (6-13) BUN (6-20) mg/dL Creatinine (0.6-1.3) mg/dL Estimated GFR (MDRD) (>89) Glucose (74-104) mg/dL POC Whole Bld Glucose 206 H 174 H (70 - 100) mg/dL Calcium (8.5-10.3) mg/dL Phosphorus (2.5-5.0) mg/dL Magnesium (1.7-2.3) mg/dL Serum Ketones SMALL H (NEGATIVE) 11/28/22 11/28/22 11/28/22 Range/Units 17:52 16:53 15:25 WBC (4.8-10.8) x10^3/uL RBC (4.20-5.40) 10^6/uL Hgb (12.0-16.0) g/dL Hct (37.0-47.0) % MCV (81.0-99.0) fL MCH (27.0-31.0) pg MCHC (32.0-36.0) g/dL RDW (12.0-15.0) % Plt Count (130-450) 10^3/uL MPV (7.9-10.8) fL Neut # (Auto) (1.5-6.6) 10^3/uL Lymph # (Auto) (1.5-3.5) 10^3/uL Ness # (Auto) (0.0-1.0) 10^3/uL Eos # (Auto) (0.0-0.7) 10^3/uL Baso # (Auto) (0.0-0.1) 10^3/uL Absolute Nucleated RBC x10^3/uL Nucleated RBC % /100WBC VBG pH (7.31-7.41) Ionized Calcium (1.15-1.33) mmol/L Sodium (135-145) mmol/L Potassium (3.5-4.5) mmol/L Chloride (101-111) mmol/L Carbon Dioxide (21-32) mmol/L Anion Gap (6-13) BUN (6-20) mg/dL Creatinine (0.6-1.3) mg/dL Estimated GFR (MDRD) (>89) Glucose (74-104) mg/dL POC Whole Bld Glucose 140 H 109 H (70 - 100) mg/dL Calcium (8.5-10.3) mg/dL Phosphorus 1.5 L (2.5-5.0) mg/dL Magnesium (1.7-2.3) mg/dL Serum Ketones (NEGATIVE) 09/11/28/22 11/28/22 Range/Units 15:25 14:58 12:55 WBC (4.8-10.8) x10^3/uL RBC (4.20-5.40) 10^6/uL Hgb (12.0-16.0) g/dL Hct (37.0-47.0) % MCV (81.0-99.0) fL MCH (27.0-31.0) pg MCHC (32.0-36.0) g/dL RDW (12.0-15.0) % Plt Count (130-450) 10^3/uL MPV (7.9-10.8) fL Neut # (Auto) (1.5-6.6) 10^3/uL Lymph # (Auto) (1.5-3.5) 10^3/uL Ness # (Auto) (0.0-1.0) 10^3/uL Eos # (Auto) (0.0-0.7) 10^3/uL Baso # (Auto) (0.0-0.1) 10^3/uL Absolute Nucleated RBC x10^3/uL Nucleated RBC % /100WBC VBG pH (7.31-7.41) Ionized Calcium (1.15-1.33) mmol/L Sodium (135-145) mmol/L Potassium (3.5-4.5) mmol/L Chloride (101-111) mmol/L Carbon Dioxide (21-32) mmol/L Anion Gap (6-13) BUN (6-20) mg/dL Creatinine (0.6-1.3) mg/dL Estimated GFR (MDRD) (>89) Glucose (74-104) mg/dL POC Whole Bld Glucose 121 H 150 H (70 - 100) mg/dL Calcium (8.5-10.3) mg/dL Phosphorus (2.5-5.0) mg/dL Magnesium (1.7-2.3) mg/dL Serum Ketones SMALL H (NEGATIVE) 11/28/22 11/28/22 11/28/22 Range/Units 11:46 10:51 09:53 WBC (4.8-10.8) x10^3/uL RBC (4.20-5.40) 10^6/uL Hgb (12.0-16.0) g/dL Hct (37.0-47.0) % MCV (81.0-99.0) fL MCH (27.0-31.0) pg MCHC (32.0-36.0) g/dL RDW (12.0-15.0) % Plt Count (130-450) 10^3/uL MPV (7.9-10.8) fL Neut # (Auto) (1.5-6.6) 10^3/uL Lymph # (Auto) (1.5-3.5) 10^3/uL Ness # (Auto) (0.0-1.0) 10^3/uL Eos # (Auto) (0.0-0.7) 10^3/uL Baso # (Auto) (0.0-0.1) 10^3/uL Absolute Nucleated RBC x10^3/uL Nucleated RBC % /100WBC VBG pH (7.31-7.41) Ionized Calcium (1.15-1.33) mmol/L Sodium (135-145) mmol/L Potassium (3.5-4.5) mmol/L Chloride (101-111) mmol/L Carbon Dioxide (21-32) mmol/L Anion Gap (6-13) BUN (6-20) mg/dL Creatinine (0.6-1.3) mg/dL Estimated GFR (MDRD) (>89) Glucose (74-104) mg/dL POC Whole Bld Glucose 175 H 180 H 199 H (70 - 100) mg/dL Calcium (8.5-10.3) mg/dL Phosphorus (2.5-5.0) mg/dL Magnesium (1.7-2.3) mg/dL Serum Ketones (NEGATIVE) 11/28/22 11/28/22 11/28/22 Range/Units 09:04 07:49 06:55 WBC (4.8-10.8) x10^3/uL RBC (4.20-5.40) 10^6/uL Hgb (12.0-16.0) g/dL Hct (37.0-47.0) % MCV (81.0-99.0) fL MCH (27.0-31.0) pg MCHC (32.0-36.0) g/dL RDW (12.0-15.0) % Plt Count (130-450) 10^3/uL MPV (7.9-10.8) fL Neut # (Auto) (1.5-6.6) 10^3/uL Lymph # (Auto) (1.5-3.5) 10^3/uL Ness # (Auto) (0.0-1.0) 10^3/uL Eos # (Auto) (0.0-0.7) 10^3/uL Baso # (Auto) (0.0-0.1) 10^3/uL Absolute Nucleated RBC x10^3/uL Nucleated RBC % /100WBC VBG pH (7.31-7.41) Ionized Calcium (1.15-1.33) mmol/L Sodium (135-145) mmol/L Potassium (3.5-4.5) mmol/L Chloride (101-111) mmol/L Carbon Dioxide (21-32) mmol/L Anion Gap (6-13) BUN (6-20) mg/dL Creatinine (0.6-1.3) mg/dL Estimated GFR (MDRD) (>89) Glucose (74-104) mg/dL POC Whole Bld Glucose 182 H 163 H 182 H (70 - 100) mg/dL Calcium (8.5-10.3) mg/dL Phosphorus (2.5-5.0) mg/dL Magnesium (1.7-2.3) mg/dL Serum Ketones (NEGATIVE) 11/28/22 11/28/22 11/28/22 Range/Units 05:52 04:55 03:55 WBC (4.8-10.8) x10^3/uL RBC (4.20-5.40) 10^6/uL Hgb (12.0-16.0) g/dL Hct (37.0-47.0) % MCV (81.0-99.0) fL MCH (27.0-31.0) pg MCHC (32.0-36.0) g/dL RDW (12.0-15.0) % Plt Count (130-450) 10^3/uL MPV (7.9-10.8) fL Neut # (Auto) (1.5-6.6) 10^3/uL Lymph # (Auto) (1.5-3.5) 10^3/uL Ness # (Auto) (0.0-1.0) 10^3/uL Eos # (Auto) (0.0-0.7) 10^3/uL Baso # (Auto) (0.0-0.1) 10^3/uL Absolute Nucleated RBC x10^3/uL Nucleated RBC % /100WBC VBG pH (7.31-7.41) Ionized Calcium (1.15-1.33) mmol/L Sodium (135-145) mmol/L Potassium (3.5-4.5) mmol/L Chloride (101-111) mmol/L Carbon Dioxide (21-32) mmol/L Anion Gap (6-13) BUN (6-20) mg/dL Creatinine (0.6-1.3) mg/dL Estimated GFR (MDRD) (>89) Glucose (74-104) mg/dL POC Whole Bld Glucose 193 H 204 H 207 H (70 - 100) mg/dL Calcium (8.5-10.3) mg/dL Phosphorus (2.5-5.0) mg/dL Magnesium (1.7-2.3) mg/dL Serum Ketones (NEGATIVE) 11/28/22 11/28/22 11/27/22 Range/Units 03:05 02:04 15:59 WBC (4.8-10.8) x10^3/uL RBC (4.20-5.40) 10^6/uL Hgb (12.0-16.0) g/dL Hct (37.0-47.0) % MCV (81.0-99.0) fL MCH (27.0-31.0) pg MCHC (32.0-36.0) g/dL RDW (12.0-15.0) % Plt Count (130-450) 10^3/uL MPV (7.9-10.8) fL Neut # (Auto) (1.5-6.6) 10^3/uL Lymph # (Auto) (1.5-3.5) 10^3/uL Ness # (Auto) (0.0-1.0) 10^3/uL Eos # (Auto) (0.0-0.7) 10^3/uL Baso # (Auto) (0.0-0.1) 10^3/uL Absolute Nucleated RBC x10^3/uL Nucleated RBC % /100WBC VBG pH (7.31-7.41) Ionized Calcium (1.15-1.33) mmol/L Sodium (135-145) mmol/L Potassium (3.5-4.5) mmol/L Chloride (101-111) mmol/L Carbon Dioxide (21-32) mmol/L Anion Gap (6-13) BUN (6-20) mg/dL Creatinine (0.6-1.3) mg/dL Estimated GFR (MDRD) (>89) Glucose (74-104) mg/dL POC Whole Bld Glucose 196 H 194 H 270 H (70 - 100) mg/dL Calcium (8.5-10.3) mg/dL Phosphorus (2.5-5.0) mg/dL Magnesium (1.7-2.3) mg/dL Serum Ketones (NEGATIVE) 11/27/22 Range/Units 14:53 WBC (4.8-10.8) x10^3/uL RBC (4.20-5.40) 10^6/uL Hgb (12.0-16.0) g/dL Hct (37.0-47.0) % MCV (81.0-99.0) fL MCH (27.0-31.0) pg MCHC (32.0-36.0) g/dL RDW (12.0-15.0) % Plt Count (130-450) 10^3/uL MPV (7.9-10.8) fL Neut # (Auto) (1.5-6.6) 10^3/uL Lymph # (Auto) (1.5-3.5) 10^3/uL Ness # (Auto) (0.0-1.0) 10^3/uL Eos # (Auto) (0.0-0.7) 10^3/uL Baso # (Auto) (0.0-0.1) 10^3/uL Absolute Nucleated RBC x10^3/uL Nucleated RBC % /100WBC VBG pH (7.31-7.41) Ionized Calcium (1.15-1.33) mmol/L Sodium (135-145) mmol/L Potassium (3.5-4.5) mmol/L Chloride (101-111) mmol/L Carbon Dioxide (21-32) mmol/L Anion Gap (6-13) BUN (6-20) mg/dL Creatinine (0.6-1.3) mg/dL Estimated GFR (MDRD) (>89) Glucose (74-104) mg/dL POC Whole Bld Glucose 304 H (70 - 100) mg/dL Calcium (8.5-10.3) mg/dL Phosphorus (2.5-5.0) mg/dL Magnesium (1.7-2.3) mg/dL Serum Ketones (NEGATIVE) Assessment/Plan - Problem List (1) DKA (diabetic ketoacidosis) Impression: The details of how she developed this are still not known from her description, even after she is more awake yesterday and today. She does have evidence of acute pancreatitis by imaging and had a very high serum lipase level. But what caused th pancreatitis is unclear. She has needed IV insulin drip and DKA protocol in ICU. She got Bicarb in 1L as a drip for 20 hours, given the severe metabolic acidosis All labs were reviewed. This morning she still has small serum ketones present and is still on an insulin drip. She is much more awake, tolerating advancing of her diet to solids without nausea or vomiting. Plan: Remain in ICU Cont DKA protocol including cont IV crystalloid infusion and insulin drip Cont close blood tests for electrolytes, magnesium, and serum ketones Continue the IV insulin drip until her serum ketones become negative. Once serum ketones are negative, I will start her on long-acting insulin twice daily and mealtime short acting plus coverage insulin. She will benefit from [place] [facility] [place]: Diabetes mellitus type: type 2 Diabetes mellitus complication detail: without coma Qualified Code(s): E11.10 - Type 2 diabetes mellitus with ketoacidosis without coma (2) Pancreatitis Impression: Unclear why she should have acute pancreatitis. I confirmed with her that she is not an alcohol drinker. There is no evidence of gallstones or cholangitis. Kayla the dietitian also asked her if she had ever been on a GLP-1 agent, which could cause pancreatitis, and she never has been. Her lipase level has decreased from 800 at adm to 300 and Lipase is in a normal range since yesterday (all labs were reviewed) Plan: Remain on the advanced diet (tolerating solids) Continue empiric Pepcid and change to po BID (3) Leukocytosis Conclusion/Plan: RESOLVED She has a marked leukocytosis of 29, it has decreased to 9.9 today without any empiric antibiotics. I suspect this is demargination and elevation from the stress of her DKA and possibly from pancreatitis Plan: Continue with DKA protocol and management of pancreatitis
[2022-11-29 16:08] LABS: MAGNESIUM 2.4 mg/dL (1.7-2.8)
[2022-11-29] MEDS ORDERED: CALCIUM CHLORIDE 1,000 MG in SODIUM CHLORIDE 0.9% 50 ML IV ONE (16:30)
[2022-11-29] MEDS: INSULIN LISPRO 300 UNIT/3 ML PEN SUBQ SCH ×3 (17:15→20:57)
[2022-11-29] MEDS: D5.45NS W/20 MEQ KCL 1,000 ML IV SCH (17:15)
[2022-11-29] MEDS: POTASSIUM CHLOR 20 MEQ/100 ML 20 MEQ/100 ML BAG IV SCH ×2 (17:16→18:27)
[2022-11-29] MEDS: CALCIUM GLUC 1,000MG/50ML-NACL 1,000 MG/50 ML BAG IV ONE ×2 (17:20→18:31)
[2022-11-29 20:22] LABS: CALCIUM, IONIZED 1.18 mmol/L (1.15-1.33); VBG PH 7.383 (7.31-7.41)
[2022-11-29 20:29] LABS: MAGNESIUM 1.9 mg/dL (1.7-2.3); POTASSIUM 4.2 mmol/L (3.5-4.5)
[2022-11-29] MEDS: FAMOTIDINE 20 MG TABLET PO SCH (20:56)
[2022-11-29] MEDS: INSULIN GLARGINE-YFGN 300 UNIT/3 ML PEN SUBQ SCH (20:56)
[2022-11-29] MEDS ORDERED: ATORVASTATIN 10 MG TABLET PO SCH (21:00)
[2022-11-30] MEDS: SODIUM CHLORIDE FLUSH 0.9% 10 ML SYRINGE IVP SCH ×3 (02:44→17:09)
[2022-11-30 05:12] LABS: MAGNESIUM 1.7 mg/dL (1.7-2.3); PHOSPHORUS 2.8 mg/dL (2.5-5.0)
[2022-11-30 05:20] LABS: CALCIUM, IONIZED 1.14 mmol/L (1.15-1.33); VBG PH 7.413 (7.31-7.41)
[2022-11-30 05:27] LABS: CALCIUM 8.5 mg/dL (8.5-10.3); CREATININE 0.3 mg/dL (0.6-1.3); POTASSIUM 3.7 mmol/L (3.5-4.5)
[2022-11-30] MEDS ORDERED: POTASSIUM CHLORIDE 20 MEQ/15 ML UDC PO ONE (05:37)
[2022-11-30] MEDS: POTASSIUM CHLORIDE 20 MEQ TABLET PO ONE ×2 (06:20→06:59)
[2022-11-30] MEDS: MAGNESIUM OXIDE 400 MG TABLET PO ONE ×2 (06:20→06:59)
[2022-11-30] MEDS ORDERED: MAGNESIUM SULFATE 2 GRAM 2 GM/50 ML BAG IV ONE (07:00)
[2022-11-30] MEDS: D5.45NS W/20 MEQ KCL 1,000 ML IV SCH (07:36)
[2022-11-30] MEDS: POTASSIUM CHLOR 10 MEQ/100 ML 10 MEQ/100 ML BAG IV SCH ×2 (07:37→08:11)
[2022-11-30] MEDS: INSULIN GLARGINE-YFGN 300 UNIT/3 ML PEN SUBQ SCH (07:44)
[2022-11-30] MEDS: INSULIN LISPRO 300 UNIT/3 ML PEN SUBQ SCH ×6 (07:45→17:09)
[2022-11-30] MEDS: SERTRALINE 50 MG TABLET PO SCH (08:09)
[2022-11-30] MEDS: FAMOTIDINE 20 MG TABLET PO SCH (08:09)
--- NOTE | 2022-11-30 08:18 | Discharge Plan ---
Discharge Plan Problem Reviewed?: Yes Disposition: Home, Self Care Condition: Stable Prescriptions: Insulin Lispro [Humalog Kwikpen U-100] 10 - 19 unit SUBQ TIDWM #1 ea Insulin Glargine [Lantus Solostar] 30 unit SUBQ BID #1 ea Diet: Diabetic Activity Restrictions: No Restrictions Shower Restrictions: No Driving Restrictions: No Instruction Topics: Diabetes Healthy Meals, Diabetes Carbs, Diabetes Eating Out, Diabetes Carbs Fats Protein Health Concerns: You were hospitalized to treat diabetic ketoacidosis. You had pancreatitis (inflammation of your pancreas), and the stress from that probably caused the DKA. You needed ICU hospitalization and were critically ill. You needed an insulin IV drip and iv fluids for severe dehydration. You are being discharged home today. We have changed your insulin dosing and please follow the new schedule. You should be taking the Lantus long-acting insulin 30 units twice a day, not 60 units once a day. You should still give yourself the 10 units of Humalog Regular insulin with each meal, but in addition add more units of Humalog regular insulin with each meal, depending on what your glucose level is right before the meal. Follow the sliding scale that you are being given, which will tell you how much Humalog Insulin to give with each meals. Therefore, you should be checking your fingerstick glucose level 3 times a day, right before each meal. Your primary care provider should refer you to have clinic visits to the [facility] [place] [facility] here at the hospital. That diabetic nurse will help you with these changes in your insulin dosing and give other advice and recommendations and answer your questions. I refilled your Humalog Insulin pen and your Lantus Insulin pen and both prescriptions were electronically sent to your [facility] pharmacy in [place]. Please have an appointment to see your primary care provider in 1 to 2 weeks for hospital follow-up visit. Plan of Treatment: As above. Care Goals: Improvement in symptoms and stabilization are the goals. Assessment: The patient understands and is agreeable with the plan. Additional Instructions or Follow Up instructions: If you have new or worsening symptoms, call your primary care provider for advice, or go to a walk-in clinic, or come to the ER. Follow-Up Care: [facility] - Diabetes Ed No Smoking: If you smoke, Please STOP! Call for help. Follow-up with: Tiffanie Cunningham ARNP [Provider Admit Priv/Credential] -
[2022-11-30] MEDS ORDERED: DEXTROAMPHETAMINE PO SCH (09:00)
[2022-11-30] MEDS ORDERED: AMPHETAMINE PO SCH (09:00)
--- NOTE | 2022-11-30 10:18 | DISCHARGE SUMMARY ---
Discharge Summary Admit Date: 11/27/22 Discharge Date: 11/30/22 Discharging Provider: Naida Schultz MD Primary Care Provider: Tiffanie Staley NP Condition at Discharge: Stable Discharge Disposition: 01 Home, Self Care - HPI History of Present Illness: This is a 52-year-old female with a history of diabetes. She was admitted here for DKA several years ago. She now presents with a similar presentation of abdominal pain with nausea, vomiting, feeling more and more weak and then lethargic and presented last night. She was found to be in DKA with pH of 6.9, elevated anion gap, glucose of 1200. There were no ICU beds available here. The ER provider wanted her martinez sferred to the closest hospital with an available ICU bed, but she was not accepted at [facility], so she boarded in the ER overnight and has been on an Insulin drip. Work-up was also done looking for cause, since she had a very elevated WBC of 29 and Lipase level 800. Chest x-ray and U/A were unremarkable. Abdomen CT shows that she has fat stranding of the pancreas consistent with pancreatitis. Ultrasound of the abdomen did not show any gallbladder disease or stones. This morning on day shift, an ICU bed opened here and the patient was presented to me by the ER doctor. She will be admitted to the ICU for treating DKA and pancreatitis. The patient herself is very obtunded and only answers 1 or 2 words and then falls back asleep. She still has slight abdominal pain and mild nausea but has not vomited since being in the ER. She tells me she does take her normal diabetic medicines, has not missed them. She denied any pulmonary complaints or dysuria. - HOSPITAL COURSE Hospital Course: (1) DKA (diabetic ketoacidosis) Her DKA was likely from pancreatitis. She did have evidence of acute pancreatitis by imaging and had a very high serum lipase level, but what caused the pancreatitis is unclear. She needed aggressive crystalloid infusion and IV insulin drip and DKA protocol in ICU. She also got Bicarb iv drip for 20 hours, because of her severe metabolic acidosis. As she improved, her diet was advanced and meds were changed. (2) DM Type 2 She was taking Lantus 60 U once daily, and Reg Insulin 10 U with meals but no additional. Her A1c came back at 15.1. Here and for after discharge, we changed her Lantus to 30 U sq BID and added a sliding scale for additional Reg Insulin on top of her 10 U with meals. She would benefit from DM Educ clinic at the [facility] (3) Pancreatitis Unclear why she should have acute pancreatitis. I confirmed that she is not an alcohol drinker. There was no evidence of gallstones or cholangitis. We asked her if she had ever been on a GLP-1 agent, which could cause pancreatitis, and she never has been. Her abd/pelvis CT did show mild peripancreatic fat stranding, but no cyst or necrosis. She was kept NPO, given antiemetics and pain meds and her lipase level decreased from 800 at admission to normal range. (4) Leukocytosis She had a marked leukocytosis of 29 which decreased daily without any empiric antibiotics. I suspect this was demargination from the stress of her DKA and pancreatitis. - ALLERGIES Allergies/Adverse Reactions: Allergies Allergy/AdvReac Type Severity Reaction Status Date / Time Penicillins Allergy Intermediate Rash Verified 11/26/22 18:48 - MEDICATIONS Home Medications: Ambulatory Orders Medication Instructions Recorded Confirmed Sertraline [Zoloft] 200 mg PO DAILY 05/15/19 11/28/22 traZODone [Desyrel] 100 - 200 mg PO HS PRN 02/09/21 11/28/22 Atorvastatin [Lipitor] 20 mg PO HS 08/10/21 11/28/22 Cyclobenzaprine [Flexeril] 10 mg PO TID PRN #20 tablet 09/29/22 11/28/22 Dextroamphetamine/Amphetamine 25 mg PO DAILY 11/28/22 11/28/22 [Adderall Xr 25 mg Capsule] Estradiol 0.05 mg Patch [Climara 1 each TOP Q3D 11/28/22 11/28/22 0.05 mg] Insulin Aspart [NovoLOG] 10 unit SUBQ TIDWM 11/28/22 11/28/22 Meloxicam 15 mg PO DAILY PRN 11/28/22 11/28/22 hydrOXYzine HCL [Hydroxyzine HCl] 25 mg PO BID PRN 11/28/22 11/28/22 medroxyPROGESTERone [Provera] 2.5 mg PO DAILY 11/28/22 11/28/22 Insulin Glargine [Lantus Solostar] 30 unit SUBQ BID #1 ea 11/30/22 Insulin Lispro [Humalog Kwikpen 10 - 19 unit SUBQ TIDWM #1 ea 11/30/22 U-100] - PHYSICAL EXAM AT DISCHARGE General Appearance: positive: No acute distress, Alert, Other (Disheveled) Eyes Bilateral: positive: Normal inspection, EOMI ENT: positive: ENT inspection nml, No signs of dehydration Neck: positive: Nml inspection, No JVD Respiratory: positive: No respiratory distress, Breath sounds nml Cardiovascular: positive: Regular rate & rhythm, No murmur Abdomen: positive: Non-tender, Nml bowel sounds, No distention Skin: positive: Warm, Dry Extremities: positive: Non-tender, No pedal edema Neurologic/Psychiatric: positive: Oriented x3, Motor nml - LABS Result Diagrams: 11/29/22 07:54 11/30/22 04:30 - DIAGNOSTIC IMAGING Diagnostic Imaging Results: Final report reviewed - FOLLOW UP Follow Up: See PCP in 7-10 days for a hosp F/U visit. - TIME SPENT Time Spent in Discharge (Minutes): 40
[2022-11-30 17:34] VITALS: BP 138/80; O2SAT 100
== END 2022-11-30 17:55 | disposition home or self-care (01) | DRG 637 ==
LOC: EDUNIT# → ED 18:35 → ICU 11-27 14:04 → MS3 11-27 15:38 → ICU 11-27 15:45
PROVIDERS: ADMIT Internal Medicine; ATTEND Internal Medicine
DX: E11.10 Type 2 diabetes mellitus with ketoacidosis without coma (principal); K85.90 Acute pancreatitis without necrosis or infection, unspecified; D72.829 Elevated white blood cell count, unspecified; F32.A Depression, unspecified; F41.9 Anxiety disorder, unspecified; H54.7 Unspecified visual loss; M19.90 Unspecified osteoarthritis, unspecified site; G89.29 Other chronic pain; M54.9 Dorsalgia, unspecified; Z79.4 Long term (current) use of insulin; Z79.899 Other long term (current) drug therapy; Z88.0 Allergy status to penicillin
CPT/HCPCS: 36415; 70450; 71045; 74176; 76705; 80048; 80053; 80306; 81001; 81025; 82009; 82330; 82607; 82803; 83036; 83690; 83735; 84100; 84132; 84478; 85018; 85025; 87150; 87633; 93005; 96360; 96361; 99285; 99291; A9270; J1815; 81003; 82947; 87086

== ENCOUNTER 2022-12-05 04:37 | Observation (INO) | payer MEDICAID ==
[2022-12-05] MEDS ORDERED: INSULIN REGULAR HUMAN 300 UNIT/3 ML VIAL IVP STA (05:09)
[2022-12-05] MEDS ORDERED: SODIUM CHLORIDE 0.9% 1,000 ML IV STA ×2 (05:09→09:16)
--- NOTE | 2022-12-05 05:11 | ED Physician Documentation ---
History of Present Illness - Stated complaint Stated Complaint: HIGH HEART RATE - Chief complaint Chief Complaint: Cardiac - History obtained from History obtained from: Patient - Additonal information Additional information: 52yF, just seen here yesterday in DKA p/w tachycardia, malaise, hyperglycemia today. patient went home after treatment for DKA and ate [employer], [employer], and [employer]. denies fever, diarrhea, cp. 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: None : None HEENT: Chronic vision loss Psych: Depression, Anxiety Musculoskeletal: Osteoarthritis, Fatigue, Scoliosis, Chronic back pain Derm: None - Past Surgical History Past Surgical History: Yes General: 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 /SUBSTATION DESIGN DRAFTSPERSON: Other HEENT: Tonsil/Adenoidectomy - Present Medications Home Medications: Ambulatory Orders Medication Instructions Recorded Confirmed Sertraline [Zoloft] 200 mg PO DAILY 05/15/19 11/28/22 traZODone [Desyrel] 100 - 200 mg PO HS PRN 02/09/21 11/28/22 Atorvastatin [Lipitor] 20 mg PO HS 08/10/21 11/28/22 Cyclobenzaprine [Flexeril] 10 mg PO TID PRN #20 tablet 09/29/22 11/28/22 Dextroamphetamine/Amphetamine 25 mg PO DAILY 11/28/22 11/28/22 [Adderall Xr 25 mg Capsule] Estradiol 0.05 mg Patch [Climara 1 each TOP Q3D 11/28/22 11/28/22 0.05 mg] Insulin Aspart [NovoLOG] 10 unit SUBQ TIDWM 11/28/22 11/28/22 Meloxicam 15 mg PO DAILY PRN 11/28/22 11/28/22 hydrOXYzine HCL [Hydroxyzine HCl] 25 mg PO BID PRN 11/28/22 11/28/22 medroxyPROGESTERone [Provera] 2.5 mg PO DAILY 11/28/22 11/28/22 Insulin Glargine [Lantus Solostar] 30 unit SUBQ BID #1 ea 11/30/22 Insulin Lispro [Humalog Kwikpen 10 - 19 unit SUBQ TIDWM #1 ea 11/30/22 U-100] Esomeprazole Magnesium 20 mg PO DAILY #14 tab 12/04/22 - Allergies Allergies/Adverse Reactions: Allergies Allergy/AdvReac Type Severity Reaction Status Date / Time Penicillins Allergy Intermediate Rash Verified 11/26/22 18:48 - Social History Does the pt smoke?: No Smoking Status: Never smoker Does the pt drink ETOH?: Yes Does the pt have substance abuse?: No - Immunizations Immunizations are current?: Yes Immunizations: TDAP >10years/unknown - POLST Patient has POLST: No PD ED PE NORMAL - Vitals Vital signs reviewed: Yes - General General: Alert and oriented X 3, No acute distress, Well developed/nourished - HEENT HEENT: Atraumatic, PERRL, EOMI - Neck Neck: Supple, no meningeal sign - Cardiac Cardiac: Other (tachycardic rate, regular rhythm) - Respiratory Respiratory: No respiratory distress, Clear bilaterally - Abdomen Abdomen: Non tender, Non distended - Derm Derm: Normal color, Warm and dry Results - Vitals Vitals: Vital Signs - 24 hr 12/05/22 12/05/22 12/05/22 05:03 05:06 05:36 Temperature 37 C Heart Rate 130 H 125 H 131 H Respiratory 40 H 36 H 36 H Rate Blood Pressure 150/55 H 163/88 H 151/112 H O2 Saturation 99 100 100 12/05/22 12/05/22 12/05/22 06:06 06:30 07:00 Temperature Heart Rate 133 H 135 H 136 H Respiratory 36 H 36 H 30 H Rate Blood Pressure 148/88 H 148/88 H 151/102 H O2 Saturation 100 100 95 12/05/22 12/05/22 07:30 08:00 Temperature Heart Rate 129 H 125 H Respiratory 30 H 32 H Rate Blood Pressure 145/91 H 128/78 O2 Saturation 98 100 Oxygen O2 Source Room air - EKG (time done) 0545 EKG releavant findings:: EKG personally interpreted by author of this note. Relevant findings are: Rate: Rate (enter#) (129) Rhythm: NSR Driscoll: Normal Intervals: Normal NV QRS: Normal Ischemia: Other (no stemi) Compare to prior EKG: Unchanged from prior EKG (12/03/22) - Labs Labs: Laboratory Tests 12/05/22 12/05/22 12/05/22 04:58 05:37 05:37 WBC 21.6 H RBC 5.81 H Hgb 11.4 L Hct 38.2 MCV 65.7 L MCH 19.6 L MCHC 29.8 L RDW 17.2 H Plt Count 786 H MPV 10.9 H Neut # (Auto) Not Reportable Lymph # (Auto) Not Reportable Frio # (Auto) Not Reportable Eos # (Auto) Not Reportable Baso # (Auto) Not Reportable Absolute Nucleated RBC Not Reportable Total Counted 100 Band Neuts % (Manual) 5 Abnorm Lymph % (Manual) 0 Metamyelocytes % 4 H Myelocytes % 4 H Promyelocytes % 2 H Nucleated RBC % Not Reportable Neutrophils # (Manual) 13.0 H Lymphocytes # (Manual) 5.0 H Monocytes # (Manual) 1.3 H Eosinophils # (Manual) 0.2 Basophils # (Manual) 0.0 Differential Comment MANUAL DIFFERENTIAL Platelet Estimate INCREASED (>450,000) RBC Morph Micro Appear 1+ POLYCHROMASIA VBG pH VBG pCO2 VBG pO2 VBG HCO3 VBG Total CO2 VBG O2 Saturation VBG Base Excess Sodium 130 L Potassium 5.2 H Chloride 100 L Carbon Dioxide 4 L* Anion Gap 26.0 H BUN 15 Creatinine 1.0 Estimated GFR (MDRD) 59 L Glucose 592 H* POC Whole Bld Glucose 504 H* Calcium 9.4 Total Bilirubin 0.4 AST 17 ALT 20 Alkaline Phosphatase 94 Total Protein 8.3 Albumin 5.1 Globulin 3.2 Albumin/Globulin Ratio 1.6 Lipase 41 Serum Ketones SMALL H 12/05/22 12/05/22 05:37 07:40 WBC RBC Hgb Hct MCV MCH MCHC RDW Plt Count MPV Neut # (Auto) Lymph # (Auto) Frio # (Auto) Eos # (Auto) Baso # (Auto) Absolute Nucleated RBC Total Counted Band Neuts % (Manual) Abnorm Lymph % (Manual) Metamyelocytes % Myelocytes % Promyelocytes % Nucleated RBC % Neutrophils # (Manual) Lymphocytes # (Manual) Monocytes # (Manual) Eosinophils # (Manual) Basophils # (Manual) Differential Comment Platelet Estimate RBC Morph Micro Appear VBG pH 6.994 L* VBG pCO2 18.5 L VBG pO2 52.2 H VBG HCO3 4.4 L VBG Total CO2 5.0 L VBG O2 Saturation 77.5 VBG Base Excess -25.4 L Sodium Potassium Chloride Carbon Dioxide Anion Gap BUN Creatinine Estimated GFR (MDRD) Glucose POC Whole Bld Glucose 409 H Calcium Total Bilirubin AST ALT Alkaline Phosphatase Total Protein Albumin Globulin Albumin/Globulin Ratio Lipase Serum Ketones Procedures - Central Line - Major Central Line Preparation: Consent Obtained, Time out completed, Ultrasound used, Sterile prep and drape Central line location: Right IJ Central line type: Triple lumen Central line aftercare: Chlorhexidine disc placed, Secured, Placement confirmed, No pneumothorax, No complications, Pt tolerated well PD Medical Decision Making - ED course ED course: 52yF presents to the ED with n/v, just seen here yesterday in DKA. worse flare up of DKA today. DKA protocol initiated, central line placed. no beds available for admission. patient was endorsed to Dr. Contreras at 7am shift change for further management and care, boarding in the ED pending beds. - Critical Care Time(min): 30 Time Includes: Direct patient care, Review records, Reassess patient, Document care, Coordinate care Data interpretation: Labs, Pulse ox Procedures included in critical care time: Peripheral IV, Blood draw Procedures excluded from critical care time: Central IV Departure - Departure Clinical Impression: DKA (diabetic ketoacidosis) Condition: Serious Forms: PCP List
[2022-12-05 05:45] LABS: BASOPHILS % (AUTO) 1.7 %; EOSINOPHILS % (AUTO) 0.3 %; HCT - HEMATOCRIT 38.2 % (37.0-47.0); HGB - HEMOGLOBIN 11.4 g/dL (12.0-16.0); LYMPHOCYTES % (AUTO) 21.2 %; MEAN CORPUSCULAR HEMOGLOBIN 19.6 pg (27.0-31.0); MEAN CORPUSCULAR HGB CONC 29.8 g/dL (32.0-36.0); MEAN CORPUSCULAR VOLUME 65.7 fL (81.0-99.0); MEAN PLATELET VOLUME 10.9 fL (7.9-10.8); MONOCYTES % (AUTO) 5.5 %; NEUTROPHILS % (AUTO) 55.8 %; PLT - PLATELET COUNT 786 10^3/uL (130-450); RED BLOOD COUNT 5.81 10^6/uL (4.20-5.40); RED CELL DISTRIBUTION WIDTH 17.2 % (12.0-15.0); WHITE BLOOD COUNT 21.6 x10^3/uL (4.8-10.8)
[2022-12-05 05:51] LABS: KETONES, SERUM (ACETEST) SMALL (NEGATIVE)
[2022-12-05 05:52] LABS: ABNORMAL LYMPHS % (MANUAL) 0 %; VBG BASE EXCESS -25.4 mmol/L (-2 - +2); VBG HCO3 4.4 mmol/L (23-28); VBG OXYGEN SATURATION 77.5 % (60-80); VBG PCO2 18.5 mmHg (41-51); VBG PO2 52.2 mmHg (25-47)
[2022-12-05 05:55] LABS: VBG PH 6.994 (7.31-7.41)
[2022-12-05 05:57] LABS: ALBUMIN 5.1 g/dL (3.2-5.5); LIPASE 41 U/L (11-82)
[2022-12-05 05:59] LABS: ALBUMIN/GLOBULIN RATIO 1.6 (1.0-2.2); ALKALINE PHOSPHATASE 94 IU/L (42-121); ALT ALANINE AMINOTRANSFERASE 20 IU/L (10-60); AST ASPARTATE AMINOTRANSFERASE 17 IU/L (10-42); BILIRUBIN,TOTAL 0.4 mg/dL (0.2-1.0); BUN - BLOOD UREA NITROGEN 15 mg/dL (6-20); CALCIUM 9.4 mg/dL (8.5-10.3); CARBON DIOXIDE - CO2 4 mmol/L (21-32); CHLORIDE 100 mmol/L (101-111); GFR - MDRD 59 (>89); GLUCOSE 592 mg/dL (74-104); POTASSIUM 5.2 mmol/L (3.5-4.5); SODIUM 130 mmol/L (135-145); TOTAL PROTEIN 8.3 g/dL (6.4-8.9)
[2022-12-05] MEDS ORDERED: INSULIN REGULAR IN 0.9 % NS 100 UNIT/100 ML BAG IV STA ×2 (06:05→13:07)
[2022-12-05] MEDS ORDERED: POTASSIUM CHLORIDE 20 MEQ/15 ML UDC PO STA (06:06)
[2022-12-05] MEDS ORDERED: POTASSIUM CHLOR 10 MEQ/100 ML 10 MEQ/100 ML BAG IV ONE (06:06)
[2022-12-05] MEDS ORDERED: LORazepam 2 MG/ML VIAL IVP STA (06:22)
[2022-12-05 06:38] LABS: BAND NEUTROPHILS % (MANUAL) 5 %; DIFFERENTIAL COMMENT MANUAL DIFFERENTIAL; EOSINOPHILS # (MANUAL) 0.2 10^3/uL (0-0.7); LYMPHOCYTES % (MANUAL) 23 %; METAMYELOCYTES % (MANUAL) 4 %; MONOCYTES # (MANUAL) 1.3 10^3/uL (0.0-1.0); MYELOCYTES % (MANUAL) 4 %; PLATELET ESTIMATE, MANUAL INCREASED (>450,000) (NORMAL); PROMYELOCYTES % (MANUAL) 2 %
--- NOTE | 2022-12-05 08:23 | XRAY Report ---
PROCEDURE: Chest for Line Placement INDICATIONS: CENTRAL LINE PLACEMENT TECHNIQUE: One view of the chest was acquired. COMPARISON: 12/03/2022. FINDINGS: Surgical changes and devices: Interval right IJ line placement, the tip which projects to the SVC ri ght atrial junction Lungs and pleura: No pleural effusions or pneumothorax. Question mild interstitial pulmonary edema. Mediastinum: Mediastinal contours appear normal. Heart size is normal. Bones and chest wall: No suspicious bony lesions. Overlying soft tissues appear unremarkable. IMPRESSION: 1. Tip of right IJ line projects to SVC right atrial junction. 2. Question mild interstitial pulmonary edema. Reviewed by: Samson Pringle MD on 12/05/2022 8:21 AM PDT Approved by: Samson Pringle MD on 12/05/2022 8:21 AM PDT Station ID: [id number]
[2022-12-05 08:27] LABS: CALCIUM 9.4 mg/dL (8.5-10.3); CREATININE 0.9 mg/dL (0.6-1.3); POTASSIUM 4.2 mmol/L (3.5-4.5)
[2022-12-05] MEDS ORDERED: NS W/20 MEQ KCL 1,000 ML IV STA (09:17)
[2022-12-05 09:51] LABS: VBG BASE EXCESS -21.2 mmol/L (-2 - +2); VBG HCO3 6.3 mmol/L (23-28); VBG OXYGEN SATURATION 77.8 % (60-80); VBG PO2 45.4 mmHg (25-47); VBG TOTAL CO2 6.9 mmol/L (24-29)
[2022-12-05 09:53] LABS: VBG PH 7.118 (7.31-7.41)
[2022-12-05 10:09] LABS: MAGNESIUM 1.9 mg/dL (1.7-2.3)
[2022-12-05 10:18] LABS: CALCIUM 9.1 mg/dL (8.5-10.3); CREATININE 0.8 mg/dL (0.6-1.3); POTASSIUM 4.1 mmol/L (3.5-4.5)
[2022-12-05 12:57] LABS: VBG PCO2 29.3 mmHg (41-51); VBG PH 7.216 (7.31-7.41); VBG PO2 49.1 mmHg (25-47)
[2022-12-05 12:58] LABS: VBG BASE EXCESS -14.8 mmol/L (-2 - +2); VBG HCO3 11.6 mmol/L (23-28); VBG OXYGEN SATURATION 85.3 % (60-80); VBG TOTAL CO2 12.5 mmol/L (24-29)
[2022-12-05] MEDS ORDERED: DEXTROSE 5%-0.45% NACL 1,000 ML IV STA (13:07)
[2022-12-05 13:18] LABS: CALCIUM 8.8 mg/dL (8.5-10.3); CREATININE 0.7 mg/dL (0.6-1.3); MAGNESIUM 1.7 mg/dL (1.7-2.3); POTASSIUM 4.4 mmol/L (3.5-4.5)
[2022-12-05 13:27] LABS: GLUCOSE, URINE (UA) 500 mg/dL (NEGATIVE); KETONES,URINE (UA) >=80 mg/dL (NEGATIVE); LEUKOCYTE ESTERASE, URINE NEGATIVE (NEGATIVE); NITRITE,URINE NEGATIVE (NEGATIVE); OCCULT BLOOD,URINE SMALL (NEGATIVE); PH,URINE 5.5 PH (5.0-7.5); PROTEIN,URINE 30 mg/dL (NEGATIVE); UROBILINOGEN,URINE 0.2 (NORMAL) E.U./dL (NORMAL)
[2022-12-05 13:28] LABS: CLARITY,URINE HAZY (CLEAR)
[2022-12-05 13:30] LABS: BILIRUBIN,URINE NEGATIVE (NEGATIVE); ICTOTEST,URINE NEGATIVE
[2022-12-05 13:37] LABS: BACTERIA,URINE Few /HPF (None Seen); SQUAMOUS EPITHELIAL CELL,UR MOD Squamous (<= Few)
--- NOTE | 2022-12-05 14:07 | ED Physician Documentation ---
ED Addendum - Addendum Addendum: 12/05/22 14:05 Care of the patient was taken over at time of shift change. She was on an insulin drip and receiving fluids. We will closely monitor blood sugar regularly and I repeated chemistry panel and VBG every few hours. She was having a improvement in her acidosis with the last blood gas showing pH 7.2. Her blood sugar was coming down regularly and when it went below 200, I switched her fluids to add D5 half-normal and decreased her insulin drip from 0.1 units/kg/h down to 0.05 units/kg/h. The patient was feeling improved without any nausea at this time. She was awake and conversant. She has however still acidotic and will maintain the lower dose insulin drip along with the dextrose infusion until she clears her ketones and acidosis better. A bed did become available in the hospital and so I talked with Dr. Zuniga the hospitalist for placement in the hospital. Disposition: The patient is admitted to the hospital in stable condition. Diagnoses: 1. Diabetic ketoacidosis 2. Chronic diabetes
[2022-12-05] MEDS ORDERED: ONDANSETRON ODT 4 MG TABLET TL PRN (14:09)
[2022-12-05] MEDS ORDERED: ACETAMINOPHEN 325 MG TABLET PO PRN (14:09)
[2022-12-05] MEDS ORDERED: oxyCODONE 5 MG TABLET PO PRN (14:09)
[2022-12-05] MEDS ORDERED: SODIUM CHLORIDE FLUSH 0.9% 10 ML SYRINGE IVP PRN (14:09)
[2022-12-05] MEDS ORDERED: ONDANSETRON 4 MG/2 ML VIAL IVP PRN (14:09)
[2022-12-05] MEDS ORDERED: INSULIN REGULAR IN 0.9 % NS 100 UNIT/100 ML BAG IV SCH (15:00)
[2022-12-05] MEDS ORDERED: DEXTROSE 5%-0.45% NACL 1,000 ML IV SCH (15:00)
--- NOTE | 2022-12-05 16:51 | HISTORY & PHYSICAL EXAMINATION ---
Chief Complaint - Chief Complaint Chief Complaint: DKA History of Present Illness - Admitted From Admitted From:: ED - History Obtained From History obtained from: Patient Exam Limitations: None - History of Present Illness HPI Comment/Other: 52 Y.O F presents to the ICU after being transferred from the ED with DKA. PT states that this morning she started to have difficulty breathing after coming back from a hike and it felt like her heart was going to beat out of her chest. She vomited once this morning, it consisted of just the food she ate last night and denies any blood or coffee ground looking material, she since has denied any associated nausea. She was admitted to the ICU last week for DKA and presented to the ED yesterday with the same issues but was discharged. She reports that she nocturia getting up 2-4 times, but denies any increase in frequency during the day or urgency. She has lost 18 pounds since being in the ICU from last week. Yesterday her at home blood glucose measured as 115 before breakfast, 300 before lunch, and 401 at dinner. She currently has a 5/10 shooting headache that is all around her head but denies any radiating pain. She has headaches on a daily bases and she uses a cold packs to help with them. She reports hot flashes nightly that can wake her up from her sleep. Reports that she has some difficu lty swallowing solid foods since she was last in the ICU one week ago, the food sometimes gets caught in her throat on occasion and she has to try to "cough them back up" but has no trouble with liquids. She denies any fever, chills, night sweats, numbness or tingling of the extremities, changes in vision, or chest pain. History - Past Medical History Cardiovascular: reports: High cholesterol, Murmur. denies: Angina, [place] Respiratory: reports: Shortness of breath. denies: COPD, Sleep apnea Neuro: reports: Headaches (She has daily headaches with an average of 5/10 pain. Ice packs help the pain when applied to the head) Endocrine/Autoimmune: reports: Type 2 diabetes (Diagnosed 8 years ago ) GI: reports: GERD, Pancreatitis. 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 Her mother also has a history of diabetes Living arrangement: At home Living Situation: With family (Lives at home with her son ) Social History Notes: From a previous admission: She denied smoking and alcohol use. - Substance History Use: Uses substance without health or social issues: NONE Abuse: Recurrent use of substance despite neg consequences: NONE Dependence: Experiences withdrawal or developed tolerances: NONE - POLST Patient has POLST: No POLST Status: Full Code Meds/Allgy - Home Medications Home Medications: Ambulatory Orders Medication Instructions Recorded Confirmed Sertraline [Zoloft] 200 mg PO DAILY 05/15/19 11/28/22 traZODone [Desyrel] 100 - 200 mg PO HS PRN 02/09/21 11/28/22 Atorvastatin [Lipitor] 20 mg PO HS 08/10/21 11/28/22 Cyclobenzaprine [Flexeril] 10 mg PO TID PRN #20 tablet 09/29/22 11/28/22 Dextroamphetamine/Amphetamine 25 mg PO DAILY 11/28/22 11/28/22 [Adderall Xr 25 mg Capsule] Estradiol 0.05 mg Patch [Climara 1 each TOP Q3D 11/28/22 11/28/22 0.05 mg] Insulin Aspart [NovoLOG] 10 unit SUBQ TIDWM 11/28/22 11/28/22 Meloxicam 15 mg PO DAILY PRN 11/28/22 11/28/22 hydrOXYzine HCL [Hydroxyzine HCl] 25 mg PO BID PRN 11/28/22 11/28/22 medroxyPROGESTERone [Provera] 2.5 mg PO DAILY 11/28/22 11/28/22 Insulin Glargine [Lantus Solostar] 30 unit SUBQ BID #1 ea 11/30/22 Insulin Lispro [Humalog Kwikpen 10 - 19 unit SUBQ TIDWM #1 ea 11/30/22 U-100] Esomeprazole Magnesium 20 mg PO DAILY #14 tab 12/04/22 - Allergies Allergies/Adverse Reactions: Allergies Allergy/AdvReac Type Severity Reaction Status Date / Time Penicillins Allergy Intermediate Rash Verified 11/26/22 18:48 Review of Systems - Constitutional Constitutional: reports: Weight loss (She has lost 18 pounds since being out of the ICU from last week), Other (Gets hot flashes a few times a night). denies: Fatigue, Fever, Chills, Poor appetite, Night sweats - Eyes Eyes: reports: Corrective lenses - Ears, Nose & Throat Ears, Nose & Throat: reports: Other (PT states that she currently has some difficulty swallowing solid foods.). denies: Hearing loss, Tinnitus, Sore throat - Cardiovascular Cariovascular: reports: Palpitations. denies: Chest pain, Edema, Lightheadedness, Exertional dyspnea - Respiratory Respiratory: reports: SOB with exertion. denies: Cough, Wheezing - Gastrointestinal Gastrointestinal: reports: Vomiting (She states that she threw up this morning x1 the food that she ate last night). denies: Abdominal pain, Constipation, Diarrhea, Nausea, Coffee grounds emesis - Genitourinary Genitourinary: reports: Nocturia (Gets up 2-4 times a night). denies: Dysuria, Frequency, Urgency, Incontinence - Musculoskeletal Musculoskeletal: denies: Muscle pain, Muscle aches, Stiffness - Integumentary Integumentary: denies: Rash, Dryness - Neurological Neurological: reports: Headache (Currently has a headache 5/10 pain). denies: General weakness, Dizziness, Numbness - Psychiatric Psychiatric: reports: Depression, Anxiety - Endocrine Endocrine: denies: Intolerance to cold, Intolerance to heat - Hematologic/Lymphatic Hematologic/Lymphatic: denies: Bruising, Bleeding tendencies, Recurrent infections Prior Level of Functionality: Pt states that she gets around on her own but feels like she needs a walker. However, she says that she is unable to afford one. Still drives is able to bath, dress and care for herself. Exam - Vital Signs Reviewed Vital Signs: Yes Vital Signs: Vital Signs x48h Pulse Pulse Resp BP BP Pulse Ox 12/05/22 16:00 99 24 164/89 H 12/05/22 15:00 107 H 24 154/88 H 12/05/22 14:13 105 H 28 H 168/111 H 12/05/22 13:16 105 H 26 H 148/73 H 12/05/22 12:52 112 H 24 131/77 H 12/05/22 11:45 115 H 20 117/75 12/05/22 10:58 118 H 18 139/83 H 12/05/22 10:30 118 H 30 H 131/82 H 12/05/22 09:00 117 H 30 H 144/87 H 100 - Physical Exam General Appearance: positive: No acute distress, Alert Eyes Bilateral: positive: Normal inspection ENT: positive: ENT inspection nml Neck: positive: Nml inspection Respiratory: positive: No respiratory distress, Breath sounds nml Cardiovascular: positive: Regular rate & rhythm Peripheral Pulses: positive: 2+ Abdomen: positive: Non-tender, Nml bowel sounds, No distention Back: positive: Nml inspection Skin: positive: Color nml, No rash, Dry, Other (Cold feet, Rest of skin warm to touch) Extremities: positive: Non-tender, Nml appearance, No pedal edema, Other (Negative diabetic foot exam) Neurologic/Psychiatric: positive: Oriented x3, Motor nml, Sensation nml Sepsis Event Note (H) - Evaluation Current Stage of Sepsis: Ruled out Conclusion/Plan - Problem List (1) DKA (diabetic ketoacidosis) Conclusion/Plan: PT presented to the ED with SOB and was admitted as DKA after her inital glucose was measured at 592, anion gap of 26 and pH of 6.9. She was started on an insulin drip and 3 L of fluid until her glucose came down and her anion gap closed. After receiving treatment in the ED initially, she was then transferred to the ICU where her glucose is 181, anion gap of 8 and a pH of 7.2. Her UA shows ketones >=80 and her serum ketones came back with trace amounts. She is still on the insulin drip and receiving fluids in the form of NS. Due to her anion gap closing and glucose dropping she is being put on a solid diet with the addition of water and chicken broth to drink. Plan: Start Semglee 30 unit SubQ Start Lispro 5 unit SubQ Start Insulin drip Start Zololft 200 mg Start Trazodone HCl 100 mg Continue to get BMP, CBC labs drawn Get A1c, Drug screen, Serum Ketones, Magnesium and Triglycerides labs drawn Continue to monitor her glucose level with bed side measurements. Qualifiers: Diabetes mellitus type: type 2 (2) Type 2 diabetes mellitus Conclusion/Plan: She is a type 2 diabetic that was diagnosed 8 years ago and seems to not be compliant with her home medication based on her medical history. Plan: Continue to treat her DKA Talk to patient about her at home use of her medications and measurements of her glucose Diabetes education Check A1c Qualifiers: Diabetes mellitus nursing home insulin use: without nursing home use Diabetes m ellitus complication status: with ketoacidosis Diabetes mellitus complication detail: without coma Qualified Code(s): E11.10 - Type 2 diabetes mellitus with ketoacidosis without coma (3) Dysphagia Conclusion/Plan: PT has had some trouble with swallowing solid foods that started since she was last seen in the ICU one week ago, it feels like it gets caught in her throat when she first swallows it and sometimes has to try to cough it up. Says she no trouble with liquids hot or cold. She does have a history of GERD but has not been seen for it. Plan: PT is on a carb controlled solid food diet, will continue to monitor her progress with eating and swallowing. Qualifiers: Dysphagia type: esophageal phase Qualified Code(s): R13.19 - Other dysphagia (4) Leukocytosis Conclusion/Plan: PT has an elevated WBC count at 21.6 that is likely reactive to her current DKA. This should improve as her condition improves. No antibiotics or futher testing is needed at this time due to lack of evidence of infection. Qualifiers: Leukocytosis type: unspecified Qualified Code(s): D72.829 - Elevated white blood cell count, unspecified (5) Thalassemia Conclusion/Plan: Thalassemia with anemia based on a past diagnosis of thalassemia and with a low MCV value of 65.7, Hgb of 11.4, and MCH of 19.6 Plan: Continue to monitor her CBC values and asses the patient for any signs or symptoms of anemia - Lab Results Fish Bones: 12/05/22 05:37 12/05/22 15:14 Core Measures - Anticipated LOS I expect patient to be DC'd or transferred within 96 hours.: Yes - DVT/VTE - Prophylaxis VTE/DVT Device ordered at admit?: Yes VTE/DVT Prophylaxis med ordered at admit?: No
[2022-12-05] MEDS: INSULIN LISPRO 300 UNIT/3 ML PEN SUBQ SCH ×4 (17:00→21:18)
[2022-12-05] MEDS: INSULIN GLARGINE-YFGN 300 UNIT/3 ML PEN SUBQ SCH ×2 (17:00→21:17)
[2022-12-05 19:16] LABS: MUDS CUTOFF CONCENTRATIONS CUTOFF CONC BELOW:
[2022-12-05] MEDS: SODIUM CHLORIDE FLUSH 0.9% 10 ML SYRINGE IVP SCH ×2 (19:21→21:29)
[2022-12-05 19:29] LABS: AMPHETAMINE SCREEN,URINE NEGATIVE (NEGATIVE); BARBITURATE SCREEN,UR NEGATIVE (NEGATIVE); BENZODIAZEPINES SCREEN, URINE NEGATIVE (NEGATIVE); COCAINE SCREEN URINE NEGATIVE (NEGATIVE); METHADONE SCREEN, URINE NEGATIVE (NEGATIVE); METHAMPHETAMINES SCREEN, URINE NEGATIVE (NEGATIVE); OPIATE SCREEN, URINE NEGATIVE (NEGATIVE); OXYCODONE SCREEN, URINE NEGATIVE (NEGATIVE); PROPOXYPHENE SCREEN, URINE NEGATIVE (NEGATIVE); THC CANNABINOID SCREEN, URINE NEGATIVE (NEGATIVE); TRICYCLIC ANTIDEPRESSANT,URINE NEGATIVE (NEGATIVE)
[2022-12-05] MEDS ORDERED: SERTRALINE 50 MG TABLET PO SCH (21:00)
[2022-12-05] MEDS ORDERED: INSULIN GLARGINE-YFGN 300 UNIT/3 ML PEN SUBQ SCH (21:00)
[2022-12-05] MEDS ORDERED: traZODone 50 MG TABLET PO SCH (21:00)
[2022-12-06 04:58] LABS: BASOPHILS % (AUTO) 0.4 %; EOSINOPHILS % (AUTO) 0.4 %; HCT - HEMATOCRIT 27.2 % (37.0-47.0); HGB - HEMOGLOBIN 8.6 g/dL (12.0-16.0); LYMPHOCYTES # (AUTO) 3.4 10^3/uL (1.5-3.5); LYMPHOCYTES % (AUTO) 40.3 %; MEAN CORPUSCULAR HEMOGLOBIN 19.4 pg (27.0-31.0); MEAN CORPUSCULAR HGB CONC 31.6 g/dL (32.0-36.0); MEAN CORPUSCULAR VOLUME 61.4 fL (81.0-99.0); MEAN PLATELET VOLUME 10.6 fL (7.9-10.8); MONOCYTES # (AUTO) 0.8 10^3/uL (0.0-1.0); MONOCYTES % (AUTO) 9.5 %; NEUTROPHILS # (AUTO) 3.8 10^3/uL (1.5-6.6); NEUTROPHILS % (AUTO) 45.2 %; NRBC ABSOLUTE COUNT (AUTO) 0.02 x10^3/uL; NUCLEATED RED BLOOD CELLS AUTO 0.2 /100WBC; PLT - PLATELET COUNT 448 10^3/uL (130-450); RED BLOOD COUNT 4.43 10^6/uL (4.20-5.40); RED CELL DISTRIBUTION WIDTH 15.5 % (12.0-15.0); WHITE BLOOD COUNT 8.3 x10^3/uL (4.8-10.8)
[2022-12-06 04:59] LABS: CALCIUM, IONIZED 1.23 mmol/L (1.15-1.33); VBG PH 7.322 (7.31-7.41)
[2022-12-06 05:08] LABS: SLIDE REVIEW? Indicated
[2022-12-06 05:20] LABS: KETONES, SERUM (ACETEST) NEGATIVE (NEGATIVE)
[2022-12-06 05:31] LABS: BUN - BLOOD UREA NITROGEN 9 mg/dL (6-20); CARBON DIOXIDE - CO2 18 mmol/L (21-32); CHLORIDE 114 mmol/L (101-111); CREATININE 0.5 mg/dL (0.6-1.3); GFR - MDRD 131 (>89); GLUCOSE 105 mg/dL (74-104); MAGNESIUM 1.7 mg/dL (1.7-2.3); POTASSIUM 3.2 mmol/L (3.5-4.5); SODIUM 139 mmol/L (135-145); TRIGLYCERIDES 244 mg/dL (48-352)
[2022-12-06 06:17] LABS: PLATELET ESTIMATE, MANUAL NORMAL (130-450,000) (NORMAL)
[2022-12-06] MEDS ORDERED: MAGNESIUM OXIDE 400 MG TABLET PO ONE (07:00)
[2022-12-06] MEDS: NEUTRA-PHOS 250 MG TABLET PO SCH ×2 (07:04→08:25)
[2022-12-06] MEDS ORDERED: INSULIN GLARGINE-YFGN 300 UNIT/3 ML PEN SUBQ SCH (08:00)
[2022-12-06] MEDS: POTASSIUM CHLORIDE 20 MEQ TABLET PO SCH ×2 (08:27→11:05)
[2022-12-06] MEDS: INSULIN LISPRO 300 UNIT/3 ML PEN SUBQ SCH ×4 (08:43→12:49)
[2022-12-06] MEDS: SODIUM CHLORIDE FLUSH 0.9% 10 ML SYRINGE IVP SCH (08:44)
--- NOTE | 2022-12-06 11:02 | Discharge Plan ---
Discharge Plan Problem Reviewed?: Yes Disposition: Home, Self Care Condition: Fair Prescriptions: Calcium Carbonate [Calcium] 600 mg PO TID #90 tablet Cholecalciferol [Vitamin D3] 800 unit PO DAILY #60 tablet Diet: Diabetic Activity Restrictions: Activity as Tolerated Shower Restrictions: No Driving Restrictions: No Health Concerns: You presented to the emergency room because of shortness of breath after a hike. After talking to you your sugars have been uncontrolled for a few days. You have been in the emergency room the day before for high sugar. Discharge. You went home and I believe you describe having Johnkelley Brownn, chana silva, and Rees's. This is a completely noncompliant diet for someone who is a diabetic such as you. So one of the problems for your glucose is a person who is noncompliant with the diet restriction. We placed you in the intensive care unit strictly for the insulin drip. You are otherwise stable with regards to blood pressure, vital signs. We were able to bring her glucose down with the insulin drip and transitioned you back to your normal long-acting and short acting insulin. Your glucose is now under control. Plan of Treatment: 1. Please register with diabetic instruction classes. You really need to go back to the basics of using your insulin, and being on an appropriate diet. 2. Please see your primary care provider in follow-up to let them know you are here. I believe you did have an appointment scheduled for December 05 but had to cancel it because you were here in the hospital. 3. For completeness sake we did add calcium tablets, 1 tablet 3 times a day. And then we added vitamin D, 800 international units a day. Both of these are to help you with preventing osteoporosis. 4. We noticed that you are on hormone replacement therapy. We hope that that is helping you with your postmenopausal hot flashes and symptoms. Please make sure you check in with your housekeeping manager on a regular basis. This type of therapy is meant to be only short-term. To get you through the worst of it. 5.. We noticed that your triglyceride levels are high. Please talk to your primary care provider about any medications or dietary restrictions you could implement to help you with your triglyceride levels. 6. You mention to us that you are having problems with swallowing. It is a relatively new problem. If it continues, please share this with your primary care provider so they can do an x-ray study such as an upper GI to study was going on with your throat and esophagus. Care Goals: To have her diabetes under control. Assessment: Patient is alert, oriented to person place and time and situation Follow-Up Care: [facility] - Diabetes Ed No Smoking: If you smoke, Please STOP! Call for help.
--- NOTE | 2022-12-06 11:10 | DISCHARGE SUMMARY ---
Discharge Summary Admit Date: 12/05/22 Discharge Date: 12/06/22 Discharging Provider: Saadia Huerta MD Primary Care Provider: Tiffanie del toro Code Status: Attempt Resuscitation Condition at Discharge: Fair Discharge Disposition: 01 Home, Self Care - DIAGNOSES Discharge Diagnoses with Status of Each Condition: 1. Diabetic ketoacidosis 2. Type 2 diabetes mellitus, with complication of hyperglycemia and neuropathy and ketosis, without coma, with long-term use of insulin 3. Dysphagia 4. Leukocytosis 5. Thalassemia 6. Hypokalemia 7. Noncompliance with diet - HPI History of Present Illness: 52 Y.O F presents to the ICU after being transferred from the ED with DKA. PT states that this morning she started to have difficulty breathing after coming back from a hike and it felt like her heart was going to beat out of her chest. She vomited once this morning, it consisted of just the food she ate last night and denies any blood or coffee ground looking material, she since has denied any associated nausea. She was admitted to the ICU last week for DKA and presented to the ED yesterday with the same issues but was discharged. She reports that she nocturia getting up 2-4 times, but denies any increase in frequency during the day or urgency. She has lost 18 pounds since being in the ICU from last week. Yesterday her at home blood glucose measured as 115 before breakfast, 300 before lunch, and 401 at dinner. She currently has a 5/10 shooting headache that is all around her head but denies any radiating pain. She has headaches on a daily bases and she uses a cold packs to help with them. She reports hot flashes nightly that can wake her up from her sleep. Reports that she has some difficulty swallowing solid foods since she was last in the ICU one week ago, the food sometimes gets caught in her throat on occasion and she has to try to "cough them back up" but has no trouble with liquids. She denies any fever, chills, night sweats, numbness or tingling of the extremities, changes in vision, or chest pain. History - Past Medical History Cardiovascular: reports: High cholesterol, Murmur. denies: Angina, [place] Respiratory: reports: Shortness of breath. denies: COPD, Sleep apnea Neuro: reports: Headaches (She has daily headaches with an average of 5/10 pain. Ice packs help the pain when applied to the head) Endocrine/Autoimmune: reports: Type 2 diabetes (Diagnosed 8 years ago ) GI: reports: GERD, Pancreatitis. 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 Question of mild interstitial pulmonary edema that I think is more technique than true edema Right IJ line - HOSPITAL COURSE Hospital Course: Patient was placed on an insulin drip and placed in observation in the ICU. Does prove usually handle our insulin drips. She did well with that. Within a very short time of arriving to the ICU glucose was under control. I started her on long-acting insulin, short acting insulin, fed her and then stopped the insulin drip about an hour and a half later. I resumed her usual home medication regimen. But I also kept her on a strict low-carb diet while here. There is intubations of this patient may be noncompliant with diet. She has been in the emergency room the day before with high glucose and sent home. When she went home she had John Duglas's, Rees's, and a lean cuisine. I suggested that she may need to go back to diabetic education classes and most likely needs to see book binder again. Patient was interested in resuming calcium and vitamin D for osteoporosis and I gave her instructions about that. Otherwise there is no change in her medications.On the morning of her discharge, the potassium was low and she was supplemented via ICU protocol.I would recommend a BMP be checked at her PCP office in the next week. She is discharged in stable condition. She is alert and oriented to person place and time and situation. Temperature is 36.9. Heart rate is 96. Blood pressure 130/80. Respirations 23. 98% on room air. She is a 5 foot tall female, a BMI of 35 with 81.5 kg weight. Supple neck. Pleasant disposition. Vivacious joking personality. Lungs are clear to auscultation and percussion. PMI normally placed and she has a regular rate and rhythm. The abdomen is soft, nontender, normal bowel sounds. Extremities are without edema. She is able to go from supine to sitting to standing without ataxia and walks in the room without any help. She is tolerating her low-carb diet without any nausea vomiting or abdominal pain. This document was made in part using voice recognition software. While efforts are made to proofread this document, sound alike and grammatical errors may occur. - ALLERGIES Allergies/Adverse Reactions: Allergies Allergy/AdvReac Type Severity Reaction Status Date / Time Penicillins Allergy Intermediate Rash Verified 11/26/22 18:48 - MEDICATIONS Home Medications: Ambulatory Orders Medication Instructions Recorded Confirmed Sertraline [Zoloft] 200 mg PO DAILY 05/15/19 11/28/22 traZODone [Desyrel] 100 - 200 mg PO HS PRN 02/09/21 11/28/22 Atorvastatin [Lipitor] 20 mg PO HS 08/10/21 11/28/22 Dextroamphetamine/Amphetamine 25 mg PO DAILY 11/28/22 11/28/22 [Adderall Xr 25 mg Capsule] Estradiol 0.05 mg Patch [Climara 1 each TOP Q3D 11/28/22 11/28/22 0.05 mg] Insulin Aspart [NovoLOG] 10 unit SUBQ TIDWM 11/28/22 11/28/22 Meloxicam 15 mg PO DAILY PRN 11/28/22 11/28/22 hydrOXYzine HCL [Hydroxyzine HCl] 25 mg PO BID PRN 11/28/22 11/28/22 medroxyPROGESTERone [Provera] 2.5 mg PO DAILY 11/28/22 11/28/22 Insulin Glargine [Lantus Solostar] 30 unit SUBQ BID #1 ea 11/30/22 Insulin Lispro [Humalog Kwikpen 10 - 19 unit SUBQ TIDWM #1 ea 11/30/22 U-100] Esomeprazole Magnesium 20 mg PO DAILY #14 tab 12/04/22 Cholecalciferol [Vitamin D3] 800 unit PO DAILY #60 tablet 12/06/22 - LABS Result Diagrams: 12/06/22 04:37 12/06/22 04:37 - SEPSIS Current Stage of Sepsis: Ruled out
--- NOTE | 2022-12-06 11:25 | PHARMACY PROGRESS NOTE ---
- Best Possible Medication History Admit Date and Time: 12/05/22 1409 Processed by: Pharmacy Medication History completed: Yes Patient Interview: Completed Secondary Source(s): Insurance records As the person ultimately responsible for medication therapy, providers are able to order a medication from an existing home medication list in [facility] via the "Reconcile Routine" prior to Confirmation of that medication by application support administrator. Such practice is discouraged except when the physician, in their clinical judgment, deems that a medical need exists for a medication without regard to previous use.
[2022-12-06] MEDS: POTASSIUM CHLOR 20 MEQ/100 ML 20 MEQ/100 ML BAG IV SCH ×2 (11:48→12:51)
[2022-12-06 13:03] LABS: ESTIMATED AVERAGE GLUCOSE 378 mg/dL (70-100); HEMOGLOBIN A1c% 14.8 % (4.27-6.07)
[2022-12-06 14:39] VITALS: BP 138/113; O2SAT 99
== END 2022-12-06 15:30 | disposition home or self-care (01) ==
LOC: ED 04:37 → ICU 14:09
PROVIDERS: ADMIT Specialist; ATTEND Specialist
DX: E11.10 Type 2 diabetes mellitus with ketoacidosis without coma (principal); E11.40 Type 2 diabetes mellitus with diabetic neuropathy, unspecified; E78.1 Pure hyperglyceridemia; R13.10 Dysphagia, unspecified; E87.6 Hypokalemia; D56.9 Thalassemia, unspecified; R63.4 Abnormal weight loss; F32.A Depression, unspecified; F41.9 Anxiety disorder, unspecified; G89.29 Other chronic pain; M19.90 Unspecified osteoarthritis, unspecified site; Z79.890 Hormone replacement therapy; Z79.4 Long term (current) use of insulin; Z95.828 Presence of other vascular implants and grafts; Z68.35 Body mass index [BMI] 35.0-35.9, adult; Z91.119 Patient's noncompliance with dietary regimen due to unspecified reason
CPT/HCPCS: 36415; 36556; 80048; 80053; 80306; 81001; 82009; 82330; 82803; 82947; 83036; 83690; 83735; 84100; 84478; 85025; 87150; 93005; 96361; 96365; 96366; 96368; 96375; 99285; 99291; A9270; G0378; J1815; J2060; 81003; 87086

== ENCOUNTER 2023-01-27 12:33 | Outpatient (CLI) | payer MEDICAID ==
--- NOTE | 2023-01-28 13:30 | Mammography Report ---
BILATERAL DIGITAL SCREENING MAMMOGRAM 3D/2D: 01/27/2023 CLINICAL: Routine screening. Comparison is made to exams dated: 06/04/2021 mammogram, 06/12/2018 mammogram, and 05/30/2017 mammogram - [facility]. There are scattered areas of fibroglandular density in both breasts (category b / 25%-50% glandular t issue). There are segmental calcifications in the left breast at 2 o'clock posterior depth. These are more p rominent. No other significant masses, calcifications, or other findings are seen in either breast. IMPRESSION: INCOMPLETE: NEEDS ADDITIONAL IMAGING EVALUATION The segmental calcifications in the left breast are indeterminate, slightly increased. Additional vi ews are recommended. Based on the Tyrer Cuzick model (a risk assessment model) the patients lifetime risk is 9.7% and her 10 year risk is 2.3%. According to the ACR, ACS, and NCCN guidelines, an annual breast MRI exam jaren g with mammogram is recommended if the patients lifetime risk is 20% or greater. This exam was interpreted at Station ID: [id number]. NOTE: For mammograms, a report in lay terms will be sent to the patient. Approximately 15% of breast malignancies will not be visualized mammographically. In the management of a palpable breast mass, a negative mammogram must not discourage biopsy of a clinically suspicious lesion. Electronically Signed By: Javier Connelly M.D. lc/:01/27/2023 13:11:43 ACR BI-RADS Category 0: Incomplete [id number] PARENCHYMAL PATTERN: (A) - The breast(s) demonstrate(s) scattered fibroglandular densities. BI-RADS CATEGORY: (0) - 0 RECOMMENDATION: (ADDMAM) - Recommend additional mammographic views. [id number] Immediate follow-up LATERALITY: (B)
== END 2023-01-27 12:34 | disposition home or self-care (01) ==
LOC: DI.N 12:33
DX: Z12.31 Encounter for screening mammogram for malignant neoplasm of breast (principal); R92.1 Mammographic calcification found on diagnostic imaging of breast; R92.323 Mammographic fibroglandular density, bilateral breasts

== ENCOUNTER 2023-02-21 08:38 | Outpatient (CLI) | payer MEDICAID ==
--- NOTE | 2023-02-24 09:59 | Mammography Report ---
UNILATERAL LEFT DIGITAL DIAGNOSTIC MAMMOGRAM 3D/2D WITH LATEROMEDIAL MAGNIFICATION: 02/21/2023 CLINICAL: Patient returns for magnification views of microcalcifications in the left breast. Comparison is made to exams dated: 01/27/2023 mammogram, 06/04/2021 mammogram, 06/12/2018 mammogram, a nd 05/30/2017 mammogram - [facility]. There are scattered areas of fibroglandular density in the left breast (category b / 25%-50% glandula r tissue). There are multiple groups of round and amorphous calcifications in the upper outer quadrant at middle to posterior depth. Some of these calcifications appear to layer on lateral view suggestive of milk of calcium. No other significant masses or calcifications are seen in the breast. IMPRESSION: PROBABLY BENIGN Left breast grouped round and amorphous calcifications some of which may represent milk of calcium. F indings are probable benign. Recommend follow-up mammogram in 6 months to demonstrate stability. Findings and recommendations were conveyed to the patient during today's evaluation. Based on the Tyrer Cuzick model (a risk assessment model) the patients lifetime risk is 9.7% and her 10 year risk is 2.3%. According to the ACR, ACS, and NCCN guidelines, an annual breast MRI exam jaren g with mammogram is recommended if the patients lifetime risk is 20% or greater. This exam was interpreted at Station ID: [id number]. NOTE: For mammograms, a report in lay terms will be sent to the patient. Approximately 15% of breast malignancies will not be visualized mammographically. In the management of a palpable breast mass, a negative mammogram must not discourage biopsy of a clinically suspicious lesion. Electronically Signed By: Coty Wood M.D., PH.D eb/:02/21/2023 23:25:57 ACR BI-RADS Category 3: Probably benign 3343F PARENCHYMAL PATTERN: (A) - The breast(s) demonstrate(s) scattered fibroglandular densities. BI-RADS CATEGORY: (3) - 3 Mammogram [id number] 6 month follow-up LATERALITY: (L)
== END 2023-02-21 08:39 | disposition home or self-care (01) ==
LOC: DI 08:38
PROVIDERS: ATTEND Nurse Practitioner
DX: R92.1 Mammographic calcification found on diagnostic imaging of breast (principal); R92.322 Mammographic fibroglandular density, left breast

== ENCOUNTER 2023-10-14 09:36 | Outpatient (CLI) | payer MEDICAID ==
--- NOTE | 2023-10-15 10:48 | Mammography Report ---
UNILATERAL LEFT DIGITAL DIAGNOSTIC MAMMOGRAM 3D/2D WITH MAGNIFICATION: 10/14/2023 CLINICAL: Patient returns for a 6 month follow up of the left breast. Comparison is made to exams dated: 02/21/2023 mammogram, 01/27/2023 mammogram, 06/04/2021 mammogram, mammogram, and 05/30/2017 mammogram - [facility]. There are scattered areas of fibroglandular density in the left breast (category b / 25%-50% glandula r tissue). Multiple small groups of punctate, amorphous and round calcification in the left breast at 2 o'clock middle depth have not significantly changed in number or morphology. Some may layer on the lateral vi ew. No other significant masses or calcifications are seen in the breast. Mammograms are otherwise stabl e. IMPRESSION: PROBABLY BENIGN The calcifications in the left breast are relatively stable and probably benign. A follow-up mammogram in 6 months is recommended. The patient will be due for bilateral mammograms at that same visit. Findings and recommendations were conveyed to the patient at time of exam. Based on the Tyrer Cuzick model (a risk assessment model) the patient's lifetime risk is 9.7% and her 10 year risk is 2.4%. According to the ACR, ACS, and NCCN guidelines, an annual breast MRI exam jaren g with mammogram is recommended if the patient's lifetime risk is 20% or greater. This exam was interpreted at Station ID: [id number]. NOTE: For mammograms, a report in lay terms will be sent to the patient. Approximately 15% of breast malignancies will not be visualized mammographically. In the management of a palpable breast mass, a negative mammogram must not discourage biopsy of a clinically suspicious lesion. Electronically Signed By: Marita novoa/:10/14/2023 10:37:16 ACR BI-RADS Category 3: Probably benign 3343F PARENCHYMAL PATTERN: (A) - The breast(s) demonstrate(s) scattered fibroglandular densities. BI-RADS CATEGORY: (3) - 3 Mammogram [id number] 6 month follow-up LATERALITY: (B)
== END 2023-10-14 09:37 | disposition home or self-care (01) ==
LOC: DI 09:36
PROVIDERS: ATTEND Nurse Practitioner
DX: R92.1 Mammographic calcification found on diagnostic imaging of breast (principal); R92.322 Mammographic fibroglandular density, left breast

== ENCOUNTER 2024-06-02 00:51 | Observation (INO) ==
--- NOTE | 2024-06-02 01:03 | ED Physician Documentation ---
History of Present Illness Stated complaint Stated Complaint: COUGH Chief complaint Chief Complaint: Resp History obtained from History obtained from: Patient and EMS Additonal information Additional information: 54-year-old female history of type 2 diabetes, pancreatitis presents to Emergency Department for 4 days of cough congestion body aches, diarrhea. Today she was feeling nauseous. She called medics because she was concerned that her blood glucose was high, they checked it it was in the 100s, however patient states she is was not feeling well and so wanted come in to be evaluated, she says she has a cough but she does not feel short of breath, she has had bodyaches but denies fevers, she reports diarrhea and nausea but denies abdominal pain. She was hoping to come in to get some medicine to make her feel better. Review of Systems Status of ROS: 10 or more systems reviewed and unremarkable except as noted in history and below Meds/Allgy Home Medications Ambulatory Orders Medication Instructions Recorded Confirmed sertraline 50 mg tablet 200 mg PO DAILY 05/15/19 12/06/22 dextroamphetamine-amphetamine ER 25 mg PO DAILY 11/28/22 12/06/22 25 mg 24hr capsule,extend release (Adderall XR) hydroxyzine HCl 25 mg tablet 25 mg PO BID PRN Anxiety 11/28/22 12/06/22 medroxyprogesterone 2.5 mg tablet 2.5 mg PO HS 11/28/22 12/06/22 meloxicam 15 mg tablet 15 mg PO DAILY PRN Pain 1-4 11/28/22 12/06/22 insulin lispro 100 unit/mL 10 - 19 unit (0.1 - 0.19 mL) 11/30/22 12/06/22 subcutaneous pen (Humalog KwikPen subcut TIDWM #1 ea (U-100) Insulin) ascorbic acid (vitamin C) 500 mg 500 mg PO DAILY 12/06/22 12/06/22 tablet (Vitamin C) cholecalciferol (vitamin D3) 10 2,000 unit PO DAILY 12/06/22 12/06/22 mcg (400 unit) chewable tablet ferrous gluconate 324 mg (37.5 mg 324 mg PO DAILY 12/06/22 12/06/22 iron) tablet insulin aspart U-100 100 unit/mL 5 - 10 units subcut TIDWM 12/06/22 12/06/22 (3 mL) subcutaneous pen (Novolog FlexPen U-100 Insulin aspart) magnesium oxide 500 mg capsule 500 mg PO DAILY 12/06/22 12/06/22 multivitamin with minerals (Daily 1 ea PO DAILY 12/06/22 12/06/22 Multivitamin-Minerals tablet) atorvastatin 20 mg tablet See Rx Instructions .Route 02/18/24 .COMPLEX #90 tabs estradiol 0.05 mg/24 hr semiweekly See Rx Instructions .Route 02/18/24 transdermal patch (Abbi) .COMPLEX #10 patches insulin glargine 100 unit/mL (3 See Rx Instructions .Route 02/24/24 mL) subcutaneous pen (Basaglar .COMPLEX #15 mL KwikPen U-100 Insulin) Allergies Allergies Allergy/AdvReac Type Severity Reaction Status Date / Time Penicillins Allergy Intermediate Rash Verified 11/26/22 18:48 PFSH Active Problems All Active Problems (Updated 06/02/24 @ 02:40 by Georgia Tran MD) Acute hypoxemic respiratory failure (Acute) Pneumonia (Acute) Influenza A (Acute) Thalassemia (Acute) Dysphagia (Acute) DKA (diabetic ketoacidosis) (Acute) Pancreatitis (Acute) Acute kidney injury (Acute) Leukocytosis (Acute) Type 2 diabetes mellitus (Acute) Hyperchloremic acidosis (Acute) Hypokalemia (Acute) Anemia (Acute) Social History Social History Smoking Status: Never smoker If you are a former smoker, when did you quit? (Date/Year): N/A Number of Years Smoked: 0 How many cigarettes a day do you smoke? (20 cigarettes=1 Pk): 0 Do you dip or chew tobacco?: No Patient requests smoking cessation consult: No Initiate information on smoking cessation: No Living arrangement: At home Living Condition: With family (Lives at home with her son ) Relationship: Friend Level: Independent Do you feel safe in your home environment?: Yes Suffered physical, verbal, emotional, or financial abuse?: No History of Abuse: No Frequency: Occasional POLST Patient has POLST: No POLST Status: Full Code Results Vitals Vitals: Vital Signs - 24 hr 06/02/24 00:58 06/02/24 01:21 06/02/24 01:42 Temperature 37.6 C 37.6 C Temperature Source Temporal Artery Scan Tympanic Pulse Rate 121 H 117 H Respiratory Rate 20 20 Blood Pressure 173/81 H 146/78 H O2 Saturation 91 L 92 O2 Source Room air Nasal cannula If not protocol: Oxygen Flow, liters/minute 2 Pain Intensity 3 4 5 Oxygen O2 Source Nasal cannula EKG (time done) 0130: EKG releavant findings:: EKG personally interpreted by author of this note. Relevant findings are: Sinus tachycardia rate of 113, normal axis normal intervals no ST elevation or depression Labs Labs: Laboratory Tests 06/02/24 06/02/24 01:10 01:57 WBC 10.1 RBC 5.61 H Hgb 10.9 L Hct 35.7 L MCV 63.6 L MCH 19.4 L MCHC 30.5 L RDW 14.8 Plt Count 277 Neut # (Auto) 8.2 H Lymph # (Auto) 1.3 L Island # (Auto) 0.5 Eos # (Auto) 0.0 Baso # (Auto) 0.0 Absolute Nucleated RBC 0.00 Nucleated RBC % 0.0 Manual Slide Review Indicated D-Dimer 222.2 Sodium 138 Potassium 3.7 Chloride 101 Carbon Dioxide 27 Anion Gap 10.0 BUN 15 Creatinine 0.7 Estimated GFR (MDRD) 88 L Glucose 116 H Calcium 9.8 Total Bilirubin 0.5 AST 31 ALT 22 Alkaline Phosphatase 69 Troponin I High Sens 4.2 B-Natriuretic Peptide 5 Total Protein 8.0 Albumin 4.8 Globulin 3.2 Albumin/Globulin Ratio 1.5 Lipase 11 Nasal Adenovirus (PCR) NOT DETECTED Nasal B. parapertussis DNA (PCR) NOT DETECTED Nasal Coronavir 229E PCR NOT DETECTED Nasal Coronavir HKU1 PCR NOT DETECTED Nasal Coronavir NL63 PCR NOT DETECTED Nasal Coronavir OC43 PCR NOT DETECTED Nasal Enterovir/Rhinovir PCR NOT DETECTED Nasal Influ A H1 2009 PCR DETECTED A Nasal Influenza B PCR NOT DETECTED Nasal Parainfluen 1 PCR NOT DETECTED Nasal Parainfluen 2 PCR NOT DETECTED Nasal Parainfluen 3 PCR NOT DETECTED Nasal Parainfluen 4 PCR NOT DETECTED Nasal RSV (PCR) NOT DETECTED Nasal B.pertussis DNA PCR NOT DETECTED Nasal C.pneumoniae (PCR) NOT DETECTED Franck Human Metapneumo PCR NOT DETECTED Nasal M.pneumoniae (PCR) NOT DETECTED Nasal SARS-CoV-2 (PCR) NOT DETECTED Rads (name of study) CXR: Relevant Findings:: Final report received Interpretation: Impression Hazy interstitial opacities involving the right lung base which could represent atypical infectious process versus pneumonitis PD Medical Decision Making ED course Complexity details: reviewed old records, reviewed results, re-evaluated patient, considered differential and d/w patient ED course: Differential diagnosis includes but is not limited to viral URI, pneumonia, infectious gastroenteritis, DKA, HHS, euglycemic DKA, pancreatitis, hepatobiliary disease, electrolyte derangement, dehydration, congestive heart failure, STEMI, NSTEMI, cystitis, pyelonephritis, considered but see no evidence of sepsis IV was placed she was given IV fluids Toradol and Zofran, labs, urine, EKG, chest x-ray and viral swab were obtained Patient is positive for influenza A which explains a lot of her symptoms today, labs show mild chronic anemia improved from prior, no leukocytosis, chest x-ray does show atypical infectious process in the right lung base. She is requiring 2L NC, will admit for influenza and RLL PNA. Started on ceftriaxone and azithromcyin and tamiflu. Consults Consults: Request home planning consultant salesperson admit patient Discharge Plan Discharge Patient Disposition: 66 [facility] DC/Xfer Clinical Impression: Influenza A, Acute hypoxemic respiratory failure Pneumonia Qualifiers: Pneumonia type: due to unspecified organism Laterality: right Lung location: lower lobe of lung Qualified Code(s): J18.9 - Pneumonia, unspecified organism Prescriptions: No Action estradiol [Abbi] 0.05 mg/24 hr patch semiweekly See Rx Instructions .ROUTE .COMPLEX Qty: 10 3RF Dose Instruction: APPLY 1 PATCH TOPICALLY EVERY 72 HOURS Rx Instructions: APPLY 1 PATCH TOPICALLY EVERY 72 HOURS atorvastatin 20 mg tablet See Rx Instructions .ROUTE .COMPLEX Qty: 90 2RF Dose Instruction: Take 1 tablet by mouth once daily Rx Instructions: Take 1 tablet by mouth once daily insulin glargine [Basaglar KwikPen U-100 Insulin] 100 unit/mL (3 mL) insulin pen See Rx Instructions .ROUTE .COMPLEX Qty: 15 7RF Dose Instruction: INJECT 30 UNITS SUBCUTANEOUSLY TWICE DAILY Rx Instructions: INJECT 30 UNITS SUBCUTANEOUSLY TWICE DAILY sertraline 50 MG tablet 200 mg PO DAILY dextroamphetamine-amphetamine [Adderall XR] 25 MG capsule,extended release 24hr 25 mg PO DAILY Patient Comments: TAKE ONE CAPSULE BY MOUTH EVERY MORNING medroxyprogesterone 2.5 MG tablet 2.5 mg PO HS Patient Comments: TAKE 1 TABLET BY MOUTH ONCE DAILY. USE DAILY IN COMBINATION WITH ESTROGEN PATCH meloxicam 15 MG tablet 15 mg PO DAILY PRN (Reason: Pain 1-4) Patient Comments: TAKE 1 TABLET BY MOUTH ONCE DAILY NEEDED FOR PAIN. DO NOT TAKE ANY OTHER NSAIDS (IBUPROFEN, MOTRIN, ADVIL, ECT..) hydroxyzine HCl 25 MG tablet 25 mg PO BID PRN (Reason: Anxiety) Patient Comments: TAKE 1 TO 2 TABLETS BY MOUTH TWICE DAILY NEEDED FOR ANXIETY insulin lispro [Humalog KwikPen Insulin] 100 UNIT/ML insulin pen 10 - 19 unit subcut TIDWM Qty: 1 0RF ascorbic acid (vitamin C) [Vitamin C] 500 MG tablet 500 mg PO DAILY multivitamin with minerals [Daily Multivitamin-Minerals] 1 EACH tablet 1 ea PO DAILY magnesium oxide 500 MG capsule 500 mg PO DAILY cholecalciferol (vitamin D3) 10 MCG tablet,chewable 2,000 unit PO DAILY ferrous gluconate 324 MG tablet 324 mg PO DAILY insulin aspart U-100 [Novolog FlexPen U-100 Insulin] 100 UNIT/ML insulin pen 5 - 10 units subcut TIDWM Rx Instructions: 10 UNITS WITH MEALS. IF SMALL MEAL THEN 5 UNITS. Print Language: Kyrgyz Stand Alone Forms: PCP List
[2024-06-02] MEDS: ONDANSETRON 4 MG/2 ML VIAL IVP STA (01:20)
[2024-06-02] MEDS: KETOROLAC 15 MG/ML VIAL IVP STA (01:21)
[2024-06-02] MEDS: SODIUM CHLORIDE 0.9% 1,000 ML IV STA (01:22)
[2024-06-02 01:29] LABS: BASOPHILS % (AUTO) 0.2 %; HCT - HEMATOCRIT 35.7 % (37.0-47.0); HGB - HEMOGLOBIN 10.9 g/dL (12.0-16.0); LYMPHOCYTES # (AUTO) 1.3 10^3/uL (1.5-3.5); LYMPHOCYTES % (AUTO) 12.9 %; MEAN CORPUSCULAR HEMOGLOBIN 19.4 pg (27.0-31.0); MEAN CORPUSCULAR HGB CONC 30.5 g/dL (32.0-36.0); MEAN CORPUSCULAR VOLUME 63.6 fL (81.0-99.0); MONOCYTES # (AUTO) 0.5 10^3/uL (0.0-1.0); MONOCYTES % (AUTO) 5.2 %; NEUTROPHILS # (AUTO) 8.2 10^3/uL (1.5-6.6); NEUTROPHILS % (AUTO) 81.3 %; PLT - PLATELET COUNT 277 10^3/uL (130-450); RED BLOOD COUNT 5.61 10^6/uL (4.20-5.40); RED CELL DISTRIBUTION WIDTH 14.8 % (12.0-15.0); WHITE BLOOD COUNT 10.1 x10^3/uL (4.8-10.8)
[2024-06-02 01:35] LABS: SLIDE REVIEW? Indicated
[2024-06-02 02:16] LABS: CORONAVIRUS 229E-RESP PCR NOT DETECTED; CORONAVIRUS HKU1-RESP PCR NOT DETECTED; CORONAVIRUS NL63-RESP PCR NOT DETECTED; CORONAVIRUS OC43-RESP PCR NOT DETECTED; HUMAN METAPNEUMOVIRUS NOT DETECTED; RHINOVIRUS/ENTEROVIRUS NOT DETECTED; SARS-CoV-2 -RESP PCR PANEL NOT DETECTED
[2024-06-02 02:17] LABS: B. PARAPERTUSSIS- RESP PCR PAN NOT DETECTED; B. PERTUSSIS- RESP PCR PANEL NOT DETECTED; C. PNEUMONIAE- RESP PCR PANEL NOT DETECTED; INFLUENZA A H1 2009- RESP PCR DETECTED; INFLUENZA B - RESP PCR PANEL NOT DETECTED; M. PNEUMONIAE- RESP PCR PANEL NOT DETECTED; PARAINFLUENZA VIRUS 1 NOT DETECTED; PARAINFLUENZA VIRUS 2 NOT DETECTED; PARAINFLUENZA VIRUS 4 NOT DETECTED; RSV- RESP PCR PANEL NOT DETECTED
[2024-06-02 02:27] LABS: ALBUMIN 4.8 g/dL (3.2-5.5); BILIRUBIN,TOTAL 0.5 mg/dL (0.2-1.0); CALCIUM 9.8 mg/dL (8.5-10.3); POTASSIUM 3.7 mmol/L (3.5-4.5)
[2024-06-02 02:31] LABS: ALBUMIN/GLOBULIN RATIO 1.5 (1.0-2.2); CREATININE 0.7 mg/dL (0.6-1.3)
[2024-06-02 02:58] LABS: PLATELET ESTIMATE, MANUAL NORMAL (130-450,000) (NORMAL); PLATELET MORPHOLOGY NORMAL APPEARANCE (NORMAL); RBC MORPHOLOGY (MULTIPLE) 3+ MICROCYTOSIS (NORMAL)
[2024-06-02] MEDS ORDERED: hydrALAZINE INJ 20 MG/ML VIAL IVP PRN (02:59)
[2024-06-02] MEDS ORDERED: IPRATROPIUM/ALBUTEROL 3 ML NEB INH PRN (02:59)
--- NOTE | 2024-06-02 03:15 | HISTORY & PHYSICAL EXAMINATION ---
Chief Complaint Chief Complaint Chief Complaint: shortness of breath History of Present Illness Admitted From Admitted From:: home History Obtained From Records Reviewed: yes History obtained from: ED physician, patient Exam Limitations: Telemedicine History of Present Illness HPI Comment/Other: Mrs. Mariano is a 54 yo F with a history of hypertension and diabetes. she presented with progressive cough,bodyaches and malaise of 4 day duration.She doesnt report known sick contacts.She had started to develop nausea and diarrhea prior to arrival. In the ED she was hypoxic on room air at 86%. She was influenza A positive and had evidence of pneumonia on her chest xray. I will admit the patient for continue monitoring and management of her acute respiratory failure and pneumonia. Review of Systems Status of ROS: 10 or more systems reviewed and unremarkable except as noted in history and below [facility] Active Problems All Active Problems (Updated 06/02/24 @ 02:40 by Georgia Tran MD) Acute hypoxemic respiratory failure (Acute) Pneumonia (Acute) Influenza A (Acute) Thalassemia (Acute) Dysphagia (Acute) DKA (diabetic ketoacidosis) (Acute) Pancreatitis (Acute) Acute kidney injury (Acute) Leukocytosis (Acute) Type 2 diabetes mellitus (Acute) Hyperchloremic acidosis (Acute) Hypokalemia (Acute) Anemia (Acute) Social History Social History Smoking Status: Never smoker If you are a former smoker, when did you quit? (Date/Year): N/A Number of Years Smoked: 0 How many cigarettes a day do you smoke? (20 cigarettes=1 Pk): 0 Do you dip or chew tobacco?: No Patient requests smoking cessation consult: No Initiate information on smoking cessation: No Living arrangement: At home Living Condition: With family (Lives at home with her son ) Relationship: Friend Level: Independent Do you feel safe in your home environment?: Yes Suffered physical, verbal, emotional, or financial abuse?: No History of Abuse: No Frequency: Occasional POLST Patient has POLST: No POLST Status: Full Code Meds/Allgy Home Medications Ambulatory Orders Medication Instructions Recorded Confirmed sertraline 50 mg tablet 200 mg PO DAILY 05/15/19 12/06/22 dextroamphetamine-amphetamine ER 25 mg PO DAILY 11/28/22 12/06/22 25 mg 24hr capsule,extend release (Adderall XR) hydroxyzine HCl 25 mg tablet 25 mg PO BID PRN Anxiety 11/28/22 12/06/22 medroxyprogesterone 2.5 mg tablet 2.5 mg PO HS 11/28/22 12/06/22 meloxicam 15 mg tablet 15 mg PO DAILY PRN Pain 1-4 11/28/22 12/06/22 insulin lispro 100 unit/mL 10 - 19 unit (0.1 - 0.19 mL) 11/30/22 12/06/22 subcutaneous pen (Humalog KwikPen subcut TIDWM #1 ea (U-100) Insulin) ascorbic acid (vitamin C) 500 mg 500 mg PO DAILY 12/06/22 12/06/22 tablet (Vitamin C) cholecalciferol (vitamin D3) 10 2,000 unit PO DAILY 12/06/22 12/06/22 mcg (400 unit) chewable tablet ferrous gluconate 324 mg (37.5 mg 324 mg PO DAILY 12/06/22 12/06/22 iron) tablet insulin aspart U-100 100 unit/mL 5 - 10 units subcut TIDWM 12/06/22 12/06/22 (3 mL) subcutaneous pen (Novolog FlexPen U-100 Insulin aspart) magnesium oxide 500 mg capsule 500 mg PO DAILY 12/06/22 12/06/22 multivitamin with minerals (Daily 1 ea PO DAILY 12/06/22 12/06/22 Multivitamin-Minerals tablet) atorvastatin 20 mg tablet See Rx Instructions .Route 02/18/24 .COMPLEX #90 tabs estradiol 0.05 mg/24 hr semiweekly See Rx Instructions .Route 02/18/24 transdermal patch (Abbi) .COMPLEX #10 patches insulin glargine 100 unit/mL (3 See Rx Instructions .Route 02/24/24 mL) subcutaneous pen (Basaglar .COMPLEX #15 mL KwikPen U-100 Insulin) Allergies Allergies Allergy/AdvReac Type Severity Reaction Status Date / Time Penicillins Allergy Intermediate Rash Verified 11/26/22 18:48 Exam Exam Examination as reported was obtained from patient and staff as well as peripheral observation Constitutional normal general appearance and no apparent distress Eyes PERRL Chest inspection of chest normal Respiratory normal respiratory effort, no wheezes and no use of accessory muscles Cardiovascular heart rate abnormal (tachycardic) and regular rhythm noted Extremities full ROM Conclusion/Plan Problem List (1) Acute hypoxemic respiratory failure: Plan: patient hypoxic on room, does not use oxygen at home, suspect secondary to acute pulmonary infection. Will manage as follows: -continue with supplemental oxygen,currently 2L via NC. Titrate as tolerated to baseline -close monitoring with telemetry and pulse oximetry -ABG as needed to assist with optimize management -d.dimer negative -treat underlying disease (2) Pneumonia: Plan: patient presents with 4 day history of cough, chest xray reviewed independently showing RLL infiltrate. patient tested positive for influenza A. will continue to manage as follows: - initiate tamiflu BID, will empirically cover for coexisting bacterial infection with Rocephin and azithromycin -monitor for therapeutic response, adjust for optimize management and to avoid toxicity -duonebs,incentive spirometry, turn and cough to mobilize secretion and prevent atelectasis -trend chest xray as needed for mangement adjustment -cultures pending. 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
[2024-06-02] MEDS: AZITHROMYCIN INJ 500 MG in SODIUM CHLORIDE 0.9% 250 ML IV STA (03:30)
[2024-06-02] MEDS: OSELTAMIVIR 75 MG CAPSULE PO STA (03:30)
[2024-06-02] MEDS: cefTRIAXone 2 GM VIAL IVP STA (03:30)
[2024-06-02] MEDS ORDERED: ONDANSETRON 4 MG/2 ML VIAL IVP PRN (04:07)
[2024-06-02] MEDS ORDERED: SODIUM CHLORIDE FLUSH 0.9% 10 ML SYRINGE IVP PRN (04:07)
[2024-06-02] MEDS: SODIUM CHLORIDE 0.9% 1,000 ML IV SCH (04:41)
[2024-06-02] MEDS: ACETAMINOPHEN 325 MG TABLET PO PRN (04:41)
--- NOTE | 2024-06-02 07:57 | XRAY Report ---
PROCEDURE: XR Chest 2V INDICATIONS: cough, SOB TECHNIQUE: 2 views of the chest were acquired. COMPARISON: 12/03/2022 FINDINGS AND IMPRESSION: Mildly prominent interstitium could represent atypical infection versus edema. No pleural effusions. No dense airspace disease. *On lateral view in the lower lungs, there is a focal nodular opacity. This could represent artifact, focal airspace disease or pulmonary nodule. Short interval follow-up radiograph or CT is recommended .* This study was marked in PACS as a result for communication with this change the preliminary report. Heart size is at the upper limited of normal. Degenerative osseous changes. Reviewed by: Javier Connelly MD on 06/02/2024 7:56 AM PDT Approved by: Javier Connelly MD on 06/02/2024 7:56 AM PDT Station ID: [id number]
[2024-06-02] MEDS: INSULIN LISPRO 300 UNIT/3 ML PEN SUBQ SCH ×3 (08:00→21:44)
[2024-06-02 09:06] LABS: BILIRUBIN,URINE NEGATIVE (NEGATIVE); GLUCOSE, URINE (UA) NEGATIVE (NEGATIVE); KETONES,URINE (UA) NEGATIVE (NEGATIVE); LEUKOCYTE ESTERASE, URINE NEGATIVE (NEGATIVE); NITRITE,URINE NEGATIVE (NEGATIVE); OCCULT BLOOD,URINE NEGATIVE (NEGATIVE); PROTEIN,URINE 30 mg/dL (NEGATIVE); UROBILINOGEN,URINE 0.2 (NORMAL) E.U./dL (NORMAL)
[2024-06-02 09:07] LABS: CLARITY,URINE CLEAR (CLEAR)
[2024-06-02 09:17] LABS: BACTERIA,URINE Few /HPF (None Seen); RBC,URINE 0-5 /HPF (0-5); SQUAMOUS EPITHELIAL CELL,UR FEW Squamous (<= Few); WBC,URINE 0-3 /HPF (0-5)
[2024-06-02] MEDS: SODIUM CHLORIDE FLUSH 0.9% 10 ML SYRINGE IVP SCH (09:25)
--- NOTE | 2024-06-02 12:28 | PHARMACY PROGRESS NOTE ---
Best Possible Medication History Admit Date and Time: 06/02/24 0259 Home Medications Medication Instructions Recorded Confirmed Type dextroamphetamine-amphetamine ER 25 mg PO DAILY 11/28/22 06/02/24 History 25 mg 24hr capsule,extend release (Adderall XR) hydroxyzine HCl 25 mg tablet 25 - 50 mg PO BID PRN Anxiety 11/28/22 06/02/24 History ascorbic acid (vitamin C) 500 mg 500 mg PO DAILY 12/06/22 06/02/24 History tablet (Vitamin C) cholecalciferol (vitamin D3) 10 2,000 unit PO DAILY 12/06/22 06/02/24 History mcg (400 unit) chewable tablet ferrous gluconate 324 mg (37.5 mg 324 mg PO DAILY 12/06/22 06/02/24 History iron) tablet insulin aspart U-100 100 unit/mL 5 - 10 units subcut TIDWM 12/06/22 06/02/24 History (3 mL) subcutaneous pen (Novolog FlexPen U-100 Insulin aspart) magnesium oxide 500 mg capsule 500 mg PO DAILY 12/06/22 06/02/24 History multivitamin with minerals (Daily 1 ea PO DAILY 12/06/22 06/02/24 History Multivitamin-Minerals tablet) atorvastatin 20 mg tablet See Rx Instructions .Route 02/18/24 06/02/24 Rx .COMPLEX #90 tabs estradiol 0.05 mg/24 hr semiweekly See Rx Instructions .Route 02/18/24 06/02/24 Rx transdermal patch (Abbi) .COMPLEX #10 patches insulin glargine 100 unit/mL (3 See Rx Instructions .Route 02/24/24 06/02/24 Rx mL) subcutaneous pen (Basaglar .COMPLEX #15 mL KwikPen U-100 Insulin) dextroamphetamine-amphetamine 10 10 mg PO DAILY 06/02/24 06/02/24 History mg tablet sertraline 100 mg tablet 200 mg PO DAILY 06/02/24 06/02/24 History Medications reviewed in ED?: Yes Medication History completed: Yes Patient Interview: Completed Secondary Source(s): Pharmacy records and Insurance records [facility] Statement: As the person ultimately responsible for medication therapy, providers are able to order a medication from an existing home medication list in [facility] via the "Reconcile Routine" prior to Confirmation of that medication by instructional support technician. Such practice is discouraged except when the physician, in their clinical judgment, deems that a medical need exists for a medication without regard to previous use.
[2024-06-02] MEDS: HYDROcod/ACETAM 10 MG/325 MG TABLET PO PRN (13:18)
[2024-06-02] MEDS: INSULIN LISPRO 300 UNIT/3 ML PEN SUBQ ONE (21:44)
[2024-06-02] MEDS: cefTRIAXone 1 GM VIAL IVP SCH (21:48)
[2024-06-02] MEDS: AZITHROMYCIN INJ 500 MG in SODIUM CHLORIDE 0.9% 250 ML IV SCH (21:52)
[2024-06-03] MEDS: INSULIN GLARGINE-YFGN 300 UNIT/3 ML PEN SUBQ SCH (08:55)
[2024-06-03] MEDS: OSELTAMIVIR 75 MG CAPSULE PO SCH (08:56)
[2024-06-03 09:39] LABS: ESTIMATED AVERAGE GLUCOSE 283 mg/dL (70-100); HEMOGLOBIN A1c% 11.5 % (4.27-6.07)
[2024-06-03] MEDS: INSULIN LISPRO 300 UNIT/3 ML PEN SUBQ SCH (12:01)
--- NOTE | 2024-06-03 16:17 | PROVIDER PROGRESS NOTE ---
Subjective Prog Note Date Prog Note Date: 06/03/24 Prog Note Time: 09:45 Subjective Pt reports feeling: Improved Subjective: Patient states that she is feeling much better, denies any subjective shortness of breath Current Medications Current Medications Current Medications: Current Medications Generic Name Dose Route Start Last Admin Trade Name Freq PRN Reason Stop Dose Admin Acetaminophen 650 mg 06/02/24 04:07 06/02/24 04:41 Acetaminophen 325 Mg Tablet PO 650 mg Q4HR PRN Administration Pain 1 to 4, or Fever Hydrocodone Bitart/Acetaminophen 1 tab 06/02/24 04:07 06/02/24 13:18 Hydrocod/Acetam 10 Mg/325 Mg Tablet PO 1 tab Q4HR PRN Administration Pain 8 to 10 Albuterol/Ipratropium 3 ml 06/02/24 02:59 Ipratropium/Albuterol 3 Ml Neb INH Q4HR PRN Wheezing Ceftriaxone Sodium 1 gm 06/02/24 21:00 06/02/24 21:48 Ceftriaxone 1 Gm Vial IVP 1 gm HS RACHEL Administration Hydralazine HCl 5 mg 06/02/24 02:59 Hydralazine Inj 20 Mg/Ml Vial IVP Q8H PRN hypertention Azithromycin 500 mg/ Sodium 250 mls @ 250 mls/hr 06/02/24 21:00 06/02/24 23:31 Chloride IV 06/03/24 21:59 Infused HS RACHEL Infusion Sodium Chloride 1,000 mls @ 50 mls/hr 06/02/24 04:07 06/03/24 00:03 Normal Saline 0.9% IV 50 mls/hr .Q20H RACHEL Administration Insulin Glargine-yfgn 15 unit 06/03/24 09:00 06/03/24 08:55 Insulin Glargine-Yfgn 300 Unit/3 Ml Pen SUBQ 15 unit BID RACHEL Administration Insulin Human Lispro 3 - 11 unit 06/02/24 21:35 06/03/24 12:01 Insulin Lispro 300 Unit/3 Ml Pen SUBQ 11 unit 0800,1200,1700,2100 RACHEL Administration Protocol Insulin Human Lispro 5 unit 06/03/24 12:00 06/03/24 12:01 Insulin Lispro 300 Unit/3 Ml Pen SUBQ 5 unit TIDWM RACHEL Administration Ondansetron HCl 4 mg 06/02/24 04:07 Ondansetron 4 Mg/2 Ml Vial IVP Q6HR PRN Nausea / Vomiting Oseltamivir Phosphate 75 mg 06/03/24 09:00 06/03/24 08:56 Oseltamivir 75 Mg Capsule PO 06/07/24 21:01 75 mg BID RACHEL Administration Sodium Chloride 10 ml 06/02/24 04:07 Sodium Chloride Flush 0.9% 10 Ml Syringe IVP PRN PRN NEEDED PER PROVIDER ORDERS Sodium Chloride 10 ml 06/02/24 09:00 06/03/24 08:58 Sodium Chloride Flush 0.9% 10 Ml Syringe IVP 10 ml 0100,0900,1700 RACHEL Administration Objective Vital Signs/Intake & Output Reviewed Vital Signs: Yes Vital Signs: Vital Signs x48h Temp Pulse Resp BP Pulse Ox O2 Flow Rate 06/03/24 11:30 36.6 C 103 H 22 140/78 H 89 L 2 Intake & Output: Intake & Output 05/31/24 06/01/24 06/02/24 06/03/24 23:59 23:59 23:59 23:59 Intake Total 2676 / 2676 1428 / 1428 Balance 2676 / 2676 1428 / 1428 Weight (kg) 101 kg Objective General Appearance: positive No acute distress and Alert Eyes Bilateral: positive Normal inspection Neck: positive Nml inspection Cardiovascular: positive Regular rate & rhythm, No murmur, No gallop and Irregularly irregular Abdomen: positive Non-tender, Nml bowel sounds and No distention Back: positive Nml inspection Neurologic/Psychiatric: positive Oriented x3, CN's nml (2-12) and Motor nml Lab Results 06/02/24 01:10 06/02/24 01:10 Other Labs: Lab Results x24hrs 06/03/24 06/03/24 06/03/24 Range/Units 11:29 08:36 07:31 POC Whole Bld Glucose 355 376 (70-100) mg/dL Estimat Average Glucose 283 H (70-100) mg/dL Hemoglobin A1c % 11.5 H (4.27-6.07) % 06/02/24 06/02/24 06/02/24 Range/Units 20:48 20:46 16:41 POC Whole Bld Glucose 438 508 303 (70-100) mg/dL Estimat Average Glucose (70-100) mg/dL Hemoglobin A1c % (4.27-6.07) % Diagnostic Imaging Diagnostic Imaging Results: positive Final report reviewed ABX Reporting Has patient been on IV antibiotics over the past 48 hours?: No Assessment/Plan Problem List (1) Acute hypoxemic respiratory failure: Impression: * Acute hypoxemic respiratory failure secondary to influenza A, with possibility of superimposed bacterial infection seen on chest x-ray * Patient is generally stable, doing well, but still mildly hypoxic requiring 2 L of oxygen * She is on Tamiflu and antibiotics for CAP * Continue antibiotics, Tamiflu, and wean oxygen as able (2) Influenza A: Impression: * As above (3) Pneumonia: Impression: As above Qualifiers: Laterality: right Lung location: lower lobe of lung Pneumonia type: d ue to unspecified organism Qualified Code(s): J18.9 - Pneumonia, unspecified organism (4) Type 2 diabetes mellitus: Impression: * BS elevated * Not well controlled * A1C is 11.5 * Start Glargine 15 U BID, Humalog 5U TIDWM * Cont ISS * Diabetic diet * Educated on importance of glycemic control Qualifiers: Diabetes mellitus long term care administrator insulin use: without detention use Diabetes mellitus complication status: with ketoacidosis Diabetes mellitus complication detail: without coma Qualified Code(s): E11.10 - Type 2 diabetes mellitus with ketoacidosis without coma
[2024-06-04] MEDS ORDERED: hydrOXYzine PAMOATE 25 MG CAPSULE PO PRN (12:10)
[2024-06-04] MEDS: hydrOXYzine PAMOATE 25 MG CAPSULE PO PRN (12:21)
--- NOTE | 2024-06-04 14:48 | Discharge Summary ---
"Discharge Summary Admit Date: 06/02/24 Discharge Date: 06/04/24 Discharging Provider: Dr Christian Shah Code Status: Attempt Resuscitation DIAGNOSES Admission Diagnoses: Acute hypoxemic respiratory failure Pneumonia Type 2 diabetes mellitus HPI History of Present Illness: Mrs. Mariano is a 54 yo F with a history of hypertension and diabetes. she presented with progressive cough,bodyaches and malaise of 4 day duration.She doesnt report known sick contacts.She had started to develop nausea and diarrhea prior to arrival. In the ED she was hypoxic on room air at 86%. She was influenza A positive and had evidence of pneumonia on her chest xray. I will admit the patient for continue monitoring and management of her acute respiratory failure and pneumonia. CONSULTS | PROCEDURES Consultations: None HOSPITAL COURSE Hospital Course: Patient is a 54-year-old female with a past medical history of type 2 diabetes mellitus who presented to the ED with symptoms consistent with upper respiratory infection and influenza. She tested positive for influenza A in the ED and was hypoxic to 86% on room air at admission. ALLERGIES Allergies Allergy/AdvReac Type Severity Reaction Status Date / Time Penicillins Allergy Intermediate Rash Verified 11/26/22 18:48 MEDICATIONS Ambulatory Orders Medication Instructions Recorded Confirmed dextroamphetamine-amphetamine ER 25 mg PO DAILY 11/28/22 06/02/24 25 mg 24hr capsule,extend release (Adderall XR) hydroxyzine HCl 25 mg tablet 25 - 50 mg PO BID PRN Anxiety 11/28/22 06/02/24 ascorbic acid (vitamin C) 500 mg 500 mg PO DAILY 12/06/22 06/02/24 tablet (Vitamin C) cholecalciferol (vitamin D3) 10 2,000 unit PO DAILY 12/06/22 06/02/24 mcg (400 unit) chewable tablet ferrous gluconate 324 mg (37.5 mg 324 mg PO DAILY 12/06/22 06/02/24 iron) tablet insulin aspart U-100 100 unit/mL 5 - 10 units subcut TIDWM 12/06/22 06/02/24 (3 mL) subcutaneous pen (Novolog FlexPen U-100 Insulin aspart) magnesium oxide 500 mg capsule 500 mg PO DAILY 12/06/22 06/02/24 multivitamin with minerals (Daily 1 ea PO DAILY 12/06/22 06/02/24 Multivitamin-Minerals tablet) atorvastatin 20 mg tablet See Rx Instructions .Route 02/18/24 06/02/24 .COMPLEX #90 tabs estradiol 0.05 mg/24 hr semiweekly See Rx Instructions .Route 02/18/24 06/02/24 transdermal patch (Abbi) .COMPLEX #10 patches insulin glargine 100 unit/mL (3 See Rx Instructions .Route 02/24/24 06/02/24 mL) subcutaneous pen (Basaglar .COMPLEX #15 mL KwikPen U-100 Insulin) dextroamphetamine-amphetamine 10 10 mg PO DAILY 06/02/24 06/02/24 mg tablet sertraline 100 mg tablet 200 mg PO DAILY 06/02/24 06/02/24 oseltamivir 75 mg capsule 75 mg PO BID 3 days #6 caps 06/04/24 PHYSICAL EXAM AT DISCHARGE General Appearance: positive No acute distress and Alert Respiratory: positive Chest non-tender, No respiratory distress and Wheezes (Mild basilar wheeze at the right) Cardiovascular: positive Regular rate & rhythm, No murmur, No gallop and Irregularly irregular Abdomen: positive Non-tender, No organomegaly, Nml bowel sounds and No distention Skin: positive Color nml Extremities: positive Nml appearance Neurologic/Psychiatric: positive Oriented x3, CN's nml (2-12) and Motor nml LABS 06/02/24 01:10 06/02/24 01:10 DIAGNOSTIC IMAGING Diagnostic Imaging Results: Final report reviewed TIME SPENT Time Spent in Discharge (Minutes): 36 Discharge Plan Discharge Patient Disposition: Home, Self Care Medically Cleared Date:: 06/04/24 Prescriptions: New oseltamivir 75 mg Capsule 75 mg PO BID 3 Days Qty: 6 0RF Continued estradiol [Abbi] 0.05 mg/24 hr patch semiweekly See Rx Instructions .ROUTE .COMPLEX Qty: 10 3RF Dose Instruction: APPLY 1 PATCH TOPICALLY EVERY 72 HOURS Patient Comments: Needs one today. 06/02/2024 Rx Instructions: APPLY 1 PATCH TOPICALLY EVERY 72 HOURS atorvastatin 20 mg tablet See Rx Instructions .ROUTE .COMPLEX Qty: 90 2RF Dose Instruction: Take 1 tablet by mouth once daily Rx Instructions: Take 1 tablet by mouth once daily insulin glargine [Basaglar KwikPen U-100 Insulin] 100 unit/mL (3 mL) insulin pen See Rx Instructions .ROUTE .COMPLEX Qty: 15 7RF Dose Instruction: INJECT 30 UNITS SUBCUTANEOUSLY TWICE DAILY Rx Instructions: INJECT 30 UNITS SUBCUTANEOUSLY TWICE DAILY dextroamphetamine-amphetamine [Adderall XR] 25 MG capsule,extended release 24hr 25 mg PO DAILY Patient Comments: TAKE ONE CAPSULE BY MOUTH EVERY MORNING hydroxyzine HCl 25 MG tablet 25 - 50 mg PO BID PRN (Reason: Anxiety) Patient Comments: TAKE 1 TO 2 TABLETS BY MOUTH TWICE DAILY NEEDED FOR ANXIETY ascorbic acid (vitamin C) [Vitamin C] 500 MG tablet 500 mg PO DAILY Daily Multivitamin-Minerals 1 EACH tablet 1 ea PO DAILY magnesium oxide 500 MG capsule 500 mg PO DAILY cholecalciferol (vitamin D3) 10 MCG tablet,chewable 2,000 unit PO DAILY ferrous gluconate 324 MG tablet 324 mg PO DAILY insulin aspart U-100 [Novolog FlexPen U-100 Insulin] 100 UNIT/ML insulin pen 5 - 10 units subcut TIDWM Rx Instructions: 10 UNITS WITH MEALS. IF SMALL MEAL THEN 5 UNITS. dextroamphetamine-amphetamine 10 mg tablet 10 mg PO DAILY Rx Instructions: TAKE 1 TABLET BY MOUTH ONCE DAILY IN THE AFTERNOON BEFORE LEAVING FOR WORK sertraline 100 mg tablet 200 mg PO DAILY Diet: Diabetic Health Concerns: You are diagnosed with influenza A which caused you to feel short of breath and develop hypoxia, which means low oxygen in the blood. However, you have since improved and now have normal oxygen levels and can safely return home. I am recommending you continue Tamiflu which is a medication to treat influenza for another 3 days. In addition, please note that your blood sugar was elevated during this hospital stay and I highly encourage you to follow-up with your PCP on strategies to improve your blood sugar control. Print Language: [place] Patient Instructions: Diabetes Type 2 Stand Alone Forms: PCP List Follow-up Care: Tiffanie Cunningham ARNP [Primary Care Provider] -"
[2024-06-04 15:47] VITALS: BP 113/66; TEMP 97.9; O2SAT 92
== END 2024-06-04 16:40 | disposition home or self-care (01) ==
LOC: EDBD → MS2 00:51 → ED 00:51 → MS2 04:10
PROVIDERS: ADMIT Hospitalist; ATTEND Hospitalist
DX: E11.10 Type 2 diabetes mellitus with ketoacidosis without coma; Z79.4 Long term (current) use of insulin; I10 Essential (primary) hypertension; J96.01 Acute respiratory failure with hypoxia; J10.00 Influenza due to other identified influenza virus with unspecified type of pneumonia